=== PATIENT | male | born 1955 | race Caucasian/White ===

== ENCOUNTER → 2018-01-25 11:48 | Outpatient (CLI) | payer BC, SELFPAY ==
--- NOTE | 2018-01-25 | MISC_PTH ---
PATIENT: OLIVA GREY LOC: [facility] U#:[id number] AGE/SX: 69/M ROOM: RE01/25/[address]: Dr. Raymond Mooney MD : [id number] BED: DIS: SPEC #: [id number] RECD: 01/25/18 12:02 STATUS: LEATHA CHRISTAL #: [id number] JANES: 01/25/18 00:[address]: Raymond Mooney DEPT: SURGICAL PATHOLOGY RECD BY: Evan Arrington Tissues: Oral cavity, NOS Procedures: Special Stain Group I Surgery Specimen Level IV GMS Stain (control) HEADER OPERATION: Oral cavity growth biopsy PRE-OP DIAGNOSIS: Oral cavity growth TISSUE SUBMITTED: Oral cavity growth MICROSCOPIC DIAGNOSIS Oral cavity growth, biopsy: A fragment of squamous mucosa with mild epithelial hyperplasia, vascular ectasia and congestion. Negative for malignancy. Special stain for fungi is negative for organisms; matched control is appropriate. SJ:kingsley 01/28/18 COMMENT Case has been reviewed in consultation with Dr. Arcos who concurs with the above diagnosis. IDC:AM MICROSCOPIC DESCRIPTION Slides are reviewed. GROSS DESCRIPTION Received in fixative is one container labeled with the patient's name and designated oral cavity growth biopsy. The specimen consists of a piece of duncan mucosal tissue measuring 0.5 x 0.5 x 0.2 cm. The specimen is totally submitted in one cassette. / SJ:kingsley 01/27/18 TC:5 CPT: 11154, 06083
== END ==
PROVIDERS: Visit Provider Otolaryngology
DX: D37.09 Neoplasm of uncertain behavior of other specified sites of the oral cavity (principal)
CPT/HCPCS: 88305; 88312

== ENCOUNTER → 2018-08-19 09:47 | Outpatient (CLI) | payer BC, SELFPAY ==
--- NOTE | 2018-08-19 10:06 | EKG12_ITS ---
Test Reason : PREOP Blood Pressure : / mmHG Vent. Rate : 069 BPM Atrial Rate : 069 BPM P-R Int : 176 ms QRS Dur : 082 ms QT Int : 384 ms P-R-T Axes : 045 022 033 degrees QTc Int : 411 ms Normal sinus rhythm Normal ECG Confirmed by DENNIS EDMONDSON, IVAN ([id number]), scientific editor DARIO WILSON ([id number]) on 08/21/2018 8:25:08 AM Referred By: Salvador Olivera Confirmed By:IVAN COLLINS MD
[2018-08-19 10:25] LABS: Absolute Lymphocyte Count 1.55 X10^3/ul (0.83-4.51); Absolute Neutrophil Count 3.5 X10^3/uL (2.0-7.7); Basophil# 0.02 X10^3/uL; Basophil% 0.4 % (0-1); Eosinophil# 0.18 X10^3/uL; Eosinophils% 3.2 % (0-5); Hematocrit 38.4 % (40-54); Hemoglobin 11.1 g/dl (13.0-16.5); Lymphocyte # 1.55 X10^3/ul (4.0); Lymphocyte % 27.8 % (19-41); Mean Corp Hgb Conc 28.9 g/gl (32-36); Mean Corpuscular Hgb 22.4 pg (27.0-32.0); Mean Corpuscular Volume 77.4 fL (80-94); Mean Platelet Vol. 9.3 fl (6.2-12.0); Monocyte# 0.35 X10^3/uL; Monocyte% 6.3 % (0-10); Neutrophil # 3.47 X10^3/uL (2.7-7.7); Neutrophil % 62.3 % (47-70); Platelet Count 253 K/mm3 (150-450); RBC Distribution Width CV 16.3 % (11.6-14.6); RBC Distribution Width SD 46.1 fl (35.1-43.9); Red Blood Count 4.96 M/mm3 (4.6-6.2); White Blood Count 5.6 K/mm3 (4.4-11.0)
[2018-08-19 10:27] LABS: POSITIVE COUNT NO; POSITIVE DIFFERENTIAL NO; POSITIVE MORPHOLOGY NO
[2018-08-19 10:52] LABS: Anion Gap 6 (5-15); BUN 17 mg/dL (7-18); BUN/Creat Ratio 17.7 RATIO (10-20); Calcium,Total 8.5 mg/dL (8.5-10.1); Chloride 110 mmol/L (98-107); Creatinine, Serum 0.96 mg/dL (0.70-1.30); EST Glomerular Filtration Rate 84 mL/min (>60); Est Glom Filt Rate - Afr Amer 102 mL/min (>60); Glucose 115 mg/dL (74-106); Potassium 4.3 mmol/L (3.5-5.1); Sodium Level 141 mmol/L (136-145)
== END ==
PROVIDERS: Family Provider Internal Medicine; PCP Internal Medicine; Referring Provider Physician Assistant; Visit Provider Physician Assistant
DX: Z01.818 Encounter for other preprocedural examination (principal); Z01.810 Encounter for preprocedural cardiovascular examination
CPT/HCPCS: 36415; 80048; 85025; 93005

== ENCOUNTER 2024-05-15 07:33 | Inpatient (IN) | payer OTHER, MEDICARE, SELFPAY ==
[2024-05-15] VITALS (13 sets, daily range): BP systolic 116–172; BP diastolic 64–90; PULSE 63–84; RESP 14–22; TEMP 36.7–37.1; O2SAT 94–100; BMI 33.4; BMI 34.0
[2024-05-15 07:55] LABS: Absolute Lymphocyte Count 1.67 X10^3/uL (0.83-4.51); Absolute Neutrophil Count 4.9 X10^3/uL (2.0-7.7); Basophil# 0.04 X10^3/uL; Basophil% 0.5 % (0-1); Eosinophil# 0.16 X10^3/uL; Eosinophils% 2.1 % (0-5); Hematocrit 40.4 % (40-54); Lymphocyte # 1.67 X10^3/ul (0.83-4.51); Lymphocyte % 22.3 % (19-41); Mean Corp Hgb Conc 32.2 g/dL (32-36); Mean Corpuscular Volume 83.8 fL (80-94); Mean Platelet Vol. 8.4 fl (6.2-12.0); Monocyte# 0.65 X10^3/uL; Monocyte% 8.7 % (0-10); NRBC Flagged by Analyzer 0 % (0-5); Neutrophil # 4.94 X10^3/uL (2.7-7.7); Platelet Count 260 K/mm3 (150-450); RBC Distribution Width CV 12.7 % (11.6-14.6); RBC Distribution Width SD 38.4 fl (35.1-43.9); Red Blood Count 4.82 M/mm3 (4.6-6.2); White Blood Count 7.5 K/mm3 (4.4-11.0)
[2024-05-15 08:19] LABS: Anion Gap 5 (5-15); BUN 26 mg/dL (7-18); BUN/Creat Ratio 23.2 RATIO (10-20); Calcium,Total 9.5 mg/dL (8.5-10.1); Chloride 101 mmol/L (98-107); Creatinine, Serum 1.12 mg/dL (0.70-1.30); EST Glomerular Filtration Rate 69 mL/min (>60); Est Glom Filt Rate - Afr Amer 84 mL/min (>60); Estimated Creatinine Clearance 73.29 ml/min; Glucose 173 mg/dL (74-106); Potassium 3.8 mmol/L (3.5-5.1); Sodium Level 136 mmol/L (136-145); Troponin-I HS (w/2H Reflex) 12 pg/mL (3.0-78.0)
[2024-05-15 09:52] LABS: Reflex Troponin-HS? (from REC) Y
[2024-05-15 10:25] LABS: Troponin-I HS 116 pg/mL (3.0-78.0)
[2024-05-15] MEDS: Nitroglycerin (INPATIENT USE) 0.4 MG TAB.SUBL SL (11:03)
[2024-05-15 11:32] LABS: D-Dimer Quantitative (DVT/PE) 1.55 FEU/ug/m (0.27-0.49)
[2024-05-15] MEDS: Morphine 4 MG/ML Syringe IV (11:41)
[2024-05-15] MEDS: Ondansetron 4 MG/2 ML Vial IV (11:41)
[2024-05-15 12:06] LABS: BNP,B-Type NATRIURETIC PEPTIDE 5.5 pg/mL (0-100)
[2024-05-15 13:21] LABS: Prothrombin Time (Protime)PT. 13.2 SECONDS (11.7-14.9)
[2024-05-15 13:22] LABS: Partial Thromboplast Time 24.6 Seconds (24.1-36.2)
[2024-05-15] MEDS: HEPARIN/D5w 25,000 UNITS 25,000 UNITS/250 ML IV.SOLN. 10 UNITS CONT INF (14:50)
[2024-05-15] MEDS: Heparin Injection (Vial) 5,000 UNIT/ML VIAL 4000 UNIT IV (14:52)
[2024-05-15 14:59] LABS: Troponin-I HS 1104 pg/mL (3.0-78.0)
[2024-05-15 21:09] LABS: Partial Thromboplast Time 39.1 Seconds (24.1-36.2)
[2024-05-16] VITALS (9 sets, daily range): BP systolic 104–134; BP diastolic 64–95; PULSE 72–95; RESP 16–18; TEMP 36.4–36.9; O2SAT 95–96
[2024-05-16 04:08] LABS: Absolute Lymphocyte Count 2.13 X10^3/uL (0.83-4.51); Absolute Neutrophil Count 4.6 X10^3/uL (2.0-7.7); Basophil# 0.04 X10^3/uL; Basophil% 0.5 % (0-1); Eosinophils% 2.6 % (0-5); Hematocrit 38.9 % (40-54); Hemoglobin 12.4 g/dL (13.0-16.5); Lymphocyte # 2.13 X10^3/ul (0.83-4.51); Lymphocyte % 27.6 % (19-41); Mean Corp Hgb Conc 31.9 g/dL (32-36); Mean Corpuscular Volume 84.7 fL (80-94); Mean Platelet Vol. 8.7 fl (6.2-12.0); Monocyte# 0.71 X10^3/uL; Monocyte% 9.2 % (0-10); NRBC Flagged by Analyzer 0 % (0-5); Neutrophil # 4.62 X10^3/uL (2.7-7.7); Neutrophil % 59.8 % (47-70); Platelet Count 258 K/mm3 (150-450); RBC Distribution Width SD 39.8 fl (35.1-43.9); Red Blood Count 4.59 M/mm3 (4.6-6.2); White Blood Count 7.7 K/mm3 (4.4-11.0)
[2024-05-16 04:19] LABS: Partial Thromboplast Time 45.6 Seconds (24.1-36.2)
[2024-05-16 08:18] LABS: AST(SGOT) 103 U/L (15-37); Alanine Aminotransfer ALT/SGPT 111 U/L (16-61); Albumin, Serum 3.5 g/dL (3.2-5.0); Alkaline Phosphatase 58 U/L (45-117); Anion Gap 5 (5-15); BUN 21 mg/dL (7-18); BUN/Creat Ratio 20.8 RATIO (10-20); Calcium,Total 9.3 mg/dL (8.5-10.1); Chloride 101 mmol/L (98-107); Cholesterol 125 mg/dL (200); Creatinine, Serum 1.01 mg/dL (0.70-1.30); EST Glomerular Filtration Rate 78 mL/min (>60); Est Glom Filt Rate - Afr Amer 95 mL/min (>60); Estimated Creatinine Clearance 81.99 ml/min; Globulin 3.5 g/dL (2.2-4.2); Glucose 126 mg/dL (74-106); High Density Lipoprotein 30 mg/dL; Magnesium 1.9 mg/dL (1.6-2.6); Phosphorus 2.7 mg/dL (2.5-4.9); Potassium 3.8 mmol/L (3.5-5.1); Sodium Level 134 mmol/L (136-145); Triglycerides 231 mg/dL; Very Low Density Lipoprotein 46 mg/dL (5-40)
[2024-05-16] MEDS: Folic Acid 1 MG Tablet PO (09:37)
[2024-05-16] MEDS: Aspirin E.C. 81 MG Tablet PO (09:37)
[2024-05-16] MEDS: Pantoprazole Sodium 40 MG Tablet PO (09:37)
[2024-05-16] MEDS: Senna/Docusate Sodium 1 Tablet 2 TABLET PO ×3 (09:46→22:17)
[2024-05-16] MEDS: Finasteride 5 MG Tablet PO (09:46)
[2024-05-16] MEDS: Nitroglycerin (INPATIENT USE) 0.4 MG TAB.SUBL SL (10:49)
[2024-05-16] MEDS: FLU VACCINE **HIGH DOSE** TV 24-25 180 MCG/0.5 ML SYRINGE IM (10:51)
[2024-05-16 11:50] LABS: Partial Thromboplast Time 42.3 Seconds (24.1-36.2)
[2024-05-16] MEDS: hydroCHLOROthiazide 25 MG Tablet PO (11:54)
[2024-05-16] MEDS: amLODIPine 5 MG Tablet PO (11:55)
[2024-05-16] MEDS: HEPARIN/D5w 25,000 UNITS 25,000 UNITS/250 ML IV.SOLN. 14 UNITS CONT INF (12:04)
[2024-05-16] MEDS: Losartan Potassium 100 MG Tablet PO (14:53)
[2024-05-16 15:33] LABS: Hemoglobin A1c 6.5 % (3.8-5.6)
[2024-05-16 18:07] LABS: Partial Thromboplast Time 47.3 Seconds (24.1-36.2)
[2024-05-16] MEDS: Metoprolol(XL)Succ 50 MG Tablet PO (22:04)
[2024-05-16] MEDS: Atorvastatin Calcium 20 MG Tablet PO (22:05)
[2024-05-16] MEDS: Nitroglycerin Oint 1 INCH PACKET 0.5 INCH TD (22:07)
[2024-05-17] VITALS (9 sets, daily range): BP systolic 110–128; BP diastolic 66–95; PULSE 68–93; RESP 15–18; TEMP 36.4–36.9; O2SAT 96–97
[2024-05-17 00:54] LABS: Partial Thromboplast Time 51.3 Seconds (24.1-36.2)
[2024-05-17] MEDS: Nitroglycerin Oint 1 INCH PACKET 0.5 INCH TD ×3 (06:00→22:53)
[2024-05-17] MEDS: HEPARIN/D5w 25,000 UNITS 25,000 UNITS/250 ML IV.SOLN. 16 UNITS CONT INF (06:59)
[2024-05-17 08:28] LABS: Partial Thromboplast Time 56.4 Seconds (24.1-36.2)
[2024-05-17] MEDS: Losartan Potassium 100 MG Tablet PO (09:42)
[2024-05-17] MEDS: Pantoprazole Sodium 40 MG Tablet PO (09:42)
[2024-05-17] MEDS: Aspirin E.C. 81 MG Tablet PO (09:42)
[2024-05-17] MEDS: hydroCHLOROthiazide 25 MG Tablet PO (09:42)
[2024-05-17] MEDS: amLODIPine 5 MG Tablet PO (09:43)
[2024-05-17] MEDS: Folic Acid 1 MG Tablet PO (09:43)
[2024-05-17] MEDS: Finasteride 5 MG Tablet PO (09:44)
[2024-05-17 13:32] LABS: Partial Thromboplast Time 58.1 Seconds (24.1-36.2)
[2024-05-17] MEDS: Metoprolol(XL)Succ 50 MG Tablet PO (20:52)
[2024-05-17] MEDS: Atorvastatin Calcium 20 MG Tablet PO (20:52)
[2024-05-18] VITALS (14 sets, daily range): BP systolic 97–131; BP diastolic 61–84; PULSE 67–88; RESP 15–18; TEMP 36.4–36.7; O2SAT 90–99
[2024-05-18] MEDS: HEPARIN/D5w 25,000 UNITS 25,000 UNITS/250 ML IV.SOLN. 16 UNITS CONT INF (00:32)
[2024-05-18] MEDS: amLODIPine 5 MG Tablet PO (06:08)
[2024-05-18] MEDS: Pantoprazole Sodium 40 MG Tablet PO (06:08)
[2024-05-18] MEDS: Losartan Potassium 100 MG Tablet PO (06:09)
[2024-05-18] MEDS: Nitroglycerin Oint 1 INCH PACKET 0.5 INCH TD (06:09)
[2024-05-18] MEDS: Aspirin E.C. 81 MG Tablet PO (06:09)
[2024-05-18 06:14] LABS: Hematocrit 39.1 % (40-54); Hemoglobin 12.9 g/dL (13.0-16.5); Mean Corpuscular Hgb 27.6 pg (27.0-32.0); Mean Corpuscular Volume 83.5 fL (80-94); Mean Platelet Vol. 8.8 fl (6.2-12.0); Platelet Count 294 K/mm3 (150-450); RBC Distribution Width CV 12.9 % (11.6-14.6); RBC Distribution Width SD 38.5 fl (35.1-43.9); Red Blood Count 4.68 M/mm3 (4.6-6.2); White Blood Count 9.5 K/mm3 (4.4-11.0)
[2024-05-18 06:58] LABS: Anion Gap 8 (5-15); BUN 21 mg/dL (7-18); BUN/Creat Ratio 19.3 RATIO (10-20); Calcium,Total 9.4 mg/dL (8.5-10.1); Chloride 102 mmol/L (98-107); Creatinine, Serum 1.09 mg/dL (0.70-1.30); EST Glomerular Filtration Rate 72 mL/min (>60); Est Glom Filt Rate - Afr Amer 87 mL/min (>60); Estimated Creatinine Clearance 75.98 ml/min; Glucose 130 mg/dL (74-106); Potassium 3.5 mmol/L (3.5-5.1); Sodium Level 135 mmol/L (136-145)
[2024-05-18] MEDS: Folic Acid 1 MG Tablet PO (13:38)
[2024-05-18] MEDS: Finasteride 5 MG Tablet PO (13:38)
[2024-05-18] MEDS: Senna/Docusate Sodium 1 Tablet 2 TABLET PO (13:41)
[2024-05-18] MEDS: 0.9% Saline Lock 10 ML Syringe IV (21:48)
[2024-05-18] MEDS: TICAGRELOR 90 MG TABLET PO (21:48)
[2024-05-18] MEDS: Atorvastatin Calcium 20 MG Tablet PO (21:48)
[2024-05-18] MEDS: Metoprolol(XL)Succ 50 MG Tablet PO (21:48)
[2024-05-19 03:30] VITALS: BP 116/72; PULSE 74; RESP 16; TEMP 36.7; O2SAT 94
[2024-05-19 06:59] LABS: Hematocrit 39.7 % (40-54); Hemoglobin 13.2 g/dL (13.0-16.5); Mean Corp Hgb Conc 33.2 g/dL (32-36); Mean Corpuscular Hgb 27.5 pg (27.0-32.0); Mean Corpuscular Volume 82.7 fL (80-94); Mean Platelet Vol. 8.8 fl (6.2-12.0); Platelet Count 305 K/mm3 (150-450); RBC Distribution Width SD 39.2 fl (35.1-43.9); White Blood Count 10.4 K/mm3 (4.4-11.0)
[2024-05-19 07:17] LABS: AST(SGOT) 85 U/L (15-37); Alanine Aminotransfer ALT/SGPT 152 U/L (16-61); Albumin, Serum 3.7 g/dL (3.2-5.0); Alkaline Phosphatase 65 U/L (45-117); Anion Gap 7 (5-15); BUN 16 mg/dL (7-18); BUN/Creat Ratio 15.1 RATIO (10-20); Calcium,Total 9.2 mg/dL (8.5-10.1); Chloride 101 mmol/L (98-107); Creatinine, Serum 1.06 mg/dL (0.70-1.30); EST Glomerular Filtration Rate 74 mL/min (>60); Est Glom Filt Rate - Afr Amer 89 mL/min (>60); Estimated Creatinine Clearance 78.13 ml/min; Globulin 3.7 g/dL (2.2-4.2); Glucose 127 mg/dL (74-106); Potassium 3.6 mmol/L (3.5-5.1); Protein, Total 7.4 g/dL (6.4-8.2); Sodium Level 135 mmol/L (136-145)
[2024-05-19 08:19] VITALS: O2SAT 95
[2024-05-19 09:06] VITALS: BP 147/80; PULSE 89; RESP 16; TEMP 36.7; O2SAT 95
[2024-05-19] MEDS: Pantoprazole Sodium 40 MG Tablet PO (09:09)
[2024-05-19] MEDS: Aspirin E.C. 81 MG Tablet PO (09:09)
[2024-05-19] MEDS: Folic Acid 1 MG Tablet PO (09:09)
[2024-05-19] MEDS: TICAGRELOR 90 MG TABLET PO (09:10)
[2024-05-19] MEDS: amLODIPine 5 MG Tablet PO (09:11)
[2024-05-19] MEDS: Finasteride 5 MG Tablet PO (09:11)
[2024-05-19] MEDS: hydroCHLOROthiazide 25 MG Tablet PO (09:11)
[2024-05-19] MEDS: Losartan Potassium 100 MG Tablet PO (09:11)
== END 2024-05-19 12:42 | disposition home or self-care (01) | DRG 322 ==
LOC: ED 13:08 → PCU 13:13
PROVIDERS: Specialist; Admitting Provider Internal Medicine; Emergency Provider Emergency Medicine; PCP Internal Medicine; Visit Provider Internal Medicine
DX: I21.4 Non-ST elevation (NSTEMI) myocardial infarction (principal); E11.65 Type 2 diabetes mellitus with hyperglycemia; I10 Essential (primary) hypertension; E78.5 Hyperlipidemia, unspecified; K21.9 Gastro-esophageal reflux disease without esophagitis; I25.10 Atherosclerotic heart disease of native coronary artery without angina pectoris; M19.90 Unspecified osteoarthritis, unspecified site; Z87.891 Personal history of nicotine dependence
CPT/HCPCS: 36415; 71045; 71275; 80048; 80053; 80061; 83036; 83735; 83880; 84100; 84443; 84484; 85025; 85027; 85379; 85610; 85730; 90662; 92928; 93005; 93306; 93458; 94668; 97802; 99152; 99153; 99285; C1874; J7040; Q9957; Q9967; A4216; C1725; C1769; C1887; C1894; C8929; C9600; J1327; J2405

== ENCOUNTER 2024-08-09 07:19 | Emergency (ER) | payer OTHER, SELFPAY ==
[2024-08-09 07:20] VITALS: BP 144/74; PULSE 76; RESP 14; TEMP 36.6; O2SAT 98; BMI 32.3
--- NOTE | 2024-08-09 07:28 | EKG12_ITS ---
Test Reason : Blood Pressure : */* mmHG Vent. Rate : 67 BPM Atrial Rate : 67 BPM P-R Int : 194 ms QRS Dur : 92 ms QT Int : 394 ms P-R-T Axes : 28 -14 -7 degrees QTcB Int : 416 ms Normal sinus rhythm Normal ECG Confirmed by IVAN EDMONDSON, OSORIO ([id number]), editorial intern DERICK RDZ ([id number]) on 08/10/2024 10:54:55 A M Referred By: Confirmed By: OSORIO LOVE MD
--- NOTE | 2024-08-09 07:29 | RAD_ITS ---
EXAM: XR CHEST, 2 VIEWS CLINICAL INDICATION: chest pain TECHNIQUE: Frontal and lateral views of the chest. COMPARISON: XR Chest dated 05/15/2024 FINDINGS: LUNGS AND PLEURAL SPACES: Normal. No consolidation or edema. No pneumothorax. No effusion. HEART: Normal heart size. MEDIASTINUM: No mediastinal or hilar mass. BONES/JOINTS: No acute abnormality. RAD/Chest PA and Lateral IMPRESSION: No acute cardiopulmonary abnormality. No interval change. Electronically Signed: Mathew Faith MD at 8:51 EST ,
--- NOTE | 2024-08-09 07:31 | EDS_ITS ---
HPI History of Present Illness Chief Complaint: Chest Pain Detail of Chief Complaint: Left-sided chest pain Informant: patient and spouse/S.O. Onset/Context/Timing Onset: Today (Started approximately 0530 when he put wood into the burner this morning) and Yesterday (Yesterday at 1700 until approximately 2100) Activity at onset: sudden Timing: Continuous (Since onset this morning) and Intermittent (For 4 hours yesterday) Quality: Positive for - (Discomfort) Location: Left Parasternal Current Severity: Mild Maximum Severity: Moderate Worsened By: Nothing Relieved By: Nothing Associated Symptoms: Negative for Nausea, Vomiting, Diaphoresis, Dyspnea, Cough, Fever, Lightheadedness, Acid Reflux or Palpitations Narrative Narrative: Patient is a 68-year-old male. He has history of coronary disease with deployment of stent proximal RCA by Dr. Meza. Cath was performed by Dr. Gutierrez. He presents because of chest discomfort that he experienced yesterday for 4 hours that came on at rest and today pain started at 0530 after putting wood in the burner. He has no radiation or associated symptoms. This is not as intense as discomfort experience in April 2024. He does have history of hypertension, on cholesterol medication. He has no history of diabetes. He quit smoking approximately 2 decades ago. He did take aspirin this morning. He is on Brilinta. He denies abdominal pain. He does have history of reflux. He states that is under control. He is on medicine for that. He denies black or maroon-colored stool. He has had swelling of his right leg for approximately 2 to 3 years. He sleeps with multiple pillows. He states he was scheduled to have knee surgery and was postponed because of the non-ST elevation DE that he experienced in April of last year. He attributes the swelling to the knee problem. He denies history of VTE. He has no risk factors for VTE. He denies shortness of breath or pleuritic pain. Prior Similar Symptoms: No Recent Illness/Hospitalization: No CVD Risk Factors: Positive for Hypertension, Hypercholesterolemia (On cholesterol medicine however not listed as a medical problem. Will review prior labs) and Smoking (Quit 20 years ago); Negative for Diabetes or Family History 1' </=55 PE Risk Factors: Negative for Recent Travel/Surgery, Recent Immobilization, Prior DVT or PE, Cancer or OCP + Smoking + >/=35 TAD Risk Factors: Positive for Hypertension; Negative for Marfan's Syndrome or Family History PFSH [facility] Medical History Essential hypertension Hyperglycemia Acute non-ST elevation myocardial infarction (NSTEMI) Elevated troponin History of gastroesophageal reflux (GERD) Chest pain of uncertain etiology Atherosclerosis of coronary artery of [place] heart without angina pectoris Kidney stone Back pain Knee pain Shoulder pain SOB (shortness of breath) Arthritis HTN (hypertension) Home Medications ?Medication ?Instructions ?Recorded ?Last Taken ?Type atorvastatin 20 mg tablet 20 mg PO DAILY cholesterol 01/09/17 Unknown History koiw-etz-odgwo-qmbgoaqrs-cooqmsjm-ybkt-pectin 1,000 mg PO DAILY bowels 01/09/17 Unknown History 1,000 mg tablet cholecalciferol (vitamin D3) 25 1,000 unit PO DAILY supplement 01/09/17 Unknown History mcg (1,000 unit) capsule finasteride 1 mg tablet 1 mg PO QHS prostate 01/09/17 Unknown History folic acid 1 mg tablet 1 mg PO DAILY@0800 supplement 01/09/17 Unknown History metoprolol succinate 50 mg 50 mg PO DAILY HR 01/09/17 Unknown History tablet,extended release 24 hr amlodipine 5 mg tablet 5 mg PO DAILY blood pressure 05/15/24 Unknown History losartan 100 mg tablet 100 mg PO DAILY blood pressure 05/15/24 Unknown History omeprazole 40 mg capsule,delayed 40 mg PO DAILY acid reflux 05/15/24 Unknown History release acetaminophen 325 mg tablet 650 mg (2 x 325 mg) PO Q6H PRN PRN 05/19/24 Unknown Rx Pain 1-10 Or Fever >100.7 #0 tabs aspirin 81 mg tablet,delayed 81 mg PO BREAKFAST #0 tabs 05/19/24 Unknown Rx release ticagrelor 90 mg tablet (Brilinta) 90 mg PO BID #180 tabs 06/02/24 Unknown Rx Allergy/AdvReac Type Severity Reaction Status Date / Time No Known Allergies Allergy Verified 08/09/24 07:19 Family History Other Heart disease Hypertension Surgical History History of coronary artery stent placement (10/28/24) History of gastric surgery History of foot surgery History of knee surgery Social History household members: spouse housing: house Smoking Status: Former smoker Tobacco: How many years used: 20 how long ago did patient quit smoking: Quit about 20 years ago and has a 64-uopu-[id number] history alcohol intake: current alcohol intake frequency: a few times a month substance use type: does not use ROS ROS ED Constitutional Constitutional ED: Denies chills, fever(s), subjective or sweats Eyes Eyes: Reports none Cardiovascular Cardiovascular: Reports as per HPI; Denies orthopnea or paroxysmal nocturnal dyspnea Respiratory/Chest Respiratory/Chest: Denies cough, dyspnea, dyspnea on exertion, orthopnea or paroxysmal nocturnal dyspnea Gastrointestinal Gastrointestinal: Denies abdominal pain, melena, nausea or vomiting Musculoskeletal Musculoskeletal: Denies arthralgias, back pain, myalgias or neck pain Integumentary Denies rash Neurologic Neurologic: Denies paresthesias Hematologic/Lymphatic Hematologic/Lymphatic: Denies easy bleeding or easy bruising EXAM Physical Exam Const Vital Signs: 08/09/24 07:20 08/09/24 07:39 08/09/24 08:19 Temperature 98 F Temperature Source Temporal Pulse Rate 76 64 Respiratory Rate 14 18 Blood Pressure 144/74 H 131/73 H Blood Pressure Mean 97 92 Pulse Ox 98 98 Oxygen Delivery Method Room Air Room Air Room Air 08/09/24 09:00 08/09/24 10:02 Temperature Temperature Source Pulse Rate 71 67 Respiratory Rate 18 12 Blood Pressure 123/76 H 139/76 H Blood Pressure Mean 91 97 Pulse Ox 95 95 Oxygen Delivery Method Room Air Room Air Positive well nourished Constitutional Narrative: BMI is 32.2. He appears in no discomfort. Blood pressure is slightly elevated. General Appearance ED: NAD; Negative for pallor HEENT Reports moist mucous membranes normocephalic and atraumatic Eyes EOMs intact bilaterally General Eye ED: Negative for pale conjunctiva or scleral icterus Neck no lymphadenopathy, supple and no JVD Chest Wall inspection of chest normal and palpation of chest normal Resp normal respiratory effort and clear to auscultation bilaterally Cardio regular rate, regular rhythm, S1 normal heart sound, S2 normal heart sound and no murmurs Peripheral Pulses: pulses 2+ throughout GI normal to inspection, nondistended, normoactive bowel sounds, soft to palpation, non-tender, non-distended and no masses; Negative for hepatosplenomegaly Back/Spine Back/Spine Narrative: Inspection of the back looks normal. Extremity Extremity Narrative: Mild edema of the lower extremities. This is pitting. Neuro oriented x3 and CN's II-XII intact bilaterally Sensorium / Orientation: awake and alert Psych mental status grossly normal Skin no rashes or lesions noted and no wounds General Skin Exam: Negative for jaundice or pallor Heart Score History: Slightly/Non-Suspicious ECG: Normal Age: >/= 65 years Risk Factors: 1 or 2 Risk Factors Score: 3 MDM MDM MDM Narrative Medical decision making narrative: Differential diagnosis is cardiac versus noncardiac. Noncardiac would include GERD, hiatal hernia, peptic ulcer disease, pulmonary. History is not suggestive of pulmonary embolus. History is not suggestive of biliary/liver disease. Review of prior records indicates patient's had chest pain that spent atypical of uncertain etiology. History & Record Review Additional record(s) reviewed:: Prior inpatient record (Admission for non-STEMI and cath report authored by Dr. Gutierrez and Dr. Meza) and Prior labs Lab Data Attestation: I reviewed the patient's lab results. Lab results narrative: CBC reveals mild anemia with normal indices. Basic metabolic panel reveals slight elevation in glucose of 138 with normal CO2 anion gap. First troponin is normal at 9. 2-hour troponin is pending. Labs: Laboratory Results - last 24 hr 08/09/24 08/09/24 07:35 09:44 WBC 6.2 RBC 4.83 Hgb 12.8 L Hct 39.7 L MCV 82.2 MCH 26.5 L MCHC 32.2 RDW Std Deviation 39.9 RDW Coeff of Deangelo 13.4 Plt Count 284 MPV 8.6 Immature Gran % (Auto) 0.300 Neut % (Auto) 63.0 Lymph % (Auto) 24.0 Glades % (Auto) 9.8 Eos % (Auto) 2.3 Baso % (Auto) 0.6 Absolute Neuts (auto) 3.9 Absolute Lymphs (auto) 1.49 Nucleated RBC % 0 Sodium 138 Potassium 3.2 L Chloride 104 Carbon Dioxide 27.0 Anion Gap 7 BUN 17 Creatinine 0.96 Estim Creat Clear Calc 84.11 Est GFR (MDRD) Af Amer 100 Est GFR (MDRD) Non-Af 83 BUN/Creatinine Ratio 17.7 Glucose 138 H Calcium 9.8 Troponin I High Sens 9 12 2-hour troponin is 12 with a delta of 3. Patient's heart score is a 3. Patient is safe for discharge to home and follow-up with cardiology. Radiography Chest X-Ray - ED: 2 View, Read by ED Physician (Independently reviewed interpreted by me at 0846.), Unchanged, Normal, Heart, Mediastinum, Bony Structures and No Acute Disease Diagnostic Testing: Clinical Impression(s) from Imaging Studies Chest X-Ray 08/09/24 07:29 IMPRESSION: No acute cardiopulmonary abnormality. No interval change. Electronically Signed: Mathew Faith MD at 8:51 EST , EKG Initial EKG: Attestation: I personally reviewed and interpreted this EKG as follows: Interpretation: Sinus Rhythm (Rate is 67. EKG is normal. VA interval is 194 ms. QS duration 92 ms. QT duration are 94 ms axis is normal. Prior EKG was obtained in May 19. At that time he had a left axis. There was nonspecific ST changes. This was during hospitalization for non-STEMI.) Treatment and Re-Evaluation :: Results were discussed with the patient and spouse. Discharge Plan Triage Chief Complaint: Chest Pain ED Provider: Rafa Pulido Dx/Rx/DC Orders Clinical Impression: Left-sided chest pain, History of hypertension, History of coronary artery stent placement, Atherosclerosis of coronary artery of [place] heart without angina pectoris, Essential hypertension, Elevated blood sugar level Instructions: ED Chest Pain, Noncardiac, ED Chest Pain, Uncertain Cause Prescriptions: No Action Brilinta 90 mg tablet 90 mg PO BID Qty: 180 3RF atorvastatin 20 MG tablet 20 mg PO DAILY metoprolol succinate 50 MG tablet extended release 24 hr 50 mg PO DAILY folic acid 1 MG tablet 1 mg PO DAILY@0800 finasteride 1 MG tablet 1 mg PO QHS cholecalciferol (vitamin D3) 1,000 UNIT capsule 1,000 unit PO DAILY jxyv-jms-ykv-adl-ywxa-gdlt-pec 1,000 MG tablet 1,000 mg PO DAILY amlodipine 5 mg tablet 5 mg PO DAILY omeprazole 40 mg capsule,delayed release(DR/EC) 40 mg PO DAILY losartan 100 mg tablet 100 mg PO DAILY acetaminophen 325 mg Tablet 650 mg PO Q6H PRN PRN (Reason: Pain 1-10 Or Fever >100.7) Qty: 0 0RF aspirin 81 mg Tablet,Delayed Release (Dr/Ec) 81 mg PO BREAKFAST Qty: 0 0RF Primary Care Provider: Juan J Rubalcava Referrals: Juan J Rubalcava MD [Primary Care Provider] - 3-5 Days Print Language: Greenlandic Disposition Disposition: Home, Self Care
[2024-08-09 07:45] LABS: Absolute Lymphocyte Count 1.49 X10^3/uL (0.83-4.51); Absolute Neutrophil Count 3.9 X10^3/uL (2.0-7.7); Basophil# 0.04 X10^3/uL; Basophil% 0.6 % (0-1); Eosinophil# 0.14 X10^3/uL; Eosinophils% 2.3 % (0-5); Hematocrit 39.7 % (40-54); Hemoglobin 12.8 g/dL (13.0-16.5); Lymphocyte # 1.49 X10^3/ul (0.83-4.51); Mean Corp Hgb Conc 32.2 g/dL (32-36); Mean Corpuscular Hgb 26.5 pg (27.0-32.0); Mean Corpuscular Volume 82.2 fL (80-94); Mean Platelet Vol. 8.6 fl (6.2-12.0); Monocyte# 0.61 X10^3/uL; Monocyte% 9.8 % (0-10); NRBC Flagged by Analyzer 0 % (0-5); Platelet Count 284 K/mm3 (150-450); RBC Distribution Width CV 13.4 % (11.6-14.6); RBC Distribution Width SD 39.9 fl (35.1-43.9); Red Blood Count 4.83 M/mm3 (4.6-6.2); White Blood Count 6.2 K/mm3 (4.4-11.0)
[2024-08-09 08:05] LABS: Anion Gap 7 (5-15); BUN 17 mg/dL (7-18); BUN/Creat Ratio 17.7 RATIO (10-20); Calcium,Total 9.8 mg/dL (8.5-10.1); Chloride 104 mmol/L (98-107); Creatinine, Serum 0.96 mg/dL (0.70-1.30); EST Glomerular Filtration Rate 83 mL/min (>60); Est Glom Filt Rate - Afr Amer 100 mL/min (>60); Estimated Creatinine Clearance 84.11 ml/min; Glucose 138 mg/dL (74-106); Potassium 3.2 mmol/L (3.5-5.1); Sodium Level 138 mmol/L (136-145); Troponin-I HS (w/2H Reflex) 9 pg/mL (3.0-78.0)
[2024-08-09 08:19] VITALS: BP 131/73; PULSE 64; RESP 18; O2SAT 98
[2024-08-09 09:00] VITALS: BP 123/76; PULSE 71; RESP 18; O2SAT 95
[2024-08-09 09:43] LABS: Reflex Troponin-HS? (from REC) Y
[2024-08-09 10:02] VITALS: BP 139/76; PULSE 67; RESP 12; O2SAT 95
[2024-08-09 10:09] LABS: Troponin-I HS 12 pg/mL (3.0-78.0)
[2024-08-09 10:19] VITALS: BP 129/70; PULSE 65; RESP 12; TEMP 36.6; O2SAT 95
== END 2024-08-09 10:22 | disposition home or self-care (01) ==
PROVIDERS: Emergency Provider Emergency Medicine; PCP Internal Medicine; Visit Provider Emergency Medicine
DX: R07.89 Other chest pain (principal); I25.2 Old myocardial infarction; I25.10 Atherosclerotic heart disease of native coronary artery without angina pectoris; Z87.891 Personal history of nicotine dependence; I10 Essential (primary) hypertension; Z95.5 Presence of coronary angioplasty implant and graft; E78.00 Pure hypercholesterolemia, unspecified; Z79.02 Long term (current) use of antithrombotics/antiplatelets; Z79.899 Other long term (current) drug therapy
CPT/HCPCS: 71046; 80048; 84484; 85025; 93005; 99284; A4216

== ENCOUNTER 2024-08-16 07:20 | Emergency (ER) | payer OTHER, SELFPAY ==
[2024-08-16 07:20] VITALS: BP 130/73; PULSE 84; RESP 16; TEMP 36.7; O2SAT 96
--- NOTE | 2024-08-16 07:23 | RAD_ITS ---
HISTORY: INJURY. TECHNIQUE: XR Hip Unilateral with Pelvis when performed; 2-3 Views. COMPARISON: None. FINDINGS: OSSEOUS STRUCTURES: No acute displaced fracture identified. Note that overlapping bowel shadows may obscure osseous detail. Mineralization unremarkable. JOINT SPACES: No dislocation. Mild degenerative changes of the hips. SOFT TISSUES: Suture in the region of the rectum. RAD/HIP, UNI W/ Pelvis 2-3 Views IMPRESSION: No acute displaced fracture or dislocation identified. Electronically Signed: Micaela Santoro MD at 11:22 EST ,
--- NOTE | 2024-08-16 07:32 | EDS_ITS ---
HPI History of Present Illness Chief Complaint: Lower Extremity Injury Detail of Chief Complaint: Pain localized to the right ischial tuberosity and posterior midline lumbar Informant: patient and spouse/S.O. Onset/Context/Timing Onset: Days (Patient slipped on ice August 14) Context: Sudden Onset Timing: Continuous and Waxes and wanes Quality: Pain Location: Lumbar and right ischial tuberosity Current Severity: Mild Maximum Severity: Moderate Worsened by: Movement and palpation Relieved by: Nothing Associated Symptoms Associated Symptoms: No bowel or bladder symptoms. No radicular pain. Narrative Narrative: Patient is a 68-year-old male. He has history of hypertension, GERD, coronary artery disease with placement of stent April 2024 on aspirin and Brilinta, and elevated blood sugar on no medication for diabetes. He presents status post fall. Fall occurred on August 14. He slipped on ice. He landed on his buttocks. He is localizing pain to the posterior mid to right lower back and pelvis region over the ischial tuberosity. He denies pain in the groin or over the right greater trochanteric region. He denies radicular pain. He denies bowel bladder dysfunction. He denies history of kidney disease. Prior similar symptoms: No Recent Illness/Hospitalization: No [facility] Medical History Essential hypertension Hyperglycemia Acute non-ST elevation myocardial infarction (NSTEMI) Elevated troponin History of gastroesophageal reflux (GERD) Chest pain of uncertain etiology Atherosclerosis of coronary artery of [place] heart without angina pectoris Kidney stone Back pain Knee pain Shoulder pain SOB (shortness of breath) Arthritis HTN (hypertension) Home Medications ?Medication ?Instructions ?Recorded ?Last Taken ?Type atorvastatin 20 mg tablet 20 mg PO DAILY cholesterol 01/09/17 Unknown History wmgj-yvk-ihmmq-mtbgjddqi-hfwpjvqt-mivx-pectin 1,000 mg PO DAILY bowels 01/09/17 Unknown History 1,000 mg tablet cholecalciferol (vitamin D3) 25 1,000 unit PO DAILY supplement 01/09/17 Unknown History mcg (1,000 unit) capsule finasteride 1 mg tablet 1 mg PO QHS prostate 01/09/17 Unknown History folic acid 1 mg tablet 1 mg PO DAILY@0800 supplement 01/09/17 Unknown History metoprolol succinate 50 mg 50 mg PO DAILY HR 01/09/17 Unknown History tablet,extended release 24 hr amlodipine 5 mg tablet 5 mg PO DAILY blood pressure 05/15/24 Unknown History losartan 100 mg tablet 100 mg PO DAILY blood pressure 05/15/24 Unknown History omeprazole 40 mg capsule,delayed 40 mg PO DAILY acid reflux 05/15/24 Unknown History release acetaminophen 325 mg tablet 650 mg (2 x 325 mg) PO Q6H PRN PRN 05/19/24 Unknown Rx Pain 1-10 Or Fever >100.7 #0 tabs aspirin 81 mg tablet,delayed 81 mg PO BREAKFAST #0 tabs 05/19/24 Unknown Rx release ticagrelor 90 mg tablet (Brilinta) 90 mg PO BID #180 tabs 06/02/24 Unknown Rx oxycodone-acetaminophen 5 mg-325 1 tab PO Q6H PRN PRN Pain 3 days 08/16/24 Unknown Rx mg tablet #12 TABLETS Allergy/AdvReac Type Severity Reaction Status Date / Time No Known Allergies Allergy Verified 08/16/24 07:22 Family History Other Heart disease Hypertension Surgical History History of coronary artery stent placement (05/18/24) History of gastric surgery History of foot surgery History of knee surgery Social History household members: spouse housing: house Smoking Status: Former smoker Tobacco: How many years used: 20 how long ago did patient quit smoking: Quit about 20 years ago and has a 94-matd-txjv history alcohol intake: current alcohol intake frequency: a few times a month substance use type: does not use ROS ROS ED Constitutional Constitutional ED: Denies chills or fever(s) Eyes Eyes: Denies change in vision Cardiovascular Cardiovascular: Denies chest pain Gastrointestinal Gastrointestinal: Denies abdominal pain Musculoskeletal Musculoskeletal: Reports back pain; Denies arthralgias or myalgias Neurologic Neurologic: Denies paresthesias or weakness Hematologic/Lymphatic Hematologic/Lymphatic: Reports systems reviewed and no addt'l complaints, except as documented EXAM Physical Exam Const Vital Signs: 08/16/24 07:20 Temperature 98.1 F Temperature Source Temporal Pulse Rate 84 Respiratory Rate 16 Blood Pressure 130/73 H Blood Pressure Mean 92 Pulse Ox 96 Oxygen Delivery Method Room Air Positive well nourished and well developed General Appearance ED: well developed and NAD; Negative for pallor HEENT Reports moist mucous membranes Eyes PERRL and EOMs intact bilaterally Neck no lymphadenopathy, supple and no JVD Resp normal respiratory effort Cardio regular rate and regular rhythm GI non-tender, non-distended and no masses Palpation: soft Back/Spine no CVA tenderness Back/Spine Narrative: There is also pain over the right ischial tuberosity. Lumbar Spine / Lower Back: lumbar spinal tenderness L4 and L5 Extremity normal to inspection Extremity Narrative: There is no shortening. There is no discomfort with logrolling. Gustavo Arnoldo 4 test elicits no pain. There is no pain the patient with the pubic symphysis or right iliac wing. EHL is intact. PT pulses palpable and 2+. Negative clonus or Babinski sign. Neuro oriented x3, CN's II-XII intact bilaterally and no sensory deficits noted Sensorium / Orientation: alert Psych mental status grossly normal Skin no rashes or lesions noted, no wounds and skin turgor normal General Skin Exam: Negative for jaundice or pallor MDM MDM MDM Narrative Medical decision making narrative: With point tenderness over the right ischial tuberosity will obtain x-ray of the pelvis to rule out fracture. With fall and posterior midline pain over the lower lumbar vertebrae x-ray was obtained to evaluate for compression fracture versus contusion/strain of the lower back. Since patient is still complaining of pain in spite of taking oxycodone approximately 2 hours prior to presentation IV was established and he was treated with IV morphine. History & Record Review Additional record(s) reviewed:: Prior inpatient record (Admitted April 2024 for non-STEMI. Had stent placed.) and Prior labs Radiography Chest X-Ray - ED: Read by ED Physician (Three-view x-ray of the hip reveals no fracture, subluxation dislocation of the hip or pelvis. SI joint is symmetric., 0750) and - (2 view x-ray of the LS spine was interpreted by me at 0750 as negative for fracture, subluxation dislocation. Patient has significant degenerative changes. There is mild calcification aorta. Aortic is normal size. There is asymmetry of the disc bases.) Treatment and Re-Evaluation :: Patient was reassessed at 0805. Patient states his pain is markedly better. The oxycodone tablet he took was prescribed to his for back surgery many years ago. Plan is to discharge to home with opiate analgesia. He is instructed to apply ice not heat. He did apply heat once. Since he is on Brilinta and aspirin will not prescribe NSAIDs. Discharge Plan Triage Chief Complaint: Lower Extremity Injury ED Provider: Rafa Pulido Dx/Rx/DC Orders Clinical Impression: Posterior pain of right hip, Low back pain, Injury due to fall, Elevated blood pressure reading with diagnosis of hypertension, Antiplatelet or antithrombotic long-term use Instructions: ED Back Pain (Acute or Chronic) Prescriptions: New oxycodone-acetaminophen 5-325 mg tablet 1 tab PO Q6H PRN PRN (Reason: Pain) 3 Days Qty: 12 0RF No Action Brilinta 90 mg tablet 90 mg PO BID Qty: 180 3RF atorvastatin 20 MG tablet 20 mg PO DAILY metoprolol succinate 50 MG tablet extended release 24 hr 50 mg PO DAILY folic acid 1 MG tablet 1 mg PO DAILY@0800 finasteride 1 MG tablet 1 mg PO QHS cholecalciferol (vitamin D3) 1,000 UNIT capsule 1,000 unit PO DAILY potp-ndv-lac-khz-siay-rygk-pec 1,000 MG tablet 1,000 mg PO DAILY amlodipine 5 mg tablet 5 mg PO DAILY omeprazole 40 mg capsule,delayed release(DR/EC) 40 mg PO DAILY losartan 100 mg tablet 100 mg PO DAILY acetaminophen 325 mg Tablet 650 mg PO Q6H PRN PRN (Reason: Pain 1-10 Or Fever >100.7) Qty: 0 0RF aspirin 81 mg Tablet,Delayed Release (Dr/Ec) 81 mg PO BREAKFAST Qty: 0 0RF Primary Care Provider: Juan J Rubalcava Referrals: Juan J Rubalcava MD [Primary Care Provider] - 1 Week if not improving Activity Restrictions/Additional Instructions: 1. Apply ice 6-10 times a day to your lower back and right buttocks area 2. Application of heat will make your pain worse. 3. Avoid activity that causes you increased pain 4. Take medication as prescribed Print Language: Chinese Disposition Disposition: Home, Self Care
--- NOTE | 2024-08-16 07:35 | RAD_ITS ---
HISTORY: Injury/Pain -- Posterior midline pain L4-5 region. TECHNIQUE: XR Spine Lumbar 2 or 3 Views. COMPARISON: Abdomen 01/07/2017. FINDINGS: VERTEBRAE: Vertebral body heights preserved. Degenerative changes of the posterior elements. ALIGNMENT: No significant anterior or posterior subluxation. INTERVERTEBRAL DISCS: Degenerative changes with osteophytes and intervertebral disc space narrowing at multiple levels, particularly L4-5 and L5-S1. SOFT TISSUES: Moderate stool in the colon. RAD/Lumbar Spine 2 or 3 Views IMPRESSION: No acute fracture or dislocation identified in the lumbar spine. Moderate multilevel degenerative change. Electronically Signed: Micaela Santoro MD at 11:06 EST ,
[2024-08-16] MEDS: Morphine 4 MG/ML Syringe IV (07:51)
[2024-08-16] MEDS: Ondansetron 4 MG/2 ML Vial IV (07:51)
== END 2024-08-16 08:34 | disposition home or self-care (01) ==
PROVIDERS: Emergency Provider Emergency Medicine; PCP Internal Medicine; Visit Provider Emergency Medicine
DX: M25.551 Pain in right hip (principal); I25.10 Atherosclerotic heart disease of native coronary artery without angina pectoris; I10 Essential (primary) hypertension; Z87.891 Personal history of nicotine dependence; K21.9 Gastro-esophageal reflux disease without esophagitis; Z95.5 Presence of coronary angioplasty implant and graft; Z79.82 Long term (current) use of aspirin; Z79.02 Long term (current) use of antithrombotics/antiplatelets; W00.0XXA Fall on same level due to ice and snow, initial encounter; M54.50 Low back pain, unspecified
CPT/HCPCS: 72100; 73502; 96374; 96375; 99283; J2405

== ENCOUNTER → 2024-08-26 | Outpatient (CLI) | payer OTHER, SELFPAY ==
[2024-08-26 17:31] LABS: ALB/GLOB Ratio 0.9 RATIO (0.9-2.4); AST(SGOT) 18 U/L (15-37); Alanine Aminotransfer ALT/SGPT 43 U/L (16-61); Albumin, Serum 3.5 g/dL (3.2-5.0); Alkaline Phosphatase 85 U/L (45-117); Anion Gap 7 (5-15); BUN 27 mg/dL (7-18); BUN/Creat Ratio 24.5 RATIO (10-20); Calcium,Total 9.5 mg/dL (8.5-10.1); Chloride 102 mmol/L (98-107); Cholesterol 128 mg/dL (200); EST Glomerular Filtration Rate 71 mL/min (>60); Est Glom Filt Rate - Afr Amer 86 mL/min (>60); Globulin 3.9 g/dL (2.2-4.2); Glucose 136 mg/dL (74-106); High Density Lipoprotein 28 mg/dL; Potassium 3.4 mmol/L (3.5-5.1); Protein, Total 7.4 g/dL (6.4-8.2); Sodium Level 135 mmol/L (136-145); Triglycerides 338 mg/dL; Very Low Density Lipoprotein 68 mg/dL (5-40)
== END | disposition home or self-care (01) ==
LOC: LAB 15:04
PROVIDERS: PCP Internal Medicine; Referring Provider Physician Assistant Medical; Visit Provider Physician Assistant Medical
DX: I10 Essential (primary) hypertension (principal); Z95.5 Presence of coronary angioplasty implant and graft
CPT/HCPCS: 36415; 80053; 80061

== ENCOUNTER → 2024-10-26 | Outpatient (CLI) | payer OTHER, SELFPAY ==
[2024-10-26 09:09] LABS: Anion Gap 13 (5-15); BUN 19 mg/dL (4-19); BUN/Creat Ratio 20.8 RATIO (10-20); Calcium,Total 9.7 mg/dL (7.6-11.0); Carbon Dioxide 22.6 mmol/L (21.0-32.0); Chloride 101 mmol/L (98-108); Creatinine, Serum 0.93 mg/dL (0.70-1.20); EST Glomerular Filtration Rate 89 (>60); Glucose 120 mg/dL (70-99); Sodium Level 137 mmol/L (133-145)
== END | disposition home or self-care (01) ==
LOC: LAB 08:02
PROVIDERS: PCP Internal Medicine; Referring Provider Physician Assistant Medical; Visit Provider Physician Assistant Medical
DX: Z95.5 Presence of coronary angioplasty implant and graft (principal)
CPT/HCPCS: 36415; 80048

== ENCOUNTER → 2025-03-19 | Outpatient (CLI) | payer OTHER, SELFPAY ==
--- NOTE | 2025-03-19 13:11 | ART_ITS ---
Reason For Study Reason For Study: Diminished pulses Procedure A bilateral lower extremity continuous wave Doppler with analog waveform analysis and ankle brachial indexes. Left Segmental Pressures Left brachial= 127mmHg. Left posterior tibial artery = >254mmHg. Left dorsalis pedis artery = 189mmHg. Left digit = 104 mmHg. The left dorsalis pedis waveforms are triphasic. The left posterior tibial artery waveforms are triphasic. Right Segmental Pressures Right brachial= 126mmHg. Right posterior tibial artery = >254mmHg. Right dorsalis pedis artery = 196mmHg. Right digit = 110 mmHg. The right dorsalis pedis waveforms are triphasic. The right posterior tibial artery waveforms are triphasic. Indices The right ankle brachial index by the dorsalis pedis is 1.54. The right ankle brachial index by the posterior tibial artery is NC. The right digital-brachial index is 0.87. The left ankle brachial index by the dorsalis pedis is 1.49. The left ankle brachial index by the posterior tibial artery is NC. The left digital-brachial index is 0.82. VL/Ankle Brachial Index Interpretation Summary Right KULDIP 1.54, normal. TBI and Doppler/PVR waveforms of the right ankle normal at rest. Left KULDIP 1.49, normal. TBI and Doppler/PVR waveforms of the left ankle normal a t rest. Ordering Physician: Claudia Bartlett Referring Physician: Juan J Rubalcava M.D. Performed By: Purvi Cruz RVT
--- NOTE | 2025-03-19 13:11 | ECHOD_ITS ---
Reason For Study Reason For Study: MURMUR Procedure This was a 2D Doppler, Color Flow transthoracic echocardiogram. Exam performed in department. Left Ventricle Normal left ventricle. Moderate concentric left ventricular hypertrophy. The left ventricular ejection fraction is 70 %. Resting LV gradient 16 mmHg. Valsalva LV gradient 83 mmHg. No regional wall motion abnormalities noted. Right Ventricle Normal RV size. The right ventricle is normal in size, function, and thickness. Atria Normal left atrium. Normal right atrium. Mitral Valve Bileaflet diffuse mitral valve thickening. Systolic anterior motion of the mitral valve. Mild (1+) eccentric mitral valve insufficiency. Tricuspid Valve Normal tricuspid valve. Aortic Valve Trisinus/trileaflet aortic valve. Pulmonic Valve Normal pulmonic valve. Great Vessels Normal aortic root. The pulmonary artery is normal size. Inferior vena cava collapse with respiration. Pericardium/Pleural No pericardial effusion. MMode/2D Measurements & Calculations LVIDd: 3.7 cm IVSd: 1.5 cm CO(Teich): 2.9 l/min LVIDs: 2.4 cm LVPWd: 1.4 cm FS: 36.4 % Ao root diam: 3.4 cm LAV(MOD-bp): 37.7 ml LVAd ap4: 19.0 cm2 LAV(MOD-bp) Indexed: 18.0 ml/m2 LVLd ap4: 8.0 cm LAV(MOD-sp2): 36.6 ml EDV(MOD-sp4): 38.8 ml LAV(MOD-sp4): 36.3 ml EDV(sp4-el): 38.2 ml LVAs ap4: 9.2 cm2 LVLs ap4: 6.9 cm ESV(MOD-sp4): 12.4 ml ESV(sp4-el): 10.4 ml EF(MOD-sp4): 68.1 % EF(sp4-el): 72.8 % CO(MOD-sp4): 2.0 l/min SV(sp4-el): 27.8 ml LA A4 area: 15.1 cm2 SV(MOD-sp4): 26.4 ml SI(MOD-sp4): 12.6 ml/m2 LA dimension(2D): 3.6 cm RA A4 area: 9.4 cm2 Time Measurements MV dec time: 0.22 sec Doppler Measurements & Calculations MV E max noman: 90.5 cm/sec Lat Peak E' Noman: 9.8 cm/sec Med Peak E' Noman: 8.6 cm/sec MV A max noman: 78.3 cm/sec E/E' lat: 9.2 E/E' med: 10.5 MV E/A: 1.2 Ao V2 max: 143.9 cm/sec LV V1 max: 158.4 cm/sec MV dec slope: 415.3 cm/sec2 Ao max P.3 mmHg LV V1 max P.0 mmHg Ao V2 mean: 108.7 cm/sec LV V1 mean P.7 mmHg Ao mean P.3 mmHg LV V1 mean: 107.2 cm/sec Ao V2 VTI: 29.9 cm LV V1 VTI: 33.1 cm AV (velocity ratio): 1.1 PA V2 max: 154.3 cm/sec PA V2 mean: 88.8 cm/sec ECHO/Echo Complete Interpretation Summary Normal left ventricle. The left ventricular ejection fraction is 70 %. Moderate concentric left ventricular hypertrophy. Resting LV gradient 16 mmHg. Valsalva LV gradient 83 mmHg. Systolic anterior motion of the mitral valve. Ordering Physician: Claudia Bartlett Referring Physician: Claudia Bartlett Performed By: Silvia Leach RCS
== END | disposition home or self-care (01) ==
PROVIDERS: PCP Internal Medicine; Referring Provider Physician Assistant Medical; Visit Provider Physician Assistant Medical
DX: I73.89 Other specified peripheral vascular diseases (principal); R01.1 Cardiac murmur, unspecified
CPT/HCPCS: 93306; 93922

== ENCOUNTER → 2025-03-19 | Outpatient (CLI) | payer OTHER, SELFPAY | END | disposition home or self-care (01) | LOC: CVS 12:58 | PROVIDERS: PCP Internal Medicine; Referring Provider Physician Assistant Medical; Visit Provider Physician Assistant Medical | DX: Z00.00 Encounter for general adult medical examination without abnormal findings (principal) ==

== ENCOUNTER 2025-05-10 17:34 | Emergency (ER) | payer OTHER, SELFPAY ==
[2025-05-10 17:35] VITALS: BP 134/74; PULSE 70; RESP 18; TEMP 36.4; O2SAT 97; BMI 33.0
--- NOTE | 2025-05-10 18:08 | EKG12_ITS ---
Test Reason : CP Blood Pressure : */* mmHG Vent. Rate : 65 BPM Atrial Rate : 65 BPM P-R Int : 194 ms QRS Dur : 90 ms QT Int : 410 ms P-R-T Axes : 27 -25 4 degrees QTcB Int : 426 ms Normal sinus rhythm Normal ECG Confirmed by Lj Meyers ([id number]), editor school photograph RADHA WEEKS ([id number]) on 05/11/2025 11:14:10 AM Referred By: RAUL/SYED Confirmed By: Lj Meyers
--- NOTE | 2025-05-10 18:15 | RAD_ITS ---
PROCEDURE: CHEST PA AND LATERAL 05/10/2025 REASON FOR EXAM: CHEST PAIN TECHNIQUE: Procedure Code: RADCXR Modality: DX Procedure: CHEST PA AND LATERAL COMPARISON: None. FINDINGS: Lungs/Pleura: Clear. No pneumothorax or pleural effusion. Heart/Mediastinum: Within normal limits. Bones/Soft tissues: Multilevel degenerative changes of the spine. RAD/Chest PA and Lateral IMPRESSION: No acute cardiopulmonary disease. Reading Location: [id number]
--- NOTE | 2025-05-10 18:21 | ED.VIS.CHEST ---
HPI History of Present Illness Chief Complaint: Chest Pain Informant: patient and spouse/S.O. Onset/Context/Timing Onset: Today and Yesterday Activity at onset: gradual Timing: Continuous Quality: Positive for Pain and - (Not pleuritic. No hemoptysis.); Negative for Sharp or Stabbing Location: Substernal Current Severity: Mild Maximum Severity: Mild Worsened By: Nothing Relieved By: Nothing Associated Symptoms: Negative for Nausea, Vomiting, Diaphoresis, Dyspnea, Cough, Fever, Lightheadedness, Acid Reflux or Palpitations Narrative Narrative: 69-year-old male history of CAD with 1 stent placed about a year ago and history of prediabetes. He is on the blood thinner Brilinta. Plan chest discomfort the last 2 days. Gradual onset midsternal. No change with exertion. No recent exertional chest pain or exertional dyspnea. Says he feels congested. Denies cough or fever. No nausea. No diaphoresis. When he had his stent a year ago he said this pain is not the same. He has never had a DVT or PE and again he is on the blood thinner. Prior Similar Symptoms: No Recent Illness/Hospitalization: No CVD Risk Factors: Positive for Diabetes PE Risk Factors: Positive for Recent Travel/Surgery; Negative for Recent Immobilization, Prior DVT or PE, Cancer or OCP + Smoking + >/=35 TAD Risk Factors: Negative for Marfan's Syndrome [facility] Medical History Moderate left ventricular hypertrophy Cardiac murmur Essential hypertension Hyperglycemia Acute non-ST elevation myocardial infarction (NSTEMI) Elevated troponin History of gastroesophageal reflux (GERD) Chest pain of uncertain etiology Atherosclerosis of coronary artery of [place] heart without angina pectoris Kidney stone Back pain Knee pain Shoulder pain SOB (shortness of breath) Arthritis HTN (hypertension) Home Medications ?Medication ?Instructions ?Recorded ?Last Taken ?Type atorvastatin 20 mg tablet 20 mg PO DAILY cholesterol 01/09/17 05/10/25 History gbuu-iww-wzuku-vpvjszofj-wsdnathf-dnmj-pectin 1,000 mg PO BID bowels 01/09/17 05/10/25 History 1,000 mg tablet cholecalciferol (vitamin D3) 25 1,000 unit PO DAILY supplement 01/09/17 05/10/25 History mcg (1,000 unit) capsule finasteride 1 mg tablet 1 mg PO QHS prostate/HAIR GROWTH 01/09/17 05/10/25 History folic acid 1 mg tablet 1 mg PO DAILY@0800 supplement 01/09/17 05/10/25 History metoprolol succinate 50 mg 50 mg PO DAILY HR 01/09/17 05/10/25 History tablet,extended release 24 hr amlodipine 5 mg tablet 5 mg PO DAILY blood pressure 05/15/24 05/10/25 History losartan 100 mg tablet 100 mg PO DAILY blood pressure 05/15/24 05/10/25 History omeprazole 40 mg capsule,delayed 40 mg PO DAILY acid reflux 05/15/24 05/10/25 History release aspirin 81 mg tablet,delayed 81 mg PO BREAKFAST #0 tabs 05/19/24 05/10/25 Rx release ticagrelor 90 mg tablet (Brilinta) 90 mg PO BID #180 tabs 06/02/24 05/10/25 Rx chlorthalidone 25 mg tablet 25 mg PO QDAY 08/26/24 05/10/25 History potassium chloride 10 mEq 10 meq PO DAILY #90 caps 08/27/24 05/10/25 Rx capsule,extended release Allergy/AdvReac Type Severity Reaction Status Date / Time No Known Allergies Allergy Verified 05/10/25 17:35 Family History Other Heart disease Hypertension Surgical History History of coronary artery stent placement (05/18/24) History of gastric surgery History of foot surgery History of knee surgery Social History household members: spouse housing: house Smoking Status: Former smoker Tobacco: How many years used: 20 how long ago did patient quit smoking: Quit about 20 years ago and has a 78-[id number] history alcohol intake: current alcohol intake frequency: a few times a month substance use type: does not use ROS ROS ED ROS Narrative Denies recent illness. Constitutional Constitutional ED: Denies fever(s) Eyes Eyes: Reports none ENT ENT ED: Denies ear pain Cardiovascular Cardiovascular: Reports as per HPI and chest pain; Denies palpitations or racing heartbeat Respiratory/Chest Respiratory/Chest: Denies cough, dyspnea or dyspnea on exertion Gastrointestinal Gastrointestinal: Denies abdominal pain Genitourinary Genitourinary ED: Denies dysuria or hematuria Musculoskeletal Musculoskeletal: Denies arthralgias Integumentary Denies abscess or Abrasions Neurologic Neurologic: Reports headache(s) Psychiatric Psychiatric: Denies anxiety Endocrine Endocrinology: Denies cold intolerance Hematologic/Lymphatic Hematologic/Lymphatic: Reports other Details: On the blood thinner Brilinta ; Denies lymphadenopathy Allergic/Immunologic Allergic/Immunologic ED: Denies mouth swelling, tongue swelling or urticaria EXAM Physical Exam Narrative Exam Narrative: Well-appearing 69-year-old male sitting upright in bed. No acute distress. Accompanied by his . Vital signs stable afebrile. Pulse ox 97% on room air no hypoxia. H EENT exam pupils round react light. Moist mutes membranes. Neck nontender no JVD. No lymphadenopathy. Back nontender. Lungs clear to auscultation bilaterally. Heart regular rhythm rate about 70 no murmur. Chest wall and ribs are nontender. No reproducible pain. Abdomen soft nontender normal bowel sounds without peritoneal signs. Moving all 4 extremities. Dorsi plantarflexion intact. Bilateral campaign specialist strength. Equal symmetrical radial pulses. Calves are nontender without edema or cords. Neurologically he is awake alert. Answering questions following commands. Very benign exam. Const Vital Signs: 05/10/25 17:35 05/10/25 18:08 05/10/25 18:34 Temperature 97.5 F L Temperature Source Temporal Pulse Rate 70 65 Respiratory Rate 18 13 Respiratory Effort Blood Pressure 134/74 H 123/76 H Blood Pressure Mean 94 91 Pulse Ox 97 97 Oxygen Delivery Method Room Air Room Air Room Air 05/10/25 18:42 05/10/25 19:00 05/10/25 20:00 Temperature Temperature Source Pulse Rate 61 61 Respiratory Rate 14 13 Respiratory Effort Normal Blood Pressure 129/71 H 136/77 H Blood Pressure Mean 90 96 Pulse Ox 98 96 Oxygen Delivery Method Room Air 05/10/25 21:00 Temperature Temperature Source Pulse Rate 66 Respiratory Rate 17 Respiratory Effort Blood Pressure 128/71 H Blood Pressure Mean 90 Pulse Ox 96 Oxygen Delivery Method Heart Score History: Slightly/Non-Suspicious ECG: Normal Age: >/= 65 years Risk Factors: >/= 3 Risk Factors or History of CAD Troponin: </= Normal Limit Score: 4 MDM MDM MDM Narrative Medical decision making narrative: 69-year-old male known coronary disease with 1 stent with atypical nonexertional nonpleuritic chest pain already on a blood thinner Brilinta. Undergoing cardiac workup. Also states he has recently been getting headaches he typically does not get headaches given the fact that he is on the blood thinner a CT of his brain will be obtained. His neurologic exam is normal. His overall exam in general is normal. Repeat exam patient is doing well at 7:35 PM. We discussed his CAT scan and cardiac test results. He thinks this may be an ulcer or reflux. To be treated with GI cocktail and Protonix. We are awaiting the 2-hour troponin. Repeat exam at 9:25 PM. Patient is doing good. He was treated with GI cocktail and Protonix earlier. Patient states he feels better. Comfortable being discharged home. He is on a reflux medication at home. He will follow-up with his primary care provider. Both he and his are comfortable with the plan. History & Record Review Discussion w/independent historian: Patient and Family Additional record(s) reviewed:: Prior outpatient record, Prior ED visit and Prior labs Lab Data Attestation: I reviewed the patient's lab results. Lab results narrative: CBC shows a white count 7. H&H 12.5 and 37. Platelets 314. Chemistries show a gap of 14. Normal BUN and creatinine. Glucose 109. Initial troponin 10. 2-hour troponin is 13. Chest x-ray chronic changes. CT brain no acute abnormality. Labs: Laboratory Results - last 24 hr 05/10/25 05/10/25 17:49 19:46 WBC 7.6 RBC 4.59 L Hgb 12.5 L Hct 37.9 L MCV 82.6 MCH 27.2 MCHC 33.0 RDW Std Deviation 40.1 RDW Coeff of Deangelo 13.3 Plt Count 314 MPV 8.9 Immature Gran % (Auto) 0.700 Neut % (Auto) 54.9 Lymph % (Auto) 29.5 [place] % (Auto) 12.3 H Eos % (Auto) 2.1 Baso % (Auto) 0.5 Absolute Neuts (auto) 4.2 Absolute Lymphs (auto) 2.24 Nucleated RBC % 0 Sodium 134 Potassium 3.6 Chloride 98 Carbon Dioxide 21.5 Anion Gap 14 BUN 19 Creatinine 0.79 Estim Creat Clear Calc 100.52 Est GFR (MDRD) Non-Af 97 BUN/Creatinine Ratio 23.7 H Glucose 109 H Calcium 9.5 Troponin T High Sens 10 Troponin T Hi Sens 2 Hr 13 Radiography Chest X-Ray - ED: 2 View, Read by ED Physician, Heart, Lungs, Mediastinum, Bony Structures, No Acute Disease and Chronic Changes Diagnostic Testing: Clinical Impression(s) from Imaging Studies Chest X-Ray 05/10/25 18:15 IMPRESSION: No acute cardiopulmonary disease. Reading Location: [facility] Brain CT 05/10/25 18:30 IMPRESSION: No acute intracranial abnormality. Reading Location: [facility] Chest x-ray, 2 views, AP and lateral, interpreted by myself and radiologist shows no acute abnormality. Normal cardiac silhouette. No mediastinum. Normal lung casiano. Chronic changes. Rhythm Strip Rhythm Strip: Sinus Rhythm Rate: 65 Ectopy: None EKG Initial EKG: Attestation: I personally reviewed and interpreted this EKG as follows: Interpretation: Sinus Rhythm and No Acute Injury Pattern Comments: Normal sinus rhythm rate of 65 no acute signs of CT or ischemia. Discharge Plan Triage Chief Complaint: Chest Pain ED Provider: Sherman Encinas Dx/Rx/DC Orders Clinical Impression: Chest pain of uncertain etiology, Hx of esophageal reflux, Hx of heart artery stent, Pre-diabetes, Chronic anticoagulation Instructions: ED Chest Pain, Noncardiac Prescriptions: No Action Brilinta 90 mg tablet 90 mg PO BID Qty: 180 3RF chlorthalidone 25 mg tablet 25 mg PO QDAY atorvastatin 20 MG tablet 20 mg PO DAILY metoprolol succinate 50 MG tablet extended release 24 hr 50 mg PO DAILY folic acid 1 MG tablet 1 mg PO DAILY@0800 finasteride 1 MG tablet 1 mg PO QHS cholecalciferol (vitamin D3) 1,000 UNIT capsule 1,000 unit PO DAILY ogzh-npg-fyn-mpd-bagq-gsev-pec 1,000 MG tablet 1,000 mg PO BID amlodipine 5 mg tablet 5 mg PO DAILY omeprazole 40 mg capsule,delayed release(DR/EC) 40 mg PO DAILY losartan 100 mg tablet 100 mg PO DAILY aspirin 81 mg Tablet,Delayed Release (Dr/Ec) 81 mg PO BREAKFAST Qty: 0 0RF potassium chloride 10 mEq capsule, extended release 10 meq PO DAILY Qty: 90 3RF Primary Care Provider: Juan J Rubalcava Referrals: Juan J Rubalcava MD [Primary Care Provider, Internal Medicine] - 1 Week if not improving Activity Restrictions/Additional Instructions: Follow-up with your doctor. Your test today looked good. Continue your current medications. Continue your reflux medication. Print Language: Yemeni Disposition Disposition: Home, Self Care
--- NOTE | 2025-05-10 18:30 | CT_ITS ---
PROCEDURE: CT BRAIN/HEAD WITHOUT CONTRAST 05/10/2025 REASON FOR EXAM: HEADACHE ON BRILLINTA TECHNIQUE: Procedure Code: CTBR Modality: CT Procedure: BRAIN/HEAD WITHOUT CONTRAST Coronal and Sagittal reconstruction series were provided. One or more dose reduction techniques were used (e.g., Automated exposure control, adjustment of the mA and/or kV according to patient size, use of iterative reconstruction technique. RADIATION DOSE SUMMARY: CTDlvol: 44.99 mGy DLP: 796.11 mGycm COMPARISON: None. FINDINGS: No acute intracranial hemorrhage, extra-axial collection, mass effect or evidence of acute infarct. Ventricles and subarachnoid spaces are normal in size. Orbital contents are unremarkable. Intact skull base and calvarium. Clear paranasal sinuses and mastoid air cells. CT/Brain/Head without Contrast IMPRESSION: No acute intracranial abnormality. Reading Location: [id number]
--- OUTSIDE RECORDS SUMMARY | 2025-05-10 18:33 | XMS RPT_ITS | CCD ---
Author Organization [facility] Care Team Providers Care Strategy Lead Name Role Phone MARY LOU GRADY Unavailable Unavailable Khadar EDMONDSON, Juan J Esparza Primary Care Provider Khadar EDMONDSON, Juan J Esparza Primary Care Provider Khadar EDMONDSON, Juan J Esparza Primary Care Provider Carlos Flores MD Unavailable Khadar EDMONDSON, Juan J Esparza Primary Care Provider KHADAR EDMONDSON, DR ARITA Primary Care Physician KHADAR EDMONDSON, DR ARITA Primary Care Rodo PEREZ MD, DR SANTIAGO Herrmann Attending Leoncio Orellana MD, DR SANTIAGO Herrmann Attending Leoncio De La Cruz MD, DR ARITA Primary Care Rodo RUBALCAVA MD, DR ARITA Primary Care Rodo PEREZ MD, DR SANTIAGO Herrmann Attending Leoncio Ramos APRN.TAP PULLER, Azalia M Unavailable Khadar EDMONDSON, Dr. Arita Primary Care Provider Dr. Rafa Pulido MD Attending Provider Dr. Rafa Pulido MD Emergency Provider Dr. Juan J Rubalcava MD Referring Provider Claudia Stoner Attending Provider Claudia Stoner Referring Provider Khadar EDMONDSON, Dr. Arita Primary Care Provider Dr. Juan J Rubalcava MD Referring Provider Claudia Stoner Attending Provider [phone] Claudia Stoner Referring Provider [phone] Matt EDMONDSON, Dr. Narvaez Attending Provider [phone] Nilsa EDMONDSON, Dr. Marinelli Attending Provider [phone] Khadar EDMONDSON, Dr. Arita Primary Care Physician Claudia Stoner Attending Physician [phone] Matt EDMONDSON, Dr. Narvaez Attending Physician Nilsa EDMONDSON, Dr. Marinelli Attending Physician Jazmine Vivas Admitting Unavailable Belal, Farouk Consulting Unavailable Clayton Alaniz Attending Unavailable Rubalcava, Juan J Primary Care Unavailable Jazmine Vivas Consulting Unavailable Clayton Alaniz Consulting Unavailable Belal, Farouk Attending Unavailable Claudia Stoner Referring Unavail able Claudia Stoner Attending Unavail able Rubalcava, Juan J Primary Care Unavailable Claudia Stoner Attending Unavail able Claudia Stoner Referring Unavail able Rubalcava, Juan J Primary Care Unavailable Claudia Stoner Referring Unavail able Claudia Stoner Attending Unavail able Rubalcava, Juan J Primary Care Unavailable Belal, Farouk Consulting Unavailable Rubalcava, Juan J Primary Care Unavailable Jazmine Vivas Admitting Unavailable Clayton Alaniz Attending Unavailable Jazmine Vivas Consulting Unavailable Claudia Stoner Referring Unavail able Claudia Stoner Attending Unavail able Rubalcava, Juan J Primary Care Unavailable MattBrice castle Attending Unavailable Jazmine Vivas Attending Unavailable MattBrice Attending Unavailable Rubalcava, Juan J Primary Care Unavailable Yves Ash Attending Unavailable Rubalcava, Juan J Primary Care Unavailable Claudia Stoner Referring Unavail able MattBrice castle Attending Unavailable Rubalcava, Juan J Primary Care Unavailable Claudia Stoner Attending Unavail able Rubalcava, Juan J Referring Unavailable Rubalcava, Juan J Primary Care Unavailable Claudia Stoner Attending Unavail able Rubalcava, Juan J Primary Care Unavailable Rubalcava, Juan J Referring Unavailable Claudia Stoner Attending Unavail able Rubalcava, Juan J Referring Unavailable Rubalcava, Juan J Primary Care Unavailable Debbie Raymond Attending Unavailable Rubalcava, Juan J Primary Care Unavailable Pulido, Rafa Attending Unavailable Rubalcava, Juan J Primary Care Unavailable Pulido, Rafa Attending Unavailable Rubalcava, Juan J Primary Care Unavailable Rubalcava, Juan J Primary Care Unavailable Claudia Stoner Attending Unavail able Rubalcava, Juan J Referring Unavailable HARJEETBRADEN Referring Unavailable RUBALCAVA, STEVAN Primary Care Unavailable CARLOS FLORES Attending Unavailable HARJEETBRADEN Referring Unavailable RUBALCAVA, STEVAN Primary Care Unavailable HARJEET, BRADEN Referring Unavailable RUBALCAVA, STEVAN Primary Care Unavailable RUBALCAVA, STEVAN Attending Unavailable RUBALCAVA, STEVAN Primary Care Unavailable RUBALCAVA, STEVAN Attending Unavailable RUBALCAVA, STEVAN Primary Care Unavailable LAURA DOMINGUEZ Attending Unavailable BRADEN COSBY Referring Unavailable RUBALCAVA, STEVAN Primary Care Unavailable HARJEETBRADEN Referring Unavailable RUBALCAVA, STEVAN Primary Care Unavailable BRADEN COSBY Referring Unavailable RUBALCAVA, STEVAN Primary Care Unavailable CARLOS FLORES Referring Unavailable RUBALCAVA, STEVAN Primary Care Unavailable Allergies Allergy Classification Reported Allergen(s) Allergy Type Date of Onset Reaction(s) Facility (20 sources) Simvastatin; Translations: [SIMVASTATIN] Drug Allergy 11-08-2012 Other: See Comments [facility] Medications Current Medications Medication Drug Class(es) Dates Sig (Normalized) Sig (Original) acetaminophen 325 mg oral tablet (5 sources) Start: 05-19-2024 Acetaminophen 325 mg Tablet Active 650 mg PO EVERY 6 HOURS NEEDED as needed for Pain 1-10 Or Fever >100.7 0 0 May 19, 2024 12:00am Complies with drug therapy amLODIPine 5 mg oral tablet (20 sources) Dihydropyridine Calcium Channel Gee Start: 05-15-2024 take 1 tablet by mouth once daily Amlodipine 5 mg tablet Active 5 mg PO DAILY May 15, 2024 12:00am blood pressure Complies with drug therapy Start: 04-14-2021 End: 04-06-2024 take 1 tablet by mouth once daily amLODIPine (NORVASC) 5 mg tablet Indications: Essential hypertension Take 1 tablet by mouth once daily. 90 tablet 3 04/07/2024 Active Start: 02-10-2020 End: 02-16-2021 take 1 tablet by mouth once daily amLODIPine (NORVASC) 10 mg tablet Indications: Essential hypertension Take 1 tablet by mouth once daily. 90 tablet 3 02/10/2020 02/16/2021 Discontinued Comment on above: Take 1 tablet by kamila th once daily. aspirin 81 mg delayed release oral tablet (10 sources) Platelet Aggregation Inhibitor, Nonsteroidal Anti-inflammatory Drug Start: 05-19-2024 take 1 tablet by mouth at breakfast Aspirin 81 mg Tablet,Delayed Release (Dr/Ec) Active 81 mg PO WITH BREAKFAST 0 0 May 19, 2024 12:00am Complies with drug therapy Start: 01-09-2017 End: 05-15-2024 take 1 tablet by mouth once daily Aspirin 81 MG tablet Discontinued 81 mg PO DAILY@0800 January 09, 2017 12:00am May 15, 2024 12:27pm atorvastatin 20 mg oral tablet (20 sources) HMG-CoA Reductase Inhibitor Start: 01-09-2017 End: 07-30-2024 take 1 tablet by mouth once daily Atorvastatin 20 MG tablet Active 20 mg PO DAILY January 09, 2017 12:00am cholesterol Complies with drug therapy Comment on above: Take 1 tablet by kamila th once daily. Bufb-Tfa-Ndp-Lillie-Psy l-Kelp-Pec 1,000 MG tablet (5 sources) Start: 01-09-2017 take 1 tablet by mouth once daily Itqv-Hkk-Ocq-Lillie-Ps yl-Kelp-Pec 1,000 MG tablet Active 1000 mg PO DAILY January 09, 2017 12:00am bowels Complies with drug therapy Start: 01-09-2017 take 1 tablet by kamila th once daily Eyjw-Hra-Ujs-Gzo-Ekzf-Didc-Pec 1,000 MG tablet Active 1000 mg PO DAILY January 09, 2017 12:00am bowels Start: 01-09-2017 take 1 tablet by kamila th once daily Yfpe-Dbm-Ept-Foh-Wunh-Ifqz-Pec 1,000 MG tablet Active 1000 mg PO DAILY January 09, 2017 12:00am calcium polycarbophil 625 mg oral tablet (20 sources) Start: 07-30-2006 take 1 tablet by mouth twice daily FIBERCON 625 MG TAB Take 625 mg by mouth two times a day. 0 07/30/2006 Active Start: 07-30-2006 FIBERCON 625 M G TAB Take one(1) tablet two(2) times daily. 0 07/30/2006 Active Comment on above: Take one(1) tablet t wo(2) times daily. chlorthalidone 25 mg oral tablet (20 sources) Thiazide-like Diuretic Start: 09-17-19 End: 09-26-19 take 1 tablet by mouth once daily Chlorthalidone 25 mg tablet Active 25 mg PO daily August 26, 2024 1:00am Complies with drug therapy Comment on above: [facility] cholecalciferol 0.025 mg oral capsule (20 sources) Vitamin D Start: 08-18-19 cholecalciferol 1000 intl units oral tablet Dose : 1,000 International_Unit = 1 tab(s), Oral, qDay, # 30 tab(s), 0 Refill(s) Start Date: 08/18/14 Status: Ordered Start: 05-01-2013 take 1 capsule by [facility] once daily Cholecalciferol (Vitamin D3) 1,000 UNIT capsule Active 1000 U PO DAILY January 09, 2017 12:00am supplement Complies with drug therapy Comment on above: Take 1 capsule by [facility] once daily. finasteride 1 mg oral tablet (20 sources) 5-alpha Reductase Inhibitor Start: 01-10-20 End: 04-14-20 take 1 tablet by mouth at bedtime Finasteride 1 MG tablet Active 1 mg PO AT BEDTIME January 09, 2017 12:00am prostate Complies with drug therapy Comment on above: [facility] fluticasone propionate 0.05 mg/actuat metered dose nasal spray (20 sources) Corticosteroid Start: 07-14-20 take 2 spray(s) nasal route once daily fluticasone (FLONASE) 50 mcg/actuation nasal spray Indications: Allergic rhinitis, unspecified seasonality, unspecified trigger Use 2 Sprays in each nostril once daily. For allergy symptoms. ID#[id number] 1 Each 5 07/14/2021 Active Start: 02-10-2020 End: 11-19-2020 take 2 spray(s) nasal route once daily fluticasone (FLONASE) 50 mcg/actuation nasal spray Indications: Allergic rhinitis, unspecified seasonality, unspecified trigger Use 2 Sprays in each nostril once daily. For allergy symptoms. ID#[id number] 1 Bottle 5 02/10/2020 11/19/2020 Discontinued Start: 08-18-2014 take 1 dose nasal ro rosita once daily Flonase 50 mcg/inh nasal spray Dose = 2 spray(s), Nostril, each, qDay, 0 Refill(s) Start Date: 08/18/14 Status: Ordered Comment on above: Use 2 Sprays in each nostril once daily. For allergy symptoms. ID#[id number] folic acid 1 mg oral tablet (20 sources) Start: 5 End: 4 take 1 tablet by mouth once daily Folic Acid 1 MG tablet Active 1 mg PO DAILY@0800 January 09, 2017 12:00am supplement Complies with drug therapy Comment on above: Take 1 tablet by kamila th once daily. TAKE 1 TABLET ONCE D AILY losartan potassium 100 mg oral tablet (20 sources) Angiotensin 2 Receptor Gee Start: take 1 tablet by mouth once daily Losartan 100 mg tablet Active 100 mg PO DAILY May 15, 2024 12:00am blood pressure Complies with drug therapy Start: 07-02-2023 LOSARTAN POT 1 00MG TAB LOSARTAN POT 100MG TAB, 0 Refill(s), 100 Start Date: 07/02/23 Status: Ordered Start: 05-11-2020 End: 04-14-2024 take 1 tablet by mouth once daily losartan (COZAAR) 100 mg tablet Indications: Essential hypertension Take 1 tablet by mouth once daily. 90 tablet 3 04/14/2024 Active Start: 01-09-2017 End: 05-15-2024 take 1 tablet by mouth at bedtime Losartan 50 MG tablet Discontinued 50 mg PO AT BEDTIME January 09, 2017 12:00am May 15, 2024 12:18pm Comment on above: Take 1 tablet by kamila th once daily. meclizine hydrochloride 25 mg oral tablet (20 sources) Antiemetic Start: 04-16-20 End: 04-14-20 take 1 tablet by mouth every six hours as needed for dizziness meclizine (ANTIVERT) 25 mg tab Indications: Vertigo Take 1 tablet by mouth every 6 hours as needed (dizziness). 30 tablet 04/16/2022 04/14/2024 Discontinued Comment on above: Take 1 tablet by kamila th every 6 hours as needed (dizziness). meloxicam 15 mg oral tablet (20 sources) Nonsteroidal Anti-inflammatory Drug Start: 02-17-20 End: 04-14-20 take 1 tablet by mouth once daily at mealtime meloxicam (MOBIC) 15 mg tablet Take 1 tablet by mouth once daily. With food for joint pains. 02/16/2021 04/14/2024 Discontinued Comment on above: Take 1 tablet by kamila th once daily. With food for joint pains. 24 hr metoprolol succinate 50 mg extended release oral tablet (20 sources) beta-Adrenergic Gee Start: 08-18-19 End: 10-13-19 take 1 tablet by mouth once daily Metoprolol Succinate 50 MG tablet extended release 24 hr Active 50 mg PO DAILY January 09, 2017 12:00am HR Complies with drug therapy Comment on above: Take 1 tablet by kamila once daily. omeprazole 40 mg delayed release oral capsule (20 sources) Proton Pump Inhibitor Start: 07-16-20 End: 07-20-20 take 1 capsule by mouth once daily Omeprazole 40 mg capsule,delayed release(DR/EC) Active 40 mg PO DAILY May 15, 2024 12:00am acid reflux Complies with drug therapy Start: 07-24-2022 take [address] [facility] once daily omeprazole (PRILOSEC) 40 mg capsule Take 1 capsule by mouth once daily. 90 capsule 3 07/24/2022 Active Start: 07-21-2020 End: 07-19-2021 take 1 capsule by mouth once daily omeprazole (PRILOSEC) 40 mg capsule Take 1 capsule by mouth once daily. 90 capsule 3 07/19/2021 Active Start: 01-09-2017 End: 05-15-2024 take 1 capsule by mouth twice daily Omeprazole 20 MG capsule Discontinued 20 mg PO TWICE A DAY January 09, 2017 12:00am May 15, 2024 12:19pm Comment on above: Take 1 capsule by [facility] once daily. potassium chloride 10 meq extended release oral capsule (10 sources) Start: 08-27-2024 take 1 capsule by mouth once daily Potassium Chloride 10 mEq capsule, extended release Active 10 meq PO DAILY 90 August 27, 2024 1:00am Complies with drug therapy predniSONE 20 mg oral tablet (2 sources) Start: 05-05-2023 End: 05-10-2023 take 2 tablets by mouth once daily predniSONE (DELTASONE) 20 mg tablet Indications: Post-viral cough syndrome Take 2 tablets by mouth once daily for 5 days. 10 tablet 0 05/05/2023 05/10/2023 Active Comment on above: Take 2 tablets by [facility] once daily for 5 days. ticagrelor 90 mg oral tablet (15 sources) Start: 05-19-2024 End: 06-02-2024 take 1 tablet by mouth twice daily Ticagrelor (Brilinta) 90 mg tablet Active 90 mg PO TWICE A DAY 180 June 02, 2024 2:23pm Complies with drug therapy Completed/Discontinued Medications Medication Drug Class(es) Dates Sig (Normalized) Sig (Original) acetaminophen 325 mg / oxyCODONE hydrochloride 5 mg oral tablet (5 sources) Opioid Agonist Start: 08-16-2024 End: 02-24-2025 Oxycodone-Acetamin ophen 5-325 mg tablet Discontinued 1 {tbl} PO EVERY 6 HOURS NEEDED as needed for Pain 12 August 16, 2024 February 24, 2025 3:35pm Low back pain Injury due to fall Encounter for long-term use of antiplatelets/anti thrombotics Low back pain, unspecified Unspecified fall, initial encounter extermination inspector (current) use of antithrombotics/an tiplatelets amoxicillin 500 mg oral capsule (9 sources) Penicillin-class Antibacterial Start: 08-28-2022 End: 09-07-2022 take 1 capsule by mouth twice daily amoxicillin (POLYMOX, AMOXIL) 500 mg capsule Take 1 capsule by mouth twice daily for 10 days. 20 capsule 0 08/28/2022 09/07/2022 Start: 06-01-2018 End: 05-15-2024 take 1 tablet by mouth twice daily Amoxicillin 875 mg tablet Discontinued 875 mg PO TWICE A DAY June 01, 2018 1:00am May 15, 2024 12:19pm Comment on above: Take 1 capsule by [facility] twice daily for 10 days. benzonatate 100 mg oral capsule (5 sources) Non-narcotic Antitussive Start : 05-05 End: 09-04 take 2 capsules by mouth three times daily as needed benzonatate (TESSALON PERLE) 100 mg capsule Indications: Post-viral cough syndrome Take 2 capsules by mouth three times a day as needed. 30 capsule 0 05/05/2023 09/04/2023 Discontinued Comment on above: Take 2 capsules by m out three times a day as needed. flurbiprofen 100 mg oral tablet (20 sources) Nonsteroidal Anti-inflammatory Drug Start : 03-14 End: 09-20 take 1 tablet by mouth twice daily Flurbiprofen 100 MG tablet Discontinued 100 mg PO TWICE A DAY January 09, 2017 12:00am May 19, 2024 9:40am hydroCHLOROthiazide 25 mg oral tablet (14 sources) Thiazide Diuretic Start : 05-15 End: 06-02 take 1 tablet by mouth once daily Hydrochlorothiazide 25 mg tablet Discontinued 25 mg PO DAILY May 15, 2024 12:00am June 02, 2024 2:05pm water pill Start: 04-27-2024 hydroCHLOROthi azide 25 mg oral tablet Dose : 25 mg = 1 tab(s), Oral, qDay, # 30 tab(s), 0 Refill(s) Start Date: 04/27/24 Status: Ordered Start: 03-04-2023 End: 2023 take 1 tablet by mouth once daily hydroCHLOROthiazide 25 mg tablet Indications: Essential hypertension Take 1 tablet by mouth once daily. 90 tablet 1 03/04/2023 2023 Discontinued (Changing Therapy/Dosage Form) Comment on above: Take 1 tablet by kamila once daily. traMADol hydrochloride 50 mg oral tablet (5 sources) Opioid Agonist Start: End: take 1 tablet by mouth four times daily as needed for pain Tramadol 50 mg tablet Discontinued 50 mg PO .QID as needed for pain 40 0 May 19, 2024 12:00am June 02, 2024 2:05pm one or two four times a day as needed for pain, may be taken with Tylenol 650 mg Problems Active Problems Problem Classification Problem Date Documented Da te Episodic/Chronic Acute myocardial infarction (7 sources) Acute non-ST segment elevation myocardial infarction; Translations: [Non-ST elevation (NSTEMI) myocardial infarction] Onset: 4 05-27-2024 Chronic Conditions associated with dizziness or vertigo (1 source) Vertigo; Translations: [Dizziness and giddiness] Episodic Coronary atherosclerosis and other heart disease (20 sources) Coronary atherosclerosis; Translations: [Atherosclerotic heart disease of [place] coronary artery without angina pectoris] Onset: 1 10-30-2018 Chronic Disorders of lipid metabolism (20 sources) Hyperlipidemia; Translations: [Other hyperlipidemia] Onset: 6 10-24-2017 Chronic E Codes: Fall (5 sources) Falling injury; Translations: [Unspecified fall, initial encounter] 08-24-2024 Episodic Esophageal disorders (2 sources) Acid reflux 08-18-2014 Chronic Essential hypertension (20 sources) Essential hypertension; Translations: [Essential (primary) hypertension] Onset: 0 Resolved: 7 08-06-2016 Chronic Heart valve disorders (11 sources) Heart murmur; Translations: [Cardiac murmur, unspecified] Onset: 5 05-05-2023 Episodic Hypertension with complications and secondary hypertension (2 sources) Renovascular hypertension; Translations: [Renovascular hypertension] Chronic Osteoarthritis (2 sources) Arthritis 08-26-2014 Chronic Other aftercare (5 sources) Long-term current use of drug therapy; Translations: [extermination inspector (current) use of antithrombotics/antipl atelets] 08-24-2024 Episodic Other and ill-defined heart disease (2 sources) Cardiomegaly; Translations: [Moderate left ventricular hypertrophy] 04-07-2025 Chronic Other circulatory disease (1 source) Other specified peripheral vascular diseases; Translations: [Other specified peripheral vascular diseases] Onset: 5 Chronic Other circulatory disease (5 sources) H/O: hypertension; Translations: [Personal history of other diseases of the circulatory system] 05-15-2024 Episodic Other circulatory disease (8 sources) Abnormal peripheral pulse; Translations: [Other specified symptoms and signs involving the circulatory and respiratory systems] 02-24-2025 Episodic Other connective tissue disease (1 source) Diastasis recti; Translations: [Separation of muscle (nontraumatic), other site] Episodic Other gastrointestinal disorders (5 sources) History of gastroesophageal reflux disease; Translations: [Personal history of other diseases of the digestive system] 05-27-2024 Episodic Other lower respiratory disease (2 sources) Postviral cough; Translations: [Post-viral cough syndrome] 05-05-2023 Episodic Other non-traumatic joint disorders (5 sources) Hip pain; Translations: [Pain in right hip] 08-24-2024 Episodic Other nutritional; endocrine; and metabolic disorders (20 sources) Secondary hemochromatosis; 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] Onset: 4 08-31-2013 Chronic Other nutritional; endocrine; and metabolic disorders (20 sources) Hereditary hemochromatosis; Translations: [Hereditary hemochromatosis] Onset: 6 12-23-2015 Chronic Other nutritional; endocrine; and metabolic disorders (20 sources) Obese class I; Translations: [Obesity, unspecified] Onset: 1 08-15-2020 Chronic Other nutritional; endocrine; and metabolic disorders (2 sources) Hereditary hemochromatosis; Translations: [Hereditary hemochromatosis (HCC)] Onset: 6 Chronic Other screening for suspected conditions (not mental disorders or infectious disease) (13 sources) Patient encounter status; Translations: [Encounter for screening for cardiovascular disorders] Onset: 4 Episodic Other upper respiratory disease (1 source) Pain in throat; Translations: [Pain in throat] Episodic Residual codes; unclassified (3 sources) Edema of right lower limb; Translations: [Localized edema] 09-04-2023 Episodic Screening and history of mental health and substance abuse codes (2 sources) Encounter for screening for depression; Translations: [Encounter for screening examination for other mental health and behavioral disorders] Onset: 5 Episodic Spondylosis; intervertebral disc disorders; other back problems (20 sources) Degeneration of lumbar intervertebral disc; Translations: [Other intervertebral disc degeneration, lumbar region] Onset: 7 09-05-2016 Chronic Spondylosis; intervertebral disc disorders; other back problems (5 sources) Low back pain; Translations: [Low back pain] 08-24-2024 Episodic Sprains and strains (6 sources) Lumbar sprain; Translations: [Sacrum sprain] 07-02-2023 Episodic Unclassified (1 source) Unknown / UNK(Unknown) Onset: 8 Past or Other Problems Problem Classification Problem Date Documented Da te Episodic/Chronic Calculus of urinary tract (20 sources) History of calculus of kidney; Translations: [Personal history of urinary calculi] Onset: 10-23-2016 10-23-2016 Episodic Coronary atherosclerosis and other heart disease (8 sources) Stented coronary artery; Translations: [Presence of coronary angioplasty implant and graft] Onset: 05-18-2024 10-12-2024 Episodic Diabetes mellitus without complication (20 sources) Impaired fasting glycemia; Translations: [Impaired fasting glucose] Onset: 10-30-2018 10-30-2018 Episodic Diverticulosis and diverticulitis (20 sources) Diverticular disease; Translations: [Diverticulosis of intestine, part unspecified, without perforation or abscess without bleeding] Onset: 09-24-2012 Resolved: 10-30-2018 10-30-2018 Chronic Esophageal disorders (20 sources) Esophagitis; Translations: [Esophagitis] Onset: 04-20-2008 08-21-2021 Episodic Gastritis and duodenitis (20 sources) Acute gastritis; Translations: [Acute gastritis without bleeding] Onset: 04-20-2008 Resolved: 09-05-2016 09-05-2016 Episodic Genitourinary symptoms and ill-defined conditions (20 sources) Microscopic hematuria; Translations: [Other microscopic hematuria] Onset: 10-23-2016 Resolved: 10-24-2017 10-24-2017 Episodic Gout and other crystal arthropathies (20 sources) Primary gout; Translations: [Idiopathic gout, left knee] Onset: 03-03-2016 Resolved: 09-05-2016 09-05-2016 Chronic Hemorrhoids (20 sources) Internal hemorrhoids; Translations: [Other hemorrhoids] Onset: 08-03-2005 Resolved: 10-24-2017 10-24-2017 Episodic Hyperplasia of prostate (20 sources) Benign prostatic hyperplasia; Translations: [Benign prostatic hyperplasia without lower urinary tract symptoms] Onset: 10-23-2016 Resolved: 10-30-2018 10-30-2018 Chronic Immunizations and screening for infectious disease (7 sources) Needs influenza immunization; Translations: [Encounter for immunization] Onset: 10-12-2024 Episodic Nonspecific chest pain (11 sources) Left sided chest pain; Translations: [Chest pain, unspecified] Onset: 08-28-2024 08-17-2024 Episodic Other circulatory disease (1 source) Personal history of other diseases of the circulatory system; Translations: [Personal history of other diseases of the circulatory system] Onset: 06-03-2024 Episodic Other diseases of kidney and ureters (20 sources) Acquired renal cystic disease; Translations: [Cyst of kidney, acquired] Onset: 09-06-2021 09-06-2021 Episodic Other gastrointestinal disorders (1 source) Personal history of other diseases of the digestive system; Translations: [Personal history of other diseases of the digestive system] Onset: 06-03-2024 Episodic Other injuries and conditions due to external causes (1 source) Encounter for examination and observation following other accident; Translations: [Encounter for examination and observation following other accident] Onset: 09-02-2024 Episodic Other liver diseases (20 sources) Elevated levels of transaminase & lactic acid dehydrogenase; Translations: [Nonspecific elevation of levels of transaminase or lactic acid dehydrogenase (LDH)] Onset: 08-07-2005 Resolved: 09-05-2016 09-05-2016 Episodic Other lower respiratory disease (20 sources) Dyspnea; Translations: [Dyspnea, unspecified] Onset: 07-07-2010 Resolved: 09-05-2016 07-17-2021 Episodic Other lower respiratory disease (20 sources) Respiratory obstruction; Translations: [Other specified respiratory disorders] Onset: 11-09-2008 Resolved: 09-05-2016 07-17-2021 Episodic Other male genital disorders (20 sources) Scrotal mass; Translations: [Other specified disorders of the male genital organs] Onset: 10-23-2016 Resolved: 10-24-2017 10-24-2017 Episodic Other male genital disorders (20 sources) Disorder of male genital organ; Translations: [Hydrocele, unspecified] Onset: 11-07-2016 Resolved: 10-24-2017 10-24-2017 Episodic Other male genital disorders (20 sources) Disorder of testis; Translations: [Other specified disorders of the male genital organs] Onset: 11-07-2016 Resolved: 10-30-2018 10-30-2018 Episodic Other non-traumatic joint disorders (20 sources) 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; Translations: [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(713.0)] Onset: 12-24-2005 Resolved: 09-05-2016 09-05-2016 Chronic Other nutritional; endocrine; and metabolic disorders (20 sources) Disorder of iron metabolism; Translations: [Disorders of iron metabolism] Onset: 08-03-2005 Resolved: 09-05-2016 09-05-2016 Chronic Other nutritional; endocrine; and metabolic disorders (20 sources) Hemochromatosis; Translations: [Hemochromatosis, unspecified] Onset: 05-29-2010 Resolved: 12-23-2015 07-17-2021 Chronic Other nutritional; endocrine; and metabolic disorders (20 sources) Obese class II; Translations: [Obesity, unspecified] Onset: 10-30-2018 Resolved: 08-15-2020 08-15-2020 Chronic Other skin disorders (20 sources) Male pattern alopecia; Translations: [Androgenic alopecia, unspecified] Onset: 09-05-2016 09-05-2016 Episodic Residual codes; unclassified (20 sources) Obstructive sleep apnea syndrome; Translations: [Obstructive sleep apnea (adult) (pediatric)] Onset: 11-09-2008 Resolved: 10-30-2018 10-30-2018 Chronic Unclassified (1 source) WELLS CONCRETE NON DOT UDS Onset: 12-18-2017 Unclassified (20 sources) SUMMARY Onset: 07-07-2010 Resolved: 04-30-2011 07-17-2021 Results Test Name Value Interpretation Reference Range Facility [facility] 04-26-2025 CNOV Office Visit (INTMWS ) -- RUELOLIVA PINZON ([id number]) 1955 M Date Time Provider Department 04/26/25 5:40 PM JUAN J RUBALCAVA INTMWS During your visit today, we recorded the following information about you: Temperature Pulse Blood pressure Weight 97.2 degrees 72/minute 116/74 97 kg Height 1.717 m Juan J Rubalcava MD 04/26/2025 6:33 PM Signed Subjective Oliva Teresapako is a 69 year old male. Patient presents with: Yearly Exam F/U 6 months Oliva was here for his annual physical. He was doing well. CAD was stable. Hypertension and lipids were controlled. His glucose was now a concern. We reviewed his lab results. His right shoulder was now more bothersome than his knee. He was postponing his total knee replacement further. An MRI of his shoulder was scheduled. Current care team: Patient Care Team: Juan J Rubalcava MD as PCP - General (Internal Medicine) Carlos Flores MD (Hematology/Oncology) Santiago Perez MD ([facility]) Bryn Jean-Baptiste MD, (Ophthalmology) Dejan Gutierrez MD (Cardiology) The history is provided by the patient. Review of Systems Constitutional: Negative for activity change, fatigue and unexpected weight change. HENT: Negative for congestion. Eyes: Negative for visual disturbance. Respiratory: Negative for cough and shortness of breath. Cardiovascular: Negative for chest pain, palpitations and leg swelling. Gastrointestinal: Negative for abdominal pain, blood in stool, constipation and diarrhea. Genitourinary: Negative for difficulty urinating and dysuria. Musculoskeletal: Positive for arthralgias. Skin: Negative. Neurological: Negative for dizziness, weakness, numbness and headaches. Psychiatric/Behavioral: Negative for dysphoric mood. The patient is not nervous/anxious. 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 Benign non-nodular prostatic hyperplasia without lower urinary tract symptoms 10/23/2016 Disorders of iron metabolism Esophagitis, unspecified Hereditary hemochromatosis 12/23/2015 History of kidney stones 10/23/2016 Hydrocele 11/07/2016 Hypertension Impaired fasting glucose 10/30/2018 Internal hemorrhoids without mention of complication 08/03/2005 Male pattern alopecia 09/05/2016 Non-STEMI (non-ST elevated myocardial infarction) (HCC) 05/15/2024 Nonspecific elevation of levels of transaminase or lactic acid dehydrogenase (LDH) Obstructive sleep apnea 04/16/2011 not treated by choice. Other hyperlipidemia 12/24/2005 Testicular calcification 11/07/2016 PAST SURGICAL HISTORY Procedure Laterality Date ARTHROSCOPY SHOULDER W/ROTATOR CUFF RPR Right 09/03/2018 Dr. John Mccoy CARDIAC CATH 07/10/2010 CC PTCA STENT 05/18/2024 Drug eluting stent to RCA COLONOSCOPY FLX DX W/COLLJ SPEC WHEN PFRMD 08/25/2004 Colonoscopy CYSTOSCOPY,URETEROSCOPY,ST ONE REMV Left 01/11/2017 retrograde pyelogram, laser lithotripsy EGD TRANSORAL BIOPSY SINGLE/MULTIPLE 04/20/2008 EGD TRANSORAL BIOPSY SINGLE/MULTIPLE 11/02/2011 ESOPHAGOSCOPY FLEX BALLOON DILAT <30 MM DIAM 09/20/2000 Esophageal dilatation PAST SURGICAL HISTORY OF 2003 sigmoid colectomy, diverticultis, appendectomy. PAST SURGICAL HISTORY OF Left 08/2004 artifical joint replaced left great toe PAST SURGICAL HISTORY OF Left 2010 left knee surgery, knee scope x 2 PAST SURGICAL HISTORY OF Right 03/2014 Arthroscopy right knee, meniscal tear, Dr. Rivera PAST SURGICAL HISTORY OF Left 09/01/[address] Rivera FAMILY HISTORY Problem Relation Age of Onset Heart Father Heart Mother pacemaker Cancer Brother throat lymph nodes Multiple Sclerosis Sister Social History Tobacco Use Smoking status: Former Current packs/day: 0.00 Average packs/day: 1 pack/day for 20.0 years (20.0 ttl pk-yrs) Types: Cigarettes Start date: 08/23/1983 Quit date: 08/23/2003 Years since quittin.6 Smokeless tobacco: Former Types: Chew Quit date: 07/22/1994 Vaping Use Vaping status: Never Used Substance Use Topics Alcohol use: Yes Alcohol/week: 2.3 standard drinks of alcohol Types: 1 Cans of Beer (12oz), 1 Mixed Drinks per week Comment: occ Drug use: No ALLERGIES Allergen Reactions Simvastatin Other: See Comments myalgia shoulders Current Outpatient Medications Medication Sig amLODIPine (NORVASC) 5 mg tablet Take 1 tablet by mouth once daily. losartan (COZAAR) 100 mg tablet Take 1 tablet by mouth once daily. finasteride (PROPECIA) 1 mg tablet Take 1 tablet by mouth once daily. BRILINTA 90 mg tablet Take 90 mg by mouth two times a day. met (more content not included)... Normal [facility] AFP SerPl-mCncon 04-22-2025 AFP [Mass/Vol] 1.14 ng/mL Normal <9.00 [facility] Comment on above: Order Comment: Speci men Type: BLOOD SPECIMENOrdering Facility: [facility] Address: [address] [place] [address] Result Comment: The Alpha-Fetoprotein test was performed using the Rufina Unic[employer] DxI immunoenzymatic assay. Results obtained with different assay methods or kits cannot be used interchangeably. Performed By: #### 1 834-1 ####[facility] LABCLIA [id number] [place] [address] [place] CBC W Auto Differential pane l (Bld)on 04-22-2025 Basophils (Bld) [#/Vol] 0.05 10*3/uL Normal <0.11 [facility] Comment on above: Order Comment: Speci men Type: BLOOD SPECIMENOrdering Facility: [facility] Address: [address] [place] [address] Performed By: #### 5 7021-8 ####[facility] [id number] [place] [address] [place] Basophils/100 WBC (Bld) 0.6 % Normal [facility] Comment on above: Order Comment: Speci men Type: BLOOD SPECIMENOrdering Facility: [facility] Address: [address] [place] [address] Performed By: #### 5 7021-8 ####[facility] [id number] [place] [address] [place] Differential cell count method Nom (Bld) Auto Normal [facility] Comment on above: Order Comment: Speci men Type: BLOOD SPECIMENOrdering Facility: [facility] Address: [address] [place] [address] Performed By: #### 5 7021-8 ####[facility] [id number] [place] [address] [place] Eosinophils (Bld) [#/Vol] 0.11 10*3/uL Normal <0.46 [facility] Comment on above: Order Comment: Speci men Type: BLOOD SPECIMENOrdering Facility: [facility] Address: [address] [place] [address] Performed By: #### 5 7021-8 ####[facility] DULCEWODILIALIA [id number] [place] [address] [place] Eosinophils/100 WBC (Bld) 1.4 % Normal [facility] Comment on above: Order Comment: Speci men Type: BLOOD SPECIMENOrdering Facility: [facility] Address: [address] [place] [address] Performed By: #### 5 7021-8 ####[facility] VIKASODILIALIA [id number] [place] [address] [place] Erythrocyte distribution width (RBC) [Ratio] 13.7 % Normal 11.5-15.0 [facility] Comment on above: Order Comment: Speci men Type: BLOOD SPECIMENOrdering Facility: [facility] Address: [address] [place] [address] Performed By: #### 5 7021-8 ####[facility]IC[facility] [id number] [place] [address] [place] Hematocrit (Bld) [Volume fraction] 41.4 % Normal 39.0-51.0 [facility] Comment on above: Order Comment: Speci men Type: BLOOD SPECIMENOrdering Facility: [facility] Address: [address] [place] [address] Performed By: #### 5 7021-8 ####[facility] DULCEWNCLIA [id number] [place] [address] [place] Hemoglobin (Bld) [Mass/Vol] 14.0 g/dL Normal 13.0-17.0 [facility] Comment on above: Order Comment: Speci men Type: BLOOD SPECIMENOrdering Facility: [facility] Address: [address] [place] [address] Performed By: #### 5 7021-8 ####[facility] CLINICODILIAA [id number] [place] [address] [place] Immature granulocytes (Bld) [#/Vol] 10*3/uL Normal <0.10 [facility] Comment on above: Order Comment: Speci men Type: BLOOD SPECIMENOrdering Facility: [facility] Address: [address] [place] [address] Performed By: #### 5 7021-8 ####[facility] [id number] [place] [address] [place] Immature granulocytes/100 WBC (Bld) 0.3 % Normal [facility] Comment on above: Order Comment: Speci men Type: BLOOD SPECIMENOrdering Facility: [facility] Address: [address] [place] [address] Performed By: #### 5 7021-8 ####[facility] [id number] [place] [address] [place] Lymphocytes (Bld) [#/Vol] 2.12 10*3/uL Normal 1.00-4.00 [facility] Comment on above: Order Comment: Speci men Type: BLOOD SPECIMENOrdering Facility: [facility] Address: [address] [place] [address] Performed By: #### 5 7021-8 ####[facility] [id number] [place] [address] [place] Lymphocytes/100 WBC (Bld) 27.0 % Normal [facility] Comment on above: Order Comment: Speci men Type: BLOOD SPECIMENOrdering Facility: [facility] Address: [address] [place] [address] Performed By: #### 5 7021-8 ####[facility] [id number] [place] [address] [place] MCH (RBC) [Entitic mass] 27.4 pg Normal 26.0-34.0 [facility] Comment on above: Order Comment: Speci men Type: BLOOD SPECIMENOrdering Facility: [facility] Address: [address] [place] [address] Performed By: #### 5 7021-8 ####[facility] [id number] [place] [address] [place] MCHC (RBC) [Mass/Vol] 33.8 g/dL Normal 30.5-36.0 [facility] Comment on above: Order Comment: Speci men Type: BLOOD SPECIMENOrdering Facility: [facility] Address: [address] [place] [address] Performed By: #### 5 7021-8 ####[facility] [id number] [place] [address] [place] MCV (RBC) [Entitic vol] 81.0 fL Normal 80.0-100.0 [facility] Comment on above: Order Comment: Speci men Type: BLOOD SPECIMENOrdering Facility: [facility] Address: [address] [place] [address] Performed By: #### 5 7021-8 ####[facility] [id number] [place] [address] [place] Monocytes (Bld) [#/Vol] 0.60 10*3/uL Normal <0.87 [facility] Comment on above: Order Comment: Speci men Type: BLOOD SPECIMENOrdering Facility: [facility] Address: [address] [place] [address] Performed By: #### 5 7021-8 ####[facility] [id number] [place] [address] [place] Monocytes/100 WBC (Bld) 7.7 % Normal [facility] Comment on above: Order Comment: Speci men Type: BLOOD SPECIMENOrdering Facility: [facility] Address: [address] [place] [address] Performed By: #### 5 7021-8 ####[facility] MILLTOWNCLIA [id number] [place] [address] [place] Neutrophils (Bld) [#/Vol] 4.94 10*3/uL Normal 1.45-7.50 [facility] Comment on above: Order Comment: Speci men Type: BLOOD SPECIMENOrdering Facility: [facility] Address: [address] [place] [address] Performed By: #### 5 7021-8 ####[facility] MILLWNCLIA [id number] [place] [address] [place] Neutrophils/100 WBC (Bld) 63.0 % Normal [facility] Comment on above: Order Comment: Speci men Type: BLOOD SPECIMENOrdering Facility: [facility] Address: [address] [place] [address] Performed By: #### 5 7021-8 ####[facility]ICNCL[facility] [id number] [place] [address] [place] Nucleated RBC (Bld) [#/Vol] 10*3/uL Normal <0.01 [facility] Comment on above: Order Comment: Speci men Type: BLOOD SPECIMENOrdering Facility: [facility] Address: [address] [place] [address] Performed By: #### 5 7021-8 ####[facility] MILLTOWNCLIA [id number] [place] [address] [place] Nucleated RBC/100 WBC (Bld) [Ratio] 0.0 /100 WBC Normal [facility] Comment on above: Order Comment: Speci men Type: BLOOD SPECIMENOrdering Facility: [facility] Address: [address] [place] [address] Performed By: #### 5 7021-8 ####[facility] MILLWNCLIA [id number] [place] [address] [place] Platelet mean volume (Bld) [Entitic vol] 8.4 fL Low 9.0-12.7 [facility] Comment on above: Order Comment: Speci men Type: BLOOD SPECIMENOrdering Facility: [facility] Address: [address] [place] [address] Performed By: #### 5 7021-8 ####[facility] CLINICODILIAMILADA [id number] [place] [address] [place] Platelets (Bld) [#/Vol] 280 10*3/uL Normal 150-400 [facility] Comment on above: Order Comment: Speci men Type: BLOOD SPECIMENOrdering Facility: [facility] Address: [address] [place] [address] Performed By: #### 5 7021-8 ####[facility] CLINICRADHAMotnez [id number] [place] [address] [place] RBC (Bld) [#/Vol] 5.11 10*6/uL Normal 4.20-6.00 [facility] Comment on above: Order Comment: Speci men Type: BLOOD SPECIMENOrdering Facility: [facility] Address: [address] [place] [address] Performed By: #### 5 7021-8 ####[facility]ICNCLIA [id number] [place] [address] [place] WBC (Bld) [#/Vol] 7.84 10*3/uL Normal 3.70-11.00 [facility] Comment on above: Order Comment: Speci men Type: BLOOD SPECIMENOrdering Facility: [facility] Address: [address] [place] [address] Performed By: #### 5 7021-8 ####[facility] CL[facility]ICNCLIA [id number] [place] [address] [place] CNOVSPon 10-02-2025 CNOVSP Visit (SP) Office (H EMAWS) -- RUELOLIVA PINZON ([id number]) 1955 Date Time Provider Department 04/22/25 2:30 PM LAURA DOMINGUEZ During your visit today, we recorded the following information about you: Temperature Pulse Blood pressure Weight 97.3 degrees 67/minute 109/73 96.6 kg Height 1.735 m Laura Dominguez 04/22/2025 3:37 PM Signed Oliva Stewart Marin 1955 HISTORY OF PRESENT ILLNESS: Oliva Grey is a 69 year old male dx in 2002 with hereditary hemochromatosis on basis of elevted LFT, liver biopsy showed iron index > 1.9g. gene analysis showed heterozygous mutations in 2 gene (this is per Dr Cosby's note, report not readily available to me) He has been having phlebotomy every 6 months. Last ferritin was 27 measured in May 2022. We noted mild anemia. Interval Hx: Achy, shoulder and knee. Due for a knee replacement but had to delay due to heart attack. Was taking NSAIDs for these pains but stopped due to anticoagulation. No changes in bowel habits. No No rash, or skin changes. No itching. CLINICAL IMPRESSION: Hereditary hemochromatosis - reviewed target for HH is ferritin 50 - 100 - doing well with q6 mo RECOMMENDATION/PLAN: 1. Phlebotomy today 2. Back in 6 months with phlebotomy 3. 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 Benign non-nodular prostatic hyperplasia without lower urinary tract symptoms 10/23/2016 Disorders of iron metabolism Esophagitis, unspecified Hereditary hemochromatosis 12/23/2015 History of kidney stones 10/23/2016 Hydrocele 11/07/2016 Hypertension Impaired fasting glucose 10/30/2018 Internal hemorrhoids without mention of complication 08/03/2005 Male pattern alopecia 09/05/2016 Non-STEMI (non-ST elevated myocardial infarction) (HCC) 05/15/2024 Nonspecific elevation of levels of transaminase or lactic acid dehydrogenase (LDH) Obstructive sleep apnea 04/16/2011 not treated by choice. Other hyperlipidemia 12/24/2005 Testicular calcification 11/07/2016 PAST SURGICAL HISTORY Procedure Laterality Date ARTHROSCOPY SHOULDER W/ROTATOR CUFF RPR Right 09/03/2018 [facility], Dr. Lopez CARDIAC CATH 07/10/2010 CC PTCA STENT 05/18/2024 Drug eluting stent to RCA COLONOSCOPY FLX DX W/COLLJ SPEC WHEN PFRMD 08/25/2004 Colonoscopy CYSTOSCOPY,URETEROSCOPY,ST ONE REMV Left 01/11/2017 retrograde pyelogram, laser lithotripsy EGD TRANSORAL BIOPSY SINGLE/MULTIPLE 04/20/2008 EGD TRANSORAL BIOPSY SINGLE/MULTIPLE 11/02/2011 ESOPHAGOSCOPY FLEX BALLOON DILAT <30 MM DIAM 09/20/2000 Esophageal dilatation PAST SURGICAL HISTORY OF 2003 sigmoid colectomy, diverticultis, appendectomy. PAST SURGICAL HISTORY OF Left 08/2004 artifical joint replaced left great toe PAST SURGICAL HISTORY OF Left 2010 left knee surgery, knee scope x 2 PAST SURGICAL HISTORY OF Right 03/2014 Arthroscopy right knee, meniscal tear, Dr. Rivera PAST SURGICAL HISTORY OF Left 09/01/[address] Rivera FAMILY HISTORY Problem Relation Age of Onset Heart Father Heart Mother pacemaker Cancer Brother throat lymph nodes Multiple Sclerosis Sister Social History Tobacco Use Smoking status: Former Current packs/day: 0.00 Average packs/day: 1 pack/day for 20.0 years (20.0 ttl pk-yrs) Types: Cigarettes Start date: 08/23/1983 Quit date: 08/23/2003 Years since quittin.6 Smokeless tobacco: Former Types: Chew Quit date: 07/22/1994 Vaping Use Vaping status: Never Used Substance Use Topics Alcohol use: Yes Alcohol/week: 2.3 standard drinks of alcohol Types: 1 Cans of Beer (12oz), 1 Mixed Drinks per week Comment: occ Drug use: No ALLERGIES: ALLERGIES Allergen Reactions Simvastatin Other: See Comments myalgia shoulders CURRENT OUTPATIENT MEDICATIONS: amLODIPine (NORVASC) 5 mg tablet Take 1 tablet by mouth once daily. losartan (COZAAR) 100 mg tablet Take 1 tablet by mouth once daily. finasteride (PROPECIA) 1 mg tablet Take 1 tablet by mouth once daily. potassium chloride SR (MICRO-K) 10 mEq CR capsule Take 1 capsule by mouth once daily. BRILINTA 90 mg tablet Take 90 mg by mouth two times a day. metoprolol succinate ER (TOPROL XL) 50 mg 24 hr tablet Take 1 tablet by mouth once daily. chlorthalidone (HYGROTON) 25 mg tablet Take 1 tablet by mouth once daily. atorvastatin (LIPITOR) 20 mg tablet Take 1 tablet by mouth once daily. omeprazole (PRILOSEC) 40 mg capsule Take 1 capsule by mouth once daily. folic acid 1 mg tablet Take 1 tablet by mouth once daily. fluticasone (FLONASE) 50 mcg/ (more content not included)... Normal [facility] Cardiology Visit Reporton Cardiology Visit Report [facility] [address] [place] [address]. [address] [place] [address] OFFICE VISIT Date of Service: 04/22/25 MR#: [id number] Acct: [id number] Name: OLIVA GREY Rep #: [id number] : 1955 Provider: SANTI Zaidi Age/Sex: 69/M Location: [facility] [place] [facility] Status: Signed HPI HPI History of Present Illness Details: Oliva Grey is a 69 year old gentleman That presented to [facility] on 05/15 2024 with chest discomfort. Initial troponin was 12 however it trended to 116 and then to 1104. He was admitted to PCU. Echocardiogram demonstrated preserved ejection fraction. He underwent a diagnostic heart catheterization and underwent stenting of his RCA. From a cardiac standpoint, patient is doing well. He does not have any chest discomfort/heaviness/tight ness. His exercise tolerance is stable for his age. He does not have any worsening symptoms of shortness of breath. He denies any PND. He does not have any orthopnea. He does not have any symptoms of congestive heart failure. He does not have any palpitations that he is aware of. He does not have any lightheadedness or dizziness. He does not have any near-syncope or syncope. He does not have any lower extremity edema. He does not have any symptoms of claudication. He is having issues with his knee, it is limiting his activity. He was supposed to have knee surgery prior to his PCI. He may be having knee surgery in May. He did have an echocardiogram done earlier this month for a newly noted murmur. He was noted to have moderate LVH with a Valsalva 83 mmHg. This is a newly noted. Intake Vital Signs 02/24/25 15:32 04/22/25 08:05 Height 5 ft 8 in 5 ft 8 in Weight: 211 lb BMI 32.1 BP 121/77 H Blood Pressure Location Lt brachial Position Sitting Respiration 18 Pulse 84 Pulse Source Monitor Pulse Oximetry (%) 93 Oxygen Delivery Method room air Intake Visit Reasons: ABN Echo/See C.N. Manager Social Services Required: No Accompanied by: Self Is patient in pain?: No Allergies No Known Allergies Allergy (Verified 04/22/25 15:36) Medications ???Medication ???Instructions ???Recorded ???Confirmed ???Type atorvastatin 20 mg tablet 20 mg PO DAILY cholesterol 7 04/22/25 History nsin-jhz-wobtt-cellulose-p fzmvhjp-bttc-xypxbi 1,000 mg PO DAILY bow els 01/09/17 04/22/25 History 1,000 mg tablet cholecalciferol (vitamin D3) 25 1,000 unit PO DAILY supplement 04/22/25 History mcg (1,000 unit) capsule finasteride 1 mg tablet 1 mg PO QHS prostate 01/09/1709/15 History folic acid 1 mg tablet 1 mg PO DAILY@0800 supplement 12/2104/22/25 History metoprolol succinate 50 mg 50 mg PO DAILY HR 01/09/17 5 History tablet,extended release 24 hr amlodipine 5 mg tablet 5 mg PO DAILY blood pressure 05/1504/22/25 History losartan 100 mg tablet 100 mg PO DAILY blood pressure 04/22/25 History omeprazole 40 mg capsule,delayed 40 mg PO DAILY acid reflux 4 04/22/25 History release acetaminophen 325 mg tablet 650 mg (2 x 325 mg) PO Q6H PRN PRN 05/19/24 04/22/25 Rx Pain 1-10 Or Fever >100.7 #0 tabs aspirin 81 mg tablet,delayed 81 mg PO BREAKFAST #0 tabs 4 04/22/25 Rx release ticagrelor 90 mg tablet (Brilinta) 90 mg PO BID #180 tabs 06/02/24 04/22/25 Rx chlorthalidone 25 mg tablet 25 mg PO QDAY 08/26/24 04/22/25 Hi story potassium chloride 10 mEq 10 meq PO DAILY #90 caps 08/27/24 04/22/25 Rx capsule,extended release Ejection fraction %: 70 Have you fallen in the past year?: Yes PFSH Medical History Moderate left ventricular hypertrophy Cardiac murmur Essential hypertension Hyperglycemia Acute non-ST elevation myocardial infarction (NSTEMI) Elevated troponin History of gastroesophageal reflux (GERD) Chest pain of uncertain etiology Atherosclerosis of coronary artery of [place] heart without angina pectoris Kidney stone Back pain Knee pain Shoulder pain SOB (shortness of breath) Arthritis HTN (hypertension) Surgical History History of coronary artery stent placement (05/18/24) History of gastric surgery History of foot surgery History of knee surgery Family History Other Heart disease Hypertension Social History household members: spouse housing: house Smoking Status: Former smoker Tobacco: How many years used: 20 how long ago did patient quit smoking: Quit about 20 years ago and has a 83-oxmo-ejsf history alcohol intake: current alcohol intake frequency: a few times a month substance use type: does not use (more content not included)... Normal [facility] Comprehensive metabolic 2000 panelon 04-22-2025 Albumin [Mass/Vol] 4.5 g/dL Normal 3.9-4.9 [facility] Comment on above: Order Comment: Speci men Type: BLOOD SPECIMENOrdering Facility: [facility] Address: [address] [place] [address] Performed By: #### 2 4323-8 ####[facility] MILLTOWNCLIA [id number] [place] [address] [place] ALP [Catalytic activity/Vol] 68 U/L Normal 38-113 [facility] Comment on above: Order Comment: Speci men Type: BLOOD SPECIMENOrdering Facility: [facility] Address: [address] [place] [address] Performed By: #### 2 4323-8 ####[facility] [id number] [place] [address] [place] ALT [Catalytic activity/Vol] 66 U/L High 10-54 [facility] Comment on above: Order Comment: Speci men Type: BLOOD SPECIMENOrdering Facility: [facility] Address: [address] [place] [address] Performed By: #### 2 4323-8 ####[facility] [id number] [place] [address] [place] Anion gap [Moles/Vol] 15 mmol/L Normal 8-15 [facility] Comment on above: Order Comment: Speci men Type: BLOOD SPECIMENOrdering Facility: [facility] Address: [address] [place] [address] Performed By: #### 2 4323-8 ####[facility] [id number] [place] [address] [place] AST [Catalytic activity/Vol] 57 U/L High 14-40 [facility] Comment on above: Order Comment: Speci men Type: BLOOD SPECIMENOrdering Facility: [facility] Address: [address] [place] [address] Performed By: #### 2 4323-8 ####[facility] [id number] [place] [address] [place] Bilirubin [Mass/Vol] 1.2 mg/dL Normal 0.2-1.3 [facility] Comment on above: Order Comment: Speci men Type: BLOOD SPECIMENOrdering Facility: [facility] Address: [address] [place] [address] Performed By: #### 2 4323-8 ####[facility] [id number] [place] [address] [place] Calcium [Mass/Vol] 10.0 mg/dL Normal 8.5-10.2 [facility] Comment on above: Order Comment: Speci men Type: BLOOD SPECIMENOrdering Facility: [facility] Address: [address] [place] [address] Performed By: #### 2 4323-8 ####[facility] [id number] [place] [address] [place] Chloride [Moles/Vol] 98 mmol/L Normal 98-107 [facility] Comment on above: Order Comment: Speci men Type: BLOOD SPECIMENOrdering Facility: [facility] Address: [address] [place] [address] Performed By: #### 2 4323-8 ####[facility] [id number] [place] [address] [place] CO2 [Moles/Vol] 22 mmol/L Normal 22-30 [facility] Comment on above: Order Comment: Speci men Type: BLOOD SPECIMENOrdering Facility: [facility] Address: [address] [place] [address] Performed By: #### 2 4323-8 ####[facility] [id number] [place] [address] [place] Creatinine [Mass/Vol] 0.72 mg/dL Low 0.73-1.22 [facility] Comment on above: Order Comment: Speci men Type: BLOOD SPECIMENOrdering Facility: [facility] Address: [address] [place] [address] Performed By: #### 2 4323-8 ####[facility]ICNCLI [id number] [place] [address] [place] eGFRcr SerPlBld CKD-EPI 2020 100 mL/min/1.73m??? Normal >=60 [facility] Comment on above: Order Comment: Chuy dye Type: BLOOD SPECIMENOrdering Facility: [facility] Address: [address] [place] [address] Result Comment: Beatriz mated Glomerular Filtration Rate (eGFR) is calculated using the 2020 CKD-EPI creatinine equation. This equation utilizes serum creatinine, sex, and age as parameters. The creatinine assay has traceable calibration to isotope dilution-mass spectrometry. Refer to KDIGO guidelines for clinical interpretation. In patients with unstable renal function, e.g. those with acute kidney injury, the eGFR may not accurately reflect actual GFR. Performed By: #### 2 4323-8 ####[facility] [id number] [place] [address] [place] Glucose [Mass/Vol] 108 mg/dL High 74-99 [facility] Comment on above: Order Comment: Chuy dye Type: BLOOD SPECIMENOrdering Facility: [facility] Address: [address] [place] [address] Result Comment: The [place] Diabetes Association (ADA) provides guidance for cutoff values for fasting glucose and random glucose. The ADA defines fasting as no caloric intake for at least 8 hours. Fasting plasma glucose results between 100 to 125 mg/dL indicate increased risk for diabetes (prediabetes). Fasting plasma glucose results greater than or equal to 126 mg/dL meet the criteria for diagnosis of diabetes. In the absence of unequivocal hyperglycemia, results should be confirmed by repeat testing. In a patient with classic symptoms of hyperglycemia or hyperglycemic crisis, random plasma glucose results greater than or equal to 200 mg/dL meet the criteria for diagnosis of diabetes. Reference: Standards of Medical Care in Diabetes 2016, [place] Diabetes Association. Diabetes Care. 2016.39(Suppl 1). Performed By: #### 2 4323-8 ####[facility]CL[facility] [id number] [place] [address] [place] Potassium [Moles/Vol] 3.7 mmol/L Normal 3.7-5.1 [facility] Comment on above: Order Comment: Speci men Type: BLOOD SPECIMENOrdering Facility: [facility] Address: [address] [place] [address] Performed By: #### 2 4323-8 ####[facility] MILLTOWNCLIA [id number] [place] [address] [place] Protein [Mass/Vol] 7.5 g/dL Normal 6.3-8.0 [facility] Comment on above: Order Comment: Speci men Type: BLOOD SPECIMENOrdering Facility: [facility] Address: [address] [place] [address] Performed By: #### 2 4323-8 ####[facility]ICNCLIA [id number] [place] [address] [place] Sodium [Moles/Vol] 135 mmol/L Low 136-144 [facility] Comment on above: Order Comment: Speci men Type: BLOOD SPECIMENOrdering Facility: [facility] Address: [address] [place] [address] Performed By: #### 2 4323-8 ####[facility] MILLDOUSMANODILIALIA [id number] [place] [address] [place] Urea nitrogen [Mass/Vol] 17 mg/dL Normal 9-24 [facility] Comment on above: Order Comment: Speci men Type: BLOOD SPECIMENOrdering Facility: [facility] Address: [address] [place] [address] Performed By: #### 2 4323-8 ####[facility]ENTERWNCLIA [id number] [place] [address] [place] Ferritin SerPl-mCncon 2024 Ferritin [Mass/Vol] 45.4 ng/mL Normal 30.3-565.7 [facility] Comment on above: Order Comment: Chuy dye Type: BLOOD SPECIMENOrdering Facility: [facility] Address: [address] [place] [address] Performed By: #### 2 276-4, 58727-9 ####[facility] LABCLIA [id number] [address]#### [address]17[address]-7 ####[facility] LABIA [id number] [place] [id number] [facility] [id number] [place], [place] [address] [place] [address] HbA1c (Bld)on 04-22-2025 Average glucose Estimated from glycated hemoglobin (Bld) [Mass/Vol] 143 mg/dL Normal [facility] Comment on above: Order Comment: Chuy dye Type: BLOOD SPECIMENOrdering Facility: [facility] Address: [address] [place] [address] Result Comment: eAG: (Estimated average glucose) is a calculated value from HgbA1c and is retail field representative of the average blood glucose level in the last 2-3 month period. Performed By: #### 5 5454-3 ####[facility] [id number] [address] HbA1c (Bld) [Mass fraction] 6.6 % High 4.3-5.6 [facility] Comment on above: Order Comment: Juan Danielmadie [facility] Type: BLOOD SPECIMENOrdering Facility: [facility] Address: [address] [place] [address] Result Comment: [place] Diabetes Association guidelines indicate that patients with HgbA1c in the range 5.7-6.4% are at increased risk for development of diabetes, and intervention by lifestyle modification may be beneficial. HgbA1c greater or equal to 6.5% is considered diagnostic of diabetes. Performed By: #### 5 5454-3 ####[facility] LABCLIA [id number] [address] [place] [address] [place] Iron and Iron binding capaci ty panelon 04-22-2025 Iron [Mass/Vol] 87 ug/dL Normal 41-186 [facility] Comment on above: Order Comment: Speci men Type: BLOOD SPECIMENOrdering Facility: [facility] Address: [address] [place] [address] Performed By: #### 2 276-4, 17284-1 ####[facility] LABCLIA [id number] [address] [place] [address] [place]#### 77957-7 ####[facility] LABCLIA [id number] [address] [place] [address] [place] [facility] [id number] [place] [address] [place] Iron binding capacity [Mass/Vol] 315 ug/dL Normal 232-386 [facility] Comment on above: Order Comment: Speci men Type: BLOOD SPECIMENOrdering Facility: [facility] Address: [address] [place] [address] Performed By: #### 2 276-4, 23050-1 ####[facility] LABCLIA [id number] [place] [id number] [place]#### 39536-5 ####[facility] LABCLIA [id number] [address] [place] [address] [place] [facility] [id number] [place] [address] [place] Iron/TIBC [Molar ratio] 27.6 % Normal 15.0-57.0 [facility] Comment on above: Order Comment: Speci men Type: BLOOD SPECIMENOrdering Facility: [facility] Address: [address] [place] [address] Performed By: #### 2 276-4, 68815-0 ####[facility] LABCLIA [id number] [address], [facility]95 [place]#### 52538-4 ####[facility] LABCLIA [id number] [address] [place] [address] [place] [facility] [id number] [place] [address] [place] Lipid 1996 panelon 5 Cholesterol [Mass/Vol] 156 mg/dL Normal <200 [facility] Comment on above: Order Comment: Speci men Type: BLOOD SPECIMENOrdering Facility: [facility] Address: [address] [place] [address] Result Comment: <200 mg/dL, Desirable 200-239 mg/dL, Borderline high >239 mg/dL, High Performed By: #### 2 276-4, 14259-8 ####[facility] LABCLIA [id number] [address], [facility]95 [place]#### 64374-9 ####[facility] LABCLIA [id number] [address], [address] STATES OF [facility] [id number] [place] [address] [place] Cholesterol in HDL [Mass/Vol] 30 mg/dL Low >39 [facility] Comment on above: Order Comment: Speci men Type: BLOOD SPECIMENOrdering Facility: [facility] Address: [address] [place] [address] Result Comment: 40-5 9 mg/dL, Acceptable >59 mg/dL, High: Negative risk factor for coronary heart disease <40 mg/dL, Low: Positive risk factor for coronary heart disease Performed By: #### 2 276-4, 71833-1 ####[facility] LABCLIA [id number] [address] [place]#### 40597-4 ####[facility] LABIA [id number] [address] [id number] [place] [address] [place] Cholesterol in LDL [Mass/Vol] 88 mg/dL Normal <100 [facility] Comment on above: Order Comment: Juan Danieli men Type: BLOOD SPECIMENOrdering Facility: [facility] Address: [address] [place] [address] Result Comment: <100 mg/dL, Optimal 100-129 mg/dL, Near optimal/above optimal 130-159 mg/dL, Borderline high 160-189 mg/dL, High >189 mg/dL, Very high Secondary prevention optimal LDL Cholesterol levels are recommended to be <70 mg/dL LDL cholesterol is calculated using the Ruffin-NIH equation. Performed By: #### 2 276-4, 26183-1 ####[facility] LABIA [id number] [address] [place]#### 73610-4 ####[facility] LABIA [id number] [address] [id number] [place] [address] [place] Cholesterol in LDL/Cholesterol in HDL [Mass ratio] 2.93 {ratio} High <2.54 [facility] Comment on above: Order Comment: Juan Danielmadie dye Type: BLOOD SPECIMENOrdering Facility: [facility] Address: [address] [place] [address] Result Comment: Yanick mari: 1. National Cholesterol Education Program ATP III Guideline At-A-Glance Quick Desk Reference: National Heart, Lung, and Blood Poca. National Institutes of Health. 2001: NIH Publication No. 01-3305. 2. An International Atherosclerosis Society position paper: global recommendations for the management of dyslipidemia: executive summary, Atherosclerosis. 2014: 232(2):410-413. Performed By: #### 2 276-4, 96322-8 ####[facility] LABCLIA [id number] [facility] [address] [place] [address] [place]#### 25436-4 ####[facility] LABCLIA [id number] [facility] [place] [address] [address] [facility] [id number] [place] [address] [place] Cholesterol in VLDL [Mass/Vol] 36 mg/dL High <30 [facility] Comment on above: Order Comment: Speci men Type: BLOOD SPECIMENOrdering Facility: [facility] Address: [address] [place] [address] Performed By: #### 2 276-4, 58742-4 ####[facility] LABCLIA [id number] [facility] [address] [place] [address] [place]#### 31670-7 ####[facility] LABCLIA [id number] [facility] [address] [place] [address] [place] [facility] [id number] [place] [address] [place] Cholesterol non HDL [Mass/Vol] 126 mg/dL Normal <130 [facility] Comment on above: Order Comment: Speci men Type: BLOOD SPECIMENOrdering Facility: [facility] Address: [address] [place] [address] Result Comment: <130 mg/dL, Optimal 130-159 mg/dL, Near optimal/above optimal 160-189 mg/dL, Borderline high 190-219 mg/dL, High >219 mg/dL, Very high Secondary prevention optimal non HDL Cholesterol levels are recommended to be <100 mg/dL Performed By: #### 2 276-4, 84468-6 ####[facility] LABCLIA [id number] [facility] [address] [place] [address] [place]#### 73465-4 ####[facility] LABCLIA [id number] [address] [place] [address] [place] [facility] [id number] [place] [address] [place] Cholesterol.total/Chol esterol in HDL [Mass ratio] 5.20 {ratio} High <5.10 [facility] Comment on above: Order Comment: Speci men Type: BLOOD SPECIMENOrdering Facility: [facility] Address: [address] [place] [address] Performed By: #### 2 276-4, 34847-2 ####[facility] LABCLIA [id number] [address] [place] [address] [place]#### 09737-0 ####[facility] LABCLIA [id number] [address] [place] [address] [place] [facility] [id number] [place] [address] [place] FASTING TIME 18 hrs Normal [facility] Comment on above: Order Comment: Speci men Type: BLOOD SPECIMENOrdering Facility: [facility] Address: [address] [place] [address] Performed By: #### 2 276-4, 68444-7 ####[facility] LABCLIA [id number] [address] [place] [address] [place]#### 46998-9 ####[facility] LABCLIA [id number] [address] [place] [address] [place] [facility] [id number] [place] [address] [place] Triglyceride [Mass/Vol] 224 mg/dL High <150 [facility] Comment on above: Order Comment: Speci men Type: BLOOD SPECIMENOrdering Facility: [facility] Address: [address] [place] [address] Result Comment: <150 mg/dL, Normal 150-199 mg/dL, Borderline high 200-499 mg/dL, High >499 mg/dL, Very high Performed By: #### 2 276-4, 75161-5 ####[facility] LABCLIA [id number] [address] [address] [place]#### 64286-7 ####[facility] LABCLIA [id number] [place] [address] [place] [facility] [id number] [place] [address] [place] PSA/PROSTATE SPECIFIC ANTIGE N SCREENINGon 04-22-2025 Prostate specific Ag [Mass/Vol] 0.04 ng/mL Normal <2.60 [facility] Comment on above: Order Comment: Speci men Type: BLOOD SPECIMENOrdering Facility: [facility] Address: [address] [place] [address] Result Comment: Tota l PSA test methodology used is the Electrochemiluminescence Immunoassay by [employer]. Total PSA values by differing methodologies cannot be interchanged. Performed By: #### P SAS1 ####[facility] LABIA [id number] [address] OF [facility] Arterial study reportOrdered By: Yves Ash on 03-23-2025 Noninvasive arteriosclerosis study report [facility] [address] [place] [id number] Ankle Brachial Index 03/19/25 1343 MR#: [id number] Acct: [id number] Name: OLIVA GREY Rep #:[id number] : 1955 69 From: Yves Ngo Attending Dr: Claudia Bartlett, PA Status: REG CLI Ordering Dr: Claudia Bartlett PA Date: 03/19/25 Location: CVS Sex: M C Admitted: Reason For Study Reason For Study: Diminished pulses Procedure A bilateral lower extremity continuous wave Doppler with analog waveform analysis and ankle brachial indexes. Left Segmental Pressures Left brachial= 127mmHg. Left posterior tibial artery = >254mmHg. Left dorsalis pedis artery = 189mmHg. Left digit = 104 mmHg. The left dorsalis pedis waveforms are triphasic. The left posterior tibialartery waveforms are triphasic. Right Segmental Pressures Right brachial= 126mmHg. Right posterior tibial artery = >254mmHg. Right dorsalis pedis artery = 196mmHg. Right digit = 110 mmHg. The right dorsalis pedis waveforms are triphasic. The right posterior tibial artery waveforms are triphasic. Indices The right ankle brachial index by the dorsalis pedis is 1.54. The right ankle brachial index by the posterior tibial artery is NC. The right digital-brachial index is 0.87. The left ankle brachial index by the dorsalis pedis is 1.49. The left ankle brachial index by the posterior tibial artery is NC. The left digital-brachial index is 0.82. VL/Ankle Brachial Index Interpretation Summary Right KULDIP 1.54, normal. TBI and Doppler/PVR waveforms of the right ankle normal at rest. Left KULDIP 1.49, normal. TBI and Doppler/PVR waveforms of the left ankle normal atrest. Ordering Physician: Claudia Bartlett Referring Physician: Juan J Rubalcava M.D. Performed By: Purvi Cruz RVT 03/23/25 1615 Date _ Yves Ash MD CC: Dr. Juan J Rubalcava MD; SANTI Crowe ~ Date Dictated: 03/19/25 1343 Date Transcribed: 03/23/25 1615 Java Engineer: Signed [facility] Work Phone: Echocardiogram study reportO rdered By: Brice Gutierrez on 03-22-2025 Study report [facility] [place] [address] Echo Complete 03/19/25 1311 MR#: [id number] Acct: [id number] Name: OLIVA GREY Rep #:[id number] : 1955 69 From: Brice Ngo Attending Dr: SANTI Crowe Status: REG CLI Ordering Dr: Claudia Bartlett Date: 03/19/25 Location: [facility] Sex: M C Admitted: Reason For Study Reason For Study: MURMUR Procedure This was a 2D Doppler, Color Flow transthoracic echocardiogram. Exam performed in department. Left Ventricle Normal left ventricle. Moderate concentric left ventricular hypertrophy. The left ventricular ejection fraction is 70 %. Resting LV gradient 16 mmHg. Valsalva LV gradient 83 mmHg. No regional wall motion abnormalities noted. Right Ventricle Normal RV size. The right ventricle is normal in size, function, and thickness. Atria Normal left atrium. Normal right atrium. Mitral Valve Bileaflet diffuse mitral valve thickening. Systolic anterior motion of the mitral valve. Mild (1+) eccentric mitral valve insufficiency. Tricuspid Valve Normal tricuspid valve. Aortic Valve Trisinus/trileaflet aortic valve. Pulmonic Valve Normal pulmonic valve. Great Vessels Normal aortic root. The pulmonary artery is normal size. Inferior vena cava collapse with respiration. Pericardium/Pleural No pericardial effusion. MMode/2D Measurements & Calculations LVIDd: 3.7 cm IVSd: 1.5 cm CO(Teich): 2.9 l/min LVIDs: 2.4 cm LVPWd: 1.4 cm FS: 36.4 % Ao root diam: 3.4 cm LAV(MOD-bp): 37.7 ml LVAd ap4: 19.0 cm2 LAV(MOD-bp) Indexed: 18.0 ml/m2 LVLd ap4: 8.0 cm LAV(MOD-sp2): 36.6 ml EDV(MOD-sp4): 38.8 ml LAV(MOD-sp4): 36.3 ml EDV(sp4-el): 38.2 ml LVAs ap4: 9.2 cm2 LVLs ap4: 6.9 cm ESV(MOD-sp4): 12.4 ml ESV(sp4-el): 10.4 ml EF(MOD-sp4): 68.1 % EF(sp4-el): 72.8 % CO(MOD-sp4): 2.0 l/min SV(sp4-el): 27.8 ml LA A4 area: 15.1 cm2 SV(MOD-sp4): 26.4 ml SI(MOD-sp4): 12.6 ml/m2 __ LA dimension(2D): 3.6 cm RA A4 area: 9.4 cm2 Time Measurements MV dec time: 0.22 sec Doppler Measurements & Calculations MV E max amee: 90.5 cm/sec Lat Peak E' Amee: 9.8 cm/sec Med Peak E' Amee: 8.6 cm/sec MV A max amee: 78.3 cm/sec E/E' lat: 9.2 E/E' med: 10.5 MV E/A: 1.2 __ Ao V2 max: 143.9 cm/sec LV V1 max: 158.4 cm/sec MV dec slope: 415.3 cm/sec2 Ao max P.3 mmHg LV V1 max P.0 mmHg Ao V2 mean: 108.7 cm/sec LV V1 mean P.7 mmHg Ao mean P.3 mmHg LV V1 mean: 107.2 cm/sec Ao V2 VTI: 29.9 cm LV V1 VTI: 33.1 cm AV (velocity ratio): 1.1 PA V2 max: 154.3 cm/sec PA V2 mean: 88.8 cm/sec ECHO/Echo Complete Interpretation Summary Normal left ventricle. The left ventricular ejection fraction is 70 %. Moderate concentric left ventricular hypertrophy. Resting LV gradient 16 mmHg. Valsalva LV gradient 83 mmHg. Systolic anterior motion of the mitral valve. Ordering Physician: Claudia Bartlett Referring Physician: Claudia Bartlett Performed By: Silvia Leach RCS 03/22/25 1106 Date _ Brice Gutierrez MD CC: Dr. Juan J Rubalcava MD; SANTI Crowe ~ Date Dictated: 03/19/25 1311 Date Transcribed: 03/22/25 110 Java Engineer: Signed [facility] Work Phone: Ankle Brachial Indexon 03-19 Ankle Brachial Index [place] [facility] [address] [place] [address] Ankle Brachial Index 03/19/25 1343 MR#: [id number] Acct: [id number] Name: OLIVA GREY Rep #: [id number] : 1955 69 From: Yves Ash MD Attending Dr: SANTI Crowe Status: REG CLI Ordering Dr: Claudia Bartlett PA Date: 02/20 04/15 Location: [facility] Sex: M C Admitted: Reason For Study Reason For Study: Diminished pulses Procedure A bilateral lower extremity continuous wave Doppler with analog waveform analysis and ankle brachial indexes. Left Segmental Pressures Left brachial= 127mmHg. Left posterior tibial artery = >254mmHg. Left dorsalis pedis artery = 189mmHg. Left digit = 104 mmHg. The left dorsalis pedis waveforms are triphasic. The left posterior tibial artery waveforms are triphasic. Right Segmental Pressures Right brachial= 126mmHg. Right posterior tibial artery = >254mmHg. Right dorsalis pedis artery = 196mmHg. Right digit = 110 mmHg. The right dorsalis pedis waveforms are triphasic. The right posterior tibial artery waveforms are triphasic. Indices The right ankle brachial index by the dorsalis pedis is 1.54. The right ankle brachial index by the posterior tibial artery is NC. The right digital-brachial index is 0.87. The left ankle brachial index by the dorsalis pedis is 1.49. The left ankle brachial index by the posterior tibial artery is NC. The left digital-brachial index is 0.82. VL/Ankle Brachial Index Interpretation Summary Right KULDIP 1.54, normal. TBI and Doppler/PVR waveforms of the right ankle normal at rest. Left KULDIP 1.49, normal. TBI and Doppler/PVR waveforms of the left ankle normal at rest. Ordering Physician: Claudia Bartlett Referring Physician: Juan J Rubalcava M.D. Performed By: Purvi Cruz Carol 03/23/25 1615 Date Yves Ash MD CC: Dr. Juan J Rubalcava MD; SANTI Crowe Date Dictated: 03/19/25 1343 Date Transcribed: 03/23/25 1615 Java Engineer: Signed Normal [facility] Echo Completeon 03-19-2025 Echo Complete [facility] [address] [place] [address] Echo Complete 03/19/25 1311 MR#: [id number] Acct: [id number] Name: OLIVA GREY Rep #: [id number] : 1955 69 From: Brice Gutierrez MD Attending Dr: SANTI Crowe Status: REG CLI Ordering Dr: Claudia Bartlett Date: 02/20 04/15 Location: [facility] Sex: M C Admitted: Reason For Study Reason For Study: MURMUR Procedure This was a 2D Doppler, Color Flow transthoracic echocardiogram. Exam performed in department. Left Ventricle Normal left ventricle. Moderate concentric left ventricular hypertrophy. The left ventricular ejection fraction is 70 %. Resting LV gradient 16 mmHg. Valsalva LV gradient 83 mmHg. No regional wall motion abnormalities noted. Right Ventricle Normal RV size. The right ventricle is normal in size, function, and thickness. Atria Normal left atrium. Normal right atrium. Mitral Valve Bileaflet diffuse mitral valve thickening. Systolic anterior motion of the mitral valve. Mild (1+) eccentric mitral valve insufficiency. Tricuspid Valve Normal tricuspid valve. Aortic Valve Trisinus/trileaflet aortic valve. Pulmonic Valve Normal pulmonic valve. Great Vessels Normal aortic root. The pulmonary artery is normal size. Inferior vena cava collapse with respiration. Pericardium/Pleural No pericardial effusion. MMode/2D Measurements Calculations LVIDd: 3.7 cm IVSd: 1.5 cm CO(Teich): 2.9 l/min LVIDs: 2.4 cm LVPWd: 1.4 cm FS: 36.4 % Ao root diam: 3.4 cm LAV(MOD-bp): 37.7 ml LVAd ap4: 19.0 cm2 LAV(MOD-bp) Indexed: 18.0 ml/m2 LVLd ap4: 8.0 cm LAV(MOD-sp2): 36.6 ml EDV(MOD-sp4): 38.8 ml LAV(MOD-sp4): 36.3 ml EDV(sp4-el): 38.2 ml LVAs ap4: 9.2 cm2 LVLs ap4: 6.9 cm ESV(MOD-sp4): 12.4 ml ESV(sp4-el): 10.4 ml EF(MOD-sp4): 68.1 % EF(sp4-el): 72.8 % CO(MOD-sp4): 2.0 l/min SV(sp4-el): 27.8 ml LA A4 area: 15.1 cm2 SV(MOD-sp4): 26.4 ml SI(MOD-sp4): 12.6 ml/m2 LA dimension(2D): 3.6 cm RA A4 area: 9.4 cm2 Time Measurements MV dec time: 0.22 sec Doppler Measurements Calculations MV E max amee: 90.5 cm/sec Lat Peak E' Amee: 9.8 cm/sec Med Peak E' Amee: 8.6 cm/sec MV A max amee: 78.3 cm/sec E/E' lat: 9.2 E/E' med: 10.5 MV E/A: 1.2 Ao V2 max: 143.9 cm/sec LV V1 max: 158.4 cm/sec MV dec slope: 415.3 cm/sec2 Ao max P.3 mmHg LV V1 max P.0 mmHg Ao V2 mean: 108.7 cm/sec LV V1 mean P.7 mmHg Ao mean P.3 mmHg LV V1 mean: 107.2 cm/sec Ao V2 VTI: 29.9 cm LV V1 VTI: 33.1 cm AV (velocity ratio): 1.1 PA V2 max: 154.3 cm/sec PA V2 mean: 88.8 cm/sec ECHO/Echo Complete Interpretation Summary Normal left ventricle. The left ventricular ejection fraction is 70 %. Moderate concentric left ventricular hypertrophy. Resting LV gradient 16 mmHg. Valsalva LV gradient 83 mmHg. Systolic anterior motion of the mitral valve. Ordering Physician: Claudia Barteltt Referring Physician: Claudia Bartlett Performed By: Silvia Leach RCS 03/22/25 1106 Date Brice Gutierrez MD CC: Dr. Juan J Rubalcava MD; SANTI Crowe Date Dictated: 03/19/25 1311 Date Transcribed: 03/22/25 110 Java Engineer: Signed Normal [facility] Cardiology Visit Reporton Cardiology Visit Report [facility] [place] [address] OFFICE VISIT Date of Service: 02/24/25 MR#: [id number] Acct: [id number] Name: OLIVA GREY Rep #: [id number] : 1955 Provider: SANTI Zaidi Age/Sex: 69/M Location: [facility] Status: Signed HPI HPI History of Present Illness Details: Oliva Grey is a 69 year old gentleman That presented to [facility] on 05/15 2024 with chest discomfort. Initial troponin was 12 however it trended to 116 and then to 1104. He was admitted to PCU. Echocardiogram demonstrated preserved ejection fraction. He underwent a diagnostic heart catheterization and underwent stenting of his RCA. From a cardiac standpoint, patient is doing well. He does not have any chest discomfort/heaviness/tight ness. His exercise tolerance is stable for his age. He does not have any worsening symptoms of shortness of breath. He denies any PND. He does not have any orthopnea. He does not have any symptoms of congestive heart failure. He does not have any palpitations that he is aware of. He does not have any lightheadedness or dizziness. He does not have any near-syncope or syncope. He does not have any lower extremity edema. He does not have any symptoms of claudication. He is having issues with his knee, it is limiting his activity. He was supposed to have knee surgery prior to his PCI. 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 Social Services Required: No Accompanied by: Self Is patient in pain?: No Allergies No Known Allergies Allergy (Verified 02/24/25 15:32) Medications ???Medication ???Instructions ???Recorded ???Confirmed ???Type atorvastatin 20 mg tablet 20 mg PO DAILY cholesterol 7 02/24/25 History zdit-ikm-lpxfm-cellulose-p laeuknq-jvle-aaoxgp 1,000 mg PO DAILY bow els 01/09/17 02/24/25 History 1,000 mg tablet cholecalciferol (vitamin D3) 25 1,000 unit PO DAILY supplement 02/24/25 History mcg (1,000 unit) capsule finasteride 1 mg tablet 1 mg PO QHS prostate 01/09/17 08/01/13 History folic acid 1 mg tablet 1 mg PO DAILY@0800 supplement 12/2102/24/25 History metoprolol succinate 50 mg 50 mg PO DAILY HR 01/09/17 5 History tablet,extended release 24 hr amlodipine 5 mg tablet 5 mg PO DAILY blood pressure 05/1502/24/25 History losartan 100 mg tablet 100 mg PO DAILY blood pressure 02/24/25 History omeprazole 40 mg capsule,delayed 40 mg PO DAILY acid reflux 4 02/24/25 History release acetaminophen 325 mg tablet 650 mg (2 x 325 mg) PO Q6H PRN PRN 05/19/24 02/24/25 Rx Pain 1-10 Or Fever >100.7 #0 tabs aspirin 81 mg tablet,delayed 81 mg PO BREAKFAST #0 tabs 4 02/24/25 Rx release ticagrelor 90 mg tablet (Brilinta) 90 mg PO BID #180 tabs 06/02/24 02/24/25 Rx chlorthalidone 25 mg tablet 25 mg PO QDAY 08/26/24 02/24/25 Hi story potassium chloride 10 mEq 10 meq PO DAILY #90 caps 08/27/24 02/24/25 Rx capsule,extended release Ejection fraction %: 55 Have you fallen in the past year?: Yes (1-fell on ice) [facility] Medical History (Updated 02/24/25 @ 16:06 by Claudia HANCOCK, PA) Cardiac murmur Essential hypertension Hyperglycemia Acute non-ST elevation myocardial infarction (NSTEMI) Elevated troponin History of gastroesophageal reflux (GERD) Chest pain of uncertain etiology Atherosclerosis of coronary artery of sioux heart without angina pectoris Kidney stone Back pain Knee pain Shoulder pain SOB (shortness of breath) Arthritis HTN (hypertension) Surgical History History of coronary artery stent placement (05/18/24) History of gastric surgery History of foot surgery History of knee surgery Family History Other Heart disease Hypertension Social History household members: spouse housing: house Smoking Status: Former smoker Tobacco: How many years used: 20 how long ago did patient quit smoking: Quit about 20 years ago and has a 55-jggx-hpoy history alcohol intake: current alcohol intake frequency: a few times a month substance use type: does not use ROS Const Const: Negative for fatigue or weakness Eyes Eyes: Negative for change in vision ENT ENT: Negative for dizziness or balance problems Cardio Chest Pain: No Palpitations: No (more content not included)... Normal [facility] Anion gap in Serum or Plasma Ordered By: Claudia Bartlett on 10-26-2024 Anion gap [Moles/Vol] 13 mmol/L - [facility] BUN/creatinine ratioOrdered By: Claudia Bartlett on 10-26-2024 Urea nitrogen/Creatinine [Mass ratio] 20.8 mg/mg High - [facility] Basic Metabolic Profile (BMP )on 10-26-2024 BUN/CRE 20.8 RATIO High [facility] Comment on above: Performed By: #### L 300.4310 #### [facility] [address] [place], [address] Calcium [Mass/Vol] 9.7 mg/dL Normal 7.6-11.0 [facility] Comment on above: Performed By: #### L 300.4310 #### [facility] [address] [place], [address] Chloride [Moles/Vol] 101 mmol/L Normal 98-108 [facility] Comment on above: Performed By: #### L 300.4310 #### [facility] [address] [place], [address] CO2 [Moles/Vol] 22.6 mmol/L Normal 21.0-32.0 [facility] Comment on above: Performed By: #### L 300.4310 #### [facility] [address] [place], [address] Creatinine [Mass/Vol] 0.93 mg/dL Normal 0.70-1.20 [facility] Comment on above: Performed By: #### L 300.4310 #### [facility] [address] [place], [address] GAP 13 Normal 5-15 [facility] Comment on above: Performed By: #### L 300.4310 #### [facility] [address] [place], [address] GFR/1.73 sq M.predicted among non-blacks MDRD (S/P/Bld) [Vol rate/Area] 89 mL/min/{1.73_m2} Normal >60 [facility] Comment on above: Result Comment: mL/m in/1.73m2 CKD-EPI Creatinine Equation (2020) Performed By: #### L 300.4310 #### [facility] [address] [place], [address] Glucose [Mass/Vol] 120 mg/dL High 70-99 [facility] Comment on above: Performed By: #### L 300.4310 #### [facility] [address] [place], [address] Potassium [Moles/Vol] 4.0 mmol/L Normal 3.3-5.1 [facility] Comment on above: Performed By: #### L 300.4310 #### [facility] [address] [place], [address] Sodium [Moles/Vol] 137 mmol/L Normal 133-145 [facility] Comment on above: Performed By: #### L 300.4310 #### [facility] [address] [place], [address] Urea nitrogen [Mass/Vol] 19 mg/dL Normal 4- [facility] Comment on above: Performed By: #### L 235.1688 #### [facility] [address] [place], [place], [address] Carbon dioxide, total [Moles /volume] in Central venous bloodOrdered By: Claudia Bartlett on 10-26-2024 CO2 [Moles/Vol] 22.6 mmol/L 21.0-32.0 [facility] Chloride assayOrdered By: Jonna Bartlett on 10-26-2024 Chloride [Moles/Vol] 101 mmol/L 98-108 [facility] GFR/1.73 sq M.predicted raffaele g non-blacks MDRD (S/P/Bld) [Vol rate/Area]Ordered By: Claudia Barltett on 10-26-2024 Estimated GFR (MDRD) Non-Af Amer 89 >60 [facility] Comment on above: mL/min/1.73m2 CKD-EP I Creatinine Equation (2020) Potassium (Unsp spec) [Mass/ Vol]Ordered By: Claudia Bartlett on 10-26-2024 Potassium [Moles/Vol] 4.0 mmol/L 3.3-5.1 [facility] Serum creatinine measurement (mass/volume)Ordered By: Claudia Bartlett on 10-26-2024 Creatinine [Mass/Vol] 0.93 mg/dL 0.70-1.20 [facility] Serum glucose measurement (m ass/volume)Ordered By: Claudia Bartlett on 10-26-2024 Glucose [Mass/Vol] 120 mg/dL High 70-99 [facility] Serum or plasma calcium idana urement (mass/volume)Ordered By: Claudia Bartlett on 10-26-2024 Calcium [Mass/Vol] 9.7 mg/dL 7.6-11.0 [facility] Serum or plasma urea nitroge n measurement (mass/volume)Ordered By: Claudia Bartlett on 10-26-2024 Urea nitrogen [Mass/Vol] 19 mg/dL - [facility] Sodium levelOrdered By: Wesley Bartlett on 10-26-2024 Sodium [Moles/Vol] 137 mmol/L 133-145 [facility] US ABD RIGHT UPPER QUADRANTo n 10-26-2024 US ABD RIGHT UPPER QUADRANT * * *Final Report* * * DATE OF EXAM: Oct 26 2024 7:51AM WRU 1032 - US ABD RIGHT UPPER QUADRANT / PROCEDURE REASON: Hereditary hemochromatosis * * * * Physician Interpretation * * * * EXAMINATION: RIGHT UPPER QUADRANT ULTRASOUND CLINICAL HISTORY: Hereditary hemachromatosis TECHNIQUE: Sonography of the right upper quadrant was performed. Images were obtained and stored in a permanent archive and interpreted remotely. MQ: URUQ_2 COMPARISON: None. RESULT: Pancreas: Normal sonographic appearance. Portions obscured: tail Liver: Echotexture: Normal, homogeneous. Echogenicity: Increased with mild sparing in the gallbladder fossa most compatible with hepatic steatosis with mild focal fatty sparing Surface contour: Smooth Lesions: None. Biliary: No intrahepatic biliary duct dilation. CBD: 0.4 cm at the hilum. Gallbladder: Normal caliber -Contents: No cholelithiasis -Wall: Normal -Other: No pericholecystic fluid. Right Kidney: Normal cortical echogenicity No hydronephrosis. Ascites: None. IMPRESSION: Hepatic steatosis. Java Engineer: MITESH Transcribe Date/Time: Oct 27 2024 10:51A Dictated by : DEANNE CORTEZ MD This examination was interpreted and the report reviewed and electronically signed by: DEANNE CORTEZ MD on Oct 27 2024 10:55AM EST [id number] Normal [facility] CBC W Auto Differential pane l (Bld)on 10-14-2024 Basophils (Bld) [#/Vol] 0.04 10*3/uL Normal <0.11 [facility] Comment on above: Order Comment: Speci men Type: BLOOD SPECIMENOrdering Facility: [facility] Address: [address] [place] [address] Performed By: #### 5 7021-8 ####[facility] [id number] [place] [address] [place] Basophils/100 WBC (Bld) 0.4 % Normal [facility] Comment on above: Order Comment: Speci men Type: BLOOD SPECIMENOrdering Facility: [facility] Address: [address] [place] [address] Performed By: #### 5 7021-8 ####[facility] IRISRAYO [id number] [place] [address] [place] Differential cell count method Nom (Bld) Auto Normal [facility] Comment on above: Order Comment: Speci men Type: BLOOD SPECIMENOrdering Facility: [facility] Address: [address] [place] [address] Performed By: #### 5 7021-8 ####[facility] [id number] [place] [address] [place] Eosinophils (Bld) [#/Vol] 0.13 10*3/uL Normal <0.46 [facility] Comment on above: Order Comment: Speci men Type: BLOOD SPECIMENOrdering Facility: [facility] Address: [address] [place] [address] Performed By: #### 5 7021-8 ####[facility] [id number] [place] [address] [place] Eosinophils/100 WBC (Bld) 1.4 % Normal [facility] Comment on above: Order Comment: Speci men Type: BLOOD SPECIMENOrdering Facility: [facility] Address: [address] [place] [address] Performed By: #### 5 7021-8 ####[facility] [id number] [place] [address] [place] Erythrocyte distribution width (RBC) [Ratio] 13.4 % Normal 11.5-15.0 [facility] Comment on above: Order Comment: Speci men Type: BLOOD SPECIMENOrdering Facility: [facility] Address: [address] [place] [address] Performed By: #### 5 7021-8 ####[facility] [id number] [place] [address] [place] Hematocrit (Bld) [Volume fraction] 42.2 % Normal 39.0-51.0 [facility] Comment on above: Order Comment: Speci men Type: BLOOD SPECIMENOrdering Facility: [facility] Address: [address] [place] [address] Performed By: #### 5 7021-8 ####[facility] [id number] [place] [address] [place] Hemoglobin (Bld) [Mass/Vol] 13.7 g/dL Normal 13.0-17.0 [facility] Comment on above: Order Comment: Speci men Type: BLOOD SPECIMENOrdering Facility: [facility] Address: [address] [place] [address] Performed By: #### 5 7021-8 ####[facility] [id number] [place] [address] [place] Immature granulocytes (Bld) [#/Vol] 10*3/uL Normal <0.10 [facility] Comment on above: Order Comment: Speci men Type: BLOOD SPECIMENOrdering Facility: [facility] Address: [address] [place] [address] Performed By: #### 5 7021-8 ####[facility] [id number] [place] [address] [place] Immature granulocytes/100 WBC (Bld) 0.2 % Normal [facility] Comment on above: Order Comment: Speci men Type: BLOOD SPECIMENOrdering Facility: [facility] Address: [address] [place] [address] Performed By: #### 5 7021-8 ####[facility] [id number] [place] [address] [place] Lymphocytes (Bld) [#/Vol] 2.40 10*3/uL Normal 1.00-4.00 [facility] Comment on above: Order Comment: Speci men Type: BLOOD SPECIMENOrdering Facility: [facility] Address: [address] [place] [address] Performed By: #### 5 7021-8 ####[facility] [id number] [place] [address] [place] Lymphocytes/100 WBC (Bld) 26.0 % Normal [facility] Comment on above: Order Comment: Speci men Type: BLOOD SPECIMENOrdering Facility: [facility] Address: [address] [place] [address] Performed By: #### 5 7021-8 ####[facility] [id number] [place] [address] [place] MCH (RBC) [Entitic mass] 26.7 pg Normal 26.0-34.0 [facility] Comment on above: Order Comment: Speci men Type: BLOOD SPECIMENOrdering Facility: [facility] Address: [address] [place] [address] Performed By: #### 5 7021-8 ####[facility] [id number] [place] [address] [place] MCHC (RBC) [Mass/Vol] 32.5 g/dL Normal 30.5-36.0 [facility] Comment on above: Order Comment: Speci men Type: BLOOD SPECIMENOrdering Facility: [facility] Address: [address] [place] [address] Performed By: #### 5 7021-8 ####[facility] [id number] [place] [address] [place] MCV (RBC) [Entitic vol] 82.1 fL Normal 80.0-100.0 [facility] Comment on above: Order Comment: Speci men Type: BLOOD SPECIMENOrdering Facility: [facility] Address: [address] [place] [address] Performed By: #### 5 7021-8 ####[facility] [id number] [place] [address] [place] Monocytes (Bld) [#/Vol] 0.97 10*3/uL High <0.87 [facility] Comment on above: Order Comment: Speci men Type: BLOOD SPECIMENOrdering Facility: [facility] Address: [address] [place] [address] Performed By: #### 5 7021-8 ####[facility] [id number] [place] [address] [place] Monocytes/100 WBC (Bld) 10.5 % Normal [facility] Comment on above: Order Comment: Speci men Type: BLOOD SPECIMENOrdering Facility: [facility] Address: [address] [place] [address] Performed By: #### 5 7021-8 ####[facility] [id number] [place] [address] [place] Neutrophils (Bld) [#/Vol] 5.66 10*3/uL Normal 1.45-7.50 [facility] Comment on above: Order Comment: Speci men Type: BLOOD SPECIMENOrdering Facility: [facility] Address: [address] [place] [address] Performed By: #### 5 7021-8 ####[facility] [id number] [place] [address] [place] Neutrophils/100 WBC (Bld) 61.5 % Normal [facility] Comment on above: Order Comment: Speci men Type: BLOOD SPECIMENOrdering Facility: [facility] Address: [address] [place] [address] Performed By: #### 5 7021-8 ####[facility] [id number] [place] [address] [place] Nucleated RBC (Bld) [#/Vol] 10*3/uL Normal <0.01 [facility] Comment on above: Order Comment: Speci men Type: BLOOD SPECIMENOrdering Facility: [facility] Address: [address] [place] [address] Performed By: #### 5 7021-8 ####[facility] [id number] [place] [address] [place] Nucleated RBC/100 WBC (Bld) [Ratio] 0.0 /100 WBC Normal [facility] Comment on above: Order Comment: Speci men Type: BLOOD SPECIMENOrdering Facility: [facility] Address: [address] [place] [address] Performed By: #### 5 7021-8 ####[facility] [id number] [place] [address] [place] Platelet mean volume (Bld) [Entitic vol] 8.2 fL Low 9.0-12.7 [facility] Comment on above: Order Comment: Speci men Type: BLOOD SPECIMENOrdering Facility: [facility] Address: [address] [place] [address] Performed By: #### 5 7021-8 ####[facility] [id number] [place] [address] [place] Platelets (Bld) [#/Vol] 293 10*3/uL Normal 150-400 [facility] Comment on above: Order Comment: Speci men Type: BLOOD SPECIMENOrdering Facility: [facility] Address: [address] [place] [address] Performed By: #### 5 7021-8 ####[facility] [id number] [place] [address] [place] RBC (Bld) [#/Vol] 5.14 10*6/uL Normal 4.20-6.00 [facility] Comment on above: Order Comment: Speci men Type: BLOOD SPECIMENOrdering Facility: [facility] Address: [address] [place] [address] Performed By: #### 5 7021-8 ####[facility] [id number] [place] [address] [place] WBC (Bld) [#/Vol] 9.22 10*3/uL Normal 3.70-11.00 [facility] Comment on above: Order Comment: Speci men Type: BLOOD SPECIMENOrdering Facility: [facility] Address: [address] [place] [address] Performed By: #### 5 7021-8 ####[facility] [id number] [address] [place] CNOVSPon 10-14-2024 CNOVSP Visit (SP) Office (H EMAWS) -- OLIVA GREY ([id number]) 1955 M Date Time Provider Department 10/14/24 3:00 PM CARLOS FLORES During your visit today, we recorded the following information about you: Temperature Pulse Blood pressure Weight 97.4 degrees 80/minute 113/74 95.9 kg Carlos Flores MD 10/14/2024 3:32 PM Signed (Elements copied from my note dated November 14, 2023 , have been reviewed and updated where appropriate, and all reflect current assessment and medical decision making from today's encounter, October 14, 2024) HISTORY OF PRESENT ILLNESS: Oliva Grey is a 69 year old male dx in 2002 with hereditary hemochromatosis on basis of elevted LFT, liver biopsy showed iron index > 1.9g. gene analysis showed heterozygous mutations in 2 gene (this is per Dr Cosby's note, report not readily available to me) He has been having phlebotomy every 6 months. Last ferritin was 27 measured in May 2022. We noted mild anemia. CLINICAL IMPRESSION: Hereditary hemochromatosis RECOMMENDATION/PLAN: 1. Phlebotomy 2. Back in 6 months with phlebotomy 3. Yearly AFP and liver US Written and verbal health teaching given to patient, patient verbalizes understanding and agrees with treatment plan. 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 Benign non-nodular prostatic hyperplasia without lower urinary tract symptoms 10/23/2016 Disorders of iron metabolism Esophagitis, unspecified Hereditary hemochromatosis (HCC) 12/23/2015 History of kidney stones 10/23/2016 Hydrocele 11/07/2016 Hypertension Impaired fasting glucose 10/30/2018 Internal hemorrhoids without mention of complication 08/03/2005 Male pattern alopecia 09/05/2016 Non-STEMI (non-ST elevated myocardial infarction) (HCC) 05/15/2024 Nonspecific elevation of levels of transaminase or lactic acid dehydrogenase (LDH) Obstructive sleep apnea 04/16/2011 not treated by choice. Other hyperlipidemia 12/24/2005 Testicular calcification 11/07/2016 PAST SURGICAL HISTORY Procedure Laterality Date ARTHROSCOPY SHOULDER W/ROTATOR CUFF RPR Right 09/03/2018 [facility] CARDIAC CATH 07/10/2010 CC PTCA STENT 05/18/2024 Drug eluting stent to RCA COLONOSCOPY FLX DX W/COLLJ SPEC WHEN PFRMD 08/25/2004 Colonoscopy CYSTOSCOPY,URETEROSCOPY,ST ONE REMV Left 01/11/2017 retrograde pyelogram, laser lithotripsy EGD TRANSORAL BIOPSY SINGLE/MULTIPLE 04/20/2008 EGD TRANSORAL BIOPSY SINGLE/MULTIPLE 11/02/2011 ESOPHAGOSCOPY FLEX BALLOON DILAT <30 MM DIAM 09/20/2000 Esophageal dilatation PAST SURGICAL HISTORY OF 2003 sigmoid colectomy, diverticultis, appendectomy. PAST SURGICAL HISTORY OF Left 08/2004 artifical joint replaced left great toe PAST SURGICAL HISTORY OF Left 2010 left knee surgery, knee scope x 2 PAST SURGICAL HISTORY OF Right 03/2014 Arthroscopy right knee, meniscal tear, Dr. Rivera PAST SURGICAL HISTORY OF Left 09/01/[address] Rivera FAMILY HISTORY Problem Relation Age of Onset Heart Father Heart Mother pacemaker Cancer Brother throat lymph nodes Multiple Sclerosis Sister Social History Tobacco Use Smoking status: Former Current packs/day: 0.00 Average packs/day: 1 pack/day for 20.0 years (20.0 ttl pk-yrs) Types: Cigarettes Start date: 08/23/1983 Quit date: 08/23/2003 Years since quittin.1 Smokeless tobacco: Former Types: Chew Quit date: 07/22/1994 Vaping Use Vaping status: Never Used Substance Use Topics Alcohol use: Yes Alcohol/week: 2.3 standard drinks of alcohol Types: 1 Cans of Beer (12oz), 1 Mixed Drinks per week Comment: occ Drug use: No ALLERGIES: ALLERGIES Allergen Reactions Simvastatin Other: See Comments myalgia shoulders CURRENT OUTPATIENT MEDICATIONS: potassium chloride SR (MICRO-K) 10 mEq CR capsule Take 1 capsule by mouth once daily. BRILINTA 90 mg tablet Take 90 mg by mouth two times a day. metoprolol succinate ER (TOPROL XL) 50 mg 24 hr tablet Take 1 tablet by mouth once daily. chlorthalidone (HYGROTON) 25 mg tablet Take 1 tablet by mouth once daily. atorvastatin (LIPITOR) 20 mg tablet Take 1 tablet by mouth once daily. omeprazole (PRILOSEC) 40 mg capsule Take 1 capsule by mouth once daily. folic acid 1 mg tablet Take 1 tablet by mouth once daily. finasteride (PROPECIA) 1 mg tablet Take 1 tablet by mouth once daily. losartan (COZAAR) 100 mg tablet Take 1 tablet by mouth once daily. amLODIPine (NORVASC) 5 mg tablet Take 1 tablet by mouth once daily. fluticasone (FLONASE) 50 mcg/actuation nasal spray Use 2 Sprays in each nostril once da (more content not included)... Normal [facility] 10-14-2024 DARSHANA Telephone (YANICK) -- OLIVA GREY ([id number]) 1955 M Date Time Provider Department 10/14/24 CARLOS FLORES During your visit today, we recorded the following information about you: Candelario Hinojosa 10/14/2024 4:16 PM Signed I called and left patient a message to call back to schedule the abdomen ultrasound that had ordered at the office visit on 10/14/24. When patient calls back please schedule patient for a date and time that works for him Candelario Ingram 10/19/2024 5:08 PM Signed I called and spoke to Oliva and scheduled him for the abdomen ultrasound for 10/26/24 at 4:00 pm, he confirmed this date and time Candelario Chapa Allergies As of Date: 10/14/2024 Noted Allergy Reaction SIMVASTATIN 11/08/2012 14 - Other: See Comments Comments: myalgia shoulders Date Reviewed: 10/14/2024 Reviewed by: Juan Francisco Romero MA - Fully Assessed Reason for Visit: Appointment [186] Cmt: RUQ Ultrasound Prescriptions as of 10/19/2024 - potassium chloride SR (MICRO-K) 10 mEq CR capsule Take 1 capsule by mouth once daily. - BRILINTA 90 mg tablet Take 90 mg by mouth two times a day. - metoprolol succinate ER (TOPROL XL) 50 mg 24 hr tablet Take 1 tablet by mouth once daily. - chlorthalidone (HYGROTON) 25 mg tablet Take 1 tablet by mouth once daily. - atorvastatin (LIPITOR) 20 mg tablet Take 1 tablet by mouth once daily. - omeprazole (PRILOSEC) 40 mg capsule Take 1 capsule by mouth once daily. - folic acid 1 mg tablet Take 1 tablet by mouth once daily. - finasteride (PROPECIA) 1 mg tablet Take 1 tablet by mouth once daily. - losartan (COZAAR) 100 mg tablet Take 1 tablet by mouth once daily. - Flurbiprofen 100 mg tablet Take 1 tablet by mouth two times a day. - amLODIPine (NORVASC) 5 mg tablet Take 1 tablet by mouth once daily. - fluticasone (FLONASE) 50 mcg/actuation nasal spray Use 2 Sprays in each nostril once daily. For allergy symptoms. ID#[id number] - Cholecalciferol, Vitamin D3, 1,000 unit cap Take 1 capsule by mouth once daily. - FIBERCON 625 MG TAB Take 625 mg by mouth two times a day. Problem List As Of Date 10/14/2024 Noted Resolved Internal hemorrhoids without mention of complic*08/03/2005 10/24/2017 Disorders of iron metabolism [275.0] 08/03/2005 09/05/2016 Nonspecific elevation of levels of transaminase*08/07/2005 09/05/2016 Other hyperlipidemia [E78.49] 12/24/2005 Arthropathy associated with other endocrine and*12/24/2005 09/05/2016 Esophagitis [K20.90] 04/20/2008 Acute gastritis without mention of hemorrhage [*04/20/2008 09/05/2016 Hypertension [I10] 05/29/2010 08/06/2016 Hemochromatosis [E83.119] 05/29/2010 12/23/2015 SUMMARY [V999.95] 07/07/2010 04/30/2011 Dyspnea [R06.00] 07/07/2010 09/05/2016 HTN (hypertension) [I10] 07/07/2010 09/24/2012 Airway obstruction [J98.8] 11/09/2008 09/05/2016 Obstructive sleep apnea [G47.33] 11/09/2008 10/30/2018 Atherosclerosis of [place] coronary artery of na*05/13/2011 Diverticulosis [K57.90] 09/24/2012 10/30/2018 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, 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 Hereditary hemochromatosis (HCC) [E83.110] 12/23/2015 Acute idiopathic gout of left knee [M10.062] 03/03/2016 09/05/2016 Essential hypertension [I10] 08/06/2016 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] 09/05/2016 DDD (degenerative disc disease), lumbar [M51.36*09/05/2016 History of kidney stones [Z87.442] 10/23/2016 Microscopic hematuria [R31.29] 10/23/2016 10/24/2017 Benign non-nodular prostatic hyperplasia withou*10/23/2016 10/30/2018 Scrotal mass [N50.89] 10/23/2016 10/24/2017 Hydrocele [N43.3] 11/07/2016 10/24/2017 Testicular calcification [N50.89] 11/07/2016 10/30/2018 Impaired fasting glucose [R73.01] 10/30/2018 Obesity, Class II, BMI 35-39.9 [E66.812] 10/30/2018 08/15/2020 Obesity, Class I, BMI 30-34.9 [E66.811] 08/15/2020 Acquired renal cyst of right kidney [N28.1] 09/06/2021 Stented coronary artery (ERIN to RCA) [Z95.5] 05/18/2024 Encounter Status:Closed by CANDELARIO HINOJOSA on 10/19/24 Normal [facility] Ferritin SerPl-mCncon 2024 Ferritin [Mass/Vol] 35.5 ng/mL Normal 30.3-565.7 [facility] Comment on above: Order Comment: Speci men Type: BLOOD SPECIMENOrdering Facility: [facility] Address: [address] [place] [address] Performed By: #### 5 0190-8, 2275-10 ####[facility] [id number] [place] [address] [place] Iron and Iron binding capaci ty panelon 10-14-2024 Iron [Mass/Vol] 33 ug/dL Low 41-186 [facility] Comment on above: Order Comment: Speci men Type: BLOOD SPECIMENOrdering Facility: [facility] Address: [address] [place] [address] Performed By: #### 5 0190-8, 2275-10 ####[facility] [id number] [place] [address] [place] Iron binding capacity [Mass/Vol] 310 ug/dL Normal 232-386 [facility] Comment on above: Order Comment: Speci men Type: BLOOD SPECIMENOrdering Facility: [facility] Address: [address] [place] [address] Performed By: #### 5 0190-8, 2276-4 ####[facility] [id number] [place] [address] [place] Iron/TIBC [Molar ratio] 10.6 % Low 15.0-57.0 [facility] Comment on above: Order Comment: Speci men Type: BLOOD SPECIMENOrdering Facility: [facility] Address: [address] [place] [address] Performed By: #### 5 0190-8, 2276-4 ####[facility] [id number] [place] [id number] [place] CNOVon 10-12-2024 CNOV Office Visit (INTMWS ) -- OLIVA GREY ([id number]) 1955 M Date Time Provider Department 10/12/24 5:40 PM JUAN J RUBALCAVA INTMWS During your visit today, we recorded the following information about you: Temperature Pulse Blood pressure Weight 97.4 degrees 72/minute 116/66 95.3 kg Juan J Rubalcava MD 10/12/2024 7:18 PM Signed This note was created using [employer]out[employer]. Subjective Patient presents with: F/U 6 months Oliva Teresapako is a 69 year old male. His total knee was cancelled. He had NSTEMI on May 15, and was now on Brillinta for one year s/p ERIN to the RCA. His other conditions were stable. Review of Systems Constitutional: Negative for fatigue and fever. Respiratory: Negative for cough and shortness of breath. Cardiovascular: Negative for chest pain, palpitations and leg swelling. Neurological: Negative for dizziness, light-headedness and headaches. ACTIVE PROBLEM LIST Other Hyperlipidemia Esophagitis Atherosclerosis of [place] Coronary Artery of 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 Lopez CARDIAC CATH 07/10/2010 CC PTCA STENT 05/18/2024 Drug eluting stent to RCA COLONOSCOPY FLX DX W/COLLJ SPEC WHEN PFRMD 08/25/2004 Colonoscopy CYSTOSCOPY,URETEROSCOPY,ST ONE REMV Left 01/11/2017 retrograde pyelogram, laser lithotripsy EGD TRANSORAL BIOPSY SINGLE/MULTIPLE 04/20/2008 EGD TRANSORAL BIOPSY SINGLE/MULTIPLE 11/02/2011 ESOPHAGOSCOPY FLEX BALLOON DILAT <30 MM DIAM 09/20/2000 Esophageal dilatation PAST SURGICAL HISTORY OF 2003 sigmoid colectomy, diverticultis, appendectomy. PAST SURGICAL HISTORY OF Left 08/2004 artifical joint replaced left great toe PAST SURGICAL HISTORY OF Left 2010 left knee surgery, knee scope x 2 PAST SURGICAL HISTORY OF Right 03/2014 Arthroscopy right knee, meniscal tear, Dr. Rivera PAST SURGICAL HISTORY OF Left 09/01/[address] Rivera Social History Tobacco Use Smoking status: Former Current packs/day: 0.00 Average packs/day: 1 pack/day for 20.0 years (20.0 ttl pk-yrs) Types: Cigarettes Start date: 08/23/1983 Quit date: 08/23/2003 Years since quittin.1 Smokeless tobacco: Former Types: Chew Quit date: 07/22/1994 Vaping Use Vaping status: Never Used Substance Use Topics Alcohol use: Yes Alcohol/week: 2.3 standard drinks of alcohol Types: 1 Cans of Beer (12oz), 1 Mixed Drinks per week Drug use: No Current Outpatient Medications Medication Sig potassium chloride SR (MICRO-K) 10 mEq CR capsule Take 1 capsule by mouth once daily. BRILINTA 90 mg tablet Take 90 mg by mouth two times a day. chlorthalidone (HYGROTON) 25 mg tablet Take 1 tablet by mouth once daily. atorvastatin (LIPITOR) 20 mg tablet Take 1 tablet by mouth once daily. omeprazole (PRILOSEC) 40 mg capsule Take 1 capsule by mouth once daily. folic acid 1 mg tablet Take 1 tablet by mouth once daily. finasteride (PROPECIA) 1 mg tablet Take 1 tablet by mouth once daily. losartan (COZAAR) 100 mg tablet Take 1 tablet by mouth once daily. Flurbiprofen 100 mg tablet Take 1 tablet by mouth two times a day. amLODIPine (NORVASC) 5 mg tablet Take 1 tablet by mouth once daily. metoprolol succinate ER (TOPROL XL) 50 mg 24 hr tablet Take 1 tablet by mouth once daily. fluticasone (FLONASE) 50 mcg/actuation nasal spray Use 2 Sprays in each nostril once daily. For allergy symptoms. ID#[id number] Cholecalciferol, Vitamin D3, 1,000 unit cap Take 1 capsule by mouth once daily. FIBERCON 625 MG TAB Take one(1) tablet two(2) times daily. No current facility-administered medications for this visit. Objective BP 116/66 (BP Site: Left Arm, BP Position: Sitting, BP Cuff Size: Large Adult) Pulse 72 Temp 36.3 ?C (97.4 ?F) (Temporal) Wt 95.3 kg (210 lb 1.6 oz) BMI 32.18 kg/m? Physical Exam Constitutional: Appearance: He is not ill-appearing. HENT: Head: Normocephalic. Eyes: Conjunctiva/sclera: Conjunctivae normal. Cardiovascular: Rate and Rhythm: Normal rate and regular rhythm. Heart sounds: No murmur heard. No gallop. Pulmonary: Breath sounds: Normal breath sounds. Musculoskeletal: Right lower leg: No edema. Left lower leg: No edema. Neurological: Mental Status: He is alert. Assessment and Plan 1. Need for vaccination - ICD9: V05.9, ICD10: Z23 (primary diagnosis) - TDAP VACCINE, AGE 7+ YR (ADACEL, BOOSTRIX) 2. Essential hypertension - ICD9: 401.9, ICD10: I10 - Con (more content not included)... Normal [facility] Albumin to globulin ratioOrd ered By: Claudia Bartlett on 02-05-2025 Albumin/Globulin [Mass ratio] 0.9 {ratio} 0.9-2.4 [facility] Bilirubin, totalOrdered By: Claudia Bartlett on 08-26-2024 Bilirubin [Mass/Vol] 0.70 mg/dL 0.20-1.00 [facility] Comment on above: For patients on eltr ombopag therapy, use of Dimension [place] TBIL is not recommended. Blood urea nitrogen (BUN)/cr eatinine ratioOrdered By: Claudia Bartlett on 08-26-2024 Urea nitrogen/Creatinine [Mass ratio] 24.5 mg/mg High 10- [facility] Carbon dioxide measurementOr dered By: Claudia Bartlett on 08-26-2024 CO2 [Moles/Vol] 26.0 mmol/L 21.0-32.0 [facility] Cardiology Visit Reporton Cardiology Visit Report [facility] [place] [facility] [place] [address] OFFICE VISIT Date of Service: 08/26/24 MR#: [id number] Acct: [id number] Name: OLIVA GREY Rep #: [id number] : 1955 Provider: SANTI Zaidi Age/Sex: 68/M Location: [facility] [place] [facility] Status: Signed HPI HPI History of Present Illness Details: Oliva Grey is a 68 year old gentleman That presented to [facility] on 05/15 2024 with chest discomfort. Initial troponin was 12 however it trended to 116 and then to 1104. He was admitted to PCU. Echocardiogram demonstrated preserved ejection fraction. He underwent a diagnostic heart catheterization and underwent stenting of his RCA. He was in the ER last month for CP, cardiac work up was negative. He was then in the ER last week for falling on the ice. From a cardiac standpoint, patient is doing well. He does not have any chest discomfort/heaviness/tight ness. His exercise tolerance is stable for his age. He does not have any worsening symptoms of shortness of breath. He denies any PND. He does not have any orthopnea. He does not have any symptoms of congestive heart failure. He does not have any palpitations that he is aware of. He does not have any lightheadedness or dizziness. He does not have any near-syncope or syncope. He does not have any lower extremity edema. He does not have any symptoms of claudication. He is having issues with his knee, it is limiting his activity. He was supposed to have knee surgery prior to his PCI. He would like to know if he could have at the 6 month [place]. Intake Vital Signs 06/02/24 13:02 08/16/24 07:20 08/26/24 14:26 Height 5 ft 8 in 5 ft 8 in 5 ft 8 in Weight: 205 lb BMI 31.1 BP 111/70 Blood Pressure Location Lt brachial Position Sitting Respiration 18 Pulse 89 Pulse Source Monitor Pulse Oximetry (%) 94 Intake Visit Reasons: 3 M FU Manager Social Services Required: No Is patient in pain?: No Allergies No Known Allergies Allergy (Verified 08/26/24 14:26) Medications ???Medication ???Instructions ???Recorded ???Confirmed ???Type atorvastatin 20 mg tablet 20 mg PO DAILY cholesterol 7 08/26/24 History yodw-ynn-zpqlf-cellulose-p acbevyc-ztda-minacr 1,000 mg PO DAILY bow els 01/09/17 08/26/24 History 1,000 mg tablet cholecalciferol (vitamin D3) 25 1,000 unit PO DAILY supplement 08/26/24 History mcg (1,000 unit) capsule finasteride 1 mg tablet 1 mg PO QHS prostate 01/09/1712/13 History folic acid 1 mg tablet 1 mg PO DAILY@0800 supplement 12/2108/26/24 History metoprolol succinate 50 mg 50 mg PO DAILY HR 01/09/17 5 History tablet,extended release 24 hr amlodipine 5 mg tablet 5 mg PO DAILY blood pressure 05/1508/26/24 History losartan 100 mg tablet 100 mg PO DAILY blood pressure 08/26/24 History omeprazole 40 mg capsule,delayed 40 mg PO DAILY acid reflux 4 08/26/24 History release acetaminophen 325 mg tablet 650 mg (2 x 325 mg) PO Q6H PRN PRN 05/19/24 08/26/24 Rx Pain 1-10 Or Fever >100.7 #0 tabs aspirin 81 mg tablet,delayed 81 mg PO BREAKFAST #0 tabs 4 08/26/24 Rx release ticagrelor 90 mg tablet (Brilinta) 90 mg PO BID #180 tabs 06/02/24 08/26/24 Rx oxycodone-acetaminophen 5 mg-325 1 tab PO Q6H PRN PRN Pain 3 days 0 08/16/24 08/26/24 Rx mg tablet #12 TABLETS chlorthalidone 25 mg tablet 25 mg PO QDAY 08/26/24 08/26/24 Hi story Have you fallen in the past year?: No PFSH Medical History Essential hypertension Hyperglycemia Acute non-ST elevation myocardial infarction (NSTEMI) Elevated troponin History of gastroesophageal reflux (GERD) Chest pain of uncertain etiology Atherosclerosis of coronary artery of [place] heart without angina pectoris Kidney stone Back pain Knee pain Shoulder pain SOB (shortness of breath) Arthritis HTN (hypertension) Surgical History History of coronary artery stent placement (05/18/24) History of gastric surgery History of foot surgery History of knee surgery Family History Other Heart disease Hypertension Social History household members: spouse housing: house Smoking Status: Former smoker Tobacco: How many years used: 20 how long ago did patient quit smoking: Quit about 20 years ago and has a 91-dmuo-emjm history alcohol intake: current alcohol intake frequency: a few times a month substance use type: does not use ROS Const Const: Negative for fatigue, weakness or headache(s) Eyes Eyes: Negative fo (more content not included)... Normal [facility] Chloride measurementOrdered By: Claudia Bartlett on 08-26-2024 Chloride [Moles/Vol] 102 mmol/L 98-107 [facility] Comprehensive Metabolic Prof ilon 08-26-2024 Albumin [Mass/Vol] 3.5 g/dL Normal 3.2-5.0 [facility] Comment on above: Performed By: #### L 300.4310 #### [facility] [address] [place], [address] Albumin/Globulin [Mass ratio] 0.9 {ratio} Normal 0.9-2.4 [facility] Comment on above: Performed By: #### L 300.4310 #### [facility] [address] [place], [address] ALK P 85 U/L Normal 45-117 [facility] Comment on above: Performed By: #### L 300.4310 #### [facility] [address] [place], [address] ALT [Catalytic activity/Vol] 43 U/L Normal 16-61 [facility] Comment on above: Performed By: #### L 300.4310 #### [facility] [address] [place], [address] AST [Catalytic activity/Vol] 18 U/L Normal 15-37 [facility] Comment on above: Performed By: #### L 300.4310 #### [facility] [address] [place], [address] Bilirubin [Mass/Vol] 0.70 mg/dL Normal 0.20-1.00 [facility] Comment on above: Result Comment: For patients on eltrombopag therapy, use of Dimension [place] TBIL is not recommended. Performed By: #### L 300.4310 #### [facility] [address] [place], [address] BUN/CRE 24.5 RATIO High 10-20 [facility] Comment on above: Performed By: #### L 300.4310 #### [facility] [address] [place], [address] CA,Total 9.5 mg/dL Normal 8.5-10.1 [facility] Comment on above: Performed By: #### L 300.4310 #### [facility] [address] [place], [address] Chloride [Moles/Vol] 102 mmol/L Normal 98-107 [facility] Comment on above: Performed By: #### L 300.4310 #### [facility] [address] [place], [address] CO2 [Moles/Vol] 26.0 mmol/L Normal 21.0-32.0 [facility] Comment on above: Performed By: #### L 300.4310 #### [facility] [address] [place], [address] Creatinine [Mass/Vol] 1.10 mg/dL Normal 0.70-1.30 [facility] Comment on above: Result Comment: The validity of the calculated GFR GFRAA in patients over 70 years has not been determined. Clinical correlation is essential. Performed By: #### L 300.4310 #### [facility] [address] [place], [address] EST GFR - AA 86 mL/min Normal >60 [facility] Comment on above: Result Comment: Afri can [place] GFR Calc Performed By: #### L 300.4310 #### [facility] [address] [place], [address] GAP 7 Normal 5-15 [facility] Comment on above: Performed By: #### L 300.4310 #### [facility] [address] [place], [address] GFR/1.73 sq M.predicted among non-blacks MDRD (S/P/Bld) [Vol rate/Area] 71 mL/min/{1.73_m2} Normal >60 [facility] Comment on above: Result Comment: Non- GFR Calc Performed By: #### L 300.4310 #### [facility] [address] [place], [address] Globulin (S) [Mass/Vol] 3.9 g/dL Normal 2.2-4.2 [facility] Comment on above: Performed By: #### L 300.4310 #### [facility] [address] [place], [address] Glucose [Mass/Vol] 136 mg/dL High 74-106 [facility] Comment on above: Result Comment: Fast ing Glucose result greater than or equal to 126 mg/dL suggests DIABETES MELLITUS per A.D.A. criteria. Performed By: #### L 300.4310 #### [facility] [address] [place], [address] Potassium [Moles/Vol] 3.4 mmol/L Low 3.5-5.1 [facility] Comment on above: Performed By: #### L 300.4310 #### [facility] [address] [place], [address] Sodium [Moles/Vol] 135 mmol/L Low 136-145 [facility] Comment on above: Performed By: #### L 300.4310 #### [facility] [address] [place], [address] T PROT 7.4 g/dL Normal 6.4-8.2 [facility] Comment on above: Performed By: #### L 300.4310 #### [facility] [address] [place], [address] Urea nitrogen [Mass/Vol] 27 mg/dL High 7-18 [facility] Comment on above: Performed By: #### L 300.4310 #### [facility] [address] [place], [address] Estimated glomerular filtrat ion rate (GFR) AmericanOrdered By: Claudia Bartlett on 08-26-2024 Estimated GFR (MDRD) Amer 86 mL/min >60 [facility] [facility] Comment on above: GFR Calc Glomerular filtration rate ( GFR) estimationOrdered By: Claudia Bartlett on 08-26-2024 Estimated GFR (MDRD) Non-Af Amer 71 mL/min >60 [facility] Comment on above: Non- GFR Calc Glucose measurementOrdered B y: Claudia Bartlett on 08-26-2024 Glucose [Mass/Vol] 136 mg/dL High 74-106 [facility] Comment on above: Fasting Glucose resu lt greater than or equal to 126 mg/dL suggests DIABETES MELLITUS per A.D.A. criteria. High density lipoprotein (HD L) measurementOrdered By: Claudia Bartlett on 08-26-2024 Cholesterol in HDL [Mass/Vol] 28 mg/dL Low >40 [facility] Comment on above: The drugs N-Acetylcy steine and Metamizole may falsely depress this assay. Reference Range HDL <40 mg/dL Low HDL Cholesterol HDL >or= 60 mg/dL High HDL Cholesterol Laboratory - Chemistry and C hemistry - challengeOrdered By: Claudia Bartlett on 08-26-2024 AST [Catalytic activity/Vol] 18 U/L 15-37 [facility] Lipid Profileon 08-26-2024 Cholesterol [Mass/Vol] 128 mg/dL Normal 200 [facility] Comment on above: Result Comment: <200 mg/dL Desirable 200-240 mg/dL Borderline >240 mg/dL High Risk Performed By: #### L 300.4310 #### [facility] [address] [place], [address] Cholesterol in HDL [Mass/Vol] 28 mg/dL Low [facility] Comment on above: Result Comment: The drugs N-Acetylcysteine and Metamizole may falsely depress this assay. Reference Range HDL <40 mg/dL Low HDL Cholesterol HDL >or= 60 mg/dL High HDL Cholesterol Performed By: #### L 300.4310 #### [facility] [address] [place], [address] Cholesterol in LDL [Mass/Vol] 32 mg/dL Normal 0-130 [facility] Comment on above: Performed By: #### L 300.4310 #### [facility] [address] [place], [place], [address] Cholesterol in VLDL [Mass/Vol] 68 mg/dL High 5-40 [facility] Comment on above: Performed By: #### L 300.4310 #### [facility] [address] [place], [place], [id number] Triglyceride [Mass/Vol] 338 mg/dL High [facility] Comment on above: Result Comment: The drugs N-Acetylcysteine and Metamizole may falsely depress this assay. Serum Triglycerides Reference Interval Normal <150 mg/dL Borderline high 150 - 199 mg/dL High 200 - 499 mg/dL Very High > or = 500 mg/dL Performed By: #### L 300.4310 #### [facility] [address] [facility] [facility] [place] [place], [id number] Low density lipoprotein (LDL ) cholesterol measurementOrdered By: Claudia Bartlett on 08-26-2024 Cholesterol in LDL [Mass/Vol] 32 mg/dL 0-130 [facility] Potassium measurementOrdered By: Claudia Bartlett on 08-26-2024 Potassium [Moles/Vol] 3.4 mmol/L Low 3.5-5.1 [facility] Serum anion gap measurementO rdered By: Claudia Bartlett on 08-26-2024 Anion gap [Moles/Vol] 7 mmol/L 5-15 [facility] Serum globulin measurementOr dered By: Claudia Bartlett on 08-26-2024 Globulin (S) [Mass/Vol] 3.9 g/dL 2.2-4.2 [facility] Serum or plasma alanine dumas otransferase (ALT) measurementOrdered By: Claudia Bartlett on 08-26-2024 ALT [Catalytic activity/Vol] 43 U/L 16-61 [facility] Serum or plasma albumin diana urement (mass/volume)Ordered By: Claudia Bartlett on 08-26-2024 Albumin [Mass/Vol] 3.5 g/dL 3.2-5.0 [facility] Serum or plasma alkaline nadeem sphatase measurementOrdered By: Claudia Bartlett on 08-26-2024 ALP [Catalytic activity/Vol] 85 U/L 45-117 [facility] Serum or plasma calcium diana urement (mass/volume)Ordered By: Claudia Bartlett on 08-26-2024 Calcium [Mass/Vol] 9.5 mg/dL 8.5-10.1 [facility] Serum or plasma cholesterol measurement (mass/volume)Ordered By: Claudia Bartlett on 08-26-2024 Cholesterol [Mass/Vol] 128 mg/dL <200 [facility] Comment on above: <200 mg/dL Desirable 200-240 mg/dL Borderline >240 mg/dL High Risk Serum or plasma creatinine m easurement (mass/volume)Ordered By: Claudia Bartlett on 08-26-2024 Creatinine [Mass/Vol] 1.10 mg/dL 0.70-1.30 [facility] Comment on above: The validity of the calculated GFR & GFRAA in patients over 70 years has not been determined. Clinical correlation is essential. Serum or plasma urea nitroge n measurement (mass/volume)Ordered By: Claudia Bartlett on 08-26-2024 Urea nitrogen [Mass/Vol] 27 mg/dL High 7-18 [facility] Sodium levelOrdered By: Wesley Bartlett on 08-26-2024 Sodium [Moles/Vol] 135 mmol/L Low 136-145 [facility] Total proteinOrdered By: John Bartlett on 08-26-2024 Protein [Mass/Vol] 7.4 g/dL 6.4-8.2 [facility] Triglycerides measurementOrd ered By: Claudia Bartlett on 08-26-2024 Triglyceride [Mass/Vol] 338 mg/dL High <199 [facility] Comment on above: The drugs N-Acetylcy steine and Metamizole may falsely depress this assay.Serum Triglycerides Reference Interval Normal <150 mg/dL Borderline high 150 - 199 mg/dL High 200 - 499 mg/dL Very High > or = 500 mg/dL Very low density lipoprotein (VLDL) cholesterol measurementOrdered By: Claudia Bartlett on 08-26-2024 VLDL Cholesterol 68 mg/dL High 5-40 [facility] Emergency Department Summary on 08-16-2024 Emergency Department Summary [facility] Medical Records Department [address] [place] [address] Emergency Department Summary 08/16/24 MR#: [id number] Acct: [id number] Name: OLIVA GREY Rep #: [id number] : 1955 68 From: Rafa Pulido MD PCP: Dr. Juan J Rubalcava MD Status:REG ER Location: ED HPI History of Present Illness Chief Complaint: Lower Extremity Injury Detail of Chief Complaint: Pain localized to the right ischial tuberosity and posterior midline lumbar Informant: patient and spouse/S.O. Onset/Context/Timing Onset: Days (Patient slipped on ice August 14) Context: Sudden Onset Timing: Continuous and Waxes and wanes Quality: Pain Location: Lumbar and right ischial tuberosity Current Severity: Mild Maximum Severity: Moderate Worsened by: Movement and palpation Relieved by: Nothing Associated Symptoms Associated Symptoms: No bowel or bladder symptoms. No radicular pain. Narrative Narrative: Patient is a 68-year-old male. He has history of hypertension, GERD, coronary artery disease with placement of stent April 2024 on aspirin and Brilinta, and elevated blood sugar on no medication for diabetes. He presents status post fall. Fall occurred on August 14. He slipped on ice. He landed on his buttocks. He is localizing pain to the posterior mid to right lower back and pelvis region over the ischial tuberosity. He denies pain in the groin or over the right greater trochanteric region. He denies radicular pain. He denies bowel bladder dysfunction. He denies history of kidney disease. Prior similar symptoms: No Recent Illness/Hospitalization: No PFSH PFS Medical History Essential hypertension Hyperglycemia Acute non-ST elevation myocardial infarction (NSTEMI) Elevated troponin History of gastroesophageal reflux (GERD) Chest pain of uncertain etiology Atherosclerosis of coronary artery of [place] heart without angina pectoris Kidney stone Back pain Knee pain Shoulder pain SOB (shortness of breath) Arthritis HTN (hypertension) Home Medications ???Medication ???Instructions ???Recorded ???Last Taken ???Type atorvastatin 20 mg tablet 20 mg PO DAILY cholesterol 01/09/17 Unknown History czhq-byq-ablvk-cellulose-p egpvipx-qfwc-zbzera 1,000 mg PO DAILY bowels 01/09/17 Unknown History 1,000 mg tablet cholecalciferol (vitamin D3) 25 1,000 unit PO DAILY supplement 01/09/17 Unknown History mcg (1,000 unit) capsule finasteride 1 mg tablet 1 mg PO QHS prostate 01/09/17 Unknown History folic acid 1 mg tablet 1 mg PO DAILY@0800 supplement 01/09/17 Unknown History metoprolol succinate 50 mg 50 mg PO DAILY HR 01/09/17 Unknown History tablet,extended release 24 hr amlodipine 5 mg tablet 5 mg PO DAILY blood pressure 05/15/24 Unknown History losartan 100 mg tablet 100 mg PO DAILY blood pressure 05/15/24 Unknown History omeprazole 40 mg capsule,delayed 40 mg PO DAILY acid reflux 05/15/24 Unknown History release acetaminophen 325 mg tablet 650 mg (2 x 325 mg) PO Q6H PRN PRN 05/19/24 Unknown Rx Pain 1-10 Or Fever >100.7 #0 tabs aspirin 81 mg tablet,delayed 81 mg PO BREAKFAST #0 tabs 05/19/24 Unknown Rx release ticagrelor 90 mg tablet (Brilinta) 90 mg PO BID #180 tabs 06/02/24 Unknown Rx oxycodone-acetaminophen 5 mg-325 1 tab PO Q6H PRN PRN Pain 3 days 08/16/24 Unknown Rx mg tablet #12 TABLETS Allergy/AdvReac Type Severity Reaction Status Date / Time No Known Allergies Allergy Verified 08/16/24 07:22 Family History Other Heart disease Hypertension Surgical History History of coronary artery stent placement (05/18/24) History of gastric surgery History of foot surgery History of knee surgery Social History household members: spouse housing: house Smoking Status: Former smoker Tobacco: How many years used: 20 how long ago did patient quit smoking: Quit about 20 years ago and has a 81-vntj-iidy history alcohol intake: current alcohol intake frequency: a few times a month substance use type: does not use ROS ROS ED Constitutional Constitutional ED: Denies chills or fever(s) Eyes Eyes: Denies change in vision Cardiovascular Cardiovascular: Denies chest pain Gastrointestinal Gastrointestinal: Denies abdominal pain Musculoskeletal Musculoskeletal: Reports back pain; Denies arthralgias or myalgias Neurologic Neurologic: Denies paresthesias or weakness Hematologic/Lymphatic Hematologic/Lymphatic: Reports systems reviewed and no addt'l complaints, except as documented EXAM Physical Exam Const Vital Signs: 08/16/24 07:20 Temperature 98.1 F Temperature Sour (more content not included)... Normal [facility] HIP, UNI W/ Pelvis 2-3 Views on 08-16-2024 HIP, UNI W/ Pelvis 2-3 Views [facility] Imaging Services [address] [place], [place] [id number] HIP, UNI W/ Pelvis 2-3 Views MR#: [id number] Acct: [id number] Name: OLIVA GREY Rep #: [id number] : 1955 M 68 From: Micaela hernandez MD PCP: Dr. Juan J Rubalcava MD Status: DEP ER Study: HIP, UNI W/ Pelvis 2-3 Views Date of Exam: Exam# [id number] Ordering Dr: Rafa Pulido MD [id number] HISTORY: INJURY. TECHNIQUE: XR Hip Unilateral with Pelvis when performed; 2-3 Views. COMPARISON: None. FINDINGS: OSSEOUS STRUCTURES: No acute displaced fracture identified. Note that overlapping bowel shadows may obscure osseous detail. Mineralization unremarkable. JOINT SPACES: No dislocation. Mild degenerative changes of the hips. SOFT TISSUES: Suture in the region of the rectum. RAD/HIP, UNI W/ Pelvis 2-3 Views IMPRESSION: No acute displaced fracture or dislocation identified. Electronically Signed: Micaela Santoro MD at 11:22 EST , CC: Dr. Rafa Pulido MD; Dr. Juan J Rubalcava MD Java Engineer: Signed Normal [facility] Lumbar Spine 2 or 3 Viewson 08-16-2024 Lumbar Spine 2 or 3 Views [facility] Imaging Services [address] [place] [address] Lumbar Spine 2 or 3 Views MR#: [id number] Acct: [id number] Name: OLIVA GREY Rep #: [id number] : 1955 M 68 From: Micaela hernandez MD PCP: Dr. Juan J Rubalcava MD Status: DEP ER Study: Lumbar Spine 2 or 3 Views Date of Exam: Exam# [id number] Ordering Dr: Rafa Pulido MD [id number] HISTORY: Injury/Pain -- Posterior midline pain L4-5 region. TECHNIQUE: XR Spine Lumbar 2 or 3 Views. COMPARISON: Abdomen 01/07/2017. FINDINGS: VERTEBRAE: Vertebral body heights preserved. Degenerative changes of the posterior elements. ALIGNMENT: No significant anterior or posterior subluxation. INTERVERTEBRAL DISCS: Degenerative changes with osteophytes and intervertebral disc space narrowing at multiple levels, particularly L4-5 and L5-S1. SOFT TISSUES: Moderate stool in the colon. RAD/Lumbar Spine 2 or 3 Views IMPRESSION: No acute fracture or dislocation identified in the lumbar spine. Moderate multilevel degenerative change. Electronically Signed: Micaela Santoro MD at 11:06 EST Reading Location ID and State: [facility] / [place] Tel , Service support , CC: Dr. Rafa Pulido MD; Dr. Juan J Rubalcava MD Java Engineer: Signed Normal [facility] 12 Lead EKGon 08-09-2024 12 Lead EKG [facility] Cardiovascular Services [address] [place] [address] 12 Lead EKG 08/09/24 0725 MR#: [id number] Acct: [id number] Name: OLIVA GREY Rep #: [id number] : 1955 68 From: Sheryl Meza MD Attending Dr: Status: DEP ER Ordering Dr: Rafa Pulido MD Date: 08/09/24 Location: ED Sex: M C Admitted: Test Reason : Blood Pressure : */* mmHG Vent. Rate : 67 BPM Atrial Rate : 67 BPM P-R Int : 194 ms QRS Dur : 92 ms QT Int : 394 ms P-R-T Axes : 28 -14 -7 degrees QTcB Int : 416 ms Normal sinus rhythm Normal ECG Confirmed by IVAN EDMONDSON, YASH ([id number]), writer editor CASSIDY RDZ ([id number]) on 08/10/2024 10:54:55 AM Referred By: Confirmed By: YASH MEZA MD 08/10/24 1054 Date Sheryl Meza MD CC: Dr. Rafa Pulido MD; Dr. Juan J Rubalcava MD Signed Normal [facility] Absolute neutrophil countOrd ered By: Rafa Pulido on 08-09-2024 Neutrophils (Bld) [#/Vol] 3.9 10*3/uL 2.0-7.7 [facility] Basic Metabolic Profile (BMP )on 08-09-2024 BUN/CRE 17.7 RATIO Normal 10-20 [facility] Comment on above: Order Comment: 1Y Performed By: #### L 501.9985 #### [facility] [address] [place], [place], [id number] (069 CA,Total 9.8 mg/dL Normal 8.5-10.1 [facility] Comment on above: Order Comment: 1Y Performed By: #### L 501.9985 #### [facility] [address] [place], [address] Chloride [Moles/Vol] 104 mmol/L Normal 98-107 [facility] Comment on above: Order Comment: 1Y Performed By: #### L 501.9985 #### [facility] [address] [place], [address] CO2 [Moles/Vol] 27.0 mmol/L Normal 21.0-32.0 [facility] Comment on above: Order Comment: 1Y Performed By: #### L 501.9985 #### [facility] [address] [place], [address] Creatinine [Mass/Vol] 0.96 mg/dL Normal 0.70-1.30 [facility] Comment on above: Order Comment: 1Y Result Comment: The validity of the calculated GFR GFRAA in patients over 70 years has not been determined. Clinical correlation is essential. Performed By: #### L 501.9985 #### [facility] [address] [place], [address] ECRCL 84.11 ml/min Normal [facility] Comment on above: Order Comment: 1Y Performed By: #### L 501.9985 #### [facility] [address] [place], [address] EST GFR - AA 100 mL/min Normal >60 [facility] Comment on above: Order Comment: 1Y Result Comment: Afri can [place]raini GFR Calc Performed By: #### L 501.9985 #### [facility] [address] [place], [address] GAP 7 Normal 5-15 [facility] Comment on above: Order Comment: 1Y Performed By: #### L 501.9985 #### [facility] [address] [place], [address] GFR/1.73 sq M.predicted among non-blacks MDRD (S/P/Bld) [Vol rate/Area] 83 mL/min/{1.73_m2} Normal >60 [facility] Comment on above: Order Comment: 1Y Result Comment: Non- GFR Calc Performed By: #### L 501.9985 #### [facility] [address] [place], [address] Glucose [Mass/Vol] 138 mg/dL High 74-106 [facility] Comment on above: Order Comment: 1Y Result Comment: Fast ing Glucose result greater than or equal to 126 mg/dL suggests DIABETES MELLITUS per A.D.A. criteria. Performed By: #### L 501.9985 #### [facility] [address] [place], [address] Potassium [Moles/Vol] 3.2 mmol/L Low 3.5-5.1 [facility] Comment on above: Order Comment: 1Y Performed By: #### L 501.9985 #### [facility] [address] [place], [address] Sodium [Moles/Vol] 138 mmol/L Normal 136-145 [facility] Comment on above: Order Comment: 1Y Performed By: #### L 501.9985 #### [facility] [address] [place], [address] Urea nitrogen [Mass/Vol] 17 mg/dL Normal 7-18 [facility] Comment on above: Order Comment: 1Y Performed By: #### L 501.9985 #### [facility] [address] [place], [address] Basophil percentageOrdered B y: Rafa Pulido on 08-09-2024 Basophils/100 WBC (Bld) 0.6 % 0-1 [facility] Blood urea nitrogen (BUN)/cr eatinine ratioOrdered By: Rafa Pulido on 08-09-2024 Urea nitrogen/Creatinine [Mass ratio] 17.7 mg/mg 10-20 [facility] CBC W/Diff, Automatedon 07-22 Absolute Lymph 1.49 X10 3/uL Normal 0.83-4.51 [facility] Comment on above: Performed By: #### L 300.4310 #### [facility] [address] [place], [address] Absolute Neut 3.9 X10 3/uL Normal 2.0-7.7 [facility] Comment on above: Performed By: #### L 300.4310 #### [facility] [address] [place], [address] Basophils/100 WBC (Bld) 0.6 % Normal 0-1 [facility] Comment on above: Performed By: #### L 300.4310 #### [facility] [address] [place], [address] Eosinophils/100 WBC (Bld) 2.3 % Normal 0-5 [facility] Comment on above: Performed By: #### L 300.4310 #### [facility] [address] [place], [address] Erythrocyte distribution width (RBC) [Ratio] 13.4 % Normal 11.6-14.6 [facility] Comment on above: Performed By: #### L 300.4310 #### [facility] [address] [place], [address] Hematocrit (Bld) [Volume fraction] 39.7 % Low 40-54 [facility] Comment on above: Performed By: #### L 300.4310 #### [facility] [address] [place], [address] Hemoglobin (Bld) [Mass/Vol] 12.8 g/dL Low 13.0-16.5 [facility] Comment on above: Performed By: #### L 300.4310 #### [facility] [address] [place], [address] IG% 0.300 Normal 0.0-0.9 [facility] Comment on above: Result Comment: IG% - Immature Granulocytes (promyelocytes, myelocytes and metamyelocytes) > 1% indicates that a LEFT SHIFT is Present. Performed By: #### L 300.4310 #### [facility] [address] [place], [address] Lymphocytes/100 WBC (Bld) 24.0 % Normal 19-41 [facility] Comment on above: Performed By: #### L 300.4310 #### [facility] [address] [place], [address] MCH (RBC) [Entitic mass] 26.5 pg Low 27.0-32.0 [facility] Comment on above: Performed By: #### L 300.4310 #### [facility] [address] [place], [address] MCHC (RBC) [Mass/Vol] 32.2 g/dL Normal 32-36 [facility] Comment on above: Performed By: #### L 300.4310 #### [facility] [address] [place], [address] MCV (RBC) [Entitic vol] 82.2 fL Normal 80-94 [facility] Comment on above: Performed By: #### L 300.4310 #### [facility] [address] [place], [address] Monocytes/100 WBC (Bld) 9.8 % Normal 0-10 [facility] Comment on above: Performed By: #### L 300.4310 #### [facility] [address] [place], [address] Neutrophils/100 WBC (Bld) 63.0 % Normal 47-70 [facility] Comment on above: Performed By: #### L 300.4310 #### [facility] [address] [place], [address] Nucleated RBC (Bld) [#/Vol] 0 10*3/uL Normal 0-5 [facility] Comment on above: Performed By: #### L 300.4310 #### [facility] [address] [place], [address] Platelet mean volume (Bld) [Entitic vol] 8.6 fL Normal 6.2-12.0 [facility] Comment on above: Performed By: #### L 300.4310 #### [facility] [address] [place], [address] Platelets (Bld) [#/Vol] 284 10*3/uL Normal 150-450 [facility] Comment on above: Performed By: #### L 300.4310 #### [facility] [address] [place], [address] RBC (Bld) [#/Vol] 4.83 10*6/uL Normal 4.6-6.2 [facility] Comment on above: Performed By: #### L 300.4310 #### [facility] [address] [place], [address] RDW SD 39.9 fl Normal 35.1-43.9 [facility] Comment on above: Performed By: #### L 300.4310 #### [facility] [address] [place], [address] WBC (Bld) [#/Vol] 6.2 10*3/uL Normal 4.4-11.0 [facility] Comment on above: Performed By: #### L 300.4310 #### [facility] [address] [place], [address] Carbon dioxide measurementOr dered By: Rafa Pulido on 08-09-2024 CO2 [Moles/Vol] 27.0 mmol/L 21.0-32.0 [facility] Chest PA and Lateralon 08-09 Chest PA and Lateral [facility] Imaging Services [address] [place] [address] Chest PA and Lateral MR#: [id number] Acct: [id number] Name: OLIVA GREY Rep #: [id number] : 1955 M 68 From: Mathew Faith MD PCP: Dr. Juan J Rubalcava MD Status: REG ER Study: Chest PA and Lateral Date of Exam: 08/09/24 Exam# [id number] Ordering Dr: Rafa Pulido MD [id number] EXAM: XR CHEST, 2 VIEWS CLINICAL INDICATION: chest pain TECHNIQUE: Frontal and lateral views of the chest. COMPARISON: XR Chest dated 05/15/2024 FINDINGS: LUNGS AND PLEURAL SPACES: Normal. No consolidation or edema. No pneumothorax. No effusion. HEART: Normal heart size. MEDIASTINUM: No mediastinal or hilar mass. BONES/JOINTS: No acute abnormality. RAD/Chest PA and Lateral IMPRESSION: No acute cardiopulmonary abnormality. No interval change. Electronically Signed: Mathew Faith MD at 8:51 EST , CC: Dr. Rafa Pulido MD; Dr. Juan J Rubalcava MD Java Engineer: Signed Normal [facility] Chloride measurementOrdered By: Rafa Pulido on 08-09-2024 Chloride [Moles/Vol] 104 mmol/L 98-107 [facility] Emergency Department Summary on 08-09-2024 Emergency Department Summary [facility] Medical Records Department [address] [place] [address] Emergency Department Summary 08/09/24 MR#: [id number] Acct: [id number] Name: OLIVA GREY Rep #: [id number] : 1955 68 From: Rafa Pulido MD PCP: Dr. Juan J Rubalcava MD Status:REG ER Location: ED HPI History of Present Illness Chief Complaint: Chest Pain Detail of Chief Complaint: Left-sided chest pain Informant: patient and spouse/S.O. Onset/Context/Timing Onset: Today (Started approximately 0530 when he put wood into the burner this morning) and Yesterday (Yesterday at 1700 until approximately 2100) Activity at onset: sudden Timing: Continuous (Since onset this morning) and Intermittent (For 4 hours yesterday) Quality: Positive for - (Discomfort) Location: Left Parasternal Current Severity: Mild Maximum Severity: Moderate Worsened By: Nothing Relieved By: Nothing Associated Symptoms: Negative for Nausea, Vomiting, Diaphoresis, Dyspnea, Cough, Fever, Lightheadedness, Acid Reflux or Palpitations Narrative Narrative: Patient is a 68-year-old male. He has history of coronary disease with deployment of stent proximal RCA by Dr. Meza. Cath was performed by Dr. Gutierrez. He presents because of chest discomfort that he experienced yesterday for 4 hours that came on at rest and today pain started at 0530 after putting wood in the burner. He has no radiation or associated symptoms. This is not as intense as discomfort experience in April 2024. He does have history of hypertension, on cholesterol medication. He has no history of diabetes. He quit smoking approximately 2 decades ago. He did take aspirin this morning. He is on Brilinta. He denies abdominal pain. He does have history of reflux. He states that is under control. He is on medicine for that. He denies black or maroon-colored stool. He has had swelling of his right leg for approximately 2 to 3 years. He sleeps with multiple pillows. He states he was scheduled to have knee surgery and was postponed because of the non-ST elevation MS that he experienced in April of last year. He attributes the swelling to the knee problem. He denies history of VTE. He has no risk factors for VTE. He denies shortness of breath or pleuritic pain. Prior Similar Symptoms: No Recent Illness/Hospitalization: No CVD Risk Factors: Positive for Hypertension, Hypercholesterolemia (On cholesterol medicine however not listed as a medical problem. Will review prior labs) and Smoking (Quit 20 years ago); Negative for Diabetes or Family History 1' PE Risk Factors: Negative for Recent Travel/Surgery, Recent Immobilization, Prior DVT or PE, Cancer or OCP + Smoking + >/=35 TAD Risk Factors: Positive for Hypertension; Negative for Marfan's Syndrome or Family History [facility] Medical History Essential hypertension Hyperglycemia Acute non-ST elevation myocardial infarction (NSTEMI) Elevated troponin History of gastroesophageal reflux (GERD) Chest pain of uncertain etiology Atherosclerosis of coronary artery of sioux heart without angina pectoris Kidney stone Back pain Knee pain Shoulder pain SOB (shortness of breath) Arthritis HTN (hypertension) Home Medications ???Medication ???Instructions ???Recorded ???Last Taken ???Type atorvastatin 20 mg tablet 20 mg PO DAILY cholesterol 01/09/17 Unknown History avud-nfd-cwhdf-cellulose-p gndtrnb-kpax-ofhskc 1,000 mg PO DAILY bowels 01/09/17 Unknown History 1,000 mg tablet cholecalciferol (vitamin D3) 25 1,000 unit PO DAILY supplement 01/09/17 Unknown History mcg (1,000 unit) capsule finasteride 1 mg tablet 1 mg PO QHS prostate 01/09/17 Unknown History folic acid 1 mg tablet 1 mg PO DAILY@0800 supplement 01/09/17 Unknown History metoprolol succinate 50 mg 50 mg PO DAILY HR 01/09/17 Unknown History tablet,extended release 24 hr amlodipine 5 mg tablet 5 mg PO DAILY blood pressure 05/15/24 Unknown History losartan 100 mg tablet 100 mg PO DAILY blood pressure 05/15/24 Unknown History omeprazole 40 mg capsule,delayed 40 mg PO DAILY acid reflux 05/15/24 Unknown History release acetaminophen 325 mg tablet 650 mg (2 x 325 mg) PO Q6H PRN PRN 05/19/24 Unknown Rx Pain 1-10 Or Fever >100.7 #0 tabs aspirin 81 mg tablet,delayed 81 mg PO BREAKFAST #0 tabs 05/19/24 Unknown Rx release ticagrelor 90 mg tablet (Brilinta) 90 mg PO BID #180 tabs 06/02/24 Unknown Rx Allergy/AdvReac Type Severity Reaction Status Date / Time No Known Allergies Allergy Verified 08/09/24 07:19 Family History Other Heart disease Hypertension Surgical History History of coronary artery stent placement (05/18/24) History of gastric surgery Hi (more content not included)... Normal [facility] Eosinophil percentageOrdered By: Rafa Pulido on 08-09-2024 Eosinophils/100 WBC (Bld) 2.3 % 0-5 [facility] Erythrocyte distribution wid th (RBC) [Ratio]Ordered By: Rafa Pulido on 08-09-2024 Erythrocyte distribution width (RBC) [Entitic vol] 39.9 fL 35.1-43.9 [facility] Erythrocyte distribution wid th ratioOrdered By: Rafaisamar Salgueroo on 08-09-2024 Erythrocyte distribution width (RBC) [Ratio] 13.4 % 11.6-14.6 [facility] Estimated glomerular filtrat ion rate (GFR) AmericanOrdered By: Rafaisamar Pulido on 08-09-2024 Estimated GFR (MDRD) Amer 100 mL/min >60 [facility] Comment on above: GFR Calc Estimation of creatinine jesse aranceOrdered By: Rafaisamar Pulido on 08-09-2024 Estimated Creatinine Clearance Calc 84.11 ml/min [facility] Glomerular filtration rate ( GFR) estimationOrdered By: Rafa Pulido on 08-09-2024 Estimated GFR (MDRD) Non-Af Amer 83 mL/min >60 [facility] Comment on above: Non- GFR Calc Glucose measurementOrdered B y: Rafaisamar Pulido on 08-09-2024 Glucose [Mass/Vol] 138 mg/dL High 74-106 [facility] Comment on above: Fasting Glucose resu lt greater than or equal to 126 mg/dL suggests DIABETES MELLITUS per A.D.A. criteria. Hematocrit Auto (Bld) [Volum e fraction]Ordered By: Rafaisamar Pulido on 08-09-2024 Hematocrit (Bld) [Volume fraction] 39.7 % Low 40-54 [facility] Hemoglobin measurementOrdere d By: Rafa Pulido on 08-09-2024 Hemoglobin (Bld) [Mass/Vol] 12.8 g/dL Low 13.0-16.5 [facility] Immature granulocytes/100 WB C Auto (Bld)Ordered By: Rafaisamar Pulido on 08-09-2024 Immature granulocytes/100 WBC (Bld) 0.300 % 0.0-0.9 [facility] Comment on above: IG% - Immature Granu locytes (promyelocytes, myelocytes and metamyelocytes) > 1% indicates that a LEFT SHIFT is Present. L501.4020on 08-09-2024 TROPONIN-I HS 12 pg/mL Normal 3.0-78.0 [facility] Comment on above: Result Comment: Luis gutierrez Note: New Test Units and Gender Specific Reference Ranges. For more information see Policy Stat Procedure [place] High Sensitivity Troponin (TNIH) and attachments. Performed By: #### L [id number] #### [facility] [address] [place], [place], [address] L501.5425on 08-09-2024 TROPONIN-I HS 9 pg/mL Normal 3.0-78.0 [facility] Comment on above: Order Comment: 1Y Result Comment: Luis gutierrez Note: New Test Units and Gender Specific Reference Ranges. For more information see Policy Stat Procedure [place] High Sensitivity Troponin (TNIH) and attachments. Performed By: #### L [id number] #### [facility] [address] [place], [place], [address] Lymphocytes Auto (Unsp spec) [#/Vol]Ordered By: Rafa Pulido on 08-09-2024 Lymphocytes (Bld) [#/Vol] 1.49 10*3/uL 0.83-4.51 [facility] Lymphocytes/100 WBC Auto (Un sp spec)Ordered By: Rafaisamar Pulido on 08-09-2024 Lymphocytes/100 WBC (Bld) 24.0 % 19-41 [facility] MCV (mean corpuscular volume ) determinationOrdered By: Rafaisamar Pulido on 08-09-2024 MCV (RBC) [Entitic vol] 82.2 fL 80-94 [facility] Mean corpuscular hemoglobin (MCH) determinationOrdered By: [facility] on 08-09-2024 MCH (RBC) [Entitic mass] 26.5 pg Low 27.0-32.0 [facility] Mean corpuscular hemoglobin concentration (MCHC) determinationOrdered By: Rafaisamar Pulido on 08-09-2024 MCHC (RBC) [Mass/Vol] 32.2 g/dL 32-36 [facility] Mean platelet volume determi nationOrdered By: Rafaisamar Pulido on 08-09-2024 Platelet mean volume (Bld) [Entitic vol] 8.6 fL 6.2-12.0 [facility] Monocyte percentageOrdered B y: Rafaisamar Pulido on 08-09-2024 Monocytes/100 WBC (Bld) 9.8 % 0-10 [facility] Neutrophil percentageOrdered By: Rafa Pulido on 08-09-2024 Neutrophils/100 WBC (Bld) 63.0 % 47-70 [facility] Nucleated red blood cell per centageOrdered By: Rafa Pulido on 08-09-2024 Nucleated RBC/100 WBC (Bld) [Ratio] 0 % 0-5 [facility] Platelet countOrdered By: Milady Pulido on 08-09-2024 Platelets (Bld) [#/Vol] 284 10*3/uL 150-450 [facility] Potassium measurementOrdered By: Rafa Pulido on 08-09-2024 Potassium [Moles/Vol] 3.2 mmol/L Low 3.5-5.1 [facility] RBC Auto (Bld) [#/Vol]Ordere d By: Rafa Pulido on 08-09-2024 RBC (Bld) [#/Vol] 4.83 10*6/uL 4.6-6.2 [facility] Serum anion gap measurementO rdered By: Rafa Pulido on 08-09-2024 Anion gap [Moles/Vol] 7 mmol/L 5-15 [facility] Serum or plasma calcium diana urement (mass/volume)Ordered By: Rafa Pulido on 08-09-2024 Calcium [Mass/Vol] 9.8 mg/dL 8.5-10.1 [facility] Serum or plasma creatinine m easurement (mass/volume)Ordered By: Rafa Pulido on 08-09-2024 Creatinine [Mass/Vol] 0.96 mg/dL 0.70-1.30 [facility] Comment on above: The validity of the calculated GFR & GFRAA in patients over 70 years has not been determined. Clinical correlation is essential. Serum or plasma urea nitroge n measurement (mass/volume)Ordered By: Rafa Pulido on 08-09-2024 Urea nitrogen [Mass/Vol] 17 mg/dL 7-18 [facility] Sodium levelOrdered By: Rafa Pulido on 08-09-2024 Sodium [Moles/Vol] 138 mmol/L 136-145 [facility] Troponin IOrdered By: Rafa leos on 08-09-2024 Troponin I High Sensitivity 12 pg/mL 3.0-78.0 [facility] Comment on above: Please Note: New Eric t Units and Gender Specific Reference Ranges. For more information see Policy Stat Procedure [place] High Sensitivity Troponin (TNIH) and attachments. White blood cell (WBC) count Ordered By: Rafa Pulido on 08-09-2024 WBC (Bld) [#/Vol] 6.2 10*3/uL 4.4-11.0 [facility] Cardiology Visit Reporton Cardiology Visit Report [facility] [place] [facility] [address] [place] [address] OFFICE VISIT Date of Service: 06/02/24 MR#: [id number] Acct: [id number] Name: OLIVA GREY Rep #: [id number] : 1955 Provider: SANTI Zaidi Age/Sex: 68/M Location: [facility] Status: Signed HPI HPI History of Present Illness Details: Oliva Grey is a 68 year old gentleman That presented to [facility] on 05/15 2024 with chest discomfort. Initial troponin was 12 however it trended to 116 and then to 1104. He was admitted to PCU. Echocardiogram demonstrated preserved ejection fraction. He underwent a diagnostic heart catheterization and underwent stenting of his RCA. Pt was having heart burn symptoms, it did not go away after taking a TUMS. Since it did not go away he presented to the ER. He thinks in looking back he would have some SOB with exertion. Since being home, he has not had any heart burn. He has had epigastric discomfort. It is not all the time and not brought on by anything in particular. He has not had any worsening SOB. He does not have any lightheadedness/dizziness. He does not have any palpitations that he is aware of. He does not have any edema. He feels that his swelling did go away with his stenting. He does not have any claudication. He is not going to do cardiac rehab. He is still working. He is dispatcher for [employer]. Intake Vital Signs 05/17/24 12:03 06/02/24 13:02 Height 5 ft 8 in 5 ft 8 in Weight: 218 lb BMI 33.1 BP 111/67 Blood Pressure Location Lt brachial Position Sitting Respiration 18 Pulse 78 Pulse Source Monitor Pulse Oximetry (%) 96 Intake Visit Reasons: S/P [facility] 05/18 Manager Social Services Required: No Is patient in pain?: No Allergies No Known Allergies Allergy (Verified 06/02/24 13:03) Medications ???Medication ???Instructions ???Recorded ???Confirmed ???Type atorvastatin 20 mg tablet 20 mg PO DAILY cholesterol 01/09/17 06/02/24 History gpbj-swa-omqtl-cellulose-p yihrjkx-xzin-courjx 1,000 mg PO DAILY bowels 01/09/17 06/02/24 History 1,000 mg tablet cholecalciferol (vitamin D3) 25 1,000 unit PO DAILY supplement 01/09/17 06/02/24 History mcg (1,000 unit) capsule finasteride 1 mg tablet 1 mg PO QHS prostate 01/09/17 06/02/24 History folic acid 1 mg tablet 1 mg PO DAILY@0800 supplement 01/09/17 06/02/24 History metoprolol succinate 50 mg 50 mg PO DAILY HR 01/09/17 06/02/24 History tablet,extended release 24 hr amlodipine 5 mg tablet 5 mg PO DAILY blood pressure 05/15/24 06/02/24 History losartan 100 mg tablet 100 mg PO DAILY blood pressure 05/15/24 06/02/24 History omeprazole 40 mg capsule,delayed 40 mg PO DAILY acid reflux 05/15/24 06/02/24 History release acetaminophen 325 mg tablet 650 mg (2 x 325 mg) PO Q6H PRN PRN 05/19/24 06/02/24 Rx Pain 1-10 Or Fever >100.7 #0 tabs aspirin 81 mg tablet,delayed 81 mg PO BREAKFAST #0 tabs 05/19/24 06/02/24 Rx release ticagrelor 90 mg tablet (Brilinta) 90 mg PO BID #180 tabs 06/02/24 06/02/24 Rx Have you fallen in the past year?: No PFSH Medical History (Updated 06/12/24 @ 15:15 by Claudia Bartlett PA, PA) Essential hypertension Hyperglycemia Acute non-ST elevation myocardial infarction (NSTEMI) Elevated troponin History of gastroesophageal reflux (GERD) Chest pain of uncertain etiology Atherosclerosis of coronary artery of sioux heart without angina pectoris Kidney stone Back pain Knee pain Shoulder pain SOB (shortness of breath) Arthritis HTN (hypertension) Surgical History (Updated 05/27/24 @ 00:01 by Cayetano Demarco) History of coronary artery stent placement (05/18/24) History of gastric surgery History of foot surgery History of knee surgery Family History (Updated 05/15/24 @ 18:[address] Jazmine Vivas, DO) Other Heart disease Hypertension Social History (Updated 05/15/24 @ 18:[address] Jazmine Vivas, DO) household members: spouse housing: house Smoking Status: Former smoker Tobacco: How many years used: 20 how long ago did patient quit smoking: Quit about 20 years ago and has a 02-spct-pkom history alcohol intake: current alcohol intake frequency: a few times a month substance use type: does not use ROS Const Const: Negative for fatigue, weakness or headache(s) Eyes Eyes: Negative for change in vision ENT ENT: Negative for headache(s), dizziness or balance problems Cardio Chest Pain: Yes (See HPI) Palpitations: No Edema: None Muscle aches with walking: None Resp Respiratory: Negative for SOB with activity, SOB at rest or SOB orthopnea SOB lying down GI GI: Positive for heartburn; Negative nausea or vomiting Musc Musc: Negative for muscle aches/ myalgia, muscle weakness, joint pain or balance problems Neuro (more content not included)... [facility] 05-21-2024 [facility] Telephone (4CQ) -- OLIVA GREY ([id number]) 1955 M Date Time Provider Department 05/21/24 JUAN J RUBALCAVA 4CQ During your visit today, we recorded the following information about you: Jeannie Ellison 05/21/2024 11:11 AM Signed Pt called in stating he had a heart attack last Tuesday 05/15 and was released 05/19. He wanted to make sure he didn't need to see Dr. Car for follow up he prefers not to if he can avoid it. Please advise and call patient regarding. Thank you Juan J Rubalcava MD 05/21/2024 1:46 PM Signed He doesn't have to as long as he is following up with cardiology. If there are concerns with medications, results, side effects etc, I will need to see him to catch up. Michael Duggan RN 05/21/2024 2:28 PM Signed Spoke with patient. Given message from provider's office. Patient verbalizes understanding. Michael Duggan RN Allergies As of Date: 05/21/2024 Noted Allergy Reaction SIMVASTATIN 11/08/2012 14 - Other: See Comments Comments: myalgia shoulders Date Reviewed: 04/22/2024 Reviewed by: Sally Sandoval RN - Fully Assessed Reason for Visit: Patient Question [7327] Prescriptions as of 05/21/2024 - folic acid 1 mg tablet Take 1 tablet by mouth once daily. - finasteride (PROPECIA) 1 mg tablet Take 1 tablet by mouth once daily. - losartan (COZAAR) 100 mg tablet Take 1 tablet by mouth once daily. - Flurbiprofen 100 mg tablet Take 1 tablet by mouth two times a day. - amLODIPine (NORVASC) 5 mg tablet Take 1 tablet by mouth once daily. - chlorthalidone (HYGROTON) 25 mg tablet Take 1 tablet by mouth once daily. - metoprolol succinate ER (TOPROL XL) 50 mg 24 hr tablet Take 1 tablet by mouth once daily. - atorvastatin (LIPITOR) 20 mg tablet Take 1 tablet by mouth once daily. - omeprazole (PRILOSEC) 40 mg capsule Take 1 capsule by mouth once daily. - fluticasone (FLONASE) 50 mcg/actuation nasal spray Use 2 Sprays in each nostril once daily. For allergy symptoms. ID#[id number] - Cholecalciferol, Vitamin D3, 1,000 unit cap Take 1 capsule by mouth once daily. - FIBERCON 625 MG TAB Take one(1) tablet two(2) times daily. 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33] 11/09/2008 10/30/2018 Atherosclerosis of sioux coronary artery of na*05/13/2011 Diverticulosis [K57.90] 09/24/2012 10/30/2018 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, 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 Hereditary hemochromatosis (HCC) [E83.110] 12/23/2015 Acute idiopathic gout of left knee [M10.062] 03/03/2016 09/05/2016 Essential hypertension [I10] 08/06/2016 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] 09/05/2016 DDD (degenerative disc disease), lumbar [M51.36*09/05/2016 History of kidney stones [Z87.442] 10/23/2016 Microscopic hematuria [R31.29] 10/23/2016 10/24/2017 Benign non-nodular prostatic hyperplasia withou*10/23/2016 10/30/2018 Scrotal mass [N50.89] 10/23/2016 10/24/2017 Hydrocele [N43.3] 11/07/2016 10/24/2017 Testicular calcification [N50.89] 11/07/2016 10/30/2018 Impaired fasting glucose [R73.01] 10/30/2018 Obesity, Class II, BMI 35-39.9 [E66.812] 10/30/2018 08/15/2020 Obesity, Class I, BMI 30-34.9 [E66.811] 08/15/2020 Acquired renal cyst of right kidney [N28.1] 09/06/2021 Encounter Status:Closed by MICHAEL DUGGAN on 05/21/24 Normal [facility] 12 Lead EKGon 05-19-2024 12 Lead EKG [facility] [address] [place] [address] 12 Lead EKG 05/19/24 0543 MR#: [id number] Acct: [id number] Name: OLIVA GREY Rep #: [id number] : 1955 68 From: rBice Gutierrez MD Attending Dr: Dr. Clayton Alaniz DO Status: D IS IN Ordering Dr: Sheryl Meza MD Date: 4 Location: U Sex: M C Admitted: 05/15/24 Test Reason : PCI Blood Pressure : */* mmHG Vent. Rate : 71 BPM Atrial Rate : 71 BPM P-R Int : 186 ms QRS Dur : 90 ms QT Int : 382 ms P-R-T Axes : 10 -37 71 degrees QTcB Int : 415 ms Normal sinus rhythm Left axis deviation Nonspecific ST and T wave abnormality Abnormal ECG When compared with ECG of 18-MAY-2024 11:10, Nonspecific T wave abnormality now evident in Anterior leads Confirmed by MATT EDMONDSON, BRICE ([id number]), writer editor RADHA WEEKS ([id number]) on 05/21/2024 11:36:07 AM Referred By: Confirmed By: BRICE GUTIERREZ MD 05/21/24 1136 Date Brice Gutierrez MD CC: Dr. Clayton Alaniz DO; Dr. Sheryl Meza MD; Dr. Juan J Rubalcava MD Signed Normal [facility] CBC-Complete Blood Cnt No Di ffon 05-19-2024 Erythrocyte distribution width (RBC) [Ratio] 13.0 % Normal 11.6-14.6 [facility] Comment on above: Performed By: #### L [id number] #### [facility] [address] [place], [address] Hematocrit (Bld) [Volume fraction] 39.7 % Low 40-54 [facility] Comment on above: Performed By: #### L [id number] #### [facility] [address] [place], [address] Hemoglobin (Bld) [Mass/Vol] 13.2 g/dL Normal 13.0-16.5 [facility] Comment on above: Performed By: #### L [id number] #### [facility] [address] [place], [address] MCH (RBC) [Entitic mass] 27.5 pg Normal 27.0-32.0 [facility] Comment on above: Performed By: #### L [id number] #### [facility] [address] [place], [address] MCHC (RBC) [Mass/Vol] 33.2 g/dL Normal 32-36 [facility] Comment on above: Performed By: #### L [id number] #### [facility] [address] [place], [address] MCV (RBC) [Entitic vol] 82.7 fL Normal 80-94 [facility] Comment on above: Performed By: #### L [id number] #### [facility] [address] [place], [address] Platelet mean volume (Bld) [Entitic vol] 8.8 fL Normal 6.2-12.0 [facility] Comment on above: Performed By: #### L [id number] #### [facility] [address] [place], [address] Platelets (Bld) [#/Vol] 305 10*3/uL Normal 150-450 [facility] Comment on above: Performed By: #### L [id number] #### [facility] [address] [place], [address] RBC (Bld) [#/Vol] 4.80 10*6/uL Normal 4.6-6.2 [facility] Comment on above: Performed By: #### L [id number] #### [facility] [address] [place], [address] RDW SD 39.2 fl Normal 35.1-43.9 [facility] Comment on above: Performed By: #### L [id number] #### [facility] [address] [place], [address] WBC (Bld) [#/Vol] 10.4 10*3/uL Normal 4.4-11.0 [facility] Comment on above: Performed By: #### L [id number] #### [facility] [address] [place], [address] Comprehensive Metabolic Prof il 05-19-2024 Albumin [Mass/Vol] 3.7 g/dL Normal 3.2-5.0 [facility] Comment on above: Performed By: #### L [id number] #### [facility] [address] [place], [address] Albumin/Globulin [Mass ratio] 1.0 {ratio} Normal 0.9-2.4 [facility] Comment on above: Performed By: #### L [id number] #### [facility] [address] [place], [address] ALK P 65 U/L Normal 45-117 [facility] Comment on above: Performed By: #### L [id number] #### [facility] [address] [place], [address] ALT [Catalytic activity/Vol] 152 U/L High 16-61 [facility] Comment on above: Performed By: #### L [id number] #### [facility] [address] [place], [address] AST [Catalytic activity/Vol] 85 U/L High 15-37 [facility] Comment on above: Performed By: #### L [id number] #### [facility] [address] [place], [address] Bilirubin [Mass/Vol] 1.30 mg/dL High 0.20-1.00 [facility] Comment on above: Result Comment: For patients on eltrombopag therapy, use of Dimension [place] TBIL is not recommended. Performed By: #### L [id number] #### [facility] [address] [place], [address] BUN/CRE 15.1 RATIO Normal 10-20 [facility] Comment on above: Performed By: #### L [id number] #### [facility] [address] [place], [address] CA,Total 9.2 mg/dL Normal 8.5-10.1 [facility] Comment on above: Performed By: #### L [id number] #### [facility] [address] [place], [address] Chloride [Moles/Vol] 101 mmol/L Normal 98-107 [facility] Comment on above: Performed By: #### L [id number] #### [facility] [address] [place], [address] CO2 [Moles/Vol] 26.0 mmol/L Normal 21.0-32.0 [facility] Comment on above: Performed By: #### L [id number] #### [facility] [address] [place], [address] Creatinine [Mass/Vol] 1.06 mg/dL Normal 0.70-1.30 [facility] Comment on above: Result Comment: The validity of the calculated GFR GFRAA in patients over 70 years has not been determined. Clinical correlation is essential. Performed By: #### L [id number] #### [facility] [address] [place], [address] ECRCL 78.13 ml/min Normal [facility] Comment on above: Performed By: #### L [id number] #### [facility] [address] [place], [address] EST GFR - AA 89 mL/min Normal >60 [facility] Comment on above: Result Comment: Afri can [place] GFR Calc Performed By: #### L [id number] #### [facility] [address] [place], [address] GAP 7 Normal 5-15 [facility] Comment on above: Performed By: #### L [id number] #### [facility] [address] [place], [address] GFR/1.73 sq M.predicted among non-blacks MDRD (S/P/Bld) [Vol rate/Area] 74 mL/min/{1.73_m2} Normal >60 [facility] Comment on above: Result Comment: Non- GFR Calc Performed By: #### L [id number] #### [facility] [address] [place], [address] Globulin (S) [Mass/Vol] 3.7 g/dL Normal 2.2-4.2 [facility] Comment on above: Performed By: #### L [id number] #### [facility] [address] [place], [address] Glucose [Mass/Vol] 127 mg/dL High 74-106 [facility] Comment on above: Result Comment: Fast ing Glucose result greater than or equal to 126 mg/dL suggests DIABETES MELLITUS per A.D.A. criteria. Performed By: #### L [id number] #### [facility] [address] [place], [address] Potassium [Moles/Vol] 3.6 mmol/L Normal 3.5-5.1 [facility] [facility] Comment on above: Performed By: #### L 501.9985 #### [facility] [address] [place], [address] Sodium [Moles/Vol] 135 mmol/L Low 136-145 [facility] Comment on above: Performed By: #### L 501.9985 #### [facility] [address] [place], [address] T PROT 7.4 g/dL Normal 6.4-8.2 [facility] Comment on above: Performed By: #### L 501.9985 #### [facility] [address] [place], [address] Urea nitrogen [Mass/Vol] 16 mg/dL Normal 7-18 [facility] Comment on above: Performed By: #### L 501.9985 #### [facility] [address] [place], [address] Discharge Instructionon 04-22 Discharge Instruction [facility] Medical Records Department [address] [place] [address] Instructions for Home/Discharge Instructions 05/19/24 0935 MR#: [id number] Acct: [id number] Name: OLIVA GREY Rep #: [id number] : 1955 68 From: Clayton Alaniz DO PCP: Dr. Juan J Rubalcava MD Status:ADM IN Discharge Instructions Diet Discharge Diet: No restrictions Activity Discharge Activity: Return to Normal Activity Return to work on:: 05/27/24 Weight Bearing Status: Full weight bearing Follow Up Care Test Results: Test results from this visit will be discussed in further detail at your follow-up appointment, if applicable. Discharge Plan Admission Admit Date/Time: 05/15/24 18:12 Primary Reason for Your Visit: acute non ST elevation MS Attending Provider: Clayton Alaniz Primary Care Provider: Juan J Rubalcava Consulting Providers: Debbie Raymond; Jazmine Vivas Instructions Additional Instructions / Restrictions: Avoid use of any additional aspirin other than 81 mg daily, no ibuprofen, no Aleve You are safe to take Tylenol or tramadol for pain Discharge Orders/Prescriptions Prescriptions: New acetaminophen 325 mg Tablet 650 mg PO Q6H PRN PRN (Reason: Pain 1-10 Or Fever >100.7) Qty: 0 0RF aspirin 81 mg Tablet,Delayed Release (Dr/Ec) 81 mg PO BREAKFAST Qty: 0 0RF Brilinta 90 mg Tablet 90 mg PO BID Qty: 60 0RF tramadol 50 mg tablet 50 mg PO .QID PRN (Reason: pain) Qty: 40 0RF Rx Instructions: one or two four times a day as needed for pain, may be taken with Tylenol 650 mg Continued atorvastatin 20 MG tablet 20 mg PO DAILY metoprolol succinate 50 MG tablet extended release 24 hr 50 mg PO DAILY folic acid 1 MG tablet 1 mg PO DAILY@0800 finasteride 1 MG tablet 1 mg PO QHS cholecalciferol (vitamin D3) 1,000 UNIT capsule 1,000 unit PO DAILY xxnh-vsd-rqa-jjv-rebw-fdaa -pec 1,000 MG tablet 1,000 mg PO DAILY amlodipine 5 mg tablet 5 mg PO DAILY omeprazole 40 mg capsule,delayed release(DR/EC) 40 mg PO DAILY hydrochlorothiazide 25 mg tablet 25 mg PO DAILY losartan 100 mg tablet 100 mg PO DAILY Discontinued flurbiprofen 100 MG tablet 100 mg PO BID Referrals / Follow Up: Brice Gutierrez MD [Med Staff - Active Staff] - Within 1 Month (call for appointment) Juan J Rubalcava MD [Primary Care Provider] - 3-5 Days Disposition Disposition (needs filled in before D/C Order can be placed): Home, Self Care 05/19/24 0948 Clayton Alaniz DO CC: Dr. Debbie Raymond MD; Dr. Jazmine Vivas DO; Dr. Juan J Rubalcava MD Signed Normal [facility] 12 Lead EKGon 05-18-2024 12 Lead EKG [facility] Cardi[facility] Services [address] [place] [address] 12 Lead EKG 05/18/24 1110 MR#: [id number] Acct: [id number] Name: OLIVA GREY Rep #: [id number] : 1955 68 From: Brice Gutierrez MD Attending Dr: Dr. Clayton Alaniz DO Status: A DM IN Ordering Dr: Sheryl Meza MD Date: 4 Location: [facility] Sex: M C Admitted: 05/15/24 Test Reason : PCI Blood Pressure : / mmHG Vent. Rate : 072 BPM Atrial Rate : 072 BPM P-R Int : 192 ms QRS Dur : 094 ms QT Int : 412 ms P-R-T Axes : 042 -42 066 degrees QTc Int : 451 ms Normal sinus rhythm Left axis deviation Nonspecific T wave abnormality Abnormal ECG When compared with ECG of 18-MAY-2024 05:51, MANUAL COMPARISON REQUIRED, DATA IS UNCONFIRMED Confirmed by MATT EDMONDSON, BRICE ([id number]), writer editor CASSIDY RDZ ([id number]) on 05/18/2024 2:19:20 PM Referred By: GRAHAM Confirmed By:BRICE GUTIERREZ MD 05/18/24 141 Date Brice Gutierrez MD CC: Dr. Clayton Alaniz DO; Dr. Sheryl Meza MD; Dr. Juan J Rubalcava MD Signed [facility] 12 Lead EKG [facility] Cardiovascular Services [address] [place] [address] 12 Lead EKG 05/18/24 0551 MR#: [id number] Acct: [id number] Name: OLIVA GREY Rep #: [id number] : 1955 68 From: Brice Gutierrez MD Attending Dr: Dr. Clayton Alaniz DO Status: A DM IN Ordering Dr: Debbie Raymond MD Date: 05/18/24 Location: [facility] Sex: M C Admitted: 05/15/24 Test Reason : AM EKG Blood Pressure : / mmHG Vent. Rate : 069 BPM Atrial Rate : 069 BPM P-R Int : 196 ms QRS Dur : 094 ms QT Int : 390 ms P-R-T Axes : 035 -36 075 degrees QTc Int : 417 ms Normal sinus rhythm Left axis deviation Nonspecific T wave abnormality Abnormal ECG When compared with ECG of 15-MAY-2024 14:01, MANUAL COMPARISON REQUIRED, DATA IS UNCONFIRMED Confirmed by MATT EDMONDSON, BRICE ([id number]), writer editor CASSIDY RDZ ([id number]) on 05/18/2024 1:41:30 PM Referred By: DR VIVAS Confirmed By:BRICE GUTIERREZ MD 05/18/24 1341 Date Brice Gutierrez MD CC: Dr. Debbie Raymond MD; Dr. Clayton Alaniz DO; Dr. Juan J Rubalcava MD Signed Normal [facility] Basic Metabolic Profile (BMP )on 05-18-2024 BUN/CRE 19.3 RATIO Normal 05-10 [facility] Comment on above: Performed By: #### L 501.9985 #### [facility] [address] [place], [place], [id number] CA,Total 9.4 mg/dL Normal 8.5-10.1 [facility] Comment on above: Performed By: #### L 501.9985 #### [facility] [address] [place], [place], [id number] ([address] Chloride [Moles/Vol] 102 mmol/L Normal 98-107 [facility] Comment on above: Performed By: #### L 501.9985 #### [facility] [address] [place], [place], [id number] ([address] CO2 [Moles/Vol] 25.0 mmol/L Normal 21.0-32.0 [facility] Comment on above: Performed By: #### L 501.9985 #### [facility] [address] [place], [address] Creatinine [Mass/Vol] 1.09 mg/dL Normal 0.70-1.30 [facility] Comment on above: Result Comment: The validity of the calculated GFR GFRAA in patients over 70 years has not been determined. Clinical correlation is essential. Performed By: #### L 501.9985 #### [facility] [address] [place], [address] ECRCL 75.98 ml/min Normal [facility] Comment on above: Performed By: #### L 501.9985 #### [facility] [address] [place], [address] EST GFR - AA 87 mL/min Normal >60 [facility] Comment on above: Result Comment: Afri can Bahraini GFR Calc Performed By: #### L 501.9985 #### [facility] [address] [place], [address] GAP 8 Normal 5-15 [facility] Comment on above: Performed By: #### L 501.9985 #### [facility] [address] [place], [address] GFR/1.73 sq M.predicted among non-blacks MDRD (S/P/Bld) [Vol rate/Area] 72 mL/min/{1.73_m2} Normal >60 [facility] Comment on above: Result Comment: Non- GFR Calc Performed By: #### L 501.9985 #### [facility] [address] [place], [address] Glucose [Mass/Vol] 130 mg/dL High 74-106 [facility] Comment on above: Result Comment: Fast ing Glucose result greater than or equal to 126 mg/dL suggests DIABETES MELLITUS per A.D.A. criteria. Performed By: #### L 501.9985 #### [facility] [address] [place], [address] Potassium [Moles/Vol] 3.5 mmol/L Normal 3.5-5.1 [facility] Comment on above: Performed By: #### L 501.9985 #### [facility] [address] [place], [address] Sodium [Moles/Vol] 135 mmol/L Low 136-145 [facility] Comment on above: Performed By: #### L 501.9985 #### [facility] [address] [place], [address] Urea nitrogen [Mass/Vol] 21 mg/dL High 7-18 [facility] Comment on above: Performed By: #### L 501.9985 #### [facility] [address] [place], [address] CBC-Complete Blood Cnt No Di ffon 05-18-2024 Erythrocyte distribution width (RBC) [Ratio] 12.9 % Normal 11.6-14.6 [facility] Comment on above: Performed By: #### L 501.9985 #### [facility] [address] [place], [address] Hematocrit (Bld) [Volume fraction] 39.1 % Low 40-54 [facility] Comment on above: Performed By: #### L 501.9985 #### [facility] [address] [place], [address] Hemoglobin (Bld) [Mass/Vol] 12.9 g/dL Low 13.0-16.5 [facility] Comment on above: Performed By: #### L 501.9985 #### [facility] [address] [place], [address] MCH (RBC) [Entitic mass] 27.6 pg Normal 27.0-32.0 [facility] Comment on above: Performed By: #### L 501.9985 #### [facility] [address] [place], [address] MCHC (RBC) [Mass/Vol] 33.0 g/dL Normal 32-36 [facility] Comment on above: Performed By: #### L 501.9985 #### [facility] [address] [place], [address] MCV (RBC) [Entitic vol] 83.5 fL Normal 80-94 [facility] Comment on above: Performed By: #### L 501.9985 #### [facility] [address] [place], [address] Platelet mean volume (Bld) [Entitic vol] 8.8 fL Normal 6.2-12.0 [facility] Comment on above: Performed By: #### L 501.9985 #### [facility] [address] [place], [address] Platelets (Bld) [#/Vol] 294 10*3/uL Normal 150-450 [facility] Comment on above: Performed By: #### L 501.9985 #### [facility] [address] [place], [address] RBC (Bld) [#/Vol] 4.68 10*6/uL Normal 4.6-6.2 [facility] Comment on above: Performed By: #### L 501.9985 #### [facility] [address] [place], [address] RDW SD 38.5 fl Normal 35.1-43.9 [facility] Comment on above: Performed By: #### L 501.9985 #### [facility] [address] [place], [address] WBC (Bld) [#/Vol] 9.5 10*3/uL Normal 4.4-11.0 [facility] Comment on above: Performed By: #### L 501.9985 #### [facility] [address] [facility] [place], [address] Cardiac Cath Diagnosticon Cardiac Cath Diagnostic [facility] Imaging Services [address] [place] [address] Cardiac Cath Diagnostic MR#: [id number] Acct: [id number] Name: OLIVA GREY Rep #: [id number] : 1955 68 From: Brice Gutierrez MD PCP: Dr. Juan J Rubalcava MD Status:ADM IN Patient Name: OLIVA GREY Study Date: 05/18/2024 Performing: Brice Gutierrez MD Ht: 68 inches 172.72 cm : 1955 Wt: 223.99 lbs 101.6 kg Age: 68 Gender: male BSA: 2.14 PROCEDURE(S) PERFORMED DC01-(28239)LHC/COR/LV IC12-(70229/C9600)ERIN W/WO PTCA, SINGLE CORONARY ARTERY CLINICAL PROFILE AND INDICATIONS Indications: Suspected CAD Heart Failure: None Stress/Imaging Stress/Image Study Performed: No CAD Presentations: Non-STEMI. Symptom onset Date/Time: Time Not Available CONCLUSIONS Preserved left ventricular systolic function. High-grade 90 to 95% stenosis noted in the proximal right coronary artery. RECOMMENDATIONS Referred for immediate PCI DESCRIPTION OF PROCEDURE The patient arrived to the procedure lab. The risks and benefits of the procedure as well as a full description of our services here and current unavailability of surgical backup were fully explained to the patient and/or their significant other prior to the catheterization. The Timeout was completed, verifying the correct patient and procedure. The patient's procedural site was prepped and draped in the usual fashion. Local anesthetic was given subcutaneously to right radial region with Lidocaine 2%. Using a modified Seldinger technique, arterial access was obtained via the right radial artery, a 6Fr sheath was inserted. Left Coronary Artery selective angiography was performed in multiple views using a 5 Fr. 4.0 [place] catheter. Right Coronary Artery selective angiography was then performed in multiple views using a 5 Fr. 4.0 [place] catheter. Left Ventriculography was performed in PATE projection using a 5 Fr. Pigtail catheter. LV to AO pullback pressures were then recorded. CORONARY ANGIOGRAPHY DOMINANCE: Right Dominant LEFT HEART ASSESSMENT Left Ventricular Ejection Fraction: by LV Gram 70 % Normal LV wall motion Normal Left Ventricular systolic function LEFT MAIN: Angiographically normal, Mild luminal irregularities LEFT ANTERIOR DESCENDING ARTERY: Mild luminal irregularities less than 30% CIRCUMFLEX ARTERY: Moderate luminal irregularities up to 50% RIGHT CORONARY ARTERY: Dominant right coronary artery with eccentric 90% proximal stenosis and mild diffuse distal disease. PROX RCA: 90 % Stenosis COMPLICATIONS No Complications PROCEDURE MEDICATIONS Fentanyl 50 mcg IV Versed 1 mg IV Versed 1 mg IV Oxygen: 2 L/min via nasal cannula Brilinta 180 mg PO @ 05/18/2024 10:00:45 Heparin given IA 05/18/2024 09:48:08 Heparin 5000 unit(s) IV 05/18/2024 10:10:35 Verapamil 2.5mg, Ntg 100mcgs, 3000 units of Heparin given IA 05/18/2024 09:48:08 IV Bolus: .9 NaCl 400 ml total 05/18/2024 10:33:28 IV Fluids: .9 NaCl increased to 500 ml/hr 05/18/2024 09:58:51 IV Fluids: .9 NaCl decreased to 50 ml/hr 05/18/2024 10:33:42 SUMMARY OF HEMODYNAMIC DATA Time AIR REST ECG 09:36:21 AO 81/55 (65) SA 09:54:36 AO 71/46 (59) 09:57:44 LV 89/-2, 2 10:02:41 LV 84/-2, 2 10:02:49 LV 82/-3, 3 10:03:21 LV 75/2, 11 10:03:29 LVp 74/-3, 15 10:03:32 AOp 76/42 (56) 10:03:39 AO 89/51 (67) 10:14:36 AO 99/55 (74) 10:22:20 AO 107/63 (83) 10:29:05 AIR REST 10:29:17 Signed By Brice Gutierrez MD On 05/18/2024 10:38:08 Brice Gutierrez MD 05/18/24 1039 Date Brice Gutierrez MD Cosigner Signature: Date (if indicated) CC: Dr. Brice Gutierrez MD; Dr. Clayton Alaniz DO; Dr. Juan J Rubalcava MD Date Dictated: 05/18/24 0946 Date Transcribed: 05/18/24 1038 Java Engineer: CO Signed Normal [facility] Cardiac Cath Interventionon 05-18-2024 Cardiac Cath Intervention [facility] Imaging Services [address] [place] [address] Cardiac Cath Intervention MR#: [id number] Acct: [id number] Name: OLIVA GREY Rep #: [id number] : 1955 68 From: Brice Gutierrez MD PCP: Dr. Juan J Rubalcava MD Status:ADM IN Patient Name: OLIVA GREY Study Date: 05/18/2024 Performing: Yash Meza MD Ht: 68 inches 172.72 cm : 1955 Wt: 224.3 lbs 101.6 kg Age: 68 Gender: male BSA: 2.14 PROCEDURE(S) PERFORMED IC12-(19731/C9600)ERIN W/WO PTCA, SINGLE CORONARY ARTERY CLINICAL PROFILE AND CO-MORBIDITIES Indications: Suspected CAD Heart Failure: None Stress/Imaging Stress/Image Study Performed: No CAD Presentations: Non-STEMI. Symptom onset Date/Time: Time Not Available CONCLUSIONS Successful ERIN to pRCA RECOMMENDATIONS DESCRIPTION OF PROCEDURE The patient arrived to the procedure lab. The risks and benefits of the procedure as well as a full description of our services here and current unavailability of surgical backup were fully explained to the patient and/or their significant other prior to the catheterization. The Timeout was completed, verifying the correct patient and procedure. The patient's procedural site was prepped and draped in the usual fashion. Local anesthetic was given subcutaneously to right radial region with Lidocaine 2% Using a modified Seldinger technique,arterial access was obtained via the right radial artery, a 6Fr sheath was inserted. Left Coronary Artery selective angiography was performed in multiple views using a 5 Fr. 4.0 [place] catheter. Right Coronary Artery selective angiography was then performed in multiple views using a 5 Fr. 4.0 [place] catheter. Left Ventriculography was performed in PATE projection using a 5 Fr. Pigtail catheter. LV to AO pullback pressures were then recorded.The images were reviewed and options discussed. A decision was then made to proceed with an Intervention, IVUS or other adjunct procedure. JR 4 Guide catheter was inserted and engaged into the RCA. Angiogram performed pre balloon dilatation. BMW Guide wire was advanced to the RCA. EMERGE 3.0 X 20 Balloon catheter was inserted. Balloon catheter was advanced across lesion in the right coronary, proximal. PTCA balloon inflated at 10 atms for 20 secs. PTCA balloon inflated at 12 atms for 18 secs. ORSIRO 4.0 X 40 Drug Eluting stent was inserted. Angiogram performed pre stent deployment. NC EMREGE 4.5 X 20 Balloon catheter was inserted post stent. Angiogram performed pre balloon dilatation. Angiogram performed post balloon dilatation. The arterial sheath was pulled and a TR Band was applied for hemostasis 12 ml of air INTERVENTION INFORMATION LESION SITE: RCA (Proximal) Lesion Complexity: High/C, chronic total occlusion: No, lesion at bifurcation: No, thrombus present: No, lesion length: 38 mm, culprit lesion: Yes, Previously treated lesion: No Pre Stenosis: 95 % Pre intervention LINDEN flow: 3 PROCEDURE: Drug Eluting Stent with pre and post dilatation Post Stenosis: 0 % Post intervention LINDEN flow: 3 Lesion Devices: Dotson .014 190cm BMW [place] Straight Cordis 6 Fr JR4 100cm Guide Catheter Ned Sci EMERGE MR 3.00x20 BALLOON Biotronik Orsi[employer] [place] MR ERIN 4.0x40 Ned Sci NC EMERGE MR 4.50x20 BALLOON COMPLICATIONS No Complications PROCEDURE MEDICATIONS Fentanyl 50 mcg IV Versed 1 mg IV Versed 1 mg IV Oxygen: 2 L/min via nasal cannula Brilinta 180 mg PO @ 05/18/2024 10:00:45 Heparin given IA 05/18/2024 09:48:08 Heparin 5000 unit(s) IV 05/18/2024 10:10:35 Verapamil 2.5mg, Ntg 100mcgs, 3000 units of Heparin given IA 05/18/2024 09:48:08 IV Bolus: .9 NaCl 400 ml total 05/18/2024 10:33:28 IV Fluids: .9 NaCl increased to 500 ml/hr 05/18/2024 09:58:51 IV Fluids: .9 NaCl decreased to 50 ml/hr 05/18/2024 10:33:42 SUMMARY OF HEMODYNAMIC DATA Time AIR REST ECG 09:36:21 AO 81/55 (65) SA 09:54:36 AO 71/46 (59) 09:57:44 LV 89/-2, 2 10:02:41 LV 84/-2, 2 10:02:49 LV 82/-3, 3 10:03:21 LV 75/2, 11 10:03:29 LVp 74/-3, 15 10:03:32 AOp 76/42 (56) 10:03:39 AO 89/51 (67) 10:14:36 AO 99/55 (74) 10:22:20 AO 107/63 (83) 10:29:05 AIR REST 10:29:17 Signed By Yash Meza MD On 05/18/2024 11:34:39 Yash Meza MD 05/18/24 1135 Date Brice Rivera Signature: Date (if indicated) CC: Dr. Brice Gutierrez MD; Dr. Clayton Alaniz DO; Dr. Juan J Rubalcava MD Date Dictated: 05/18/24 0946 Date Transcribed: 05/18/24 1134 Java Engineer: CO Signed Normal [facility] Partial Thromboplast Timeon 05-18-2024 aPTT Coag (Bld) [Time] 77.0 s High 24.1-36.2 [facility] Comment on above: Performed By: #### L 501.9985 #### [facility] [address] [place], [address] Partial Thromboplast Timeon 05-17-2024 aPTT Coag (Bld) [Time] 58.1 s High 24.1-36.2 [facility] Comment on above: Performed By: #### L 300.4310 #### [facility] [address] [place], [address] aPTT Coag (Bld) [Time] 56.4 s High 24.1-36.2 [facility] Comment on above: Performed By: #### L 501.9985 #### [facility] [address] [place], [address] aPTT Coag (Bld) [Time] 51.3 s High 24.1-36.2 [facility] Comment on above: Performed By: #### L 501.9985 #### [facility] [address] [place], [address] CBC W/Diff, Automatedon 04-22 Absolute Lymph 2.13 X10 3/uL Normal 0.83-4.51 [facility] Comment on above: Performed By: #### L 500.4050, L100.0100, L500.4100, L501.9520, L501.2300, L501.5200 ####[facility] [address] [place], [address] Absolute Neut 4.6 X10 3/uL Normal 2.0-7.7 [facility] Comment on above: Performed By: #### L 500.4050, L100.0100, L500.4100, L501.9520, L501.2300, L501.5200 ####[facility] [address] [place], [address] Basophils/100 WBC (Bld) 0.5 % Normal 0-1 [facility] Comment on above: Performed By: #### L 500.4050, L100.0100, L500.4100, L501.9520, L501.2300, L501.5200 ####[facility] [address] [place], [address] Eosinophils/100 WBC (Bld) 2.6 % Normal 0-5 [facility] Comment on above: Performed By: #### L 500.4050, L100.0100, L500.4100, L501.9520, L501.2300, L501.5200 ####[facility] [address] [place], [address] Erythrocyte distribution width (RBC) [Ratio] 13.0 % Normal 11.6-14.6 [facility] Comment on above: Performed By: #### L 500.4050, L100.0100, L500.4100, L501.9520, L501.2300, L501.5200 ####[facility] [address] [place], [address] Hematocrit (Bld) [Volume fraction] 38.9 % Low 40-54 [facility] Comment on above: Performed By: #### L 500.4050, L100.0100, L500.4100, L501.9520, L501.2300, L501.5200 ####[facility] [address] [place], [address] Hemoglobin (Bld) [Mass/Vol] 12.4 g/dL Low 13.0-16.5 [facility] Comment on above: Performed By: #### L 500.4050, L100.0100, L500.4100, L501.9520, L501.2300, L501.5200 ####[facility] [address] [place], [address] IG% 0.300 Normal 0.0-0.9 [facility] Comment on above: Result Comment: IG% - Immature Granulocytes (promyelocytes, myelocytes and metamyelocytes) > 1% indicates that a LEFT SHIFT is Present. Performed By: #### L 500.4050, L100.0100, L500.4100, L501.9520, L501.2300, L501.5200 ####[facility] [address] [place], [address] Lymphocytes/100 WBC (Bld) 27.6 % Normal 19-41 [facility] Comment on above: Performed By: #### L 500.4050, L100.0100, L500.4100, L501.9520, L501.2300, L501.5200 ####[facility] [address] [place], [address] MCH (RBC) [Entitic mass] 27.0 pg Normal 27.0-32.0 [facility] Comment on above: Performed By: #### L 500.4050, L100.0100, L500.4100, L501.9520, L501.2300, L501.5200 ####[facility] [address] [place], [address] MCHC (RBC) [Mass/Vol] 31.9 g/dL Low 32-36 [facility] Comment on above: Performed By: #### L 500.4050, L100.0100, L500.4100, L501.9520, L501.2300, L501.5200 ####[facility] [address] [place], [address] MCV (RBC) [Entitic vol] 84.7 fL Normal 80-94 [facility] Comment on above: Performed By: #### L 500.4050, L100.0100, L500.4100, L501.9520, L501.2300, L501.5200 ####[facility] [address] [place], [address] Monocytes/100 WBC (Bld) 9.2 % Normal 0-10 [facility] Comment on above: Performed By: #### L 500.4050, L100.0100, L500.4100, L501.9520, L501.2300, L501.5200 ####[facility] [address] [place], [address] Neutrophils/100 WBC (Bld) 59.8 % Normal 47-70 [facility] Comment on above: Performed By: #### L 500.4050, L100.0100, L500.4100, L501.9520, L501.2300, L501.5200 ####[facility] [address] [place], [address] Nucleated RBC (Bld) [#/Vol] 0 10*3/uL Normal 0-5 [facility] Comment on above: Performed By: #### L 500.4050, L100.0100, L500.4100, L501.9520, L501.2300, L501.5200 ####[facility] [address] [place], [address] Platelet mean volume (Bld) [Entitic vol] 8.7 fL Normal 6.2-12.0 [facility] Comment on above: Performed By: #### L 500.4050, L100.0100, L500.4100, L501.9520, L501.2300, L501.5200 ####[facility] [address] [place], [address] Platelets (Bld) [#/Vol] 258 10*3/uL Normal 150-450 [facility] Comment on above: Performed By: #### L 500.4050, L100.0100, L500.4100, L501.9520, L501.2300, L501.5200 ####[facility] [address] [place], [address] RBC (Bld) [#/Vol] 4.59 10*6/uL Low 4.6-6.2 [facility] Comment on above: Performed By: #### L 500.4050, L100.0100, L500.4100, L501.9520, L501.2300, L501.5200 ####[facility] [address] [place], [address] RDW SD 39.8 fl Normal 35.1-43.9 [facility] Comment on above: Performed By: #### L 500.4050, L100.0100, L500.4100, L501.9520, L501.2300, L501.5200 ####[facility] [address] [place], [address] WBC (Bld) [#/Vol] 7.7 10*3/uL Normal 4.4-11.0 [facility] Comment on above: Performed By: #### L 500.4050, L100.0100, L500.4100, L501.9520, L501.2300, L501.5200 ####[facility] [address] [place], [address] Comprehensive Metabolic Prof ilon 05-16-2024 Albumin [Mass/Vol] 3.5 g/dL Normal 3.2-5.0 [facility] Comment on above: Performed By: #### L 500.4050, L100.0100, L500.4100, L501.9520, L501.2300, L501.5200 ####[facility] [address] [place], [address] Albumin/Globulin [Mass ratio] 1.0 {ratio} Normal 0.9-2.4 [facility] Comment on above: Performed By: #### L 500.4050, L100.0100, L500.4100, L501.9520, L501.2300, L501.5200 ####[facility] [address] [place], [address] ALK P 58 U/L Normal 45-117 [facility] Comment on above: Performed By: #### L 500.4050, L100.0100, L500.4100, L501.9520, L501.2300, L501.5200 ####[facility] [address] [place], [address] ALT [Catalytic activity/Vol] 111 U/L High 16-61 [facility] Comment on above: Performed By: #### L 500.4050, L100.0100, L500.4100, L501.9520, L501.2300, L501.5200 ####[facility] [address] [place], [address] AST [Catalytic activity/Vol] 103 U/L High 15-37 [facility] Comment on above: Performed By: #### L 500.4050, L100.0100, L500.4100, L501.9520, L501.2300, L501.5200 ####[facility] [address] [place], [address] Bilirubin [Mass/Vol] 0.70 mg/dL Normal 0.20-1.00 [facility] Comment on above: Result Comment: For patients on eltrombopag therapy, use of Dimension [place] TBIL is not recommended. Performed By: #### L 500.4050, L100.0100, L500.4100, L501.9520, L501.2300, L501.5200 ####[facility] [address] [place], [address] BUN/CRE 20.8 RATIO High 10-20 [facility] Comment on above: Performed By: #### L 500.4050, L100.0100, L500.4100, L501.9520, L501.2300, L501.5200 ####[facility] [address] [place], [address] CA,Total 9.3 mg/dL Normal 8.5-10.1 [facility] Comment on above: Performed By: #### L 500.4050, L100.0100, L500.4100, L501.9520, L501.2300, L501.5200 ####[facility] [address] [place], [address] Chloride [Moles/Vol] 101 mmol/L Normal 98-107 [facility] Comment on above: Performed By: #### L 500.4050, L100.0100, L500.4100, L501.9520, L501.2300, L501.5200 ####[facility] [address] [place], [address] CO2 [Moles/Vol] 28.0 mmol/L Normal 21.0-32.0 [facility] Comment on above: Performed By: #### L 500.4050, L100.0100, L500.4100, L501.9520, L501.2300, L501.5200 ####[facility] [address] [place], [address] Creatinine [Mass/Vol] 1.01 mg/dL Normal 0.70-1.30 [facility] Comment on above: Result Comment: The validity of the calculated GFR GFRAA in patients over 70 years has not been determined. Clinical correlation is essential. Performed By: #### L 500.4050, L100.0100, L500.4100, L501.9520, L501.2300, L501.5200 ####[facility] [address] [place], [address] ECRCL 81.99 ml/min Normal [facility] Comment on above: Performed By: #### L 500.4050, L100.0100, L500.4100, L501.9520, L501.2300, L501.5200 ####[facility] [address] [place], [address] EST GFR - AA 95 mL/min Normal >60 [facility] Comment on above: Result Comment: Afri can Bahraini GFR Calc Performed By: #### L 500.4050, L100.0100, L500.4100, L501.9520, L501.2300, L501.5200 ####[facility] [address] [place], [place], [id number]) GAP 5 Normal 5-15 [facility] Comment on above: Performed By: #### L 500.4050, L100.0100, L500.4100, L501.9520, L501.2300, L501.5200 ####[facility] [address] [place], [address] GFR/1.73 sq M.predicted among non-blacks MDRD (S/P/Bld) [Vol rate/Area] 78 mL/min/{1.73_m2} Normal >60 [facility] Comment on above: Result Comment: Non- GFR Calc Performed By: #### L 500.4050, L100.0100, L500.4100, L501.9520, L501.2300, L501.5200 ####[facility] [address] [place], [address] Globulin (S) [Mass/Vol] 3.5 g/dL Normal 2.2-4.2 [facility] Comment on above: Performed By: #### L 500.4050, L100.0100, L500.4100, L501.9520, L501.2300, L501.5200 ####[facility] [address] [place], [address] Glucose [Mass/Vol] 126 mg/dL High 74-106 [facility] Comment on above: Result Comment: Fast ing Glucose result greater than or equal to 126 mg/dL suggests DIABETES MELLITUS per A.D.A. criteria. Performed By: #### L 500.4050, L100.0100, L500.4100, L501.9520, L501.2300, L501.5200 ####[facility] [address] [place], [address] Potassium [Moles/Vol] 3.8 mmol/L Normal 3.5-5.1 [facility] Comment on above: Performed By: #### L 500.4050, L100.0100, L500.4100, L501.9520, L501.2300, L501.5200 ####[facility] [address] [place], [address] Sodium [Moles/Vol] 134 mmol/L Low 136-145 [facility] Comment on above: Performed By: #### L 500.4050, L100.0100, L500.4100, L501.9520, L501.2300, L501.5200 ####[facility] [address] [place], [address] T PROT 7.0 g/dL Normal 6.4-8.2 [facility] Comment on above: Performed By: #### L 500.4050, L100.0100, L500.4100, L501.9520, L501.2300, L501.5200 ####[facility] [address] [place], [address] Urea nitrogen [Mass/Vol] 21 mg/dL High 7-18 [facility] Comment on above: Performed By: #### L 500.4050, L100.0100, L500.4100, L501.9520, L501.2300, L501.5200 ####[facility] [address] [place], [address] Consultation - Cardiologyon 05-16-2024 Consultation - Cardiology [facility] Medical Records Department [address] [place] [address] Consultation - Cardiology 05/16/24 1210 MR#: [id number] Acct: [id number] Name: OLIVA GREY Rep #: [id number] : 1955 68 From: Debbie Raymond MD PCP: Dr. Juan J Rubalcava MD Status:ADM IN Location: [place] [address] Assessment Plan Assessment/Plan (1) History of gastroesophageal reflux (GERD): (2) History of hypertension: (3) Elevated troponin: (4) Acute non-ST elevation myocardial infarction (NSTEMI): (5) Hyperglycemia: PLAN: Plan 68-year-old patient with history of CAD He did mention that he had a cardiac catheterization 15 years ago and has been treated medically Evidently he was having symptoms of chest pain from yesterday came to the ER where he was admitted for further cardiac evaluation Symptoms described as retrosternal chest discomfort relieved with nitroglycerin No other associated symptoms noted. Medical history include history of hypertension, hyperlipidemia, gastric reflux disease And a prior cardiac catheterization as mentioned years ago where he was treated medically. Cardiac exam essentially normal EKG showed no significant ST???T abnormality Noted patient has significantly elevated high sensitive troponins up to 1104 Currently on heparin aspirin beta-gee and statin I added Nitropaste to his current treatment. Cardiac care plan and recommendations; 1. Patient with non-ST elevation MS stable on current medical treatment 2. Review of the echocardiogram showed LV function preserved with no significant valve abnormality 3. Will proceed with cardiac catheterization on Saturday Meanwhile if she had any further episode of chest pain on current treatment we will plan for early cardiac catheterization. I discussed cardiac care plan in detail with the patient the as well as the nursing staff and will continue to monitor and follow-up clinically HPI Consult Data Date of Consult: 05/16/24 HPI Narrative Reason for Consultation: Non-STEMI HPI Narrative: OLIVA GREY, is a 68 M who presents [facility] Medical History Kidney stone Back pain Knee pain Shoulder pain SOB (shortness of breath) Arthritis HTN (hypertension) Home Medications ???Medication ???Instructions ???Recorded ???Last Taken ???Type atorvastatin 20 mg tablet 20 mg PO DAILY cholesterol 01/09/17 Unknown History uqhz-jqq-fvdku-cellulose-p jzhlrmz-lvmm-paqtxi 1,000 mg PO DAILY 01/09/17 Unknown History 1,000 mg tablet cholecalciferol (vitamin D3) 25 1,000 unit PO DAILY supplement 01/09/17 Unknown History mcg (1,000 unit) capsule finasteride 1 mg tablet 1 mg PO QHS prostate 01/09/17 Unknown History flurbiprofen 100 mg tablet 100 mg PO BID 01/09/17 Unknown History folic acid 1 mg tablet 1 mg PO DAILY@0800 supplement 01/09/17 Unknown History metoprolol succinate 50 mg 50 mg PO DAILY HR 01/09/17 Unknown History tablet,extended release 24 hr amlodipine 5 mg tablet 5 mg PO DAILY blood pressure 05/15/24 Unknown History hydrochlorothiazide 25 mg tablet 25 mg PO DAILY 05/15/24 Unknown History losartan 100 mg tablet 100 mg PO DAILY 05/15/24 Unknown History omeprazole 40 mg capsule,delayed 40 mg PO DAILY 05/15/24 Unknown History release Allergy/AdvReac Type Severity Reaction Status Date / Time No Known Allergies Allergy Verified 05/15/24 07:43 Family History (Updated 05/15/24 @ 18:[address] Jazmine Vivas, DO) Other Heart disease Hypertension Surgical History History of gastric surgery History of foot surgery History of knee surgery Social History (Updated 05/15/24 @ 18:[address] Jazmine Vivas DO) household members: spouse housing: house Smoking Status: Former smoker Tobacco: How many years used: 20 how long ago did patient quit smoking: Quit about 20 years ago and has a 33-thnq-gkmo history alcohol intake: current alcohol intake frequency: a few times a month substance use type: does not use Physical Exam Cardio Cardio Narrative: Patient seen and evaluated at bedside along with the nursing staff at bedside at time of evaluation Symptoms of chest pain relieved with sublingual nitroglycerin Alert and orientated x 3 was able to give a detailed history about his current presentation Cardiac exam S1-S2 is regular No systolic or diastolic murmur Chest examination clear to auscultation bilateral Lamination with abdomen soft Examination lower extremity no lower extremity edema, pedal pulses palpable. Risk Stratification Risk Stratification Applicable: Yes Age >/= 65: Yes >/= 3 CAD Risk Factors (HTN, HLD, DM, family hx of CAD, or current smoker): Yes (Hypertension, hyperglycemia, history of CAD, hyperlipidemia) Aspirin Use in the Past (more content not included)... Normal [facility] Hemoglobin A1con 05-16-2024 HbA1c (Bld) [Mass fraction] 6.5 % High 3.8-5.6 [facility] Comment on above: Result Comment: Norm al < 5.7 % Prediabetic 5.7 - 6.4 % Diabetic >or= 6.5 % Please note range changes. Performed By: #### L 501.9985 #### [facility] [address] [facility] [place], [place], [id number] Lipid Profileon 05-16-2024 Cholesterol [Mass/Vol] 125 mg/dL Normal 200 [facility] Comment on above: Result Comment: <200 mg/dL Desirable 200-240 mg/dL Borderline >240 mg/dL High Risk Performed By: #### L 500.4050, L100.0100, L500.4100, L501.9520, L501.2300, L501.5200 ####[facility] [address] [facility] [place], [place], [address] Cholesterol in HDL [Mass/Vol] 30 mg/dL Low [facility] Comment on above: Result Comment: The drugs N-Acetylcysteine and Metamizole may falsely depress this assay. Reference Range HDL <40 mg/dL Low HDL Cholesterol HDL >or= 60 mg/dL High HDL Cholesterol Performed By: #### L 500.4050, L100.0100, L500.4100, L501.9520, L501.2300, L501.5200 ####[facility] [address] [place], [address] Cholesterol in LDL [Mass/Vol] 49 mg/dL Normal 0-130 [facility] Comment on above: Performed By: #### L 500.4050, L100.0100, L500.4100, L501.9520, L501.2300, L501.5200 ####[facility] [address] [place], [address] Cholesterol in VLDL [Mass/Vol] 46 mg/dL High 5-40 [facility] Comment on above: Performed By: #### L 500.4050, L100.0100, L500.4100, L501.9520, L501.2300, L501.5200 ####[facility] [address] [place], [address] Triglyceride [Mass/Vol] 231 mg/dL High [facility] Comment on above: Result Comment: The drugs N-Acetylcysteine and Metamizole may falsely depress this assay. Serum Triglycerides Reference Interval Normal <150 mg/dL Borderline high 150 - 199 mg/dL High 200 - 499 mg/dL Very High > or = 500 mg/dL Performed By: #### L 500.4050, L100.0100, L500.4100, L501.9520, L501.2300, L501.5200 ####[facility] [address] [place], [address] Magnesiumon 05-16-2024 Magnesium [Mass/Vol] 1.9 mg/dL Normal 1.6-2.6 [facility] Comment on above: Performed By: #### L 500.4050, L100.0100, L500.4100, L501.9520, L501.2300, L501.5200 ####[facility] [address] [place], [address] Partial Thromboplast Timeon 05-16-2024 aPTT Coag (Bld) [Time] 47.3 s High 24.1-36.2 [facility] Comment on above: Performed By: #### L 300.4310 #### [facility] [address] [place], [address] aPTT Coag (Bld) [Time] 42.3 s High 24.1-36.2 [facility] Comment on above: Performed By: #### L 501.9985 #### [facility] [address] [place], [address] aPTT Coag (Bld) [Time] 45.6 s High 24.1-36.2 [facility] Comment on above: Performed By: #### L 300.4310 #### [facility] [address] [place], [address] Phosphoruson 05-16-2024 Phosphate [Mass/Vol] 2.7 mg/dL Normal 2.5-4.9 [facility] Comment on above: Performed By: #### L 500.4050, L100.0100, L500.4100, L501.9520, L501.2300, L501.5200 ####[facility] [address] [place], [address] Thyroid Stim Hormone (TSH)on 05-16-2024 TSH 1.590 uIU/mL Normal 0.358-3.74 0 [facility] Comment on above: Performed By: #### L 500.4050, L100.0100, L500.4100, L501.9520, L501.2300, L501.5200 ####[facility] [address] [place], [address] 12 Lead EKGon 05-15-2024 12 Lead EKG [facility] [address] [place] [address] 12 Lead EKG 05/15/24 1401 MR#: [id number] Acct: [id number] Name: OLIVA GREY Rep #: [id number] : 1955 68 From: Brice Gutierrez MD Attending Dr: Dr. Clayton Alaniz DO Status: A DM IN Ordering Dr: Jazmine Vivas DO Date: 05/15/24 Location: [facility] Sex: M C Admitted: 05/15/24 Test Reason : CHEST PAIN Blood Pressure : / mmHG Vent. Rate : 061 BPM Atrial Rate : 061 BPM P-R Int : 192 ms QRS Dur : 088 ms QT Int : 406 ms P-R-T Axes : 038 001 027 degrees QTc Int : 408 ms Normal sinus rhythm Normal ECG When compared with ECG of 15-MAY-2024 11:47, MANUAL COMPARISON REQUIRED, DATA IS UNCONFIRMED Confirmed by MATT EDMONDSON, BRICE ([id number]), writer editor RADHA WEEKS ([id number]) on 05/18/2024 9:58:18 AM Referred By: GRAHAM Confirmed By:BRICE GUTIERREZ MD 05/18/24 0958 Date Brice Gutierrez MD CC: Dr. Jazmine Vivas DO; Dr. Clayton Alaniz DO; Dr. Juan J Rubalcava MD Signed [facility] 12 Lead EKG [facility] [address] [place] [address] 12 Lead EKG 05/15/24 1147 MR#: [id number] Acct: [id number] Name: OLIVA GREY Rep #: [id number] : 1955 68 From: Brice Gutierrez MD Attending Dr: Dr. Clayton Alaniz DO Status: A DM IN Ordering Dr: Sherman Encinas MD Date: 05/15/24 Location: [facility] Sex: M C Admitted: 05/15/24 Test Reason : REPEAT Blood Pressure : / mmHG Vent. Rate : 066 BPM Atrial Rate : 066 BPM P-R Int : 190 ms QRS Dur : 082 ms QT Int : 406 ms P-R-T Axes : 043 -04 021 degrees QTc Int : 425 ms Normal sinus rhythm Normal ECG Confirmed by BRICE GUTIERREZ MD ([id number]), writer editor RADHA WEEKS ([id number]) on 05/18/2024 9:22:11 AM Referred By: Confirmed By:BRICE GUTIERREZ MD 05/18/24921 Date Brice Gutierrez MD CC: Dr. Sherman Encinas MD; Dr. Clayton Alaniz DO; Dr. Jua nJ Rubalcava MD Signed [facility] 12 Lead EKG [facility] [address] [place] [address] 12 Lead EKG 05/15/24 0744 MR#: [id number] Acct: [id number] Name: OLIVA GREY Rep #: [id number] : 1955 68 From: Brice Gutierrez MD Attending Dr: Dr. Clayton Alaniz DO Status: A DM IN Ordering Dr: Sherman Encinas MD Date: 05/15/24 Location: [facility] Sex: M C Admitted: 05/15/24 Test Reason : CP Blood Pressure : / mmHG Vent. Rate : 075 BPM Atrial Rate : 075 BPM P-R Int : 162 ms QRS Dur : 088 ms QT Int : 378 ms P-R-T Axes : 000 -09 001 degrees QTc Int : 422 ms Normal sinus rhythm Normal ECG Confirmed by BRICE GUTIERREZ MD ([id number]), writer editor RADHA WEEKS ([id number]) on 05/18/2024 9:21:53 AM Referred By: Confirmed By:BRICE GUTIERREZ MD 05/18/24921 Date Brice Gutierrez MD CC: Dr. Sherman Encinas MD; Dr. Clayton Alaniz DO; Dr. Juan J Rubalcava MD Signed Normal [facility] BNP,B-Type NATRIURETIC LISBETHI Neli 05-15-2024 Natriuretic peptide B (Bld) [Mass/Vol] 5.5 pg/mL Normal 0-100 [facility] Comment on above: Performed By: #### L 300.4310 #### [facility] [address] [place], [address] Basic Metabolic Profile (BMP )on 05-15-2024 BUN/CRE 23.2 RATIO High 10-20 [facility] Comment on above: Order Comment: 1Y Performed By: #### L 300.4310 #### [facility] [address] [place], [address] CA,Total 9.5 mg/dL Normal 8.5-10.1 [facility] Comment on above: Order Comment: 1Y Performed By: #### L 300.4310 #### [facility] [address] [place], [address] Chloride [Moles/Vol] 101 mmol/L Normal 98-107 [facility] Comment on above: Order Comment: 1Y Performed By: #### L 300.4310 #### [facility] [address] [place], [address] CO2 [Moles/Vol] 29.0 mmol/L Normal 21.0-32.0 [facility] Comment on above: Order Comment: 1Y Performed By: #### L 300.4310 #### [facility] [address] [place], [address] Creatinine [Mass/Vol] 1.12 mg/dL Normal 0.70-1.30 [facility] Comment on above: Order Comment: 1Y Result Comment: The validity of the calculated GFR GFRAA in patients over 70 years has not been determined. Clinical correlation is essential. Performed By: #### L 300.4310 #### [facility] [address] [place], [address] ECRCL 73.29 ml/min Normal [facility] Comment on above: Order Comment: 1Y Performed By: #### L 300.4310 #### [facility] [address] [place], [address] EST GFR - AA 84 mL/min Normal >60 [facility] Comment on above: Order Comment: 1Y Result Comment: Afri can Bahraini GFR Calc Performed By: #### L 300.4310 #### [facility] [address] [place], [address] GAP 5 Normal 5-15 [facility] Comment on above: Order Comment: 1Y Performed By: #### L 300.4310 #### [facility] [address] [place], [address] GFR/1.73 sq M.predicted among non-blacks MDRD (S/P/Bld) [Vol rate/Area] 69 mL/min/{1.73_m2} Normal >60 [facility] Comment on above: Order Comment: 1Y Result Comment: Non- GFR Calc Performed By: #### L 300.4310 #### [facility] [address] [place], [address] Glucose [Mass/Vol] 173 mg/dL High 74-106 [facility] Comment on above: Order Comment: 1Y Result Comment: Fast ing Glucose result greater than or equal to 126 mg/dL suggests DIABETES MELLITUS per A.D.A. criteria. Performed By: #### L 300.4310 #### [facility] [address] [place], [address] Potassium [Moles/Vol] 3.8 mmol/L Normal 3.5-5.1 [facility] Comment on above: Order Comment: 1Y Performed By: #### L 300.4310 #### [facility] [address] [place], [address] Sodium [Moles/Vol] 136 mmol/L Normal 136-145 [facility] Comment on above: Order Comment: 1Y Performed By: #### L 300.4310 #### [facility] [address] [place], [address] Urea nitrogen [Mass/Vol] 26 mg/dL High 7-18 [facility] Comment on above: Order Comment: 1Y Performed By: #### L 300.4310 #### [facility] [address] [place], [address] CBC W/Diff, Automatedon 10-2 5-2023 Absolute Lymph 1.67 X10 3/uL Normal 0.83-4.51 [facility] Comment on above: Performed By: #### L 300.4310 #### [facility] [address] [place], [address] Absolute Neut 4.9 X10 3/uL Normal 2.0-7.7 [facility] Comment on above: Performed By: #### L 300.4310 #### [facility] [address] [place], [address] Basophils/100 WBC (Bld) 0.5 % Normal 0-1 [facility] Comment on above: Performed By: #### L 300.4310 #### [facility] [address] [place], [address] Eosinophils/100 WBC (Bld) 2.1 % Normal 0-5 [facility] Comment on above: Performed By: #### L 300.4310 #### [facility] [address] [place], [address] Erythrocyte distribution width (RBC) [Ratio] 12.7 % Normal 11.6-14.6 [facility] Comment on above: Performed By: #### L 300.4310 #### [facility] [address] [place], [address] Hematocrit (Bld) [Volume fraction] 40.4 % Normal 40-54 [facility] Comment on above: Performed By: #### L 300.4310 #### [facility] [address] [place], [address] Hemoglobin (Bld) [Mass/Vol] 13.0 g/dL Normal 13.0-16.5 [facility] Comment on above: Performed By: #### L 300.4310 #### [facility] [address] [place], [address] IG% 0.400 Normal 0.0-0.9 [facility] Comment on above: Result Comment: IG% - Immature Granulocytes (promyelocytes, myelocytes and metamyelocytes) > 1% indicates that a LEFT SHIFT is Present. Performed By: #### L 300.4310 #### [facility] [address] [place], [address] Lymphocytes/100 WBC (Bld) 22.3 % Normal 19-41 [facility] Comment on above: Performed By: #### L 300.4310 #### [facility] [address] [place], [address] MCH (RBC) [Entitic mass] 27.0 pg Normal 27.0-32.0 [facility] Comment on above: Performed By: #### L 300.4310 #### [facility] [address] [place], [address] MCHC (RBC) [Mass/Vol] 32.2 g/dL Normal 32-36 [facility] Comment on above: Performed By: #### L 300.4310 #### [facility] [address] [place], [address] MCV (RBC) [Entitic vol] 83.8 fL Normal 80-94 [facility] Comment on above: Performed By: #### L 300.4310 #### [facility] [address] [place], [address] Monocytes/100 WBC (Bld) 8.7 % Normal 0-10 [facility] Comment on above: Performed By: #### L 300.4310 #### [facility] [address] [place], [address] Neutrophils/100 WBC (Bld) 66.0 % Normal 47-70 [facility] Comment on above: Performed By: #### L 300.4310 #### [facility] [address] [place], [address] Nucleated RBC (Bld) [#/Vol] 0 10*3/uL Normal 0-5 [facility] Comment on above: Performed By: #### L 300.4310 #### [facility] [address] [place], [address] Platelet mean volume (Bld) [Entitic vol] 8.4 fL Normal 6.2-12.0 [facility] Comment on above: Performed By: #### L 300.4310 #### [facility] [address] [place], [address] Platelets (Bld) [#/Vol] 260 10*3/uL Normal 150-450 [facility] Comment on above: Performed By: #### L 300.4310 #### [facility] [address] [place], [address] RBC (Bld) [#/Vol] 4.82 10*6/uL Normal 4.6-6.2 [facility] Comment on above: Performed By: #### L 300.4310 #### [facility] [address] [place], [address] RDW SD 38.4 fl Normal 35.1-43.9 [facility] Comment on above: Performed By: #### L 300.4310 #### [facility] [address] [place], [address] WBC (Bld) [#/Vol] 7.5 10*3/uL Normal 4.4-11.0 [facility] Comment on above: Performed By: #### L 300.4310 #### [facility] [address] [place], [place], [address] CTA Chest W/WO Contraston CTA Chest W/WO Contrast [facility] Imaging Services [address] [place], [place] [address] CTA Chest W/WO Contrast MR#: [id number] Acct: [id number] Name: OLIVA GREY Rep #: [id number] : 1955 M 68 From: Larry Ngo PCP: Dr. Juan J Rubalcava MD Status: [facility] Study: CTA Chest W/WO Contrast Date of Exam: 05/15/24 Exam# [id number] Ordering Dr: Sherman Encinas MD [id number] STUDY: CTA CHEST REASON FOR EXAM: Male, 68 years old. Chest pain and elevated d-dimer RADIATION DOSAGE (If Supplied By Facility): CTDIvol = ( 9.17 ) mGy, DLP = ( 516.45 ) mGycm TECHNIQUE: The examination was performed with the intravenous administration of IV 100mL Isovue-370. Post-processing of the angiographic images was performed, with multiplanar reformation and 3D reconstruction. The protocol utilizes one or more of the following dose reduction techniques: automated exposure control, adjustment of mA and/or kV according to patient size,and/or use of iterative reconstruction technique. COMPARISON: Prior study dated: 07/05/2010 FINDINGS: Normal enhancement of the main pulmonary artery and right and left pulmonary arteries. Normal enhancement of the bilateral peripheral pulmonary arteries. There is no demonstrated pulmonary embolism. Normal thoracic aorta and visualized great vessels. There is no demonstrated aortic dissection. Normal heart and pericardium. There are calcifications of the coronary arteries. Normal mediastinum. Normal hilar regions. Normal visualized trachea and bronchi. The lungs are well expanded. There are no pulmonary infiltrates. There are no pleural effusions. Normal chest wall structures. Mild degenerative changes of the spine. No demonstrated acute changes in the visualized upper abdomen. CT/CTA Chest W/WO Contrast IMPRESSION: 1. No evidence of pulmonary embolism or aortic dissection. 2. No acute pulmonary infiltrate, adenopathy or pleural effusions. Electronically Signed: Larry Rollins MD at 12:41 EDT , CC: Dr. Sherman Encinas MD; Dr. Juan J Rubalcava MD Java Engineer: Signed Normal [facility] Chest 1 View (Portable)on Chest 1 View (Portable) [facility] Imaging Services [address] [place] [address] Chest 1 View (Portable) MR#: [id number] Acct: [id number] Name: OLIVA GREY Rep #: [id number] : 1955 M 68 From: Larry Ngo PCP: Dr. Juan J Rubalcava MD Status: [facility] ER Study: Chest 1 View (Portable) Date of Exam: 05/15/24 Exam# [id number] Ordering Dr: Sherman Encinas MD [id number] INDICATION: chest pain EXAMINATION/TECHNIQUE: X-RAY - XR Chest 1 View COMPARISON: Prior study dated: 07/04/2010 FINDINGS: LINES/DEVICES: None. LUNGS: No consolidation, edema or effusion. No pneumothorax. MEDIASTINUM AND CARDIOVASCULAR STRUCTURES: Cardiac silhouette not enlarged. Central airways and mediastinal contour are unremarkable. BONES AND SOFT TISSUES: Unremarkable. RAD/Chest 1 View (Portable) IMPRESSION: No radiographic evidence of acute cardiopulmonary disease. Electronically Signed: Larry Rollins MD at 8:13 EDT , CC: Dr. Sherman Encinas MD; Dr. Juan J Rubalcava MD Java Engineer: Signed Normal [facility] D-Dimer Quantitative (DVT/PE )on 05-15-2024 D-DIMER QUANT 1.55 FEU/ug/m Invalid Interpretation Code 0.27-0.49 [facility] Comment on above: Order Comment: CRITI TAMIKA VALUE CALLED TO shadi unkefer 05/15/24 1132 Jocelynn Cristobal. RESULTS READ BACK BY same. Result Comment: D-Di kenneth ELEVATED (>0.49): Additional studies and clinical assessments are indicated to conclude diagnosis of: Deep Vein Thrombosis (DVT) or Pulmonary Embolism (PE) Performed By: #### L 300.8000 #### [facility] [address] [place], [address] Echo Complete W/ Contraston 05-15-2024 Echo Complete W/ Contrast [facility] Cardiovascular Services [address] [place] [address] Echo Complete W/ Contrast 05/15/24 1415 MR#: [id number] Acct: [id number] Name: OLIVA GREY Rep #: [id number] : 1955 68 From: Debbie Raymond MD Attending Dr: Dr. Jazmine Vivas DO Status: ADM I NO Ordering Dr: Jazmine Vivas DO Date: 05/15/24 Location: PCU Sex: M C Admitted: 05/15/24 Reason For Study: Chest Pain Procedure This was a 2D Doppler, Color Flow transthoracic echocardiogram. Contrast injection was performed. Exam performed portable in patient room. Left Ventricle Normal left ventricle. The estimated ejection fraction is 55-60 %. Right Ventricle Normal right ventricle. Normal systolic function. Atria Normal left atrium. Normal right atrium. Mitral Valve The mitral valve is structurally normal. No prolapse or stenosis seen. No mitral valve insufficiency. Tricuspid Valve Normal tricuspid valve. Aortic Valve Trisinus/trileaflet aortic valve. Pulmonic Valve The pulmonic valve is not well visualized. Great Vessels Normal aortic root. Pericardium/Pleural No pericardial effusion. Medication Diluted definity 1.5ml given slow IV push to enhance endocardial definition. MMode/2D Measurements Calculations LVIDd: 4.5 cm IVSd: 1.00 cm Ao root diam: 3.4 cm LVIDs: 2.8 cm LVPWd: 1.3 cm RVDd: 3.6 cm FS: 38.4 % ___ LAV(MOD-bp): 45.9 ml LVAd ap4: 34.9 cm2 SV(MOD-sp4): 70.6 ml LAV(MOD-bp) Indexed: 21.5 ml/m2 LVLd ap4: 9.5 cm LAV(MOD-sp2): 40.8 ml EDV(MOD-sp4): 101.6 ml LAV(MOD-sp4): 43.3 ml EDV(sp4-el): 108.5 ml LVAs ap4: 16.2 cm2 LVLs ap4: 7.2 cm ESV(MOD-sp4): 31.1 ml ESV(sp4-el): 31.3 ml EF(MOD-sp4): 69.4 % EF(sp4-el): 71.2 % ___ SV(sp4-el): 77.3 ml LA A4 area: 17.4 cm2 LA dimension(2D): 3.8 cm ___ RA A4 area: 13.1 cm2 TAPSE: 2.2 cm Time Measurements MV dec time: 0.28 sec Doppler Measurements Calculations MV E max amee: 53.4 cm/sec Lat Peak E' Amee: 9.7 cm/sec Med Peak E' Amee: 7.0 cm/sec MV A max amee: 69.5 cm/sec E/E' lat: 5.5 E/E' med: 7.6 MV E/A: 0.77 ___ MV V2 max: 86.5 cm/sec MV P1/2t max amee: 74.2 cm/sec Ao V2 max: 166.7 cm/sec MV max P.0 mmHg MV P1/2t: 111.6 msec Ao max P.1 mmHg MV V2 mean: 44.9 cm/sec MV dec slope: 194.9 cm/sec2 Ao V2 mean: 123.0 cm/sec MV mean P.96 mmHg MVA(P1/2t): 2.0 cm2 Ao mean P.0 mmHg MV V2 VTI: 25.8 cm Ao V2 VTI: 33.3 cm ___ LV V1 max: 150.4 cm/sec PA V2 max: 116.2 cm/sec LV V1 max P.1 mmHg ECHO/Echo Complete W/ Contrast Interpretation Summary The estimated ejection fraction is 55-60 %. Normal LV systolic function Ordering Physician: Jazmine Vivas Performed By: Adriel Patel RCS 05/15/24 1720 Date Debbie Raymond MD CC: Dr. Jazmine Vivas DO; Dr. Juan J Rubalcava MD Date Dictated: 05/15/24 1415 Date Transcribed: 05/15/241719 Java Engineer: Signed Normal [facility] Emergency Department Summary on 05-15-2024 Emergency Department Summary [facility] Medical Records Department [address] [place] [address] Emergency Department Summary 05/15/24 MR#: [id number] Acct: [id number] Name: OLIVA GREY Rep #: [id number] : 1955 68 From: Sherman Encinas MD PCP: Dr. Juan J Rubalcava MD Status:ADM [facility] Location: [address] History of Present Illness Chief Complaint: Chest Pain Informant: patient Onset/Context/Timing Onset: Today, Hours (1 hours started around 6 AM.) and Days Activity at onset: sudden Timing: Continuous Quality: Positive for Dull and Indigestion Location: Substernal Current Severity: Mild Maximum Severity: Mild Worsened By: Nothing Relieved By: Nothing Associated Symptoms: Negative for Nausea, Vomiting, Dyspnea, Cough, Fever, Lightheadedness, Acid Reflux or Palpitations Narrative Narrative: 68-year-old male history of kidney stone, hypertension reflux. Prior cardiac workups that he had a stress test and a heart cath about 10 to 15 years ago. Had minimal disease. Did not need any stents or anything. He has had no recent exertional chest pain or exertional dyspnea. This morning he got up he was getting dressed for work had some right midsternal chest discomfort. Denies any radiation of the pain. Not pleuritic. He has never had a DVT or PE. No hemoptysis. No leg pain or swelling. No recent travel, surgery or immobilization. He took Tums when the pain first occurred because he thought it was indigestion which she does have send and really make any difference. Prior Similar Symptoms: Yes Recent Illness/Hospitalization: No CVD Risk Factors: Positive for Hypertension; Negative for Diabetes PE Risk Factors: Negative for Recent Travel/Surgery, Recent Immobilization, Prior DVT or PE, Cancer or OCP + Smoking + >/=35 TAD Risk Factors: Negative for Marfan's Syndrome [facility] Medical History Kidney stone Back pain Knee pain Shoulder pain SOB (shortness of breath) Arthritis HTN (hypertension) Home Medications ???Medication ???Instructions ???Recorded ???Last Taken ???Type atorvastatin 20 mg tablet 20 mg PO DAILY 01/09/17 Unknown History pqvy-tfx-fczhi-cellulose-p iixrdeg-wagx-zseggp 1,000 mg PO DAILY 01/09/17 Unknown History 1,000 mg tablet cholecalciferol (vitamin D3) 25 1,000 unit PO DAILY 01/09/17 Unknown History mcg (1,000 unit) capsule finasteride 1 mg tablet 1 mg PO DAILY 01/09/17 Unknown History flurbiprofen 100 mg tablet 100 mg PO BID 01/09/17 Unknown History folic acid 1 mg tablet 1 mg PO DAILY@0800 01/09/17 Unknown History metoprolol succinate 50 mg 50 mg PO QHS 01/09/17 Unknown History tablet,extended release 24 hr amlodipine 5 mg tablet 5 mg PO DAILY 05/15/24 Unknown History hydrochlorothiazide 25 mg tablet 25 mg PO DAILY 05/15/24 Unknown History losartan 100 mg tablet 100 mg PO DAILY 05/15/24 Unknown History omeprazole 40 mg capsule,delayed 40 mg PO DAILY 05/15/24 Unknown History release Allergy/AdvReac Type Severity Reaction Status Date / Time No Known Allergies Allergy Verified 05/15/24 07:43 Surgical History History of gastric surgery History of foot surgery History of knee surgery Social History Smoking Status: Former smoker alcohol intake: current ROS ROS ED ROS Narrative Denies recent illness. Denies recent exertional chest pain or dyspnea. Constitutional Constitutional ED: Denies chills or fever(s) Eyes Eyes: Reports none ENT ENT ED: Denies ear pain Cardiovascular Cardiovascular: Reports as per HPI and chest pain; Denies palpitations or racing heartbeat Respiratory/Chest Respiratory/Chest: Denies cough, dyspnea or dyspnea on exertion Gastrointestinal Gastrointestinal: Denies abdominal pain, nausea or vomiting Genitourinary Genitourinary ED: Denies dysuria or hematuria Musculoskeletal Musculoskeletal: Denies arthralgias Integumentary Denies abscess Neurologic Neurologic: Denies headache(s) Psychiatric Psychiatric: Denies anxiety Endocrine Endocrinology: Denies cold intolerance Hematologic/Lymphatic Hematologic/Lymphatic: Denies easy bleeding Allergic/Immunologic Allergic/Immunologic ED: Denies mouth swelling, tongue swelling or urticaria EXAM Physical Exam Narrative Exam Narrative: Well-appearing 68-year-old male sitting upright in bed. Vital signs are stable afebrile. Pulse ox 98% on room air no hypoxia. H EENT exam unremarkable. Neck nontender no JVD. Lungs clear to auscultation bilaterally. Heart regular rate and rhythm rate about 75 no murmur. Chest wall and ribs nontender. No reproducible pain. No redness or bruising. No crepitance. Abdomen is soft nontender. Normal bowel sounds no peritoneal signs. (more content not included)... Normal [facility] H AND P Exam - [facility] 05-15-2024 H&P Exam - Hospitalist [facility] Medical Records Department [address] [place] [address] H P Exam - Hospitalist 05/15/24 1118 MR#: [id number] Acct: [id number] Name: RUELOLIVA PINZON Rep #: [id number] : 1955 68 From: Jazmine Vivas DO PCP: Dr. Juan J Rubalcava MD Status:ADM IN Location: [facility] [id number] HPI - General General Date of Admission: 05/15/24 Date of Service: 05/15/24 Chief Complaint: Chest Pain HPI Narrative OLIVA GREY, is a 68 M who presented to the emergency department at [facility] on 05/15/2024 for new onset chest pain. The patient stated he got up this morning and was feeling well. He went through his morning routine which includes a bicycle ride on his stationary bicycle and he had no symptoms with this. He states shortly after he got off his bike he started having some indigestion for which she took medication. He states his symptoms did not resolve so he took some Tums. Symptoms still did not resolve so he presented to the emergency department. He has had previous cardiac workup with stress test and a heart catheterization about 15 years ago and was noted to have minimal disease at that time. He has not had any previous stents. He does have known hyperlipidemia and hypertension at baseline but he is not diabetic. He has a remote history of tobacco abuse. Vital signs on presentation showed a temperature of 98.8, heart rate 81, respiratory 16, blood pressure was 172/90 and pulse ox was 98% on room air. CBC was unremarkable. Coags were normal. Chemistry panel was overtly unremarkable other than hyperglycemia with a blood sugar of 173 nonfasting. BNP was 5.5. Initial troponins was 12 but subsequent with troponin penny to 116. D- dimer was obtained and found to be 1.55. CTA of the chest was performed and negative for pulmonary embolus. Chest x-ray is unremarkable and EKG showed no signs of acute ischemia. Patient was symptom-free at the time of my evaluation. [facility] Medical History Kidney stone Back pain Knee pain Shoulder pain SOB (shortness of breath) Arthritis HTN (hypertension) Home Medications ???Medication ???Instructions ???Recorded ???Last Taken ???Type atorvastatin 20 mg tablet 20 mg PO DAILY cholesterol 01/09/17 Unknown History grqa-bru-jvsiu-cellulose-p ccusthy-csjm-joqmoc 1,000 mg PO DAILY 01/09/17 Unknown History 1,000 mg tablet cholecalciferol (vitamin D3) 25 1,000 unit PO DAILY supplement 01/09/17 Unknown History mcg (1,000 unit) capsule finasteride 1 mg tablet 1 mg PO DAILY prostate 01/09/17 Unknown History flurbiprofen 100 mg tablet 100 mg PO BID 01/09/17 Unknown History folic acid 1 mg tablet 1 mg PO DAILY@0800 supplement 01/09/17 Unknown History metoprolol succinate 50 mg 50 mg PO QHS 01/09/17 Unknown History tablet,extended release 24 hr amlodipine 5 mg tablet 5 mg PO DAILY blood pressure 05/15/24 Unknown History hydrochlorothiazide 25 mg tablet 25 mg PO DAILY 05/15/24 Unknown History losartan 100 mg tablet 100 mg PO DAILY 05/15/24 Unknown History omeprazole 40 mg capsule,delayed 40 mg PO DAILY 05/15/24 Unknown History release Allergy/AdvReac Type Severity Reaction Status Date / Time No Known Allergies Allergy Verified 05/15/24 07:43 Family History (Updated 05/15/24 @ 18:[address] Jazmine Vivas DO) Other Heart disease Hypertension Surgical History History of gastric surgery History of foot surgery History of knee surgery Social History (Updated 05/15/24 @ 18:[address] Jazmine Vivas DO) household members: spouse housing: house Smoking Status: Former smoker Tobacco: How many years used: 20 how long ago did patient quit smoking: Quit about 20 years ago and has a 52-hosr-igdd history alcohol intake: current alcohol intake frequency: a few times a month substance use type: does not use Vital Signs Vital Signs Vital Signs: 05/15/24 07:35 05/15/24 07:39 05/15/24 07:41 Temperature 98.8 F Temperature Source Oral Pulse Rate 81 Respiratory Rate 16 Respiratory Effort Normal Blood Pressure 172/90 H Blood Pressure Mean 117 Pulse Ox 98 96 Oxygen Delivery Method Room Air Room Air 05/15/24 08:34 05/15/24 09:00 05/15/24 10:00 Temperature Temperature Source Pulse Rate 67 67 68 Respiratory Rate 18 14 17 Respiratory Effort Blood Pressure 121/67 H 116/68 118/70 Blood Pressure Mean 85 84 86 Pulse Ox 95 94 96 Oxygen Delivery Method Room Air Room Air Room Air 05/15/24 10:15 05/15/24 11:00 05/15/24 11:03 Temperature 98.5 F Temperature Source Pulse Rate 68 84 68 Respiratory Rate 17 22 H Respiratory Effort Blood Pressure 118/70 124/66 H 124/66 H Blood Pressure Me (more content not included)... Normal [facility] L501.4020on 05-15-2024 TROPONIN-I HS 1104 pg/mL Invalid Interpretation Code 3.0-78.0 [facility] Comment on above: Order Comment: Comme nts: SPECIMEN #3'TROP' Serial specimen #1, #2 or #3: 3 Result Comment: Crit ical Result(s) Called at: 14:58:05 05/15/2024 by: Maeve Nur to Lucretia Mitchell. Results read back by same. Please Note: New Test Units and Gender Specific Reference Ranges. For more information see Policy Stat Procedure [place] High Sensitivity Troponin (TNIH) and attachments. Performed By: #### L 300.4310 #### [facility] [address] [place], [address] TROPONIN-I HS 116 pg/mL High 3.0-78.0 [facility] Comment on above: Result Comment: Plea se Note: New Test Units and Gender Specific Reference Ranges. For more information see Policy Stat Procedure [place] High Sensitivity Troponin (TNIH) and attachments. Performed By: #### L 501.4020 #### [facility] [address] [place], [address] L501.5425on 05-15-2024 TROPONIN-I HS 12 pg/mL Normal 3.0-78.0 [facility] Comment on above: Order Comment: 1Y Result Comment: Plea se Note: New Test Units and Gender Specific Reference Ranges. For more information see Policy Stat Procedure [place] High Sensitivity Troponin (TNIH) and attachments. Performed By: #### L 300.4310 #### [facility] [address] [place], [address] Partial Thromboplast Timeon 05-15-2024 aPTT Coag (Bld) [Time] 39.1 s High 24.1-36.2 [facility] Comment on above: Order Comment: Comme nts: heparin gtt Performed By: #### L 300.4310 ####[facility] [id number] [place], [address] aPTT Coag (Bld) [Time] 24.6 s Normal 24.1-36.2 [facility] Comment on above: Performed By: #### L 300.4310 #### [facility] [address] [place], [address] Prothrombin Time w/INRon INR Coag (PPP) [Relative time] 1.0 {INR} Normal [facility] Comment on above: Performed By: #### L 300.4310 #### [facility] [address] [place], [place], [address] PT Coag (PPP) [Time] 13.2 s Normal 11.7-14.9 [facility] Comment on above: Performed By: #### L 300.4310 #### [facility] [address] [place], [place], [address] [facility] OLIV[facility] GRE[facility] ([id number]) 1955 M Date Time Provider Department 05/12/24 JUAN J RUBALCAVA INTWS During your visit today, we recorded the following information about you: Allyssa Gaston RN 05/12/2024 9:22 AM Signed Denise with [facility] calling and requesting patent's recent EKG results be faxed to them for upcoming procedure. Faxed as requested to [phone]. Allyssa Gaston RN Allergies As of Date: 05/12/2024 Noted Allergy Reaction SIMVASTATIN 11/08/2012 14 - Other: See Comments Comments: myalgia shoulders Date Reviewed: 04/22/2024 Reviewed by: Sally Sandoval RN - Fully Assessed Reason for Visit: Patient Request [[id number]] Prescriptions as of 05/12/2024 - folic acid 1 mg tablet Take 1 tablet by mouth once daily. - finasteride (PROPECIA) 1 mg tablet Take 1 tablet by mouth once daily. - losartan (COZAAR) 100 mg tablet Take 1 tablet by mouth once daily. - Flurbiprofen 100 mg tablet Take 1 tablet by mouth two times a day. - amLODIPine (NORVASC) 5 mg tablet Take 1 tablet by mouth once daily. - chlorthalidone (HYGROTON) 25 mg tablet Take 1 tablet by mouth once daily. - metoprolol succinate ER (TOPROL XL) 50 mg 24 hr tablet Take 1 tablet by mouth once daily. - atorvastatin (LIPITOR) 20 mg tablet Take 1 tablet by mouth once daily. - omeprazole (PRILOSEC) 40 mg capsule Take 1 capsule by mouth once daily. - fluticasone (FLONASE) 50 mcg/actuation nasal spray Use 2 Sprays in each nostril once daily. For allergy symptoms. ID#[id number] - Cholecalciferol, Vitamin D3, 1,000 unit cap Take 1 capsule by mouth once daily. - FIBERCON 625 MG TAB Take one(1) tablet two(2) times daily. 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33] 11/09/2008 10/30/2018 Atherosclerosis of [place] coronary artery of na*05/13/2011 Diverticulosis [K57.90] 09/24/2012 10/30/2018 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, 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 Hereditary hemochromatosis (HCC) [E83.110] 12/23/2015 Acute idiopathic gout of left knee [M10.062] 03/03/2016 09/05/2016 Essential hypertension [I10] 08/06/2016 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] 09/05/2016 DDD (degenerative disc disease), lumbar [M51.36*09/05/2016 History of kidney stones [Z87.442] 10/23/2016 Microscopic hematuria [R31.29] 10/23/2016 10/24/2017 Benign non-nodular prostatic hyperplasia withou*10/23/2016 10/30/2018 Scrotal mass [N50.89] 10/23/2016 10/24/2017 Hydrocele [N43.3] 11/07/2016 10/24/2017 Testicular calcification [N50.89] 11/07/2016 10/30/2018 Impaired fasting glucose [R73.01] 10/30/2018 Obesity, Class II, BMI 35-39.9 [E66.812] 10/30/2018 08/15/2020 Obesity, Class I, BMI 30-34.9 [E66.811] 08/15/2020 Acquired renal cyst of right kidney [N28.1] 09/06/2021 Encounter Status:Closed by ALLYSSA [facility]ASTON [facility] TWANOLIVA HOOVER ([id number]) 1955 M Date Time Provider Department 05/12/24 CARLOS FLORES During your visit today, we recorded the following information about you: Jolanta Bray 05/12/2024 1:34 PM Signed Please fax last office visit note from Dr. Flores to [facility] [phone] Savannah Waters LPN 05/12/2024 1:38 PM Signed faxed. Savannah Waters LPN Allergies As of Date: 05/12/2024 Noted Allergy Reaction SIMVASTATIN 11/08/2012 14 - Other: See Comments Comments: myalgia shoulders Date Reviewed: 04/22/2024 Reviewed by: Sally Sandoval RN - Fully Assessed Reason for Visit: Electronic Communication [890] Prescriptions as of 05/12/2024 - folic acid 1 mg tablet Take 1 tablet by mouth once daily. - finasteride (PROPECIA) 1 mg tablet Take 1 tablet by mouth once daily. - losartan (COZAAR) 100 mg tablet Take 1 tablet by mouth once daily. - Flurbiprofen 100 mg tablet Take 1 tablet by mouth two times a day. - amLODIPine (NORVASC) 5 mg tablet Take 1 tablet by mouth once daily. - chlorthalidone (HYGROTON) 25 mg tablet Take 1 tablet by mouth once daily. - metoprolol succinate ER (TOPROL XL) 50 mg 24 hr tablet Take 1 tablet by mouth once daily. - atorvastatin (LIPITOR) 20 mg tablet Take 1 tablet by mouth once daily. - omeprazole (PRILOSEC) 40 mg capsule Take 1 capsule by mouth once daily. - fluticasone (FLONASE) 50 mcg/actuation nasal spray Use 2 Sprays in each nostril once daily. For allergy symptoms. ID#[id number] - Cholecalciferol, Vitamin D3, 1,000 unit cap Take 1 capsule by mouth once daily. - FIBERCON 625 MG TAB Take one(1) tablet two(2) times daily. 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33] 11/09/2008 10/30/2018 Atherosclerosis of sioux coronary artery of na*05/13/2011 Diverticulosis [K57.90] 09/24/2012 10/30/2018 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, 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 Hereditary hemochromatosis (HCC) [E83.110] 12/23/2015 Acute idiopathic gout of left knee [M10.062] 03/03/2016 09/05/2016 Essential hypertension [I10] 08/06/2016 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] 09/05/2016 DDD (degenerative disc disease), lumbar [M51.36*09/05/2016 History of kidney stones [Z87.442] 10/23/2016 Microscopic hematuria [R31.29] 10/23/2016 10/24/2017 Benign non-nodular prostatic hyperplasia withou*10/23/2016 10/30/2018 Scrotal mass [N50.89] 10/23/2016 10/24/2017 Hydrocele [N43.3] 11/07/2016 10/24/2017 Testicular calcification [N50.89] 11/07/2016 10/30/2018 Impaired fasting glucose [R73.01] 10/30/2018 Obesity, Class II, BMI 35-39.9 [E66.812] 10/30/2018 08/15/2020 Obesity, Class I, BMI 30-34.9 [E66.811] 08/15/2020 Acquired renal cyst of right kidney [N28.1] 09/06/2021 Encounter Status:Closed by SAVANNAH WATERS on 05/12/24 [facility] OLIVA GREY ([id number]) 1955 M Date Time Provider Department 05/11/24 CARLOS FLORES During your visit today, we recorded the following information about you: Candelario Hinojosa 05/11/2024 11:40 AM Signed [facility] called and asked if had received the surgical clearance form on Saturday05/08/24, it does not look like we did after speaking to nursing staff. They are resending fax to [phone] Patient is scheduled for surgery on 05/19/24 Shira Samano LPN 05/12/2024 9:22 AM Signed Surgery clearance form completed and faxed. Shira Ramirez LPN Allergies As of Date: 05/11/2024 Noted Allergy Reaction SIMVASTATIN 11/08/2012 14 - Other: See Comments Comments: myalgia shoulders Date Reviewed: 04/22/2024 Reviewed by: Sally Sandoval, ERIC - Fully Assessed Reason for Visit: surgical Clearance [Other] Prescriptions as of 05/12/2024 - folic acid 1 mg tablet Take 1 tablet by mouth once daily. - finasteride (PROPECIA) 1 mg tablet Take 1 tablet by mouth once daily. - losartan (COZAAR) 100 mg tablet Take 1 tablet by mouth once daily. - Flurbiprofen 100 mg tablet Take 1 tablet by mouth two times a day. - amLODIPine (NORVASC) 5 mg tablet Take 1 tablet by mouth once daily. - chlorthalidone (HYGROTON) 25 mg tablet Take 1 tablet by mouth once daily. - metoprolol succinate ER (TOPROL XL) 50 mg 24 hr tablet Take 1 tablet by mouth once daily. - atorvastatin (LIPITOR) 20 mg tablet Take 1 tablet by mouth once daily. - omeprazole (PRILOSEC) 40 mg capsule Take 1 capsule by mouth once daily. - fluticasone (FLONASE) 50 mcg/actuation nasal spray Use 2 Sprays in each nostril once daily. For allergy symptoms. ID#[id number] - Cholecalciferol, Vitamin D3, 1,000 unit cap Take 1 capsule by mouth once daily. - FIBERCON 625 MG TAB Take one(1) tablet two(2) times daily. Problem List As Of Date 05/11/2024 Noted Resolved Internal hemorrhoids without mention of complic*08/03/2005 10/24/2017 Disorders of iron metabolism [275.0] 08/03/2005 09/05/2016 Nonspecific elevation of levels of transaminase*08/07/2005 09/05/2016 Other hyperlipidemia [E78.49] 12/24/2005 Arthropathy associated with other endocrine and*12/24/2005 09/05/2016 Esophagitis [K20.90] 04/20/2008 Acute gastritis without mention of hemorrhage [*04/20/2008 09/05/2016 Hypertension [I10] 05/29/2010 08/06/2016 Hemochromatosis [E83.119] 05/29/2010 12/23/2015 SUMMARY [V999.95] 07/07/2010 04/30/2011 Dyspnea [R06.00] 07/07/2010 09/05/2016 HTN (hypertension) [I10] 07/07/2010 09/24/2012 Airway obstruction [J98.8] 11/09/2008 09/05/2016 Obstructive sleep apnea [G47.33] 11/09/2008 10/30/2018 Atherosclerosis of si[place] coronary artery of na*05/13/2011 Diverticulosis [K57.90] 09/24/2012 10/30/2018 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, 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 Hereditary hemochromatosis (HCC) [E83.110] 12/23/2015 Acute idiopathic gout of left knee [M10.062] 03/03/2016 09/05/2016 Essential hypertension [I10] 08/06/2016 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] 09/05/2016 DDD (degenerative disc disease), lumbar [M51.36*09/05/2016 History of kidney stones [Z87.442] 10/23/2016 Microscopic hematuria [R31.29] 10/23/2016 10/24/2017 Benign non-nodular prostatic hyperplasia withou*10/23/2016 10/30/2018 Scrotal mass [N50.89] 10/23/2016 10/24/2017 Hydrocele [N43.3] 11/07/2016 10/24/2017 Testicular calcification [N50.89] 11/07/2016 10/30/2018 Impaired fasting glucose [R73.01] 10/30/2018 Obesity, Class II, BMI 35-39.9 [E66.812] 10/30/2018 08/15/2020 Obesity, Class I, BMI 30-34.9 [E66.811] 08/15/2020 Acquired renal cyst of right kidney [N28.1] 09/06/2021 Encounter Status:Closed by SHIRA RAMIREZ on 05/12/24 Normal [facility] XR CHEST 2 VIEWSon XR CHEST 2 VIEWS ORIGINAL HISTORY: Cough COMPARISON: No FINDINGS: The lungs and pleural spaces are clear. The cardiac silhouette is within normal limits. The pulmonary vasculature is within normal limits. IMPRESSION: Clear lungs. Interpreted by: Oliva Sue MD Preliminary Report By: Oliva Sue MD Electronically signed By Oliva Sue MD Dictated Date: 04/29/2024 8:07:35 AM Prelim Date: 04/29/2024 8:07:53 AM Sign Date: 04/29/2024 8:07:53 AM Ordering Provider: MARK WEATHERS [facility] CT KNEE W/O CONTRAST RIGHTon 04-28-2024 CT KNEE W/O CONTRAST RIGHT ORIGINAL EXAMINATION: CT OF THE RIGHT KNEE WITHOUT CONTRAST 04/27/2024 3:19 pm TECHNIQUE: CT of the right knee was performed without the administration of intravenous contrast. Multiplanar reformatted images are provided for review. Automated exposure control, iterative reconstruction, and/or weight based adjustment of the mA/kV was utilized to reduce the radiation dose to as low as reasonably achievable. COMPARISON: None. HISTORY ORDERING SYSTEM PROVIDED HISTORY: Reason for Exam: UNILATERAL PRIMARY OSTEOARTHRITIS RIGHT KNEE FINDINGS: Bones: No evidence of acute fracture or dislocation. No aggressive appearing osseous abnormality or periostitis. Soft Tissue: No significant soft tissue edema. Small right knee joint effusion. Small popliteal Browne's cyst. Semimembranosus MCL bursitis. Joint: Tricompartmental osteoarthritis of the right knee severe in the medial compartment with bone on bone, subchondral sclerosis and marginal osteophyte formation. Spurring of the tibial spines and intercondylar notches. Quadriceps and patellar tendon enthesopathy. There is a 4 mm sclerotic focus seen at the femoral head likely representing a bone island. Mild degenerative changes are seen in the partially visualized pubic symphysis. Lateral patellar tilting. Lateral coronal tibiofemoral subluxation. There are a few loose bodies seen within the right knee joint, largest measures approximately 5 mm. Medial meniscal chondrocalcinosis. Moderate tibiotalar joint space narrowing greatest posteriorly with associated marginal osteophyte formation and subchondral cystic change. Tiny well-circumscribed sclerotic densities seen distal to the medial and lateral malleoli likely represent degenerative changes/sequela remote insult. Retrocalcaneal enthesopathy. IMPRESSION: Tricompartment osteoarthritis of the right knee severe in the medial compartment in patient presenting for preop planning. Small knee joint effusion. Small popliteal Browne's cyst semimembranosus MCL bursitis. Additional incidental details as above. I have personally reviewed the images of this examination and agree with the resident's findings and interpretation. Interpreted by: Heather Velasquez Preliminary Report By: Mary Ann Williamson Electronically signed By Heather Velasquez Dictated Date: 04/28/2024 9:25:40 AM Prelim Date: 04/28/2024 10:15:10 AM Sign Date: 04/28/2024 10:15:10 AM Ordering Provider: SANTIAGO Black [facility] .Auto Diffon 04-27-2024 Basophil, Absolute 0.1 10 3/mcL Normal 0.0-0.2 [facility] Comment on above: Performed By: #### C BC, ADIFF, ABOGEL, ABSGEL, BMP, ALB, ANEU, GFR #### [address] [address] Basophils/100 WBC (Bld) 0.9 % Normal 0.0-2.5 [facility] Comment on above: Performed By: #### C BC, ADIFF, ABOGEL, ABSGEL, BMP, ALB, ANEU, GFR #### [address] [address] Eosinophil, Absolute 0.2 10 3/mcL Normal 0.0-0.7 [facility] Comment on above: Performed By: #### C BC, ADIFF, ABOGEL, ABSGEL, BMP, ALB, ANEU, GFR #### [address] [address] Eosinophils/100 WBC (Bld) 2.8 % Normal 0.0-7.0 [facility] Comment on above: Performed By: #### C BC, ADIFF, ABOGEL, ABSGEL, BMP, ALB, ANEU, GFR #### [address] [address] Lymphocyte, Absolute 1.9 10 3/mcL Normal 0.9-4.3 [facility] Comment on above: Performed By: #### C BC, ADIFF, ABOGEL, ABSGEL, BMP, ALB, ANEU, GFR #### [address] [address] Lymphocytes/100 WBC (Bld) 27.1 % Normal 20.0-40.0 [facility] Comment on above: Performed By: #### C BC, ADIFF, ABOGEL, ABSGEL, BMP, ALB, ANEU, GFR #### [address] [address] Monocyte, Absolute 0.6 10 3/mcL Normal 0.1-1.4 [facility] Comment on above: Performed By: #### C BC, ADIFF, ABOGEL, ABSGEL, BMP, ALB, ANEU, GFR #### [address] [address] Monocytes/100 WBC (Bld) 8.9 % Normal 2.0-13.0 [facility] Comment on above: Performed By: #### C BC, ADIFF, ABOGEL, ABSGEL, BMP, ALB, ANEU, GFR #### [address] [address] Neutrophils/100 WBC (Bld) 60.3 % Normal 50.0-75.0 [facility] Comment on above: Performed By: #### C BC, ADIFF, ABOGEL, ABSGEL, BMP, ALB, ANEU, GFR #### [address] [address] .GFRon 04-27-2024 GFR 75 ml/min/1.73sqm Normal [facility] Comment on above: Result Comment: GFR Population mean for , Non- Americans Ages 20-29 = 116 mL/min/1.73 sq.m. Ages 30-39 = 107 mL/min/1.73 sq.m. Ages 40-49 = 99 mL/min/1.73 sq.m. Ages 50-59 = 93 mL/min/1.73 sq.m. Ages 60-69 = 85 mL/min/1.73 sq.m. Ages 70+ = 75 mL/min/1.73 sq.m. Chronic Kidney Disease: Less than 60 mL/min/1.73 square meters End Stage Renal Disease: Less than 15 mL/min/1.73 square meters Performed By: #### C BC, ADIFF, ABOGEL, ABSGEL, BMP, ALB, ANEU, GFR #### [id number] [place], [place] [address] GFR Non- 62 ml/min/1.73sqm Normal [facility] Comment on above: Result Comment: GFR Population mean for , Non- Americans Ages 20-29 = 116 mL/min/1.73 sq.m. Ages 30-39 = 107 mL/min/1.73 sq.m. Ages 40-49 = 99 mL/min/1.73 sq.m. Ages 50-59 = 93 mL/min/1.73 sq.m. Ages 60-69 = 85 mL/min/1.73 sq.m. Ages 70+ = 75 mL/min/1.73 sq.m. Chronic Kidney Disease: Less than 60 mL/min/1.73 square meters End Stage Renal Disease: Less than 15 mL/min/1.73 square meters Performed By: #### C BC, ADIFF, ABOGEL, ABSGEL, BMP, ALB, ANEU, GFR #### [address] [address] .NEUABSon 04-27-2024 Neutrophil, Absolute 4.3 10 3/mcL Normal 2.3-8.1 [facility] Comment on above: Performed By: #### C BC, ADIFF, ABOGEL, ABSGEL, BMP, ALB, ANEU, GFR #### [address] [address] ABO/Rh (Gel)on 04-27-2024 ABO/Rh Interp Positive Invalid Interpretation Code [facility] Comment on above: Order Comment: SURG NIKIA 05/19 -AC Performed By: #### C BC, ADIFF, ABOGEL, ABSGEL, BMP, ALB, ANEU, GFR #### [address] [address] ABS (Gel)on 04-27-2024 ABSC Interp (Gel) Negative Normal [facility] Comment on above: Order Comment: SURG NIKIA 05/19 -AC Performed By: #### C BC, ADIFF, ABOGEL, ABSGEL, BMP, ALB, ANEU, GFR #### [address] [address] ALBon 04-27-2024 Albumin Level 3.9 G/dL Normal 3.4-4.8 [facility] Comment on above: Performed By: #### C BC, ADIFF, ABOGEL, ABSGEL, BMP, ALB, ANEU, GFR #### [address] [address] BMPon 04-27-2024 BUN/Creatinine Ratio 19 ratio Normal 7-27 [facility] Comment on above: Performed By: #### C BC, ADIFF, ABOGEL, ABSGEL, BMP, ALB, ANEU, GFR #### [address] [address] Calcium [Mass/Vol] 9.2 mg/dL Normal 8.4-10.2 [facility] Comment on above: Performed By: #### C BC, ADIFF, ABOGEL, ABSGEL, BMP, ALB, ANEU, GFR #### [address] [address] Chloride [Moles/Vol] 99 mmol/L Normal 98-107 [facility] Comment on above: Performed By: #### C BC, ADIFF, ABOGEL, ABSGEL, BMP, ALB, ANEU, GFR #### [address] [address] CO2 [Moles/Vol] 29 mmol/L Normal 23-31 [facility] Comment on above: Performed By: #### C BC, ADIFF, ABOGEL, ABSGEL, BMP, ALB, ANEU, GFR #### [address] [address] Creatinine [Mass/Vol] 1.18 mg/dL Normal 0.70-1.30 [facility] Comment on above: Result Comment: Test ing performed on Siemens Dimension EXL analyzer using a modified kinetic Padmini technique. Performed By: #### C BC, ADIFF, ABOGEL, ABSGEL, BMP, ALB, ANEU, GFR #### [address] [address] Electrolyte Balance 10.0 mEq/L Normal 4.0-15.0 [facility] Comment on above: Performed By: #### C BC, ADIFF, ABOGEL, ABSGEL, BMP, ALB, ANEU, GFR #### [address] [address] Glucose [Mass/Vol] 162 mg/dL High 80-115 [facility] Comment on above: Performed By: #### C BC, ADIFF, ABOGEL, ABSGEL, BMP, ALB, ANEU, GFR #### [address] [address] Potassium [Moles/Vol] 3.8 mmol/L Normal 3.5-5.1 [facility] Comment on above: Performed By: #### C BC, ADIFF, ABOGEL, ABSGEL, BMP, ALB, ANEU, GFR #### [address] [address] Sodium [Moles/Vol] 138 mmol/L Normal 136-145 [facility] Comment on above: Performed By: #### C BC, ADIFF, ABOGEL, ABSGEL, BMP, ALB, ANEU, GFR #### [address] [address] Urea nitrogen [Mass/Vol] 22 mg/dL High 7-18 [facility] Comment on above: Performed By: #### C BC, ADIFF, ABOGEL, ABSGEL, BMP, ALB, ANEU, GFR #### [address] [address] CBCon 04-27-2024 Erythrocyte distribution width (RBC) [Ratio] 15.0 % Normal 11.5-15.5 [facility] Comment on above: Order Comment: Pre-A dmission Testing Performed By: #### C BC, ADIFF, ABOGEL, ABSGEL, BMP, ALB, ANEU, GFR #### [address] [address] Hematocrit (Bld) [Volume fraction] 37.7 % Low 40.0-52.0 [facility] Comment on above: Order Comment: Pre-A dmission Testing Performed By: #### C BC, ADIFF, ABOGEL, ABSGEL, BMP, ALB, ANEU, GFR #### [address] [address] Hgb 12.7 G/dL Low 13.0-17.5 [facility] Comment on above: Order Comment: Pre-A dmission Testing Performed By: #### C BC, ADIFF, ABOGEL, ABSGEL, BMP, ALB, ANEU, GFR #### [address] [address] MCH (RBC) [Entitic mass] 28.4 pg Normal 27.0-33.0 [facility] Comment on above: Order Comment: Pre-A dmission Testing Performed By: #### C BC, ADIFF, ABOGEL, ABSGEL, BMP, ALB, ANEU, GFR #### [address] [address] MCHC 33.6 G/dL Normal 32.0-36.0 [facility] Comment on above: Order Comment: Pre-A dmission Testing Performed By: #### C BC, ADIFF, ABOGEL, ABSGEL, BMP, ALB, ANEU, GFR #### [address] [address] MCV (RBC) [Entitic vol] 84.6 fL Normal 81.0-100.0 [facility] Comment on above: Order Comment: Pre-A dmission Testing Performed By: #### C BC, ADIFF, ABOGEL, ABSGEL, BMP, ALB, ANEU, GFR #### [address] [address] Platelet 286 10 3/mcL Normal 150-450 [facility] Comment on above: Order Comment: Pre-A dmission Testing Performed By: #### C BC, ADIFF, ABOGEL, ABSGEL, BMP, ALB, ANEU, GFR #### [address] [address] Platelet mean volume (Bld) [Entitic vol] 7.5 fL Normal 6.4-10.5 [facility] Comment on above: Order Comment: Pre-A dmission Testing Performed By: #### C BC, ADIFF, ABOGEL, ABSGEL, BMP, ALB, ANEU, GFR #### [address] [address] RBC 4.46 10 6/mcL Low 4.50-6.00 [facility] Comment on above: Order Comment: Pre-A dmission Testing Performed By: #### C BC, ADIFF, ABOGEL, ABSGEL, BMP, ALB, ANEU, GFR #### [address] [address] WBC 7.1 10 3/mcL Normal 4.5-10.8 [facility] Comment on above: Order Comment: Pre-A dmission Testing Performed By: #### C BC, ADIFF, ABOGEL, ABSGEL, BMP, ALB, ANEU, GFR #### [address] [place], [place] [address] LABORATORYOrdered By: Dorothy Pepe on 04-27-2024 ABO and Rh group Nom (Bld) Blood group A Rh(D) positive Invalid Interpretation Code AO BB Auto SS Blood group antibody screen Ql Negative ABSC (04/27/24 2:36 PM) Normal AO BB Auto SS LABORATORYOrdered By: [employer] on 04-27-2024 Albumin BCP dye [Mass/Vol] 3.9 G/dL Normal 3.4 - 4.8 G/dL AO ADM SS Basophils (Bld) [#/Vol] 0.1 103/mcL Normal 0.0 - 0.2 10^3/mcL AO Workflow SS Basophils/100 WBC (Bld) 0.9 % Normal 0.0 - 2.5 % AO Workflow SS Calcium [Mass/Vol] 9.2 mg/dL Normal 8.4 - 10. 2 mg/dL AO ADM SS Chloride [Moles/Vol] 99 mmol/L Normal 98 - 10 7 mmol/L AO ADM SS CO2 [Moles/Vol] 29 mmol/L Normal 23 - 31 mmol/L AO ADM SS Creatinine [Mass/Vol] 1.18 mg/dL Normal 0.70 - 1.30 mg/dL AO ADM SS Comment on above: Interpretive Data: T esting performed on Siemens Dimension EXL analyzer using a modified kinetic Padmini technique. Electrolyte Balance 10.0 mEq/L Normal 4.0 - 15 .0 mEq/L AO ADM SS Eosinophil, Absolute 0.2 103/mcL Normal 0.0 - 0 .7 10^3/mcL AO Workflow SS Eosinophils/100 WBC (Bld) 2.8 % Normal 0.0 - 7.0 % AO Workflow SS Erythrocyte distribution width (RBC) [Ratio] 15.0 % Normal 11.5 - 15.5 % AO Workflow SS GFR/1.73 sq M.predicted among blacks MDRD (S/P/Bld) [Vol rate/Area] 75 ml/min/1.73sqm Invalid Interpretation Code AO Chemistry S Comment on above: Interpretive Data: GFR Population mean for , Non- Americans Ages 20-29 = 116 mL/min/1.73 sq.m. Ages 30-39 = 107 mL/min/1.73 sq.m. Ages 40-49 = 99 mL/min/1.73 sq.m. Ages 50-59 = 93 mL/min/1.73 sq.m. Ages 60-69 = 85 mL/min/1.73 sq.m. Ages 70+ = 75 mL/min/1.73 sq.m. Chronic Kidney Disease: Less than 60 mL/min/1.73 square meters End Stage Renal Disease: Less than 15 mL/min/1.73 square meters GFR/1.73 sq M.predicted among non-blacks MDRD (S/P/Bld) [Vol rate/Area] 62 ml/min/1.73sqm Invalid Interpretation Code AO Chemistry S Comment on above: Interpretive Data: GFR Population mean for , Non- Americans Ages 20-29 = 116 mL/min/1.73 sq.m. Ages 30-39 = 107 mL/min/1.73 sq.m. Ages 40-49 = 99 mL/min/1.73 sq.m. Ages 50-59 = 93 mL/min/1.73 sq.m. Ages 60-69 = 85 mL/min/1.73 sq.m. Ages 70+ = 75 mL/min/1.73 sq.m. Chronic Kidney Disease: Less than 60 mL/min/1.73 square meters End Stage Renal Disease: Less than 15 mL/min/1.73 square meters Glucose [Mass/Vol] 162 mg/dL High 80 - 115 mg/dL AO ADM SS Hematocrit (Bld) [Volume fraction] 37.7 % Low 40.0 - 52.0 % AO Workflow SS Hemoglobin (Bld) [Mass/Vol] 12.7 G/dL Low 13.0 - 17.5 G/dL AO Workflow SS Lymphocytes (Bld) [#/Vol] 1.9 103/mcL Normal 0.9 - 4.3 10^3/mcL AO Workflow SS Lymphocytes/100 WBC (Bld) 27.1 % Normal 20.0 - 40.0 % AO Workflow SS MCH (RBC) [Entitic mass] 28.4 pg Normal 27.0 - 33.0 pg AO Workflow SS MCHC 33.6 G/dL Normal 32.0 - 36.0 G/dL AO Workflow SS MCV (RBC) [Entitic vol] 84.6 fL Normal 81.0 - 100.0 fL AO Workflow SS Monocytes (Bld) [#/Vol] 0.6 103/mcL Normal 0.1 - 1.4 10^3/mcL AO Workflow SS Monocytes/100 WBC (Bld) 8.9 % Normal 2.0 - 13.0 % AO Workflow SS Neutrophils (Bld) [#/Vol] 4.3 103/mcL Normal 2.3 - 8.1 10^3/mcL AO Workflow SS Neutrophils/100 WBC (Bld) 60.3 % Normal 50.0 - 75.0 % AO Workflow SS Platelet mean volume (Bld) [Entitic vol] 7.5 fL Normal 6.4 - 10.5 fL AO Workflow SS Platelets (Bld) [#/Vol] 286 103/mcL Normal 150 - 450 10^3/mcL AO Workflow SS Potassium [Moles/Vol] 3.8 mmol/L Normal 3.5 - 5.1 mmol/L AO ADM SS RBC (Bld) [#/Vol] 4.46 106/mcL Low 4.50 - 6.00 10^6/mcL AO Workflow SS Sodium [Moles/Vol] 138 mmol/L Normal 136 - 145 mmol/L AO ADM SS Urea nitrogen [Mass/Vol] 22 mg/dL High 7 - 18 mg/dL AO ADM SS Urea nitrogen/Creatinine [Mass ratio] 19 ratio Normal 7 - 27 ratio AO ADM SS WBC (Bld) [#/Vol] 7.1 103/mcL Normal 4.5 - 10.8 10^3/mcL AO Workflow SS LABORATORYOrdered By: Manny Cummins on 04-27-2024 MRSA (PCR) Not Detected 1 (04/27/24 2:36 PM) Normal Not Detected [facility] Comment on above: Result Comment: [place] [id number] MRSA PCR Int MRSA DNA not detecte d by Real-Time Polymerase Chain Reaction (PCR). A negative result may be due to intermittent colonization. Colonization may vary depending on patient treatment, patient status, or exposure to high-risk environments.As with all PCR based in vitro diagnostic tests, extremely low levels of target below the limit of detection of the assay may be detected, but results may not be reproducible. Invalid Interpretation Code Auto [facility] SS MRSAPCRon 04-27-2024 MRSA (PCR) Not detected Normal Not Detected [facility] Comment on above: Result Comment: Note s [id number] Performed By: #### M RSAPCR ####[place] [id number] [place] [id number] MRSA PCR Int Normal [facility] Comment on above: Result Comment: MRSA DNA not detected by Real-Time Polymerase Chain Reaction (PCR). A negative result may be due to intermittent colonization. Colonization may vary depending on patient treatment, patient status, or exposure to high-risk environments. As with all PCR based in vitro diagnostic tests, extremely low levels of target below the limit of detection of the assay may be detected, but results may not be reproducible. See Below Performed By: #### M RSAPCR ####[id number] SCREENING FOR AAAon 08-30 [facility] STREP A MOLECULAR (POC)on Procedural Control Valid [facility] Strep A (POCT) Positive Abnormal Negative [facility] MRI Shoulder w/o Lefton 07-22 MRI Shoulder w/o Left Submitted Clinical Information: Pain and numbness which radiates to the hand. Study Technique: MRI of the left shoulder joint was performed using routine protocols. Sequences were obtained in the axial, sagittal, and coronal planes. Comparisons: None Findings: Bones: No acute fracture or destructive osseous lesion. Rotator cuff: Full thickness supraspinatus and anterior infraspinatus insertional tear measuring 2.4 cm (AP) with retraction of the tendon. The torn tendon shows moderate degeneration. Moderate subscapularis insertional tendinosis with high grade (more than 75%) thickness undersurface tear measuring 2 x 1 cm (TR x CC). There is resultant medial dislocation of the biceps tendon. Teres minor tendon is intact. Moderate supraspinatus and mild infraspinatus muscle atrophy with mild muscle fatty infiltration. Mild superior subscapularis muscle atrophy and muscle fatty infiltration. Biceps tendon: Long head of biceps tendon shows mild degeneration as it traverses the paul. Articular cartilage and labrum: Degenerative superior labral tear extending upto the anterior and posterior equators. The labrum otherwise and articular cartilage are intact. Joint effusion and bursae: There is mild to moderate glenohumeral joint effusion extending into the subacromial bursa and subscapularis recess. Acromioclavicular joint: Moderate acromioclavicular joint osteoarthrosis. Neurovascular structures: unremarkable. Impressions: 1. Full thickness supraspinatus and anterior infraspinatus insertional tear measuring 2.4 cm (AP) with retraction of the tendon. The torn tendon shows moderate degeneration. Moderate supraspinatus and mild infraspinatus muscle atrophy with mild muscle fatty infiltration. 2. Moderate subscapularis insertional tendinosis with high grade (more than 75%) thickness undersurface tear measuring 2 x 1 cm (TR x CC). There is resultant medial dislocation of the biceps tendon. Teres minor tendon is intact. Mild superior subscapularis muscle atrophy and muscle fatty infiltration. 3. Mild bicipital tendinosisas it traverses the paul. 4. Degenerative superior labral tear extending upto the anterior and posterior equators. 5. Moderate acromioclavicular joint osteoarthrosis. Referring physician: The radiologist can be reached at [phone] if you would like to discuss the findings. END OF REPORT Report reported and signed by Apolinar Miles on 08/04/2021 0929 Normal [facility] [employer] XR Finger - left AP and Late ral and obliqueon 11-19-2020 IMPRESSION: Small bone density adjacent to the base of the middle phalanx of the ring finger. This could be due to trauma age uncertain. This should be correlated with the site of pain. Java Engineer: MITESH Transcribe Date/Time: Nov 19 2020 11:50A Dictated by : TREY LEMON DO This examination was interpreted and the report reviewed and electronically signed by: TREY LEMON DO on Nov 19 2020 11:52AM [facility] DIVISION OF RADIOLOGY * * *Final Report* * * DATE OF EXAM: Nov 19 2020 11:48AM WOX [id number] - XR DIGIT 3V FRONTAL/LAT/OBL LT / PROCEDURE REASON: Injury of left ring finger, initial encounter * * * * Physician Interpretation * * * * LEFT ring finger EXAM DATE/TIME: 11/19/2020 11:48 AM HISTORY: 65 years old Clinical information: Pt. states Lt ring finger was bent back 1 day ago. Pain mid lt ring finger. Injury to left ring finger TECHNIQUE: Images: XR DIGIT 3V FRONTAL/LAT/OBL LT Comparison: None. RESULT: Findings: There is some soft tissue swelling over the PIP joint of the index finger. There is a small bone density adjacent to the base of the middle phalanx of the ring finger. This may be degenerative. However this could be due to trauma. Bone density appears well-preserved. Mild narrowing of the interphalangeal joints. No other fractures or dislocations are seen. DIVISION OF RADIOLOGY Provider, [facility] - 11/19/2020 * * *Final Report* * * DATE OF EXAM: Nov 19 2020 11:48AM WOX [id number] - XR DIGIT 3V FRONTAL/LAT/OBL LT / PROCEDURE REASON: Injury of left ring finger, initial encounter * * * * Physician Interpretation * * * * LEFT ring finger EXAM DATE/TIME: 11/19/2020 11:48 AM HISTORY: 65 years old Clinical information: Pt. states Lt ring finger was bent back 1 day ago. Pain mid lt ring finger. Injury to left ring finger TECHNIQUE: Images: XR DIGIT 3V FRONTAL/LAT/OBL LT Comparison: None. RESULT: Findings: There is some soft tissue swelling over the PIP joint of the index finger. There is a small bone density adjacent to the base of the middle phalanx of the ring finger. This may be degenerative. However this could be due to trauma. Bone density appears well-preserved. Mild narrowing of the interphalangeal joints. No other fractures or dislocations are seen. IMPRESSION IMPRESSION: Small bone density adjacent to the base of the middle phalanx of the ring finger. This could be due to trauma age uncertain. This should be correlated with the site of pain. Java Engineer: MITESH Transcribe Date/Time: Nov 19 2020 11:50A Dictated by : TREY LEMON DO This examination was interpreted and the report reviewed and electronically signed by: TREY LEMON DO on Nov 19 2020 11:52AM EST [facility] Radiology Study observation (narrative) [facility] XR Finger - left AP and Late ral and obliqueOrdered By: [facility] Provider on 11-19-2020 [facility] Vital Signs Date Time Vital Sign Value Performing Clinician Facility 04-22-2025 08:05-0400 Body height 172.[address] Juan J Rubalcava MD Work Phone: 6(140)305-926050 [place] [address] 04-22-2025 08:05-0400 Body mass index (BMI) [Ratio] 32.1 kg/m2 Dr. Juan J Rubalcava MD Work Phone: 5(969)413-626950 [place] [address] 04-22-2025 08:05-0400 Body weight 95.[address] Juan J Rubalcava MD Work Phone: 1(096)969-065950 [place] [address] 04-22-2025 08:05-0400 Diastolic blood pressure 77 mm[Hg] Dr. Juan J Rubalcava MD Work Phone: 6(178)795-681350 [place] [address] 04-22-2025 08:05-0400 Heart rate 84 /min Dr. Juan J Rubalcava MD Work Phone: 4(936)463-822750 [place] [address] 04-22-2025 08:05-0400 Respiratory rate 18 /min Dr. Juan J Rubalcava MD Work Phone: 1(876)462-759650 [place] [address] 04-22-2025 08:05-0400 SaO2% (BldA) [Mass fraction] 93 % Dr. Juan J Rubalcava MD Work Phone: 7(744)678-802650 [place] [address] 04-22-2025 08:05-0400 Systolic blood pressure 121 mm[Hg] Dr. Juan J Rubalcava MD Work Phone: 2(508)118-220050 [place] [address] 02-24-2025 15:32-0400 Body height 172.[address] Juan J Rubalcava MD Work Phone: 1(179)179-474850 [place] [address] 02-24-2025 15:32-0400 Body mass index (BMI) [Ratio] 32.3 kg/m2 Dr. Juan J Rubalcava MD Work Phone: [facility] 02-24-2025 15:32-0400 Body weight 96.[address] Juan J Rubalcava MD Work Phone: [facility] 02-24-2025 15:32-0400 Diastolic blood pressure 78 mm[Hg] Dr. Juan J Rubalcava MD Work Phone: [facility] 02-24-2025 15:32-0400 Heart rate 92 /min Dr. Juan J Rubalcava MD Work Phone: [facility] 02-24-2025 15:32-0400 Respiratory rate 18 /min Dr. Juan J Rubalcava MD Work Phone: [facility] 02-24-2025 15:32-0400 Systolic blood pressure 138 mm[Hg] Dr. Juan J Rubalcava MD Work Phone: [facility] 10-14-2024 15:14-0400 Diastolic blood pressure 73 mm[Hg] Treatment Wstr Work Phone: [facility] 10-14-2024 15:14-0400 Heart rate 80 /min Treatment Wstr Work Phone: [facility] 10-14-2024 15:14-0400 Systolic blood pressure 110 mm[Hg] Treatment Wstr Work Phone: [facility] 10-14-2024 14:51-0400 Body mass index (BMI) [Ratio] 32.4 kg/m2 Carlos Flores MD Work Phone: [facility] 10-14-2024 14:51-0400 Body temperature 97.39 [degF] Carlos Flores MD Work Phone: [facility] 10-14-2024 14:51-0400 Body weight 95.94 kg Carlos Flores MD Work Phone: [facility] 10-14-2024 14:51-0400 Diastolic blood pressure 74 mm[Hg] Carlos Flores MD Work Phone: [facility] 10-14-2024 14:51-0400 Heart rate 80 /min Carlos Flores MD Work Phone: [facility] 10-14-2024 14:51-0400 SaO2% (BldA) [Mass fraction] 97 % Carlos Flores MD Work Phone: [facility] 10-14-2024 14:51-0400 Systolic blood pressure 113 mm[Hg] Carlos Flores MD Work Phone: [facility] 10-12-2024 17:33-0400 Body mass index (BMI) [Ratio] 32.18 kg/m2 Juan J Rubalcava MD Work Phone: [facility] 10-12-2024 17:33-0400 Body temperature 97.39 [degF] Juan J Rubalcava MD Work Phone: [facility] 10-12-2024 17:33-0400 Body weight 95.3 kg Juan J Rubalcava MD Work Phone: [facility] 10-12-2024 17:33-0400 Diastolic blood pressure 66 mm[Hg] Juan J Rubalcava MD Work Phone: [facility] 10-12-2024 17:33-0400 Heart rate 72 /min Juan J Rubalcava MD Work Phone: [facility] 10-12-2024 17:33-0400 Systolic blood pressure 116 mm[Hg] Juan J Rubalcava MD Work Phone: [facility] 08-26-2024 14:26-0500 Body height 172.[address] Juan J Rubalcava MD Work Phone: [facility] 08-26-2024 14:26-0500 Body mass index (BMI) [Ratio] 31.1 kg/m2 Dr. Juan J Rubalcava MD Work Phone: [facility] 08-26-2024 14:26-0500 Body weight 92.[address] Juan J Rubalcava MD Work Phone: 1(514)834-212350 [place] [address] 08-26-2024 14:26-0500 Diastolic blood pressure 70 mm[Hg] Dr. Juan J Rubalcava MD Work Phone: 6(699)615-365850 [place] [address] 08-26-2024 14:26-0500 Heart rate 89 /min Dr. Juan J Rubalcava MD Work Phone: 7(872)495-203550 [place] [address] 08-26-2024 14:26-0500 Respiratory rate 18 /min Dr. Juan J Rubalcava MD Work Phone: 8(422)251-423750 [place] [address] 08-26-2024 14:26-0500 SaO2% (BldA) [Mass fraction] 94 % Dr. Juan J Rubalcava MD Work Phone: 7(820)938-765150 [place] [address] 08-26-2024 14:26-0500 Systolic blood pressure 111 mm[Hg] Dr. Juan J Rubalcava MD Work Phone: 5(107)222-089850 [place] [address] 08-16-2024 07:20-0500 Body temperature 98.1 [degF] Dr. Juan J Rubalcava MD Work Phone: 8(166)529-731250 [place] [address] 08-16-2024 07:20-0500 Diastolic blood pressure 73 mm[Hg] Dr. Juan J Rubalcava MD Work Phone: 5(636)640-009250 [place] [address] 08-16-2024 07:20-0500 Heart rate 84 /min Dr. Juan J Rubalcava MD Work Phone: 5(874)435-591750 [place] [address] 08-16-2024 07:20-0500 Respiratory rate 16 /min Dr. Juan J Rubalcava MD Work Phone: 4(871)393-720850 [place] [address] 08-16-2024 07:20-0500 SaO2% (BldA) [Mass fraction] 96 % Dr. Juan J Rubalcava MD Work Phone: 7(521)415-190550 [place] [address] 08-16-2024 07:20-0500 Systolic blood pressure 130 mm[Hg] Dr. Juan J Rubalcava MD Work Phone: 6(334)841-425850 [place] [address] 08-09-2024 10:19-0500 Body temperature 98 [degF] Dr. Juan J Rubalcava MD Work Phone: 7(994)239-577098 [place] [address] 08-09-2024 10:19-0500 Diastolic blood pressure 70 mm[Hg] Dr. Juan J Rubalcava MD Work Phone: [facility] 08-09-2024 10:19-0500 Heart rate 65 /min Dr. Juan J Rubalcava MD Work Phone: 9(420)295-667350 [place] [address] 08-09-2024 10:19-0500 Respiratory rate 12 /min Dr. Juan J Rubalcava MD Work Phone: 5(702)144-222550 [place] [address] 08-09-2024 10:19-0500 SaO2% (BldA) [Mass fraction] 95 % Dr. Juan J Rubalcava MD Work Phone: 1(842)906-391050 [place] [address] 08-09-2024 10:19-0500 Systolic blood pressure 129 mm[Hg] Dr. Juan J Rubalcava MD Work Phone: 3(809)022-975650 [place] [address] 08-09-2024 07:20-0500 Body mass index (BMI) [Ratio] 32.3 kg/m2 Dr. Juan J Rubalcava MD Work Phone: 8(640)107-292898 [place] [address] 08-09-2024 07:20-0500 Body weight 96.[address] Juan J Rubalcava MD Work Phone: [facility] 04-27-2024 14:10-[address] SANTIAGO PEREZ MD [facility] 04-27-2024 14:10-[address] SANTIAGO Ngo [facility] 04-27-2024 14:10-0400 Body height 172.[address] SANTIAGO PEREZ MD [facility] 04-27-2024 14:10-0400 Body weight [address] SANTIAGO PEREZ MD [facility] 04-27-2024 14:10-0400 Body weight 33.86 kg/m2 DR SANTIAGO PEREZ MD [facility] 04-27-2024 14:10-0400 Diastolic Blood Pressure Non-Invasive 70 mm[Hg] DR SANTIAGO PEREZ MD [facility] 04-27-2024 14:10-0400 Heart rate 76 /min DR SANTIAGO PEREZ MD [facility] 04-27-2024 14:10-0400 Respiratory rate 18 /min DR SANTIAGO PEREZ MD [facility] 04-27-2024 14:10-0400 Systolic Blood Pressure Non-Invasive 114 mm[Hg] DR SANTIAGO PEREZ MD [facility] 04-22-2024 15:31-0400 Diastolic blood pressure 74 mm[Hg] Treatment Wstr Work Phone: [facility] 04-22-2024 15:31-0400 Systolic blood pressure 118 mm[Hg] Treatment Wstr Work Phone: [facility] 04-22-2024 15:07-0400 Body temperature 98.2 [degF] Treatment Wstr Work Phone: [facility] 04-22-2024 15:07-0400 Heart rate 80 /min Treatment Wstr Work Phone: [facility] 04-22-2024 15:07-0400 SaO2% (BldA) [Mass fraction] 94 % Treatment Wstr Work Phone: [facility] 04-14-2024 08:15-0400 Diastolic blood pressure 78 mm[Hg] Juan J Rubalcava MD Work Phone: [facility] 04-14-2024 08:15-0400 Heart rate 72 /min Juan J Rubalcava MD Work Phone: [facility] 04-14-2024 08:15-0400 Systolic blood pressure 123 mm[Hg] Juan J Rubalcava MD Work Phone: [facility] 04-14-2024 08:06-0400 Body height 172.1 cm Juan J Rubalcava MD Work Phone: [facility] 04-14-2024 08:06-0400 Body mass index (BMI) [Ratio] 34.31 kg/m2 Juan J Rubalcava MD Work Phone: [facility] 04-14-2024 08:06-0400 Body temperature 97.81 [degF] Juan J Rubalcava MD Work Phone: [facility] 04-14-2024 08:06-0400 Body weight 101.6 kg Juan J Rubalcava MD Work Phone: [facility] 11-14-2023 14:59-0400 Body mass index (BMI) [Ratio] 35.39 kg/m2 Carlos Flores MD Work Phone: [facility] 11-14-2023 14:59-0400 Body temperature 97.5 [degF] Carlos Flores MD Work Phone: [facility] 11-14-2023 14:59-0400 Body weight 104.33 kg Carlos Flores MD Work Phone: [facility] 11-14-2023 14:59-0400 Diastolic blood pressure 81 mm[Hg] Carlos Flores MD Work Phone: [facility] 11-14-2023 14:59-0400 Heart rate 77 /min Carlos Flores MD Work Phone: [facility] 11-14-2023 14:59-0400 SaO2% (BldA) [Mass fraction] 95 % Carlos Flores MD Work Phone: [facility] 11-14-2023 14:59-0400 Systolic blood pressure 143 mm[Hg] Carlos Flores MD Work Phone: [facility] 09-04-2023 13:18-0500 Diastolic blood pressure 77 mm[Hg] Juan J Rubalcava MD Work Phone: [facility] 09-04-2023 13:18-0500 Heart rate 69 /min Juan J Rubalcava MD Work Phone: [facility] 09-04-2023 13:18-0500 Systolic blood pressure 129 mm[Hg] Juan J Rubalcava MD Work Phone: [facility] 09-04-2023 13:06-0500 Body temperature 97.9 [degF] Juan J Rubalcava MD Work Phone: [facility] 09-04-2023 13:06-0500 Body weight 102.06 kg Juan J Rubalcava MD Work Phone: [facility] 09-04-2023 13:06-0500 Respiratory rate 16 /min Juan J Rubalcava MD Work Phone: [facility] 05-15-2023 15:00-0400 Diastolic blood pressure 64 mm[Hg] Treatment Wstr Work Phone: [facility] 05-15-2023 15:00-0400 Heart rate 75 /min Treatment Wstr Work Phone: [facility] 05-15-2023 15:00-0400 Systolic blood pressure 115 mm[Hg] Treatment Wstr Work Phone: [facility] 05-15-2023 14:48-0400 Body temperature 97.11 [degF] Treatment Wstr Work Phone: [facility] 05-15-2023 14:48-0400 Respiratory rate 18 /min Treatment Wstr Work Phone: [facility] 05-09-2023 06:59-0400 Body weight 103.87 kg Katharine Carter APRN.AUTOMOTIVE PARTS COUNTER ASSISTANT Work Phone: [facility] 05-09-2023 06:59-0400 Diastolic blood pressure 78 mm[Hg] Katharine Carter APRN.AUTOMOTIVE PARTS COUNTER ASSISTANT Work Phone: [facility] 05-09-2023 06:59-0400 Heart rate 67 /min Katharine Carter RN GYN.AUTOMOTIVE PARTS COUNTER ASSISTANT Work Phone: [facility] 05-09-2023 06:59-0400 Respiratory rate 16 /min Katharine Mccrays RN GYN.AUTOMOTIVE PARTS COUNTER ASSISTANT Work Phone: [facility] 05-09-2023 06:59-0400 Systolic blood pressure 131 mm[Hg] Katharine Carter RN GYN.AUTOMOTIVE PARTS COUNTER ASSISTANT Work Phone: [facility] 05-05-2023 13:39-0400 Body temperature 97.9 [degF] Mamadou Loya RN GYN.TAP PULLER Work Phone: [facility] 05-05-2023 13:39-0400 Body weight 103.51 kg Mamadou Loya RN GYN.TAP PULLER Work Phone: [facility] 05-05-2023 13:39-0400 Diastolic blood pressure 75 mm[Hg] Mamadou Loya RN GYN.TAP PULLER Work Phone: [facility] 05-05-2023 13:39-0400 Heart rate 74 /min Mamadou Loya RN GYN.TAP PULLER Work Phone: [facility] 05-05-2023 13:39-0400 Respiratory rate 18 /min Mamadou Loya RN GYN.TAP PULLER Work Phone: [facility] 05-05-2023 13:39-0400 SaO2% (BldA) [Mass fraction] 95 % Mamadou Loya RN GYN.TAP PULLER Work Phone: [facility] 05-05-2023 13:39-0400 Systolic blood pressure 120 mm[Hg] Mamadou Loya RN GYN.TAP PULLER Work Phone: [facility] 02-13-2023 15:22-0400 Diastolic blood pressure 70 mm[Hg] Treatment Wstr Work Phone: [facility] 02-13-2023 15:22-0400 Heart rate 73 /min Treatment Wstr Work Phone: [facility] 02-13-2023 15:22-0400 Systolic blood pressure 142 mm[Hg] Treatment Wstr Work Phone: [facility] 02-13-2023 15:00-0400 Body temperature 97.5 [degF] Treatment Wstr Work Phone: [facility] 11-21-2022 14:52-0400 Body temperature 97.59 [degF] Treatment Wstr Work Phone: [facility] 11-21-2022 14:52-0400 Diastolic blood pressure 71 mm[Hg] Treatment Wstr Work Phone: [facility] 11-21-2022 14:52-0400 Heart rate 55 /min Treatment Wstr Work Phone: [facility] 11-21-2022 14:52-0400 Systolic blood pressure 139 mm[Hg] Treatment Wstr Work Phone: [facility] 08-28-2022 07:27-0500 Body temperature 99.1 [degF] Tez Frank RN GYN.TAP PULLER Work Phone: [facility] 08-28-2022 07:27-0500 Body weight 99.84 kg Tez Frank RN GYN.TAP PULLER Work Phone: [facility] 08-28-2022 07:27-0500 Diastolic blood pressure 70 mm[Hg] Tez Frank RN GYN.TAP PULLER Work Phone: [facility] 08-28-2022 07:27-0500 Heart rate 86 /min Tez Frank RN GYN.TAP PULLER Work Phone: [facility] 08-28-2022 07:27-0500 Respiratory rate 18 /min Tez Frank RN GYN.TAP PULLER Work Phone: [facility] 08-28-2022 07:27-0500 SaO2% (BldA) [Mass fraction] 97 % Tez Frank RN GYN.TAP PULLER Work Phone: [facility] 08-28-2022 07:27-0500 Systolic blood pressure 132 mm[Hg] Tez Frank RN GYN.TAP PULLER Work Phone: [facility] 08-23-2022 17:17-0500 Body temperature 96.8 [degF] Juan J Rubalcava MD Work Phone: [facility] 08-23-2022 17:17-0500 Body weight 100.25 kg Juan J Rubalcava MD Work Phone: [facility] 08-23-2022 17:17-0500 Diastolic blood pressure 62 mm[Hg] Juan J Rubalcava MD Work Phone: [facility] 08-23-2022 17:17-0500 Heart rate 65 /min Juan J Rubalcava MD Work Phone: [facility] 08-23-2022 17:17-0500 Respiratory rate 16 /min Juan J Rubalcava MD Work Phone: [facility] 08-23-2022 17:17-0500 SaO2% (BldA) [Mass fraction] 96 % Juan J Rubalcava MD Work Phone: [facility] 08-23-2022 17:17-0500 Systolic blood pressure 122 mm[Hg] Juan J Rubalcava MD Work Phone: [facility] 06-06-2022 15:13-0500 Diastolic blood pressure 80 mm[Hg] Treatment Wstr Work Phone: [facility] 06-06-2022 15:13-0500 Heart rate 67 /min Treatment Wstr Work Phone: [facility] 06-06-2022 15:13-0500 Systolic blood pressure 127 mm[Hg] Treatment Wstr Work Phone: [facility] 06-06-2022 14:45-0500 Body height 172.7 cm Braden Cosby MD Work Phone: [facility] 06-06-2022 14:45-0500 Body temperature 97.2 [degF] Treatment Wstr Work Phone: [facility] 06-06-2022 14:45-0500 Body weight 103.42 kg Braden Cosby MD Work Phone: [facility] 06-06-2022 14:45-0500 Diastolic blood pressure 76 mm[Hg] Braden Cosby MD Work Phone: [facility] 06-06-2022 14:45-0500 Heart rate 61 /min Braden Cosby MD Work Phone: [facility] 06-06-2022 14:45-0500 Systolic blood pressure 134 mm[Hg] Braden Cosby MD Work Phone: [facility] 02-19-2022 18:58-0400 Diastolic blood pressure 62 mm[Hg] Juan J Rubalcava MD Work Phone: [facility] 02-19-2022 18:58-0400 Systolic blood pressure 126 mm[Hg] Juan J Rubalcava MD Work Phone: [facility] 02-19-2022 18:07-0400 Body height 171.7 cm Juan J Rubalcava MD Work Phone: [facility] 02-19-2022 18:07-0400 Body temperature 97.11 [degF] Juan J Rubalcava MD Work Phone: [facility] 02-19-2022 18:07-0400 Body weight 97.8 kg Juan J Rubalcava MD Work Phone: [facility] 02-19-2022 18:07-0400 Heart rate 68 /min Juan J Rubalcava MD Work Phone: [facility] 02-19-2022 18:07-0400 Respiratory rate 16 /min Juan J Rubalcava MD Work Phone: [facility] Encounters Encounter Date Encounter Type Care Provider Facility Start: 04-26-2025 End: 04-26-2025 ambulatory JUAN J RUBALCAVA Facility:[facility] Start: 04-26-2025 Encounter for genera l adult medical examination without abnormal findings JUAN J RUBALCAVA [facility] Start: 04-22-2025 End: 04-22-2025 Patient encounter procedure Claudia HANCOCK -[facility] Work Phone: Start: 04-22-2025 End: 04-22-[address] Juan J Rubalcava MD Work Phone: -[facility] Start: 04-22-2025 End: 04-22-2025 ambulatory BRADEN COSBY Facility:[facility] Start: 03-25-2025 Encounter for genera l adult medical examination without abnormal findings Claudia HANCOCK [facility] Start: 03-19-2025 Non-patient / Non-visit Dr. Yves garcía MD -[facility] Start: 03-19-2025 End: 03-19-[address] Juan J Rubalcava MD Work Phone: -Cardiovascular Services Start: 03-19-2025 End: 03-19-2025 Patient encounter procedure Claudia HANCOCK -Cardiovascular Services Work Phone: Start: 03-19-2025 End: 03-19-2025 ambulatory Claudia HANCOCK Facility:[facility] Start: 02-24-2025 End: 02-24-2025 Patient encounter procedure Claudia HANCOCK -[facility] Work Phone: Start: 02-24-2025 End: 02-24-[address] Juan J Rubalcava MD Work Phone: -[facility] Start: 10-26-2024 End: 10-26-2024 Patient encounter procedure Claudia HANCOCK -Laboratory Work Phone: Start: 10-26-2024 End: 10-26-[address] Juan J Rubalcava MD Work Phone: [facility] Work Phone: Start: 10-26-2024 End: 10-26-2024 Subsequent hospital visit by physician [facility] Work Phone: Radiology Comment on above: Hereditary hemochrom atosis [E83.110] Start: 10-26-2024 End: 10-26-2024 ambulatory Claudia HANCOCK Facility:[facility] Start: 10-14-2024 End: 10-14-2024 Patient encounter procedure Carlos Flores MD Work Phone: Hematology/Oncology Start: 10-14-2024 End: 10-14-2024 ambulatory Treatment Rm 3 [facility] Work Phone: Hematology/Oncology Comment on above: Hereditary hemochrom atosis (HCC) (Primary Dx) Start: 10-14-2024 End: 10-19-2024 Telephone encounter Carlos Flores MD Work Phone: Hematology/Oncology Comment on above: Appointment (ANNIE pete) Start: 10-12-2024 End: 10-12-2024 Patient encounter procedure Juan J Rubalcava MD Work Phone: [facility] Comment on above: Need for vaccination (Primary Dx); Essential hypertension; Other hyperlipidemia; Hereditary hemochromatosis (HCC); Impaired fasting glucose; 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; Screening for prostate cancer; Stented coronary artery (ERIN to RCA) Start: 10-12-2024 End: 10-12-2024 ambulatory JUAN J RUBALCAVA Facility:[facility] Start: 09-25-2024 End: 09-25-2024 Refill Juan J Rubalcava MD Work Phone: Internal Medicine [place] Start: 08-26-2024 End: 08-26-2024 Patient encounter procedure Claudia HANCOCK -[facility] Work Phone: Start: 08-26-2024 End: 08-26-2024 ambulatory Claudia HANCOCK Facility:[facility] Start: 08-26-2024 End: 08-26-2024 ambulatory Claudia HANCOCK Facility:[facility] Start: 08-16-2024 End: 08-16-2024 Emergency department patient visit Dr. Rafa Pulido MD -Emergency Department Work Phone: Start: 08-09-2024 End: 08-09-2024 Emergency department patient visit Dr. Rafa Pulido MD -Emergency Department Work Phone: Start: 07-30-2024 End: 07-31-2024 Refill Juan J Rubalcava MD Work Phone: Internal [facility] [place] Comment on above: Refill Request Start: 07-20-2024 End: 07-21-2024 Refill Juan J Rubalcava MD Work Phone: [facility] [place] Comment on above: Refill Request Start: 06-02-2024 End: 06-02-2024 ambulatory Claudia HANCOCK Facility:[facility] Start: 05-21-2024 End: 05-21-2024 Telephone encounter Juan J Rubalcava MD Work Phone: [address] [place] [address] Comment on above: Patient Question Start: 05-19-2024 ambulatory Brice Gutierrez Facility:[facility] Start: 05-15-2024 ambulatory Jazmine Vivas Facility:[facility] Start: 05-15-2024 End: 05-19-2024 Evaluation and management of inpatient [facility] Facility:[facility] Start: 05-15-2024 ambulatory [facility] Facility:[facility] [place] Start: 05-12-2024 End: 05-12-2024 Telephone encounter Jua nJ Rubalcava MD Work Phone: [facility] [place] Comment on above: Patient Request Electronic Communica tion Start: 05-11-2024 End: 05-12-2024 Telephone encounter Carlos Flores MD Work Phone: Hematology/Oncology Comment on above: surgical Clearance Start: 05-06-2024 End: 05-07-2024 Refill Juan J Rubalcava MD Work Phone: [facility] [place] Comment on above: Refill Request Start: 04-27-2024 End: 04-27-[address] SANTIAGO PEREZ MD [facility] Start: 04-27-2024 End: 04-27-[address] SANTIAGO PEREZ MD [facility] Start: 04-27-2024 End: 04-27-[address] SANTIAGO PEREZ MD Facility:[facility] Start: 04-22-2024 End: 04-22-2024 Refill Juan J Rubalcava MD Work Phone: [facility] [place] Comment on above: Refill Request Hereditary hemochrom atosis (HCC) (Primary Dx) Start: 04-14-2024 End: 04-14-2024 Patient encounter procedure Juan J Rubalcava MD Work Phone: [facility] [place] Comment on above: Medicare annual well ness visit, initial (Primary Dx); Male pattern alopecia; Hereditary hemochromatosis (HCC); Essential hypertension; Screening for depression; Encounter for screening examination for other mental health and behavioral disorders; Other hyperlipidemia; Impaired fasting glucose; Preoperative examination Start: 04-14-2024 End: 04-14-2024 Preprocedural examination done Juan J Rubalcava MD Work Phone: [facility] Start: 04-13-2024 End: 04-13-2024 Telephone encounter Juan J Rubalcava MD Work Phone: [facility] [place] Comment on above: Surgical Clearance Start: 04-06-2024 End: 04-07-2024 Refill Juan J Rubalcava MD Work Phone: [facility] [place] Comment on above: Refill Request Start: 04-02-[address] JUAN J CRUZ MD Facility:[facility] Start: 11-14-2023 End: 11-14-2023 ambulatory Treatment Rm 6 Miguel [facility] Work Phone: Hematology/Oncology Comment on above: Hereditary hemochrom atosis (HCC) (Primary Dx) Start: 11-14-2023 End: 11-14-2023 Patient encounter procedure Carlos Flores MD Work Phone: Hematology/Oncology Start: 11-14-2023 Telephone encounter Carlos adair MD Work Phone: Hematology/Oncology Comment on above: Lab Orders Start: 11-02-2023 Telephone encounter Carlos adair MD Work Phone: [place] Start: 09-18-2023 Telephone encounter Juan J peraza MD Work Phone: [facility] [place] Comment on above: Results Start: 2023 Orders Only Juan J trejo MD Work Phone: [facility] [place] Comment on above: Essential hypertensi on (Primary Dx); Leg edema, right Start: 09-04-2023 End: 09-04-2023 Patient encounter procedure Juan J Rubalcava MD Work Phone: [facility] [place] Comment on above: Atherosclerosis of n ative coronary artery of [place] heart without angina pectoris (Primary Dx); Essential hypertension; Need for prophylactic vaccination and inoculation against influenza; Leg edema, right; Other hyperlipidemia; Need for vaccination Start: 05-15-2023 End: 05-15-2023 ambulatory Treatment Rm 9 Miguel [facility] Work Phone: Hematology/Oncology Comment on above: Hereditary hemochrom atosis (HCC) (Primary Dx) Start: 05-15-2023 Telephone encounter Carlos adair MD Work Phone: Hematology/Oncology Start: 05-09-2023 End: 05-09-2023 Office outpatient visit 15 minutes Katharine Carter RN GYN.AUTOMOTIVE PARTS COUNTER ASSISTANT Work Phone: [facility] [place] Comment on above: Murmur, heart (Prima ry Dx); Post-viral cough syndrome Start: 05-05-2023 End: 05-05-2023 Patient encounter procedure Mamdaou Loya APRN.[employer] Work Phone: [facility] Comment on above: Post-viral cough syn drome (Primary Dx); Heart murmur Start: 04-10-2023 Refill Juan J trejo MD Work Phone: [facility] [place] Comment on above: Refill Request Start: 02-13-2023 End: 02-13-2023 ambulatory Treatment Rm 6 Miguel [facility] Work Phone: Hematology/Oncology Comment on above: Hereditary hemochrom atosis (HCC) (Primary Dx) Start: 11-21-2022 End: 11-21-2022 ambulatory Treatment Rm 3 Miguel [facility] Work Phone: Hematology/Oncology Comment on above: Hereditary hemochrom atosis (HCC) (Primary Dx) Start: 10-22-2022 Refill Juan J trejo MD Work Phone: [facility] [place] Comment on above: Refill Request Start: 08-30-2022 End: 08-30-2022 Subsequent hospital visit by physician [facility] Work Phone: Radiology Comment on above: Screening for abdomi nal aortic aneurysm [Z13.6] Start: 08-29-2022 End: 08-29-2022 ambulatory Treatment Rm 1 Miguel [facility] Work Phone: Hematology/Oncology Comment on above: Hereditary hemochrom atosis (HCC) (Primary Dx) Start: 08-28-2022 Orders Only Anderson Hernandes Work Phone: Hematology/Oncology Comment on above: Hereditary hemochrom atosis (HCC) (Primary Dx) Start: 08-28-2022 End: 08-28-2022 Office outpatient visit 25 minutes Tez Frank APRN.[facility] Work Phone: [facility] Comment on above: Throat pain (Primary Dx) Start: 08-23-2022 End: 08-23-2022 Patient encounter procedure Juan J Rubalcava MD Work Phone: [facility] [place] Comment on above: Essential hypertensi on (Primary Dx); Other hyperlipidemia; Impaired fasting glucose; Diastasis of rectus abdominis Start: 06-06-2022 End: 06-06-2022 ambulatory Treatment Rm 1 Miguel [facility] Work Phone: Hematology/Oncology Comment on above: Hereditary hemochrom atosis (HCC) (Primary Dx) Hereditary hemochrom atosis (HCC) (Primary Dx); Vertigo Start: 06-06-2022 End: 06-06-2022 Patient encounter procedure Braden Cosby MD Work Phone: [facility] Start: 05-14-2022 Refill Juan J trejo MD Work Phone: [facility] [place] Comment on above: Refill Request Start: 04-25-2022 Refill Braden Cosby MD Work Phone: Hematology/Oncology Comment on above: Refill Request Start: 04-13-2022 Refill Juan J trejo MD Work Phone: [facility] [place] Comment on above: Refill Request Start: 03-12-2022 End: 03-12-2022 ambulatory Treatment Rm 1 [facility] Work Phone: Hematology/Oncology Comment on above: Hereditary hemochrom atosis (HCC) (Primary Dx) Start: 02-19-2022 End: 02-19-2022 Patient encounter procedure Juan J Rubalcava MD Work Phone: [facility] [place] Comment on above: Routine medical exam (Primary Dx); Screening for abdominal aortic aneurysm; Essential hypertension; Impaired fasting glucose; Hereditary hemochromatosis (HCC); Need for vaccination Start: 02-19-2022 End: 02-19-2022 Patient encounter status Juan J Rubalcava MD Work Phone: [facility] [place] Start: 01-31-2022 Telephone encounter Braden Cosby MD Work Phone: Hematology/Oncology Comment on above: Appointment Start: 12-07-2021 Telephone encounter Juan J peraza MD Work Phone: Family [facility] [place] Comment on above: Diarrhea Start: 10-18-2021 Refill Juan J trejo MD Work Phone: [facility] [place] Comment on above: Prescription Refills Start: 11-19-2020 End: 11-19-2020 Subsequent hospital visit by physician [facility] [place] Work Phone: Radiology Comment on above: Injury of left ring finger, initial encounter [S69.92XA] Start: 12-18-2017 Ambulatory [facility]OLIVA Perkins ty:UNI Procedures Date Procedure Procedure Detail Performing Clinician Start: 08-16-2024 X-ray of lumbar spin e, two or three views Dr. Juan J Rubalcava MD Work Phone: Start: 08-16-2024 Plain x-ray of pelvi s and lower extremity Dr. Juan J Rubalcava MD Work Phone: Start: 08-09-2024 X-ray of chest, PA a nd lateral views Dr. Juan J Rubalcava MD Work Phone: Start: 05-18-2024 History of placement of stent for coronary artery disease History of coronary artery stent placement Claudia HANCOCK Comment on above: 4.0 x 40 mm [place] MR KHAN to pRCA 05/18/24 Start: 04-14-2024 Adult depression screening assessment Juan J Rubalcava MD Work Phone: Start: 03-14-2024 Lipid 1996 panel - S milan or Plasma Juan J Rubalcava MD Work Phone: Start: 09-04-2023 RSV VACCINE, BIVALEN T (ABRYSVO) Juan J Rubalcava MD Work Phone: Start: 08-29-2023 Lipid 1996 panel - S milan or Plasma Juan J Rubalcava MD Work Phone: Start: 02-23-2023 Lipid 1996 panel - S milan or Plasma Juan J Rbualcava MD Work Phone: Start: 08-30-2022 Us abdominal aorta r eal time screen study aaa Juan J Rubalcava MD Work Phone: Start: 08-28-2022 STREP A MOLECULAR (POC) Tez Frank RN GYN.[employer] P[employer]ER Work Phone: Start: 02-19-2022 Adult depression screening assessment Juan J Rubalcava MD Work Phone: Start: 02-16-2021 Adult depression screening assessment Juan J Rubalcava MD Work Phone: Start: 11-19-2020 Radex fingr minimum 2 views Dereje Lao RN GYN.[employer]ER Work Phone: Start: 02-25-2015 Colonoscopy Juan J Thomas MD Work Phone: Arthroplasty of knee DR NAT PEREZ MD Comment on above: PARTIAL, LEFT Arthroscopy of knee DR SHIRA PEREZ MD Comment on above: TOTAL OF THREE Colectomy partial w/anastomosis DR SANTIAGO PEREZ MD Entire toe (body structure) DR SANTIAGO PEREZ MD Comment on above: L foot great toe alejandra nt replacement Plan of Treatment Date Care Activity Detail Author Start: 10-12-2034 Urine microalbumin profile DTaP,Tdap,Td Vaccine (3 - Td or Tdap) [facility] Start: 03-14-2029 Lipid panel Lipid Screening [facility] Start: 08-29-2028 Lipid panel Lipid Screening [facility] Start: 02-24-2028 Lipid 1996 panel - S milan or Plasma Lipid Screening [facility] Start: 03-14-2027 [facility] Start: 02-17-2027 LIPID SCREEN LIPID SCREEN [facility] Start: 08-29-2026 [facility] Start: 02-23-2026 [facility] Start: 02-11-2026 LIPID SCREEN LIPID SCREEN [facility] Start: 10-14-2025 BP Controlled (<130/80) BP Controlle d (<130/80) [facility] Start: 10-12-2025 Annual PCP Team Block Mechanic driss Disease Visit Annual PCP Team Chronic Disease Visit [facility] Start: 10-12-2025 BP Controlled (<130/80) BP Controlle d (<130/80) [facility] Start: 10-12-2025 Covid-19 Vaccine ( season) Covid-19 Vaccine () [facility] Comment on above: Postponed from 03/22 (Declined at this time) Start: 04-16-2025 End: 07-16-2025 [id number] [Mass/volume] in Serum or Plasma ALPHA FETOPROTEIN Lab Routine Hereditary hemochromatosis (HCC) Expected: 04/16/2025, Expires: 07/16/2025 [facility] Work Phone: Comment on above: Expected: 04/16/2025 , Expires: 07/16/2025 Start: 04-15-2025 End: 04-15-2025 Patient encounter procedure 04/15/2025 5:20 PM EDT Office Visit [facility] [place] [address] [place] [address] Juan J Rubalcava MD [address] [place] [address] Yearly w/6 month follow-up [facility] [place] Comment on above: Yearly w/6 month fol low-up Start: 04-14-2025 Annual PCP Team Block Mechanic driss Disease Visit Annual PCP Team Chronic Disease Visit [facility] Start: 04-14-2025 Anxiety Screening Anxiety Screening [facility] Start: 04-14-2025 BP Controlled (<130/80) BP Controlle d (<130/80) [facility] Start: 04-14-2025 Depression Screening Depression Scre ening [facility] Start: 04-01-2025 End: 04-01-2025 ambulatory [facility] Comment on above: (SO)CBC/IRON STUDIES * OV/LAB EARLY/?PHLEBO TODAY* ABRAMZAINH Q6MO PHLEBO/LAB&OV E MÓNICA* Start: 03-31-2025 End: 03-31-2025 ambulatory [facility] Comment on above: CBC/IRON STUDIES* OV/LAB EARLY/?PHLEBO TODAY* ABRAMOVICH Q6MO PHLEBO/LAB&OV E MÓNICA* Start: 03-29-2025 End: 06-28-2025 Comprehensive metabolic 2000 panel - Serum or Plasma COMPREHENSIVE METABOLIC PANEL Lab Routine Other hyperlipidemia Expected: 03/29/2025, Expires: 06/28/2025 [facility] Work Phone: Comment on above: Expected: 03/29/2025 , Expires: 06/28/2025 Start: 03-29-2025 End: 06-28-2025 Hemoglobin A1c in Blood HEMOGLOBIN A1C Lab Routine Impaired fasting glucose Expected: 03/29/2025, Expires: 06/28/2025 [facility] Comment on above: Expected: 03/29/2025 , Expires: 06/28/2025 Start: 03-29-2025 End: 06-28-2025 Lipid 1996 panel - Serum or Plasma LIPID PANEL, FASTING Lab Routine Other hyperlipidemia Expected: 03/29/2025, Expires: 06/28/2025 [facility] Comment on above: Expected: 03/29/2025 , Expires: 06/28/2025 Start: 03-29-2025 End: 06-28-2025 PSA/PROSTATE SPECIFIC ANTIGEN SCREENING PSA/PROSTATE SPECIFIC ANTIGEN SCREENING Lab Routine Screening for prostate cancer Expected: 03/29/2025, Expires: 06/28/2025 [facility] Comment on above: Expected: 03/29/2025 , Expires: 06/28/2025 Start: 03-14-2025 Hepatitis B surface antibody level LDL Cholesterol [facility] Start: 02-25-2025 Colonoscopy COLONOSCOPY [facility] Start: 02-25-2025 COLORECTAL CANCER SCREENING COLORECTAL CANCER SCREENING [facility] Start: 02-25-2025 Screening for malign ant neoplasm of colon [facility] Start: 02-17-2025 DIABETES SCREEN DIABETES SCREEN [facility] Start: 10-26-2024 End: 10-26-2024 Patient encounter procedure 10/26/2024 4:00 PM EDT Appointment Radiology [address] [place] [address] Hereditary hemochromatosis [E83.110] Radiology Comment on above: Hereditary hemochrom atosis [E83.110] Start: 10-14-2024 End: 10-14-2024 ambulatory [facility] Comment on above: CBC/IRON STUDIES* OV/LAB EARLY/?PHLEBO TODAY* MARK - this date per patient Q6MO PHLEBO/LAB&OV E MÓNICA* Start: 10-12-2024 End: 10-12-2024 Patient encounter procedure 10/12/2024 5:40 PM EDT Office Visit [facility] [place] [address] [place] [address] Juan J Rubalcava MD [address] [place] [address] 6 month follow-up [facility] [place] Comment on above: 6 month follow-up Start: 09-04-2024 Annual PCP Team Block Mechanic driss Disease Visit Annual PCP Team Chronic Disease Visit [facility] Start: 09-04-2024 BP Controlled (<130/80) BP Controlle d (<130/80) [facility] Start: 08-29-2024 Hepatitis B surface antibody level LDL Cholesterol [facility] Start: 08-16-2024 [facility] Start: 08-12-2024 DIABETES SCREEN DIABETES SCREEN [facility] Start: 08-09-2024 [facility] Start: 08-09-2024 [facility] Start: 07-22-2024 Advance Directive Discussion Advance Directive Discussion [facility] Start: 07-16-2024 End: 07-16-2024 ambulatory [facility] Comment on above: H&H OV/LAB EARLY/?PHLEBO TODAY* ABRAMOVICH Q3MO PHLEBO/LAB&OV E MÓNICA* Start: 05-27-2024 PROSTATE CANCER SCRE ENING DISCUSSION PROSTATE CANCER SCREENING DISCUSSION [facility] Start: 05-27-2024 Prostate specific an tigen measurement Prostate Cancer Screening Discussion [facility] Start: 05-05-2024 BP Controlled (<130/80) BP Controlle d (<130/80) [facility] Start: 04-22-2024 End: 04-22-2024 ambulatory Hematology/Oncology Comment on above: OV/LAB 04/18/?PHLEBO TODAY* Q3MO PHLEBO/LAB 04/18 /OV EARLY* Q3MO PHLEBO/LAB 04/18 * ov next cycle Start: 04-18-2024 End: 04-18-2024 ambulatory [facility] Comment on above: H&H CBC/IRON STUDIES Start: 04-14-2024 End: 04-14-2024 Patient encounter procedure 04/14/2024 8:00 AM EDT Office Visit [facility] [place] [address] [place] [address] Juan J Rubalcava MD [address] [place] [address] Wellness/Surgical Clearance for right total knee replacement scheduled for May [address] Perez--to fax forms over. [facility] [place] Comment on above: Wellness/Surgical Cl earance for right total knee replacement scheduled for May [address] Perez--to fax forms over. Start: 03-22-2024 Covid-19 Vaccine ( season) Covid-19 Vaccine ( season) [facility] Start: 03-22-2024 Covid-19 Vaccine ( season) Covid-19 Vaccine () [facility] Start: 03-22-2024 Influenza vaccination Influenza Vacc ine (#1) [facility] Start: 03-19-2024 End: 03-19-2024 Patient encounter procedure 03/19/2024 4:00 PM EDT Office Visit [facility] [place] [address] [place], [place] [id number] Juan J Rubalcava MD [address] [place], [place] [id number] Wellness [facility] [place] Comment on above: Wellness Start: 03-04-2024 Annual PCP Team Block Mechanic driss Disease Visit Annual PCP Team Chronic Disease Visit [facility] Start: 03-04-2024 End: 06-03-2024 Comprehensive metabolic 2000 panel - Serum or Plasma COMP METABOLIC PANEL Lab Routine Other hyperlipidemia Expected: 03/04/2024, Expires: 06/03/2024 [facility] Work Phone: Comment on above: Expected: 03/04/2024 , Expires: 06/03/2024 Start: 03-04-2024 End: 06-03-2024 Lipid 1996 panel - Serum or Plasma LIPID PANEL BASIC Lab Routine Other hyperlipidemia Expected: 03/04/2024, Expires: 06/03/2024 [facility] Work Phone: Comment on above: Expected: 03/04/2024 , Expires: 06/03/2024 Start: 02-24-2024 Hepatitis B surface antibody level LDL Cholesterol [facility] Start: 11-14-2023 End: 02-13-2024 CBC W Auto Differential panel - Blood COMPLETE BLOOD COUNT AND DIFFERENTIAL Lab STAT Hereditary hemochromatosis (HCC) Expected: 11/14/2023, Expires: 02/13/2024 [facility] Work Phone: Comment on above: Expected: 11/14/2023 , Expires: 02/13/2024 Start: 11-05-2023 End: 02-04-2024 HFE gene targeted mutation analysis in Blood or Tissue by Molecular genetics method HFE (HEMOCHROMATOSIS) Lab Routine Hereditary hemochromatosis (HCC) Expected: 11/05/2023, Expires: 02/04/2024 [facility] Work Phone: Comment on above: Expected: 11/05/2023 , Expires: 02/04/2024 Start: 11-04-2023 Urine microalbumin profile [facility] Start: 08-23-2023 ANNUAL PCP TEAM MANAGER EQUIPMENT DRISS DISEASE VISIT ANNUAL PCP TEAM CHRONIC DISEASE VISIT [facility] Start: 08-23-2023 BP CONTROLLED (<130/80) BP CONTROLLE D (<130/80) [facility] Start: 07-22-2023 Advance Directive Discussion Advance Directive Discussion [facility] Start: 07-22-2023 Behavioral Health Screening Behavioral Health Screening [facility] Start: 07-22-2023 Depression Assessment Depression Ass essment [facility] Start: 03-22-2023 Covid-19 Vaccine () Covid-19 Vaccine () [facility] Start: 03-22-2023 Influenza vaccination C [facility] Start: 02-20-2023 End: 04-22-2023 Comprehensive metabolic 2000 panel - Serum or Plasma COMP METABOLIC PANEL Lab Routine Other hyperlipidemia Expected: 02/20/2023, Expires: 04/22/2023 [facility] Work Phone: Comment on above: Expected: 02/20/2023 , Expires: 04/22/2023 Start: 02-20-2023 End: 04-22-2023 Hemoglobin A1c in Blood HGB A1C Lab Routine Impaired fasting glucose Expected: 02/20/2023, Expires: 04/22/2023 [facility] Work Phone: Comment on above: Expected: 02/20/2023 , Expires: 04/22/2023 Start: 02-20-2023 End: 04-22-2023 Lipid 1996 panel - Serum or Plasma LIPID PANEL BASIC Lab Routine Other hyperlipidemia Expected: 02/20/2023, Expires: 04/22/2023 [facility] Work Phone: Comment on above: Expected: 02/20/2023 , Expires: 04/22/2023 Start: 02-19-2023 Adult depression screening assessment DEPRESSION SCREENING [facility] Start: 02-19-2023 ANNUAL PCP TEAM MANAGER EQUIPMENT DRISS DISEASE VISIT ANNUAL PCP TEAM CHRONIC DISEASE VISIT [facility] Start: 02-19-2023 BP CONTROLLED (<130/80) BP CONTROLLE D (<130/80) [facility] Start: 02-17-2023 Hepatitis B surface antibody level LDL CHOLESTEROL [facility] Start: 02-08-2023 COVID-19 VACCINE (5 - Moderna series) COVID-19 VACCINE (5 - Moderna series) [facility] Start: 08-21-2022 ANNUAL PCP TEAM MANAGER EQUIPMENT DRISS DISEASE VISIT ANNUAL PCP TEAM CHRONIC DISEASE VISIT [facility] Start: 08-21-2022 BP CONTROLLED (<130/80) BP CONTROLLE D (<130/80) [facility] Start: 07-22-2022 ADVANCE DIRECTIVE DISCUSSION ADVANCE DIRECTIVE DISCUSSION [facility] Start: 07-22-2022 DEPRESSION ASSESSMENT DEPRESSION ASS ESSMENT [facility] Start: 03-22-2022 Influenza vaccination INFLUENZA (#1) [facility] Start: 02-16-2022 Adult depression screening assessment DEPRESSION SCREENING [facility] Start: 02-11-2022 Hepatitis B surface antibody level LDL CHOLESTEROL [facility] Start: 10-07-2021 COVID-19 VACCINE (4 - Booster for Moderna series) COVID-19 VACCINE (4 - Booster for Moderna series) [facility] Start: 2021 ADVANCE DIRECTIVE DISCUSSION ADVANCE DIRECTIVE DISCUSSION [facility] Start: 2021 PNEUMOVAX AGE 65 AND OVER WITH 5YR LOOKBACK (#1) PNEUMOVAX AGE 65 AND OVER WITH 5YR LOOKBACK (#1) [facility] Start: 08-15-2021 BP CONTROLLED (<130/80) BP CONTROLLE D (<130/80) [facility] Start: 08-04-2021 COVID-19 VACCINE (4 - Booster for Moderna series) COVID-19 VACCINE (4 - Booster for Moderna series) [facility] Start: 07-22-2021 DEPRESSION ASSESSMENT DEPRESSION ASS ESSMENT [facility] Start: 2016 RSV Vaccine (1 - 1-d ose 60+ series) RSV Vaccine (1 - 1-dose 60+ series) [facility] Start: 09-19-2013 FECAL OCCULT BLOOD FECAL OCCULT BLOO D [facility] Start: 09-19-2013 Screening for malign ant neoplasm of colon Fecal Occult Blood [facility] Start: 2001 COLOGUARD (FIT-DNA) COLOGUARD (FIT-D NA) [facility] Start: [address] COLONOGRAPHY [facility] Start: 2001 Screening for malign ant neoplasm of colon [facility] Start: 2001 SIGMOIDOSCOPY SIGMOIDOSCOPY [facility] Start: 1974 Anxiety Screening Anxiety Screening [facility] Start: 1974 Depression Screening Depression Scre ening [facility] Start: 1956 ABDOMINAL AORTIC ANE URYSM SCREENING ABDOMINAL AORTIC ANEURYSM SCREENING [facility] Ankle brachial press ure index [facility] End: 11-03-2024 CBC W Auto Differential panel - Blood COMPLETE BLOOD COUNT AND DIFFERENTIAL Lab Routine Hereditary hemochromatosis (HCC) Every 3 months for 4 Occurrences starting 11/05/2023 until 11/03/2024 [facility] Work Phone: Comment on above: Every 3 months for 4 Occurrences starting 11/05/2023 until 11/03/2024 ECG COMPLETE ECG COMPLETE ECG Routine Ordered: 04/14/2024 [facility] Work Phone: Comment on above: Ordered: 04/14/2024 End: 05-09-2024 Echocardiography ECHO Cardiology Routine Murmur, heart 1 Occurrences starting 05/09/2023 until 05/09/2024 [facility] Work Phone: Comment on above: 1 Occurrences starti ng 05/09/2023 until 05/09/2024 End: 11-03-2024 Ferritin [Mass/volume] in Serum or Plasma FERRITIN Lab Routine Hereditary hemochromatosis (HCC) Every 3 months for 4 Occurrences starting 11/05/2023 until 11/03/2024 [facility] Work Phone: Comment on above: Every 3 months for 4 Occurrences starting 11/05/2023 until 11/03/2024 End: 08-28-2023 Hematocrit [Volume Fraction] of Blood HEMATOCRIT (HCT) Lab STAT Hereditary hemochromatosis (HCC) Every 3 months for 2 Occurrences starting 08/28/2022 until 08/28/2023 [facility] Work Phone: Comment on above: Every 3 months for 2 Occurrences starting 08/28/2022 until 08/28/2023 End: 08-28-2023 Hemoglobin [Mass/volume] in Blood HEMOGLOBIN (HGB) Lab STAT Hereditary hemochromatosis (HCC) Every 3 months for 2 Occurrences starting 08/28/2022 until 08/28/2023 [facility] Work Phone: Comment on above: Every 3 months for 2 Occurrences starting 08/28/2022 until 08/28/2023 End: 11-03-2024 Iron and Iron binding capacity panel - Serum or Plasma IRON AND TIBC Lab Routine Hereditary hemochromatosis (HCC) Every 3 months for 4 Occurrences starting 11/05/2023 until 11/03/2024 [facility] Work Phone: Comment on above: Every 3 months for 4 Occurrences starting 11/05/2023 until 11/03/2024 Patient Education [facility] Work Phone: Patient referral [facility] Work Phone: End: 11-13-2025 US Abdomen RUQ US ABD RIGHT UPPER QUADRANT Radiology Routine Hereditary hemochromatosis (HCC) 1 Occurrences starting 10/14/2024 until 11/13/2025 [facility] Comment on above: 1 Occurrences starti ng 10/14/2024 until 11/13/2025 US Abdomen RUQ US ABD RIGHT UPP ER QUADRANT Radiology Routine Hereditary hemochromatosis 10/26/2024 7:50 AM EDT [facility] Work Phone: End: 03-21-2023 Us abdominal aorta real time screen study aaa US SCREENING FOR AAA Radiology Routine Screening for abdominal aortic aneurysm 1 Occurrences starting 02/19/2022 until 03/21/2023 [facility] Work Phone: Comment on above: 1 Occurrences starti ng 02/19/2022 until 03/21/[address] [facility] End: 10-03-2024 US Lower extremity vein - right US DVT LOWER RIGHT Radiology Routine Leg edema, right 1 Occurrences starting 09/04/2023 until 10/03/2024 [facility] Work Phone: Comment on above: 1 Occurrences starti ng 09/04/2023 until 10/03/2024 [facility] Immunizations Immunization Date Immunization Notes Care Provider Fa cili 10-12-2024 tetanus toxoid, redu destiney diphtheria toxoid, and acellular pertussis vaccine, adsorbed Juan J Rubalcava MD Work Phone: [facility] 05-16-2024 influenza, high dose seasonal, preservative-free Juan J Rubalcava MD Work Phone: [facility] 09-04-2023 respiratory syncytia l virus (RSV) vaccine, bivalent (ABRYSVO) Juan J Rubalcava MD Work Phone: [facility] 05-12-2023 influenza (HD-IIV4) vaccine, age 65+ yr, high dose, quadrivalent, PF (FLUZONE HIGH-DOSE) Juan J Rubalcava MD Work Phone: [facility] 05-12-2023 influenza virus vacc ine, unspecified formulation Juan J Rubalcava MD Work Phone: [facility] 06-02-2022 influenza, high-dose , quadrivalent vaccine (FLUZONE HIGH DOSE QUADRIVALENT) Juan J Rubalcava MD Work Phone: [facility] Work Phone: 06-02-2022 influenza virus vacc ine, unspecified formulation Juan J Rubalcava MD Work Phone: [facility] 02-19-2022 pneumococcal Conjuga te, unspecified formulation Juan J Rubalcava MD Work Phone: [facility] Work Phone: 02-19-2022 pneumococcal (PCV20) vaccine, 20 valent (PREVNAR 20) Juan J Rubalcava MD Work Phone: [facility] Work Phone: 04-21-2021 influenza, injectabl e, quadrivalent, preservative free Juan J Rubalcava MD Work Phone: [facility] Work Phone: 01-06-2021 zoster vaccine recombinant Juan J Rubalcava MD Work Phone: [facility] Work Phone: 10-22-2020 COVID-19 vaccine, fu ll dose (MODERNA) Juan J Rubalcava MD Work Phone: [facility] Work Phone: 09-24-2020 COVID-19 vaccine, fu ll dose (MODERNA) Juan J Rubalcava MD Work Phone: [facility] Work Phone: 08-18-2020 zoster vaccine recombinant Juan J Rubalcava MD Work Phone: [facility] Work Phone: 04-21-2020 influenza, seasonal, injectable Juan J Rubalcava MD Work Phone: [facility] Work Phone: 05-15-2019 Influenza, injectabl e, Madin Jyoti Canine Kidney, quadrivalent with preservative Juan J Rubalcava MD Work Phone: [facility] 04-28-2018 influenza, injectabl e, quadrivalent, contains preservative Juan J Rubalcava MD Work Phone: [facility] Work Phone: 05-18-2017 influenza, injectabl e, quadrivalent, preservative free Juan J Rubalcava MD Work Phone: [facility] Work Phone: 05-29-2016 influenza, injectabl e, quadrivalent, contains preservative Juan J Rubalcava MD Work Phone: [facility] 04-29-2015 influenza, injectabl e, quadrivalent, contains preservative Juan J Rubalcava MD Work Phone: [facility] 05-11-2014 influenza, seasonal, injectable Juan J Rubalcava MD Work Phone: [facility] 11-03-2013 tetanus toxoid, redu destiney diphtheria toxoid, and acellular pertussis vaccine, adsorbed Juan J Rubalcava MD Work Phone: [facility] 05-01-2013 influenza virus vacc ine, unspecified formulation Juan J Rubalcava MD Work Phone: [facility] 07-11-2009 novel influenza-H1N1 -09, preservative-free, injectable Juan J Rubalcava MD Work Phone: [facility] Work Phone: 05-03-2007 influenza virus vacc ine, unspecified formulation Juan J Rubalcava MD Work Phone: [facility] Work Phone: 07-04-2005 influenza virus vacc ine, unspecified formulation Juan J Rubalcava MD Work Phone: [facility] Work Phone: 05-03-2004 pneumococcal polysaccharide vaccine, 23 valent Juan J Rubalcava MD Work Phone: [facility] Work Phone: Payers Date Payer Category Payer Medicare [id number] 2024 Self-pay 2024 Unknown [id number] 2023 Private Health Insurance [id number] 2023 Unknown [id number] 2021 Unknown [employer] C[employer] PPO OOS [id number] 2021-Present [phone] [address] [place] [address] PPO [id number] 2010 Unknown [id number] 2009 Unknown [id number] 1956 Unknown [id number] 2.16.840.1.891832.3.579.2 .627 1956 Unknown [id number] 2.16.840.1.889439.3.579.2 .627 1956 Unknown [id number] 2.16.840.1.963843.3.579.2 .627 Unknown [id number] 2.16.840.1.733503.3.579.2 .462 Unknown [id number] 2.16.840.1.250324.3.579.2 .462 Unknown [id number] 2.16.840.1.085624.3.579.2 .462 Unknown [id number] 2.16.840.1.225580.3.579.2 .462 Unknown [id number] 2.16.840.1.422254.3.579.2 .462 Unknown [id number] 2.16.840.1.579958.3.579.2 .462 Unknown [id number] 2.16.840.1.299459.3.579.2 .462 Unknown [id number] 2.16.840.1.268967.3.579.2 .462 Unknown [id number] 2.16.840.1.286960.3.579.2 .462 Unknown [id number] 2.16.840.1.721822.3.579.2 .462 Unknown [id number] 2.16.840.1.304078.3.579.2 .462 Unknown [id number] 2.16.840.1.378135.3.579.2 .462 Unknown [id number] 2.16.840.1.408340.3.579.2 .462 Unknown [id number] 2.16.840.1.026289.3.579.2 .462 Unknown [id number] 2.16.840.1.336450.3.579.2 .462 Unknown [id number] 2.16.840.1.990179.3.579.2 .462 Unknown [id number] 2.16.840.1.822269.3.579.2 .462 Unknown [id number] 2.16.840.1.325450.3.579.2 .462 Unknown [id number] 2.16.840.1.353670.3.579.2 .462 Unknown [id number] 2.16.840.1.490485.3.579.2 .462 Unknown [id number] 2.16.840.1.740381.3.579.2 .462 Unknown [id number] 2.16.840.1.983780.3.579.2 .462 Unknown [id number] 2.16.840.1.622943.3.579.2 .462 Social History Date Type Detail Facility Start: 03-31-2012 End: 08-16-2024 Tobacco smoking status NHIS Ex-smoker [facility] Start: 08-23-1983 End: 08-23-2003 History of tobacco use Current smoker [facility] Start: 08-23-1983 End: 08-23-2003 History of tobacco use Cigarette Smoker [facility] End: 07-22-1994 History of tobacco use Chews Tobacco [facility] Start: 08-21-2021 End: 10-14-2024 Alcohol intake Current drinker of alcohol (finding) [facility] Start: 08-21-2021 End: 11-21-2022 Alcohol intake [facility] Work Phone: Start: 04-27-2020 History SDOH Alcohol Frequency 2 [facility] Start: 04-27-2020 End: 02-19-2022 History SDOH Alcohol Binge 1 [facility] Start: 1955 Sex Assigned At Not on file C [facility] Start: 02-19-2022 History SDOH Alcohol Frequency 3 [facility] Start: 02-19-2022 History SDOH Physica l Activity DPW 5 [facility] Start: 10-20-2020 End: 06-06-2022 Exposure to SARS-CoV-2 (event) Not sure [facility] Work Phone: Start: 03-31-2012 End: 04-14-2024 Tobacco use and exposure Former smokeless tobacco user [facility] Start: 02-19-2022 End: 11-21-2022 Alcohol Use Disorder Identification Test - Consumption [AUDIT-C] [facility] Work Phone: How often to you hav e a drink containing alcohol? 2-4 times a month [facility] Work Phone: How many standard dr inks containing alcohol do you have on a typical day? 1 or 2 [facility] Work Phone: How often do you hav e 6 or more drinks on 1 occasion? Never [facility] Work Phone: Adult Depression Scr eening Assessment 0 [facility] Work Phone: Do you feel stress - tense, restless, nervous, or anxious, or unable to sleep at night because your mind is troubled all the time - these days [OSQ] Not at all [facility] Work Phone: How often to you hav e a drink containing alcohol? Monthly or less [facility] How many standard dr inks containing alcohol do you have on a typical day? 3 or 4 [facility] Tobacco Nicotine Use: st art age: 21, stop age: 41. Type: Cigarettes. [facility] Sex Assigned At Sex [facility] Start: 10-14-2024 Alcohol Comment occ [facility] Start: 10-29-2024 Sex Male (finding) [facility] Start: 1955 Sex Assigned At Male W [facility] Medical Equipment Procedure Code Equipment Code Equipment Origin al Text Equipment Identifier Dates ([id number]) Drug-eluting coronary artery stent, bioabsorbable-polyme r-coated ()[id number] FDA Start: 05-18-2024 Functional Status Date Assessment Result Facility 01-13-2015 Are you deaf, or do you have serious difficulty hearing No 01/13/2015 3:16 PM EDT Marian Molina Ma, MA No [facility] 01-13-2015 Are you blind, or do you have serious difficulty seeing, even when wearing glasses No 01/13/2015 3:16 PM EDT Marian Molina Ma, MA No [facility] 01-13-2015 Do you have serious difficulty walking or climbing stairs No 01/13/2015 3:16 PM EDT Marian Molina Ma, MA No [facility] 01-13-2015 Do you have difficul ty dressing or bathing No 01/13/2015 3:16 PM EDT Marian Molina Ma, MA No [facility] 01-13-2015 Because of a physica l, mental, or emotional condition, do you have difficulty doing errands alone such as visiting a physician's office or shopping No 01/13/2015 3:16 PM EDT Marian Molina Ma, MA [facility] Mental Status Date Assessment Result Facility 08-09-2024 Cognitive function Level Of Cons ciousness Awake;Alert;Appropriate;Fol lows Commands [facility] Work Phone: 01-13-2015 Because of a physica l, mental, or emotional condition, do you have serious difficulty concentrating, remembering, or making decisions No 01/13/2015 3:16 PM EDT Marian Molina Ma, MA [facility] Clinical Notes 10-30-2018 to 04-26-2025 Note Date & Type Note Facility 04-26-2025 Note HNO ID: [id number] Author: JUAN J RUBALCAVA MD Service: ? Author Type: Physician Type: Progress Notes Filed: 04/26/2025 18:33 Note Text: Subjective Oliva Grey is a 69 year old male. Patient presents with: Yearly Exam F/U 6 months Oliva was here for his annual physical. He was doing well. CAD was stable. Hypertension and lipids were controlled. His glucose was now a concern. We reviewed his lab results. His right shoulder was now more bothersome than his knee. He was postponing his total knee replacement further. An MRI of his shoulder was scheduled. Current care team: Patient Care Team: Juan J Rubalcava MD as PCP - General (Internal Medicine) Carlos Flores MD (Hematology/Oncology) Santiago Perez MD ([facility]) Bryn Jean-Baptiste MD, (Ophthalmology) Dejan Gutierrez MD (Cardiology) The history is provided by the patient. Review of Systems Constitutional: Negative for activity change, fatigue and unexpected weight change. HENT: Negative for congestion. Eyes: Negative for visual disturbance. Respiratory: Negative for cough and shortness of breath. Cardiovascular: Negative for chest pain, palpitations and leg swelling. Gastrointestinal: Negative for abdominal pain, blood in stool, constipation and diarrhea. Genitourinary: Negative for difficulty urinating and dysuria. Musculoskeletal: Positive for arthralgias. Skin: Negative. Neurological: Negative for dizziness, weakness, numbness and headaches. Psychiatric/Behavioral: Negative for dysphoric mood. The patient is not nervous/anxious. 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 Benign non-nodular prostatic hyperplasia without lower urinary tract symptoms 10/23/2016 Disorders of iron metabolism Esophagitis, unspecified Hereditary hemochromatosis 12/23/2015 History of kidney stones 10/23/2016 Hydrocele 11/07/2016 Hypertension Impaired fasting glucose 10/30/2018 Internal hemorrhoids without mention of complication 08/03/2005 Male pattern alopecia 09/05/2016 Non-STEMI (non-ST elevated myocardial infarction) (HCC) 05/15/2024 Nonspecific elevation of levels of transaminase or lactic acid dehydrogenase (LDH) Obstructive sleep apnea 04/16/2011 not treated by choice. Other hyperlipidemia 12/24/2005 Testicular calcification 11/07/2016 PAST SURGICAL HISTORY Procedure Laterality Date ARTHROSCOPY SHOULDER W/ROTATOR CUFF RPR Right 09/03/2018 Dr. John Mccoy CARDIAC CATH 07/10/2010 CC PTCA STENT 05/18/2024 Drug eluting stent to RCA COLONOSCOPY FLX DX W/COLLJ SPEC WHEN PFRMD 08/25/2004 Colonoscopy CYSTOSCOPY,URETEROSCOPY,STONE REMV Left 01/11/2017 retrograde pyelogram, laser lithotripsy EGD TRANSORAL BIOPSY SINGLE/MULTIPLE 04/20/2008 EGD TRANSORAL BIOPSY SINGLE/MULTIPLE 11/02/2011 ESOPHAGOSCOPY FLEX BALLOON DILAT <30 MM DIAM 09/20/2000 Esophageal dilatation PAST SURGICAL HISTORY OF 2003 sigmoid colectomy, diverticultis, appendectomy. PAST SURGICAL HISTORY OF Left 08/2004 artifical joint replaced left great toe PAST SURGICAL HISTORY OF Left 2010 left knee surgery, knee scope x 2 PAST SURGICAL HISTORY OF Right 03/2014 Arthroscopy right knee, meniscal tear, Dr. Rivera PAST SURGICAL HISTORY OF Left 09/01/[address] Rivera FAMILY HISTORY Problem Relation Age of Onset Heart Father Heart Mother pacemaker Cancer Brother throat lymph nodes Multiple Sclerosis Sister Social History Tobacco Use Smoking status: Former Current packs/day: 0.00 Average packs/day: 1 pack/day for 20.0 years (20.0 ttl pk-yrs) Types: Cigarettes Start date: 08/23/1983 Quit date: 08/23/2003 Years since quittin.6 Smokeless tobacco: Former Types: Chew Quit date: 07/22/1994 Vaping Use Vaping status: Never Used Substance Use Topics Alcohol use: Yes Alcohol/week: 2.3 standard drinks of alcohol Types: 1 Cans of Beer (12oz), 1 Mixed Drinks per week Comment: occ Drug use: No ALLERGIES Allergen Reactions Simvastatin Other: See Comments myalgia shoulders Current Outpatient Medications Medication Sig amLODIPine (NORVASC) 5 mg tablet Take 1 tablet by mouth once daily. losartan (COZAAR) 100 mg tablet Take 1 tablet by mouth once daily. finasteride (PROPECIA) 1 mg tablet Take 1 tablet by mouth once daily. BRILINTA 90 mg tablet Take 90 mg by mouth two times a day. metoprolol succinate ER (TOPROL XL) 50 mg 24 hr tablet Take 1 tablet by mouth once daily. chlorthalidone (HYGROTON) 25 mg tablet Take 1 tablet by mouth once daily. atorvastatin (LIPITOR) 20 mg tablet Take 1 tablet by mouth once daily. omeprazole (PRILOSEC) 40 mg capsule Take 1 capsule by mouth (more content not included)... [facility] 04-22-2025 Note HNO ID: [id number] Author: LAURA DOMINGUEZ, ? Service: ? Author Type: Nurse Practitioner Type: Progress Notes Filed: 04/22/2025 15:37 Note Text: Oliva Grey 1955 HISTORY OF PRESENT ILLNESS: Oliva Grey is a 69 year old male dx in 2002 with hereditary hemochromatosis on basis of elevted LFT, liver biopsy showed iron index > 1.9g. gene analysis showed heterozygous mutations in 2 gene (this is per Dr Cosby's note, report not readily available to me) He has been having phlebotomy every 6 months. Last ferritin was 27 measured in May 2022. We noted mild anemia. Interval Hx: Achy, shoulder and knee. Due for a knee replacement but had to delay due to heart attack. Was taking NSAIDs for these pains but stopped due to anticoagulation. No changes in bowel habits. No No rash, or skin changes. No itching. CLINICAL IMPRESSION: Hereditary hemochromatosis - reviewed target for HH is ferritin 50 - 100 - doing well with q6 mo RECOMMENDATION/PLAN: 1. Phlebotomy today 2. Back in 6 months with phlebotomy 3. 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 Benign non-nodular prostatic hyperplasia without lower urinary tract symptoms 10/23/2016 Disorders of iron metabolism Esophagitis, unspecified Hereditary hemochromatosis 12/23/2015 History of kidney stones 10/23/2016 Hydrocele 11/07/2016 Hypertension Impaired fasting glucose 10/30/2018 Internal hemorrhoids without mention of complication 08/03/2005 Male pattern alopecia 09/05/2016 Non-STEMI (non-ST elevated myocardial infarction) (HCC) 05/15/2024 Nonspecific elevation of levels of transaminase or lactic acid dehydrogenase (LDH) Obstructive sleep apnea 04/16/2011 not treated by choice. Other hyperlipidemia 12/24/2005 Testicular calcification 11/07/2016 PAST SURGICAL HISTORY Procedure Laterality Date ARTHROSCOPY SHOULDER W/ROTATOR CUFF RPR Right 09/03/2018 [facility], Dr. Lopez CARDIAC CATH 07/10/2010 CC PTCA STENT 05/18/2024 Drug eluting stent to RCA COLONOSCOPY FLX DX W/COLLJ SPEC WHEN PFRMD 08/25/2004 Colonoscopy CYSTOSCOPY,URETEROSCOPY,STONE REMV Left 01/11/2017 retrograde pyelogram, laser lithotripsy EGD TRANSORAL BIOPSY SINGLE/MULTIPLE 04/20/2008 EGD TRANSORAL BIOPSY SINGLE/MULTIPLE 11/02/2011 ESOPHAGOSCOPY FLEX BALLOON DILAT <30 MM DIAM 09/20/2000 Esophageal dilatation PAST SURGICAL HISTORY OF 2003 sigmoid colectomy, diverticultis, appendectomy. PAST SURGICAL HISTORY OF Left 08/2004 artifical joint replaced left great toe PAST SURGICAL HISTORY OF Left 2010 left knee surgery, knee scope x 2 PAST SURGICAL HISTORY OF Right 03/2014 Arthroscopy right knee, meniscal tear, Dr. Rivera PAST SURGICAL HISTORY OF Left 09/01/[address] Rivera FAMILY HISTORY Problem Relation Age of Onset Heart Father Heart Mother pacemaker Cancer Brother throat lymph nodes Multiple Sclerosis Sister Social History Tobacco Use Smoking status: Former Current packs/day: 0.00 Average packs/day: 1 pack/day for 20.0 years (20.0 ttl pk-yrs) Types: Cigarettes Start date: 08/23/1983 Quit date: 08/23/2003 Years since quittin.6 Smokeless tobacco: Former Types: Chew Quit date: 07/22/1994 Vaping Use Vaping status: Never Used Substance Use Topics Alcohol use: Yes Alcohol/week: 2.3 standard drinks of alcohol Types: 1 Cans of Beer (12oz), 1 Mixed Drinks per week Comment: occ Drug use: No ALLERGIES: ALLERGIES Allergen Reactions Simvastatin Other: See Comments myalgia shoulders CURRENT OUTPATIENT MEDICATIONS: amLODIPine (NORVASC) 5 mg tablet Take 1 tablet by mouth once daily. losartan (COZAAR) 100 mg tablet Take 1 tablet by mouth once daily. finasteride (PROPECIA) 1 mg tablet Take 1 tablet by mouth once daily. potassium chloride SR (MICRO-K) 10 mEq CR capsule Take 1 capsule by mouth once daily. BRILINTA 90 mg tablet Take 90 mg by mouth two times a day. metoprolol succinate ER (TOPROL XL) 50 mg 24 hr tablet Take 1 tablet by mouth once daily. chlorthalidone (HYGROTON) 25 mg tablet Take 1 tablet by mouth once daily. atorvastatin (LIPITOR) 20 mg tablet Take 1 tablet by mouth once daily. omeprazole (PRILOSEC) 40 mg capsule Take 1 capsule by mouth once daily. folic acid 1 mg tablet Take 1 tablet by mouth once daily. fluticasone (FLONASE) 50 mcg/actuation nasal spray Use 2 Sprays in each nostril once daily. For allergy symptoms. ID#[id number] Cholecalciferol, Vitamin D3, 1,000 unit cap Take 1 capsule by mouth once daily. FIBERCON 625 MG TAB Take 625 mg by mouth two times a day. Flurbiprofen 100 mg tablet Take 1 tablet (more content not included)... [facility] 02-24-2025 Evaluation note Diagnosis Onset Date Resolution Cardiac murmur acute February 3:11pm Diminished pulses in lower extremity acute February 24, 2 025 3:11pm Essential hypertension acute February 24, 2025 3:11pm History of coronary artery stent placement May 18, 2024 acute February 24, 2025 3:11pm [facility] Work Phone: 1(850) 558-861408-06-2025 Evaluation note* Diagnosis Onset Date Resolution Status Admit Date Cardiac murmur acute February 3:11pm Diminished pulses in lower extremity acute February 24, 2025 3:11pm Essential hypertension acute Au 2024 3:11pm History of coronary artery stent placement May 18, 2024 acute February 24, 2 025 3:11pm Essential hypertension acute Oc 2024 3:32pm History of coronary artery stent placement May 18, 2024 acute April 22, 2025 3:32pm Moderate left ventricular hypertrophy acute April 22 3:32pm [facility] Work Phone: 1(747) 683-260904-07-2025 History of Present illness Narrative* Aura Go RDMS - 10/26/2024 7:45 AM EDT Radiology Service Progress Note PATIENT NAME: Oliva Grey DATE OF SERVICE: October 26, 2024 TIME: 1:58 PM PATIENT IDENTITY VERIFICATION COMPLETED USING TWO (2) IDENTIFIERS: Name and Date of confirmedby patient verbally. FALL SCREENING: Has the patient had 2 falls in the last year or 1 fall with injury or currently using an Ambulatory Assistive Device (Walker, Cane, Wheelchair, Crutches, etc.)? No PATIENT GENDER DATA: Assigned male at PATIENT RELEVANT IMPLANT DATA REVIEWED: Not Applicable PATIENT PRESENTS WITH AN IMPLANTABLE OR ATTACHED GENETIC TECHNOLOGIST: No RADIOLOGY DEPARTMENT: Ultrasound PERIPHERAL IV DATA: Not applicable SIGNED BY: Aura Go RDMS RVT October 26, 2024 1:58 PM [facility] NoteHNO ID: [id number] Author: AURA GO RDMS Service: ? Author Type: Safekeeping Clerk Type: Progress Notes Filed: 10/26/2024 13:58 Note Text: Radiology Service Progress Note PATIENT NAME: Oliva Grey DATE OF SERVICE: October 26, 2024 TIME: 1:58 PM PATIENT IDENTITY VERIFICATION COMPLETED USING TWO (2) IDENTIFIERS: Name and Date of confirmed by patient verbally. FALL SCREENING: Has the patient had 2 falls in the last year or 1 fall with injury or currently using an Ambulatory Assistive Device (Walker, Cane, Wheelchair, Crutches, etc.)? No PATIENT GENDER DATA: Assigned male at PATIENT RELEVANT IMPLANT DATA REVIEWED: Not Applicable PATIENT PRESENTS WITH AN IMPLANTABLE OR ATTACHED GENETIC TECHNOLOGIST: No RADIOLOGY DEPARTMENT: Ultrasound PERIPHERAL IV DATA: Not applicable SIGNED BY: Aura Go RDMS RVT October 26, 2024 1:[address] [facility]03-31-2025 Telephone encounter Note* Telephone Encounter - Candelario Hinojosa - 10/19/2024 5:07 PM EDT I called and spoke to Oliva and scheduled him for the abdomen ultrasound for 10/26/24 at 4:00 pm, he confirmed this date and time Candelario Chapa [facility]03-31-2025 Miscellaneous Notes* Telephone Encounter - Candelario Hinojosa - 10/19/2024 5:07 PM EDT I called and spoke to Oliva and scheduled him for the abdomen ultrasound for 10/26/24 at 4:00 pm, he confirmed this date and time Candelario Chapa * Telephone Encounter - Candelario Hinojosa - 10/14/2024 4:14 PM EDT I called and left patient a message to call back to schedule the abdomen ultrasound that had ordered at the office visit on 10/14/24. When patient calls back please schedule patient for a date and time that works for him Candelario Chapa [facility] Telephone encounter Note * Telephone Encounter - Candelario Hinojosa - 10/14/2024 4:14 PM EDT I called and left patient a message to call back to schedule the abdomen ultrasound that had ordered at the office visit on 10/14/24. When patient calls back please schedule patient for a date and time that works for him Candelario Chapa [facility] [facility]03-26-2025 NoteHNO ID: [id number] Author: CARLOS FLORES MD Service: ? Author Type: Physician Type: Progress Notes Filed: 10/14/2024 15:32 Note Text: (Elements copied from my note dated November 14, 2023 , have been reviewed and updated where appropriate, and all reflect current assessment and medical decision making from today's encounter, October 14, 2024) HISTORY OF PRESENT ILLNESS: Oliva Grey is a 69 year old male dx in 2002 with hereditary hemochromatosis on basis of elevted LFT, liver biopsy showed iron index > 1.9g. gene analysis showed heterozygous mutations in 2 gene (this is per Dr Cosby's note, report not readily available to me) He has been having phlebotomy every 6 months. Last ferritin was 27 measured in May 2022. We noted mild anemia. CLINICAL IMPRESSION: Hereditary hemochromatosis RECOMMENDATION/PLAN: 1. Phlebotomy 2. Back in 6 months with phlebotomy 3. Yearly AFP and liver US Written and verbal health teaching given to patient, patient verbalizes understanding and agrees with treatment plan. 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 Benign non-nodular prostatic hyperplasia without lower urinary tract symptoms 10/23/2016 Disorders of iron metabolism Esophagitis, unspecified Hereditary hemochromatosis (HCC) 12/23/2015 History of kidney stones 10/23/2016 Hydrocele 11/07/2016 Hypertension Impaired fasting glucose 10/30/2018 Internal hemorrhoids without mention of complication 08/03/2005 Male pattern alopecia 09/05/2016 Non-STEMI (non-ST elevated myocardial infarction) (HCC) 05/15/2024 Nonspecific elevation of levels of transaminase or lactic acid dehydrogenase (LDH) Obstructive sleep apnea 04/16/2011 not treated by choice. Other hyperlipidemia 12/24/2005 Testicular calcification 11/07/2016 PAST SURGICAL HISTORY Procedure Laterality Date ARTHROSCOPY SHOULDER W/ROTATOR CUFF RPR Right 09/03/2018 [facility], Dr. Lopez CARDIAC CATH 07/10/2010 CC PTCA STENT 05/18/2024 Drug eluting stent to RCA COLONOSCOPY FLX DX W/COLLJ SPEC WHEN PFRMD 08/25/2004 Colonoscopy CYSTOSCOPY,URETEROSCOPY,STONE REMV Left 01/11/2017 retrograde pyelogram, laser lithotripsy EGD TRANSORAL BIOPSY SINGLE/MULTIPLE 04/20/2008 EGD TRANSORAL BIOPSY SINGLE/MULTIPLE 11/02/2011 ESOPHAGOSCOPY FLEX BALLOON DILAT <30 MM DIAM 09/20/2000 Esophageal dilatation PAST SURGICAL HISTORY OF 2003 sigmoid colectomy, diverticultis, appendectomy. PAST SURGICAL HISTORY OF Left 08/2004 artifical joint replaced left great toe PAST SURGICAL HISTORY OF Left 2010 left knee surgery, knee scope x 2 PAST SURGICAL HISTORY OF Right 03/2014 Arthroscopy right knee, meniscal tear, Dr. Rivera PAST SURGICAL HISTORY OF Left 09/01/[address] Rivera FAMILY HISTORY Problem Relation Age of Onset Heart Father Heart Mother pacemaker Cancer Brother throat lymph nodes Multiple Sclerosis Sister Social History Tobacco Use Smoking status: Former Current packs/day: 0.00 Average packs/day: 1 pack/day for 20.0 years (20.0 ttl pk-yrs) Types: Cigarettes Start date: 08/23/1983 Quit date: 08/23/2003 Years since quittin.1 Smokeless tobacco: Former Types: Chew Quit date: 07/22/1994 Vaping Use Vaping status: Never Used Substance Use Topics Alcohol use: Yes Alcohol/week: 2.3 standard drinks of alcohol Types: 1 Cans of Beer (12oz), 1 Mixed Drinks per week Comment: occ Drug use: No ALLERGIES: ALLERGIES Allergen Reactions Simvastatin Other: See Comments myalgia shoulders CURRENT OUTPATIENT MEDICATIONS: potassium chloride SR (MICRO-K) 10 mEq CR capsule Take 1 capsule by mouth once daily. BRILINTA 90 mg tablet Take 90 mg by mouth two times a day. metoprolol succinate ER (TOPROL XL) 50 mg 24 hr tablet Take 1 tablet by mouth once daily. chlorthalidone (HYGROTON) 25 mg tablet Take 1 tablet by mouth once daily. atorvastatin (LIPITOR) 20 mg tablet Take 1 tablet by mouth once daily. omeprazole (PRILOSEC) 40 mg capsule Take 1 capsule by mouth once daily. folic acid 1 mg tablet Take 1 tablet by mouth once daily. finasteride (PROPECIA) 1 mg tablet Take 1 tablet by mouth once daily. losartan (COZAAR) 100 mg tablet Take 1 tablet by mouth once daily. amLODIPine (NORVASC) 5 mg tablet Take 1 tablet by mouth once daily. fluticasone (FLONASE) 50 mcg/actuation nasal spray Use 2 Sprays in each nostril once daily. For allergy symptoms. ID#[id number] Cholecalciferol, Vitamin D3, 1,000 unit cap Take 1 capsule by mouth once daily. FIBERCON 625 MG TAB Take 625 mg by mouth two times a day. Flurbiprofen 100 mg tablet Take 1 tablet by mouth two times a day. (Patient not taking: Repor (more content not included)...[facility]03-26-2025 History of Present illness Narrative* Carlos Flores MD - 10/14/2024 2:53 PM EDT (Elements copied from my note dated November 14, 2023 , have been reviewed and updated where appropriate, and all reflect current assessment and medical decision making from today's encounter, September) HISTORY OF PRESENT ILLNESS: Oliva Grey is a 69 year old male dx in 2002 with hereditary hemochromatosis on basis of elevted LFT, liver biopsy showed iron index > 1.9g. gene analysis showed heterozygous mutations in 2 gene (this is per Dr Cosby's note, report not readily available to me) He has been having phlebotomy every 6 months. Last ferritin was 27 measured in May 2022. We noted mild anemia. CLINICAL IMPRESSION: Hereditary hemochromatosis RECOMMENDATION/PLAN: 1. Phlebotomy 2. Back in 6 months with phlebotomy 3. Yearly AFP and liver US Written and verbal health teaching given to patient, patient verbalizes understanding and agrees with treatment plan. 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 Benign non-nodular prostatic hyperplasia without lower urinary tract symptoms 10/23/2016 Disorders of iron metabolism Esophagitis, unspecified Hereditary hemochromatosis (HCC) 12/23/2015 History of kidney stones 10/23/2016 Hydrocele 11/07/2016 Hypertension Impaired fasting glucose 10/30/2018 Internal hemorrhoids without mention of complication 08/03/2005 Male pattern alopecia 09/05/2016 Non-STEMI (non-ST elevated myocardial infarction) (HCC) 05/15/2024 Nonspecific elevation of levels of transaminase or lactic acid dehydrogenase (LDH) Obstructive sleep apnea 04/16/2011 not treated by choice. Other hyperlipidemia 12/24/2005 Testicular calcification 11/07/2016 PAST SURGICAL HISTORY Procedure Laterality Date ARTHROSCOPY SHOULDER W/ROTATOR CUFF RPR Right [facility]03/[facility] CATH 07/10/2010 CC PTCA STENT 05/18/2024 Drug eluting stent to RCA COLONOSCOPY FLX DX W/COLLJ SPEC WHEN PFRMD 08/25/2004 Colonoscopy CYSTOSCOPY,URETEROSCOPY,STONE REMV Left 01/11/2017 retrograde pyelogram, laser lithotripsy EGD TRANSORAL BIOPSY SINGLE/MULTIPLE 04/20/2008 EGD TRANSORAL BIOPSY SINGLE/MULTIPLE 11/02/2011 ESOPHAGOSCOPY FLEX BALLOON DILAT <30 MM DIAM 09/20/2000 Esophageal dilatation PAST SURGICAL HISTORY OF 2003 sigmoid colectomy, diverticultis, appendectomy. PAST SURGICAL HISTORY OF Left 08/2004 artifical joint replaced left great toe PAST SURGICAL HISTORY OF Left 2010 left knee surgery, knee scope x 2 PAST SURGICAL HISTORY OF Right 03/2014 Arthroscopy right knee, meniscal tear, Dr. Rivera PAST SURGICAL HISTORY OF Left 09/01/[address] Rivera FAMILY HISTORY Problem Relation Age of Onset Heart Father Heart Mother pacemaker Cancer Brother throat lymph nodes Multiple Sclerosis Sister Social History Tobacco Use Smoking status: Former Current packs/day: 0.00 Average packs/day: 1 pack/day for 20.0 years (20.0 ttl pk-yrs) Types: Cigarettes Start date: 08/23/1983 Quit date: 08/23/2003 Years since quittin.1 Smokeless tobacco: Former Types: Chew Quit date: 07/22/1994 Vaping Use Vaping status: Never Used Substance Use Topics Alcohol use: Yes Alcohol/week: 2.3 standard drinks of alcohol Types: 1 Cans of Beer (12oz), 1 Mixed Drinks per week Comment: occ Drug use: No ALLERGIES: ALLERGIES Allergen Reactions Simvastatin Other: See Comments myalgia shoulders CURRENT OUTPATIENT MEDICATIONS: potassium chloride SR (MICRO-K) 10 mEq CR capsule Take 1 capsule by mouth once daily. BRILINTA 90 mg tablet Take 90 mg by mouth two times a day. metoprolol succinate ER (TOPROL XL) 50 mg 24 hr tablet Take 1 tablet by mouth once daily. chlorthalidone (HYGROTON) 25 mg tablet Take 1 tablet by mouth once daily. atorvastatin (LIPITOR) 20 mg tablet Take 1 tablet by mouth once daily. omeprazole (PRILOSEC) 40 mg capsule Take 1 capsule by mouth once daily. folic acid 1 mg tablet Take 1 tablet by mouth once daily. finasteride (PROPECIA) 1 mg tablet Take 1 tablet by mouth once daily. losartan (COZAAR) 100 mg tablet Take 1 tablet by mouth once daily. amLODIPine (NORVASC) 5 mg tablet Take 1 tablet by mouth once daily. fluticasone (FLONASE) 50 mcg/actuation nasal spray Use 2 Sprays in each nostril once daily. For allergy symptoms. ID#[id number] Cholecalciferol, Vitamin D3, 1,000 unit cap Take 1 capsule by mouth once daily. FIBERCON 625 MG TAB Take 625 mg by mouth two times a day. Flurbiprofen 100 mg tablet Take 1 tablet by mouth two times a day. (Patient not taking: Reported on10/14/2024) REVIEW OF SYSTEMS: GENERAL: No fever, night sweats, weight loss or malaise. All other reviewed and negative other than HPI. PHYSICAL EXAMINATION: VITAL SIGNS: BP 113/74 Pulse 80 Temp (Src) 97.4 (Temporal) Wt 211 lb 8 oz (95.9kg) SpO2 97% GENERAL APPEARANCE: Well appearing, in no acute distress, alert and oriented x3, well-hydrated, well nourished. I spent a total of 20 minutes on the date of the service which included preparing to see the patient, [id number] patient care, completing clinical documentation, obtaining and/or reviewing separately obtained history, counseling and educating the patient/family/caregiver, ordering medications, eric ts, or procedures, independently interpreting results (not separately reported), and communicating results to the patient/family/caregiver. Electronically Signed: Carlos Flores MD October 14, 2024 documented in this encounterFort [facility]25 NoteHNO ID: [id number] Author: JUAN J RUBALCAVA MD Service: ? Author Type: Physician Type: Progress Notes Filed: 10/12/2024 19:18 Note Text: This note was created using RealScout[employer]. Subjective Patient presents with: F/U 6 months Oliva Grey is a 69 year old male. His total knee was cancelled. He had NSTEMI on May 15, and was now on Brillinta for one year s/p ERIN to the RCA. His other conditions were stable. Review of Systems Constitutional: Negative for fatigue and fever. Respiratory: Negative for cough and shortness of breath. Cardiovascular: Negative for chest pain, palpitations and leg swelling. Neurological: Negative for dizziness, light-headedness and headaches. ACTIVE PROBLEM LIST Other Hyperlipidemia Esophagitis Atherosclerosis of [place] Coronary Artery of 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 Lopez CARDIAC CATH 07/10/2010 CC PTCA STENT 05/18/2024 Drug eluting stent to RCA COLONOSCOPY FLX DX W/COLLJ SPEC WHEN PFRMD 08/25/2004 Colonoscopy CYSTOSCOPY,URETEROSCOPY,STONE REMV Left 01/11/2017 retrograde pyelogram, laser lithotripsy EGD TRANSORAL BIOPSY SINGLE/MULTIPLE 04/20/2008 EGD TRANSORAL BIOPSY SINGLE/MULTIPLE 11/02/2011 ESOPHAGOSCOPY FLEX BALLOON DILAT <30 MM DIAM 09/20/2000 Esophageal dilatation PAST SURGICAL HISTORY OF 2003 sigmoid colectomy, diverticultis, appendectomy. PAST SURGICAL HISTORY OF Left 08/2004 artifical joint replaced left great toe PAST SURGICAL HISTORY OF Left 2010 left knee surgery, knee scope x 2 PAST SURGICAL HISTORY OF Right 03/2014 Arthroscopy right knee, meniscal tear, Dr. Rivera PAST SURGICAL HISTORY OF Left 09/01/[address] Rivera Social History Tobacco Use Smoking status: Former Current packs/day: 0.00 Average packs/day: 1 pack/day for 20.0 years (20.0 ttl pk-yrs) Types: Cigarettes Start date: 08/23/1983 Quit date: 08/23/2003 Years since quittin.1 Smokeless tobacco: Former Types: Chew Quit date: 07/22/1994 Vaping Use Vaping status: Never Used Substance Use Topics Alcohol use: Yes Alcohol/week: 2.3 standard drinks of alcohol Types: 1 Cans of Beer (12oz), 1 Mixed Drinks per week Drug use: No Current Outpatient Medications Medication Sig potassium chloride SR (MICRO-K) 10 mEq CR capsule Take 1 capsule by mouth once daily. BRILINTA 90 mg tablet Take 90 mg by mouth two times a day. chlorthalidone (HYGROTON) 25 mg tablet Take 1 tablet by mouth once daily. atorvastatin (LIPITOR) 20 mg tablet Take 1 tablet by mouth once daily. omeprazole (PRILOSEC) 40 mg capsule Take 1 capsule by mouth once daily. folic acid 1 mg tablet Take 1 tablet by mouth once daily. finasteride (PROPECIA) 1 mg tablet Take 1 tablet by mouth once daily. losartan (COZAAR) 100 mg tablet Take 1 tablet by mouth once daily. Flurbiprofen 100 mg tablet Take 1 tablet by mouth two times a day. amLODIPine (NORVASC) 5 mg tablet Take 1 tablet by mouth once daily. metoprolol succinate ER (TOPROL XL) 50 mg 24 hr tablet Take 1 tablet by mouth once daily. fluticasone (FLONASE) 50 mcg/actuation nasal spray Use 2 Sprays in each nostril once daily. For allergy symptoms. ID#[id number] Cholecalciferol, Vitamin D3, 1,000 unit cap Take 1 capsule by mouth once daily. FIBERCON 625 MG TAB Take one(1) tablet two(2) times daily. No current facility-administered medications for this visit. Objective BP 116/66 (BP Site: Left Arm, BP Position: Sitting, BP Cuff Size: Large Adult) Pulse 72 Temp 36.3 ?C (97.4 ?F) (Temporal) Wt 95.3 kg (210 lb 1.6 oz) BMI 32.18 kg/m? Physical Exam Constitutional: Appearance: He is not ill-appearing. HENT: Head: Normocephalic. Eyes: Conjunctiva/sclera: Conjunctivae normal. Cardiovascular: Rate and Rhythm: Normal rate and regular rhythm. Heart sounds: No murmur heard. No gallop. Pulmonary: Breath sounds: Normal breath sounds. Musculoskeletal: Right lower leg: No edema. Left lower leg: No edema. Neurological: Mental Status: He is alert. Assessment and Plan 1. Need for vaccination - ICD9: V05.9, ICD10: Z23 (primary diagnosis) - TDAP VACCINE, AGE 7+ YR (ADACEL, BOOSTRIX) 2. Essential hypertension - ICD9: 401.9, ICD10: I10 - Controlled - Continue current medications - POTASSIUM CHLORIDE ER 10 MEQ CAPSULE,EXTENDED RELEASE 3. Other hyperlipidemia - ICD9: 272.4, ICD10: E78.49 - Controlled. Continue medication. - COMPREHENSIVE METABOLIC PANEL - LIPID PANEL, FASTING 4. Hereditary hemochromatosis (H (more content not included)...[facility]03-24-2025 History of Present illness Narrative* Juan J Rubalcava MD - 10/12/2024 5:58 PM EDT This note was created using NoteWriter. Subjective Patient presents with: F/U 6 months Oliva Grey is a 69 year old male. His total knee was cancelled. He had NSTEMI on May 15, and was now on Brillinta for one year s/p ERIN to the RCA. His other conditions were stable. Review of Systems Constitutional: Negative for fatigue and fever. Respiratory: Negative for cough and shortness of breath. Cardiovascular: Negative for chest pain, palpitations and leg swelling. Neurological: Negative for dizziness, light-headedness and headaches. ACTIVE PROBLEM LIST Other Hyperlipidemia Esophagitis Atherosclerosis of [place] Coronary Artery of 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 Lopez CARDIAC CATH 07/10/2010 CC PTCA STENT 05/18/2024 Drug eluting stent to RCA COLONOSCOPY FLX DX W/COLLJ SPEC WHEN PFRMD 08/25/2004 Colonoscopy CYSTOSCOPY,URETEROSCOPY,STONE REMV Left 01/11/2017 retrograde pyelogram, laser lithotripsy EGD TRANSORAL BIOPSY SINGLE/MULTIPLE 04/20/2008 EGD TRANSORAL BIOPSY SINGLE/MULTIPLE 11/02/2011 ESOPHAGOSCOPY FLEX BALLOON DILAT <30 MM DIAM 09/20/2000 Esophageal dilatation PAST SURGICAL HISTORY OF 2003 sigmoid colectomy, diverticultis, appendectomy. PAST SURGICAL HISTORY OF Left 08/2004 artifical joint replaced left great toe PAST SURGICAL HISTORY OF Left 2010 left knee surgery, knee scope x 2 PAST SURGICAL HISTORY OF Right 03/2014 Arthroscopy right knee, meniscal tear, Dr. Rivera PAST SURGICAL HISTORY OF Left 09/01/[address] Rivera Social History Tobacco Use Smoking status: Former Current packs/day: 0.00 Average packs/day: 1 pack/day for 20.0 years (20.0 ttl pk-yrs) Types: Cigarettes Start date: 08/23/1983 Quit date: 08/23/2003 Years since quittin.1 Smokeless tobacco: Former Types: Chew Quit date: 07/22/1994 Vaping Use Vaping status: Never Used Substance Use Topics Alcohol use: Yes Alcohol/week: 2.3 standard drinks of alcohol Types: 1 Cans of Beer (12oz), 1 Mixed Drinks per week Drug use: No Current Outpatient Medications Medication Sig potassium chloride SR (MICRO-K) 10 mEq CR capsule Take 1 capsule by mouth once daily. BRILINTA 90 mg tablet Take 90 mg by mouth two times a day. chlorthalidone (HYGROTON) 25 mg tablet Take 1 tablet by mouth once daily. atorvastatin (LIPITOR) 20 mg tablet Take 1 tablet by mouth once daily. omeprazole (PRILOSEC) 40 mg capsule Take 1 capsule by mouth once daily. folic acid 1 mg tablet Take 1 tablet by mouth once daily. finasteride (PROPECIA) 1 mg tablet Take 1 tablet by mouth once daily. losartan (COZAAR) 100 mg tablet Take 1 tablet by mouth once daily. Flurbiprofen 100 mg tablet Take 1 tablet by mouth two times a day. amLODIPine (NORVASC) 5 mg tablet Take 1 tablet by mouth once daily. metoprolol succinate ER (TOPROL XL) 50 mg 24 hr tablet Take 1 tablet by mouth once daily. fluticasone (FLONASE) 50 mcg/actuation nasal spray Use 2 Sprays in each nostril once daily. For allergy symptoms. ID#[id number] Cholecalciferol, Vitamin D3, 1,000 unit cap Take 1 capsule by mouth once daily. FIBERCON 625 MG TAB Take one(1) tablet two(2) times daily. No current facility-administered medications for this visit. Objective BP 116/66 (BP Site: Left Arm, BP Position: Sitting, BP Cuff Size: Large Adult) Pulse 72 Temp 36.3 C (97.4 F) (Temporal) Wt 95.3 kg (210 lb 1.6 oz) BMI 32.18 kg/m Physical Exam Constitutional: Appearance: He is not ill-appearing. HENT: Head: Normocephalic. Eyes: Conjunctiva/sclera: Conjunctivae normal. Cardiovascular: Rate and Rhythm: Normal rate and regular rhythm. Heart sounds: No murmur heard. No gallop. Pulmonary: Breath sounds: Normal breath sounds. Musculoskeletal: Right lower leg: No edema. Left lower leg: No edema. Neurological: Mental Status: He is alert. Assessment and Plan 1. Need for vaccination - ICD9: V05.9, ICD10: Z23 (primary diagnosis) - TDAP VACCINE, AGE 7+ YR (ADACEL, BOOSTRIX) 2. Essential hypertension - ICD9: 401.9, ICD10: I10 - Controlled - Continue current medications - POTASSIUM CHLORIDE ER 10 MEQ CAPSULE,EXTENDED RELEASE 3. Other hyperlipidemia - ICD9: 272.4, ICD10: E78.49 - Controlled. Continue medication. - COMPREHENSIVE METABOLIC PANEL - LIPID PANEL, FASTING 4. Hereditary hemochromatosis (HCC) - ICD9: 275.01, ICD10: E83.110 - Monitored by hematology. 5. Impaired fasting glucose - ICD9: 790.21, ICD10: R73.01 - Low carb diet. - HEMOGLOBIN A1C 6. 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 - ICD9: 414.01, ICD10: I25.10 - History of non STEMI, and ERIN to RCA. - BRILINTA 90 MG TABLET - METOPROLOL SUCCINATE ER 50 MG TABLET,EXTENDED RELEASE 24 HR 7. Screening for prostate cancer - ICD9: V76.44, ICD10: Z12.5 The meaning of a false positive PSA and false negative PSA has been discussed, and the patient indicates their understanding of the limitations of this screening test. - PSA/PROSTATE SPECIFIC ANTIGEN SCREENING 8. Stented coronary artery (ERIN to RCA) - ICD9: V45.82, ICD10: Z95.5 Noted. Surgery postponed . Juan J Rubalcava MD documented in this encounterFort [facility]03-[facility] Telephone encounter Note * Telephone Encounter - [place] Corinna Chapa - 09/25/2024 9:59 AM EST Prescription Refill Information The patient has been identified by name and date of : Yes Caregiver verified no other encounters exist for this prescription request: Yes Caregiver confirmed with patient/requestor that no other refills are due, in the near future, with this provider at this time: Yes The last office visit in the department: 04/14/24 Does the patient have a future office visit with this provider/department: Yes Requested Prescriptions Pending Prescriptions Disp Refills chlorthalidone (HYGROTON) 25 mg tablet 90 tablet 3 Sig: Take 1 tablet by mouth once daily. Patient is requesting sent today, he is out of the weekend. Corinna Chapa September 25, 2024 10:00 AM [facility]03-07-[facility] Miscellaneous Notes* Telephone Encounter - Corinna Gupta - 09/25/2024 9:59 AM EST Prescription Refill Information The patient has been identified by name and date of : Yes Caregiver verified no other encounters exist for this prescription request: Yes Caregiver confirmed with patient/requestor that no other refills are due, in the near future, with this provider at this time: Yes The last office visit in the department: 04/14/24 Does the patient have a future office visit with this provider/department: Yes Requested Prescriptions Pending Prescriptions Disp Refills chlorthalidone (HYGROTON) 25 mg tablet 90 tablet 3 Sig: Take 1 tablet by mouth once daily. Patient is requesting sent today, he is out of the weekend. Corinna Chapa September 25, 2024 10:00 AM documented in this encounterFort [facility] Hospital02-05-2025 Evaluation note* Diagnosis Onset Date Resolution Status Admit Date Essential hypertension acute Fe 2024 2:24pm History of coronary artery stent placement May 18, 2024 acute August 26, 2024 2:24pm [facility] Work Phone: 1(230) 569-783101-09-2025 Telephone encounter Note* Telephone Encounter - Ana Cristina Collins - 07/30/2024 9:43 AM EST Prescription Refill Information The patient has been identified by name and date of : Yes Caregiver verified no other encounters exist for this prescription request: Yes Caregiver confirmed with patient/requestor that no other refills are due, in the near future, with this provider at this time: Yes The last office visit in the department: 04-14-24 Does the patient have a future office visit with this provider/department: Yes Requested Prescriptions Pending Prescriptions Disp Refills atorvastatin (LIPITOR) 20 mg tablet 90 tablet 3 Sig: Take 1 tablet by mouth once daily. Ana Cristina Collins July 30, 2024 9:43 AM [facility]01-[facility] Miscellaneous Notes* Telephone Encounter - Ana Cristina Collins - 07/30/2024 9:43 AM EST Prescription Refill Information The patient has been identified by name and date of : Yes Caregiver verified no other encounters exist for this prescription request: Yes Caregiver confirmed with patient/requestor that no other refills are due, in the near future, with this provider at this time: Yes The last office visit in the department: 04-14-24 Does the patient have a future office visit with this provider/department: Yes Requested Prescriptions Pending Prescriptions Disp Refills atorvastatin (LIPITOR) 20 mg tablet 90 tablet 3 Sig: Take 1 tablet by mouth once daily. Ana Cristina Collins July 30, 2024 9:43 AM documented [facility] encounter[facility] Telephone encounter Note * Telephone Encounter - Katelyn Randle - 07/20/2024 3:57 PM EST Prescription Refill Information The patient has been identified by name and date of : Yes Caregiver verified no other encounters exist for this prescription request: Yes Caregiver confirmed with patient/requestor that no other refills are due, in the near future, with this provider at this time: Yes The last office visit in the department: 04/14/2024 Does the patient have a future office visit with this provider/department: Yes Requested Prescriptions Pending Prescriptions Disp Refills omeprazole (PRILOSEC) 40 mg capsule 90 capsule 3 Sig: Take 1 capsule by mouth once daily. Katelyn Velasco July 20, 2024 3:57 PM [facility]12-30-[facility] Miscellaneous Notes* Telephone Encounter - Katelyn Randle - 07/20/2024 3:57 PM EST Prescription Refill Information The patient has been identified by name and date of : Yes Caregiver verified no other encounters exist for this prescription request: Yes Caregiver confirmed with patient/requestor that no other refills are due, in the near future, with this provider at this time: Yes The last office visit in the department: 04/14/2024 Does the patient have a future office visit with this provider/department: Yes Requested Prescriptions Pending Prescriptions Disp Refills omeprazole (PRILOSEC) 40 mg capsule 90 capsule 3 Sig: Take 1 capsule by mouth once daily. Katelyn Velasco July 20, 2024 3:57 PM documented in this encounterFort [facility]10-31-2024 Telephone encounter Note * Telephone Encounter - Michael Duggan RN - 05/21/2024 2:26 PM EDT Spoke with patient. Given message from provider's office. Patient verbalizes understanding. Michael Duggan RN [facility]10-[facility] Miscellaneous Notes* Telephone Encounter - Michael Duggan RN - 05/21/2024 2:26 PM EDT Spoke with patient. Given message from provider's office. Patient verbalizes understanding. Michael Duggan RN * Telephone Encounter - Juan J Rubalcava MD - 05/21/2024 1:44 PM EDT He doesn't have to as long as he is following up with cardiology. If there are concerns with medications, results, side effects etc, I will need to see him to catch up. * Telephone Encounter - Jeannie Ellison - 05/21/2024 11:09 AM EDT Pt called in stating he had a heart attack last Tuesday 05/15 and was released 05/19. He wanted to make sure he didn't need to see Dr. Car for follow up he prefers not to if he can avoid it. Please advise and call patient regarding. Thank you documented in this encounterFort [facility] Hospital10-31-2024 Telephone encounter Note * Telephone Encounter - Juan J Rubalcava MD - 05/21/2024 1:44 PM EDT He doesn't have to as long as he is following up with cardiology. If there are concerns with medications, results, side effects etc, I will need to see him to catch up. [facility] Telephone encounter Note* Telephone Encounter - Jeannie Ellison - 05/21/2024 11:09 AM EDT Pt called in stating he had a heart attack last Tuesday 05/15 and was released 05/19. He wanted to make sure he didn't need to see Dr. Car for follow up he prefers not to if he can avoid it. Please advise and call patient regarding. Thank you [facility]10-29-2024 [facility] Medical Records Department [address] [place] [address] Discharge Summary 05/19/24 0948 MR#: [id number] Acct: [id number] Name: OLIVA GREY Rep #: [id number] : [id number] 68 From: Clayton Alaniz DO PCP: Dr. Juan J Rubalcava MD Status:DIS IN [facility] Prov[facility] Date of Admission: 05/15/24 Date of Discharge: 05/19/24 Primary Care Physician: Dr. Juan J Rubalcava MD Consultations 05/15/24 13:32 Consult: Cardiology Routine Consulting Provider: Debbie Raymond Reason for Consult: Chest Pain EMERGENT Consult: No MD Notified: Yes Date Notified: 05/15/24 Time Notified: 12:54 Method of Notification: Text Reason For Visit: CHEST PAIN WITH ELEVATED TROPONIN Diagnosis Discharge Diagnosis (1) Acute non-ST elevation myocardial infarction (NSTEMI): Status: Acute Code(s): I21.4 - Non-ST elevation (NSTEMI) myocardial infarction Plan 1. Acute non-STEMI with occlusive coronary artery disease right coronary artery- status post ERIN right coronary artery postop day 0-patient will remain on his present medications, he will continue to be monitored #2 essential hypertension-patient ask if he could go off of some of his hypertensive medications, I told him that this is usually not possible, patient stated that he felt since he was getting better circulation to his heart that he could go off of some of his blood pressure medication but explained that that had nothing to do with his essential hypertension. #3 hyperlipidemia-patient is on atorvastatin #4 GERD-patient is on omeprazole Total clinical time spent by myself addressing the patient's medical issues, reviewing all of his data, and collaborating with patient's care team: 35-minute Medications at Discharge Home Medications atorvastatin 20 mg tablet 20 mg PO DAILY cholesterol 01/09/17 qjja-osq-dxasr-qliekavqs-keyvywae-qhnv-pectin 1,000 mg tablet 1,000 mg PO DAILY bowels 01/09/17 cholecalciferol (vitamin D3) 25 mcg (1,000 unit) capsule 1,000 unit PO DAILY supplement 01/09/17 finasteride 1 mg tablet 1 mg PO QHS prostate 01/09/17 folic acid 1 mg tablet 1 mg PO DAILY@0800 supplement 01/09/17 metoprolol succinate 50 mg tablet,extended release 24 hr 50 mg PO DAILY HR 01/09/17 amlodipine 5 mg tablet 5 mg PO DAILY blood pressure 05/15/24 hydrochlorothiazide 25 mg tablet 25 mg PO DAILY water pill 05/15/24 losartan 100 mg tablet 100 mg PO DAILY blood pressure 05/15/24 omeprazole 40 mg capsule,delayed release 40 mg PO DAILY acid reflux 10/25/24 acetaminophen 325 mg tablet 650 mg (2 x 325 mg) PO Q6H PRN PRN Pain 1-10 Or Fever >100.7 #0 tabs 05/19/24 aspirin 81 mg tablet,delayed release 81 mg PO BREAKFAST #0 tabs 05/19/24 ticagrelor 90 mg tablet (Brilinta) 90 mg PO BID #60 tabs 05/19/24 tramadol 50 mg tablet 50 mg PO .QID PRN pain #40 tabs 05/19/24 Hospital Course Operations None Procedures Cardiac catheterization (With insertion of ERIN into right coronary artery) Summary of Care Provided Minutes Spent on Discharge: 31 Hospital Course: This 68-year-old white male was seen in the emergency room at [facility] with complaints of chest pain. After exercising at home on a stationary bike, patient got off the bicycle and started having some indigestion symptoms and took medication. The symptoms did not resolve so he presented to the emergency room for evaluation. Workup in the emergency room showed his pulse ox to be normal on room air, chemistry panel was unremarkable other than a blood sugar of 173. Initial troponin was 12 but subsequent troponin was obtained and it was 116. CTA of the chest was performed was negative for pulmonary embolus. Patient was admitted to PCU and seen in consultation by cardiology, echocardiogram was performed and showed no evidence of valvular heart disease or impaired EF. A third set of cardiac enzymes revealed an elevated troponin at 1104, the patient was scheduled for a cardiac catheterization and underwent a catheterization on 05/18/2024 with insertion of a ERIN in the right coronary artery for obstructive coronary disease. Patient tolerated the procedure well. On 05/19/2024, patient was seen and examined: On examination he appeared in good health and spirits. Vital signs as documented. Skin warm and dry and without overt rashes. Neck without JVD, neck was supple, trachea midline, thyroid was normal. Lungs clear bilaterally, normal air movement was noted. Heart exam notable for regular rhythm, normal sounds and absence of murmurs, rubs or gallops. Abdomen unremarkable and without evidence of organomegaly, masses, or abdominal aortic enlargement. Bowel sounds are present, abdomen is not distended. Extremities nonedematous, no cyanosis was noted, no clubbing was noted. Neuro: Cranial nerves II through XII are grossly intact, no focal motor deficits were noted, s (more content not included)...[facility]24 Telephone encounter Note* Telephone Encounter - Savannah Waters LPN - 05/12/2024 1:38 PM EDT faxed. Savannah Waters LPN [facility]10-[facility] Miscellaneous Notes* Telephone Encounter - Savannah Waters LPN - 05/12/2024 1:38 PM EDT faxed. Savannah Waters LPN * Telephone Encounter - Jolanta Bray - 05/12/2024 1:34 PM EDT Please fax last office visit note from Dr. Flores to [facility] [phone] documented in this encounterFort [facility]10-22-2024 Telephone encounter Note * Telephone Encounter - Jolanta Bray - 05/12/2024 1:34 PM EDT Please fax last office visit note from Dr. Flores to [facility] [phone] [facility] Work Phone: [phone] Telephone encounter Note* Telephone Encounter - Shira Ramirez LPN - 05/12/2024 9:21 AM EDT Surgery clearance form completed and faxed. Shira Ramirez LPN [facility]10-[facility] Miscellaneous Notes* Telephone Encounter - Shira Ramirez LPN - 05/12/2024 9:21 AM EDT Surgery clearance form completed and faxed. Shira Ramirez LPN * Telephone Encounter - Candelario Hinojosa - 05/11/2024 11:32 AM EDT [facility] called and asked if had received the surgical clearance form on Saturday05/08/24, it does not look like we did after speaking to nursing staff. They are resending fax to [phone] Patient is scheduled for surgery on 05/19/24 Candelario Chapa documented in this encounterFort [facility] Hospital10-22-2024 Telephone encounter Note * Telephone Encounter - Allyssa Gaston RN - 05/12/2024 9:20 AM EDT Denise with [facility] calling and requesting patent's recent EKG results be faxed to them for upcoming procedure. Faxed as requested to [phone]. Allyssa Gaston RN [facility]10-[facility]24 Miscellaneous Notes* Telephone Encounter - Allyssa Gaston RN - 05/12/2024 9:20 AM EDT Denise with [facility] calling and requesting patent's recent EKG results be faxed to them for upcoming procedure. Faxed as requested to [phone]. Allyssa Gaston RN documented in this encounterFort [facility] Hospital10-21-2024 Telephone encounter Note * Telephone Encounter - Candelario Hinojosa - 05/11/2024 11:32 AM EDT [facility] called and asked if had received the surgical clearance form on Saturday05/08/24, it does not look like we did after speaking to nursing staff. They are resending fax to [phone] Patient is scheduled for surgery on 05/19/24 Candelario Chapa [facility]10-[facility] Telephone encounter Note* Telephone Encounter - Tashia Alexander - 05/06/2024 3:00 PM EDT Prescription Refill Information The patient has been identified by name and date of : Yes Caregiver verified no other encounters exist for this prescription request: Yes Caregiver confirmed with patient/requestor that no other refills are due, in the near future, with this provider at this time: Yes The last office visit in the department: 04/14/24 Does the patient have a future office visit with this provider/department: Yes Requested Prescriptions Pending Prescriptions Disp Refills folic acid 1 mg tablet 90 tablet 3 Sig: Take 1 tablet by mouth once daily. Tashia Chapa May 06, 2024 3:01 PM [facility] Miscellaneous Notes* Telephone Encounter - Tashia Alexander - 05/06/2024 3:00 PM EDT Prescription Refill Information The patient has been identified by name and date of : Yes Caregiver verified no other encounters exist for this prescription request: Yes Caregiver confirmed with patient/requestor that no other refills are due, in the near future, with this provider at this time: Yes The last office visit in the department: 04/14/24 Does the patient have a future office visit with this provider/department: Yes Requested Prescriptions Pending Prescriptions Disp Refills folic acid 1 mg tablet 90 tablet 3 Sig: Take 1 tablet by mouth once daily. Tashia Chapa May 06, 2024 3:01 PM documented in this encounterFort Hamilton Hospital09-24-2024 Instructions* Patient Instructions* Juan J Rubalcava MD - 04/14/2024 8:51 AM EDT STOP Flurbiprofen for joint pains one week before surgery. Do not take aspirin, ibuprofen, naproxenone week before surgery. On the morning of surgery take only the following medications for blood pressure: 1) amlodipine 5 mg 2) metoprolol ER 50 mg 3) losartan 100 mg Do not take your other medications the morning of surgery. Screening schedule The following prevention plan is recommended: Depression Screening Never done Anxiety Screening Never done Advance Directive Discussion due on 07/22/2023 DTaP,Tdap,Td Vaccine(2 - Td or Tdap) due on 11/04/2023 Covid-19 Vaccine( season) due on 03/22/2024 Influenza Vaccine(1) due on 03/22/2024 WHAT YOU CAN DO TO PREVENT FALLS Many falls can be prevented. By making some changes, you can lower your chances of falling. Four things YOU can do to prevent falls for you* and your caregiver 1. Begin a regular exercise program Exercise is one of the most important ways to lower your chances of falling. It makes you stronger and helps you feel better. Exercises that improve balance and coordination (like Romeo Chi) are the most helpful. Lack of exercise leads to weakness and increases your chances of falling. Ask your doctor or health care provider about the best type of exercise program for you. 2. Have your health care provider review your medicines Have your doctor or pharmacist review all the medicines you take, even zdxa-kws-sexjcxm medicines. As you get older, the way medicines work in your body can change. Some medicines, or combinations of medicines, can make you sleepy or dizzy andcan cause you to fall. 3. Have your vision checked Have your eyes checked by an eye doctor at least once a year. You may be wearing the wrong glasses or have a condition like glaucoma or cataracts that limits your vision. Poor vision can increase your chances of falling. 4. Make your home safer About half of all falls happen at home. To make your home safer: Remove things you can trip over (like papers, books, clothes, and shoes) from stairs and places where you walk. Remove small throw rugs or use double-sided tape to keep the rugs from slipping. Keep items you use often in cabinets you can reach easily without using a step stool. Have grab bars put in next to your toilet and in the tub or shower. Use non-slip mats in the bathtub and on shower floors. Improve the lighting in your home. As you get older, you need brighter lights to see well. Hang light-weight curtains or shades to reduce glare. Have handrails and lights put in on all staircases. Wear shoes both inside and outside the house. Avoid going barefoot or wearing slippers. For more information, contact: Centers for Disease Control and Prevention www.cdc.gov/injury * This information may not apply if you have certain medical conditions. documented in this encounterFort [facility] Hospital09-24-2024 History of Present illness Narrative* Juan J Rubalcava MD - 04/14/2024 8:30 AM EDT This note was created using [employer]. Subjective Patient presents with: Medicare Wellness Exam Pre-Op Exam Consultation requested by Dr. Santiago Perez for an opinion regarding preoperative examination. My final recommendations will be communicated back to the requesting physician by way of shared Medical record. Oliva Grey is a 68 year old male scheduled for right robotic assisted total knee arthroplastyOct2023. He has no history of myocardial infarction, congestive heart failure, DVT, PE, bleeding tendencies,or adverse effects from anesthesia. His chronic conditions were controlled. Review of Systems Constitutional: Negative for fatigue, fever and unexpected weight change. HENT: Negative for congestion. Respiratory: Negative for shortness of breath and wheezing. Cardiovascular: Positive for leg swelling. Negative for chest pain and palpitations. Gastrointestinal: Negative for diarrhea, nausea and vomiting. Genitourinary: Negative for difficulty urinating and dysuria. ACTIVE PROBLEM LIST Other Hyperlipidemia Esophagitis Atherosclerosis of [place] Coronary Artery of 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 Lopez CARDIAC CATH 07/10/2010 COLONOSCOPY FLX DX W/COLLJ SPEC WHEN PFRMD 08/25/2004 Colonoscopy CYSTOSCOPY,URETEROSCOPY,STONE REMV Left 01/11/2017 retrograde pyelogram, laser lithotripsy EGD TRANSORAL BIOPSY SINGLE/MULTIPLE 04/20/08 EGD TRANSORAL BIOPSY SINGLE/MULTIPLE 11/02/11 ESOPHAGOSCOPY FLEX BALLOON DILAT <30 MM DIAM 09/20/2000 Esophageal dilatation PAST SURGICAL HISTORY OF 2003 sigmoid colectomy, diverticultis, appendectomy. PAST SURGICAL HISTORY OF Left 08/2004 artifical joint replaced left great toe PAST SURGICAL HISTORY OF Left 2010 left knee surgery, knee scope x 2 PAST SURGICAL HISTORY OF Right 03/2014 Arthroscopy right knee, meniscal tear, Dr. Rivera PAST SURGICAL HISTORY OF Left 09/01/[address] Rivera Social History Tobacco Use Smoking status: Former Current packs/day: 0.00 Average packs/day: 1 pack/day for 20.0 years (20.0 ttl pk-yrs) Types: Cigarettes Start date: 08/23/1983 Quit date: 08/23/2003 Years since quittin.6 Smokeless tobacco: Former Types: Chew Quit date: 07/22/1994 Vaping Use Vaping status: Never Used Substance Use Topics Alcohol use: Yes Alcohol/week: 2.3 standard drinks of alcohol Types: 1 Cans of Beer (12oz), 1 Mixed Drinks per week Drug use: No ALLERGIES Allergen Reactions Simvastatin Other: See Comments myalgia shoulders Current Outpatient Medications Medication Sig amLODIPine (NORVASC) 5 mg tablet Take 1 tablet by mouth once daily. chlorthalidone (HYGROTON) 25 mg tablet Take 1 tablet by mouth once daily. metoprolol succinate ER (TOPROL XL) 50 mg 24 hr tablet Take 1 tablet by mouth once daily. atorvastatin (LIPITOR) 20 mg tablet Take 1 tablet by mouth once daily. omeprazole (PRILOSEC) 40 mg capsule Take 1 capsule by mouth once daily. folic acid 1 mg tablet Take 1 tablet by mouth once daily. fluticasone (FLONASE) 50 mcg/actuation nasal spray Use 2 Sprays in each nostril once daily. For allergy symptoms. ID#[id number] (Patient taking differently: Use 2 Sprays in each nostril once daily.For allergy symptoms. ID#[id number] Prn) Cholecalciferol, Vitamin D3, 1,000 unit cap Take 1 capsule by mouth once daily. FIBERCON 625 MG TAB Take one(1) tablet two(2) times daily. finasteride (PROPECIA) 1 mg tablet Take 1 tablet by mouth once daily. losartan (COZAAR) 100 mg tablet Take 1 tablet by mouth once daily. Flurbiprofen 100 mg tablet Take 1 tablet by mouth two times a day. No current facility-administered medications for this visit. Objective BP 123/78 (BP Site: Left Arm, BP Position: Sitting, BP Cuff Size: Large Adult) Pulse 72 Temp 36.6 C (97.8 F) (Temporal) Ht 172.1 cm (5' 7.75) Wt 101.6 kg (223 lb 15.8 oz) BMI 34.31 kg/m Physical Exam Constitutional: Appearance: Normal appearance. HENT: Head: Normocephalic. Eyes: Conjunctiva/sclera: Conjunctivae normal. Neck: Vascular: No carotid bruit. Cardiovascular: Rate and Rhythm: Normal rate and regular rhythm. Heart sounds: No murmur heard. No gallop. Pulmonary: Breath sounds: Normal breath sounds. Abdominal: Tenderness: There is no abdominal tenderness. Musculoskeletal: Right lower le+ Edema present. Left lower leg: No edema. Neurological: General: No focal deficit present. Mental Status: He is alert. Gait: Gait normal. Latest Ref Rn 03/14/2024 Protein, Total 6.3 - 8.0 g/dL 7.2 Albumin 3.9 - 4.9 g/dL 4.3 Calcium 8.5 - 10.2 mg/dL 9.8 Bilirubin, Total 0.2 - 1.3 mg/dL 0.8 Alkaline Phosphatase 38 - 113 U/L 60 AST 14 - 40 U/L 65 (H) ALT 10 - 54 U/L 91 (H) Glucose 74 - 99 mg/dL 114 (H) BUN 9 - 24 mg/dL 20 Creatinine 0.73 - 1.22 mg/dL 0.87 Sodium 136 - 144 mmol/L 140 Potassium 3.7 - 5.1 mmol/L 4.7 Chloride 98 - 107 mmol/L 104 CO2 22 - 30 mmol/L 23 Anion Gap 8 - 15 mmol/L 13 eGFR >=60 mL/min/1.73m 95 Cholesterol, Total <200 mg/dL 124 Triglyceride <150 mg/dL 124 HDL Cholesterol >39 mg/dL 31 (L) Non HDL Cholesterol <130 mg/dL 93 Fasting Time hrs 12 VLDL Cholesterol <30 mg/dL 25 TC:HDL Ratio <5.10 4.00 LDL Cholesterol <100 mg/dL 68 LDL:HDL Ratio <2.54 2.19 Legend: (H) High (L) Low EKG RESULTS: sinus bradycardia, left axis deviation, 1st degree AV block, and similar to previous EKG. Assessment and Plan 1. Medicare annual wellness visit, initial - ICD9: V70.0, ICD10: Z00.00 (primary diagnosis) - See wellness note. 2. Male pattern alopecia - ICD9: 704.09, ICD10: L64.9 Controlled. Continue medication. - FINASTERIDE 1 MG TABLET 3. Hereditary hemochromatosis (HCC) - ICD9: 275.01, ICD10: E83.110 Stable. He follows with hematology. 4. Essential hypertension - ICD9: 401.9, ICD10: I10 - Controlled - Continue current medications - See printed instructions for surgery. - LOSARTAN 100 MG TABLET 5. Screening for depression - ICD9: V79.0, ICD10: Z13.31 - DEPRESSION SCREENING 6. Encounter for screening examination for other mental health and behavioral disorders - ICD9: V79.8, ICD10: Z13.39 - ANXIETY SCREENING 7. Other hyperlipidemia - ICD9: 272.4, ICD10: E78.49 - Controlled. Continue medication. 8. Impaired fasting glucose - ICD9: 790.21, ICD10: R73.01 - Stable. Diet. 9. Preoperative examination - ICD9: V72.84, ICD10: Z01.818 - No contraindication. - [place] Activity Status Index 42.7. - Revised Cardiac Risk index Class 1= 0.49% risk of MACE. - ACS NSQIP surgical risk calculator: Average risk for infection, renal failure, VTE, sepsis. Belowaverage risk for all other outcomes. - See printed instructions or information. Juan J Rubalcava MD * Juan J Rubalcava MD - 04/14/2024 8:24 AM EDT Images from the original note were not included. Oliva Grey is a 68 year old male here for a Medicare wellness visit. Medicare Health Risk Assessment General Health Good Exercise: Minutes/Day 10 min Exercise: Days/Week 5 days Alcohol: Daily Use 2-4 times a month Alcohol: Drinks/Day 1 or 2 Alcohol: 6 or more drinks Never Feel off balance No Concerns: Teeth/Dentures No Concerns: Sexual function No Troubled by feelings None of the above Frequency: Eating healthy diet Nearly every day ADLs requiring help None of the above Safety precautions in home/vehicle Smoke, vape, chews tobacco No Difficulty hearing No Difficulty seeing No Current Providers Specialists: I have reviewed specialist-related care of the patient in the medical record. Current care team: Patient Care Team: Juan J Rubalcava MD as PCP - General (Internal Medicine) Carlos Flores MD (Hematology/Oncology) Santiago Perez MD ([facility]) MD Jerilyn, (Ophthalmology) Medical/Family history review Reviewed and updated problem list, medical/surgical/family/social history, medications, and allergies. Opioid use review Opioid Medications (last 90 days) No data to display Anxiety/Depression screening Recommendation: no further intervention at this time Cognitive screening Mini Cog Score: 4 Cognitive screening reviewed and No further action needed (score 3-5). Functional Observation Was the patient's Timed Up & Go test unsteady or >= 12 seconds? No Advance Care Planning Patient did not wish or was not able to name a surrogate decision maker or provide an advance care plan Measurements BP 123/78 (BP Site: Left Arm, BP Position: Sitting, BP Cuff Size: Large Adult) Pulse 72 Temp 36.6 C (97.8 F) (Temporal) Ht 172.1 cm (5' 7.75) Wt 101.6 kg (223 lb 15.8 oz) BMI 34.31 kg/m Vision Screening: Follows with optometry/ophthalmology Right: 20/40 Left: 20/ 40 Both: 20/40 Assessment/Plan Medicare annual wellness visit, initial (Z00.00) - Counseled on healthy diet and regular exercise - Fall avoidance information provided - Personalized prevention plan provided - Discussed need for and benefit of weight loss. BMI 34.31 kg/(m^2) - Counseled patient on alcohol intake and associated health risks - Vaccine recommendations reviewed. documented in this encounter[facility]09-[facility]24 Telephone encounter Note * Telephone Encounter - Kimberley Lane LPN - 04/13/2024 4:23 PM EDT [facility]14/2025, Robotic Assisted Right Total Knee Arthroplasty 05/19/2024. Date of Pre-op appointment with Aletha Shaw PA-C on 05/12/2024. Per Nimo, Surgical Clearance can be up to 6 months as long as the PCP approves. Kimberley Lane LPN [facility]09-[facility] Miscellaneous Notes* Telephone Encounter - Kimberley Lane LPN - 04/13/2024 4:23 PM EDT [facility], 04/14/2025, Robotic Assisted Right Total Knee Arthroplasty 05/19/2024. Date of Pre-op appointment with Aletha Shaw PA-C on 05/12/2024. Per Nimo, Surgical Clearance can be up to 6 months as long as the PCP approves. Kimberley Lane LPN documented in this encounterFort [facility] Hospital09-16-2024 Telephone encounter Note * Telephone Encounter - Arleen Graff - 04/06/2024 4:43 PM EDT Prescription Refill Information The patient has been identified by name and date of : Yes Caregiver verified no other encounters exist for this prescription request: Yes Caregiver confirmed with patient/requestor that no other refills are due, in the near future, with this provider at this time: Yes The last office visit in the department: 09-04-23 Does the patient have a future office visit with this provider/department: Yes Requested Prescriptions Pending Prescriptions Disp Refills amLODIPine (NORVASC) 5 mg tablet 90 tablet 3 Sig: Take 1 tablet by mouth once daily. Arleen French Chapa April 06, 2024 4:44 PM [facility]09-16-[facility] Miscellaneous Notes* Telephone Encounter - Arleen Graff - 04/06/2024 4:43 PM EDT Prescription Refill Information The patient has been identified by name and date of : Yes Caregiver verified no other encounters exist for this prescription request: Yes Caregiver confirmed with patient/requestor that no other refills are due, in the near future, with this provider at this time: Yes The last office visit in the department: 09-04-23 Does the patient have a future office visit with this provider/department: Yes Requested Prescriptions Pending Prescriptions Disp Refills amLODIPine (NORVASC) 5 mg tablet 90 tablet 3 Sig: Take 1 tablet by mouth once daily. Arleen French Chapa April 06, 2024 4:44 PM documented in this encounterFort [facility] Hospital04-26-2024 Telephone encounter Note * Telephone Encounter - Mariaelena Granado RN - 11/15/2023 10:28 AM EDT Images from the original note were not included. There are standing order for above labs to be drawn on 04/18/24. I updated the appointment note. Ana Cristina Granado RN [facility] Work Phone: 1(390) 298-428604-26-2024 Miscellaneous Notes* Telephone Encounter - Mariaelena Granado RN - 11/15/2023 10:28 AM EDT Images from the original note were not included. There are standing order for above labs to be drawn on 04/18/24. I updated the appointment note. Ana Cristina Granado, RN * Telephone Encounter - Liz Vallejo - 11/14/2023 3:25 PM EDT Please file H & H to be drawn on 04/18/24 as patient will have labs drawn at [facility]. documented in this encounterFort [facility]04-25-2024 Telephone encounter Note * Telephone Encounter - Liz Vallejo - 11/14/2023 3:25 PM EDT Please file H & H to be drawn on 04/18/24 as patient will have labs drawn at [facility]. [facility] History of Present illness Narrative* Carlos Flores MD - 11/14/2023 3:12 PM EDT (Elements copied from my note dated August 08, 2023, have been reviewed and updated where appropriate, and all reflect current assessment and medical decision making from today's encounter, November 14, 2023) HISTORY OF PRESENT ILLNESS: Oliva Grey is a 67 year old male dx in 2002 with hereditary hemochromatosis on basis of elevted LFT, liver biopsy showed iron index > 1.9g. gene analysis showed heterozygous mutations in 2 gene (this is per Dr Cosby's note, report not readily available to me) He has been having phlebotomy every 3 months. Last ferritin was 27 measured in May 2022. We noted mild anemia. CLINICAL IMPRESSION: Hereditary hemochromatosis RECOMMENDATION/PLAN: 1. Hold phlebotomy 2. Back in 6 months with possible phlebotomy, target ferritin 50 Written and verbal health teaching given to patient, patient verbalizes understanding and agrees with treatment plan. 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 Benign non-nodular prostatic hyperplasia without lower urinary tract symptoms 10/23/2016 Disorders of iron metabolism Esophagitis, unspecified Hereditary hemochromatosis (HCC) 12/23/2015 History of kidney stones 10/23/2016 Hydrocele 11/07/2016 Hypertension Impaired fasting glucose 10/30/2018 Internal hemorrhoids without mention of complication 08/03/2005 Male pattern alopecia 09/05/2016 Nonspecific elevation of levels of transaminase or lactic acid dehydrogenase (LDH) Obstructive sleep apnea 04/16/2011 not treated by choice. Other hyperlipidemia 12/24/2005 Testicular calcification 11/07/2016 PAST SURGICAL HISTORY Procedure Laterality Date ARTHROSCOPY SHOULDER W/ROTATOR CUFF RPR Right 09/03/2018 [facility], Dr. Lopez CARDIAC CATH 07/10/2010 COLONOSCOPY FLX DX W/COLLJ SPEC WHEN PFRMD 08/25/2004 Colonoscopy CYSTOSCOPY,URETEROSCOPY,STONE REMV Left 01/11/2017 retrograde pyelogram, laser lithotripsy EGD TRANSORAL BIOPSY SINGLE/MULTIPLE 04/20/08 EGD TRANSORAL BIOPSY SINGLE/MULTIPLE 11/02/11 ESOPHAGOSCOPY FLEX BALLOON DILAT <30 MM DIAM 09/20/2000 Esophageal dilatation PAST SURGICAL HISTORY OF 2003 sigmoid colectomy, diverticultis, appendectomy. PAST SURGICAL HISTORY OF Left 08/2004 artifical joint replaced left great toe PAST SURGICAL HISTORY OF Left 2010 left knee surgery, knee scope x 2 PAST SURGICAL HISTORY OF Right 03/2014 Arthroscopy right knee, meniscal tear, Dr. Rivera PAST SURGICAL HISTORY OF Left 09/01/[address] Rivera FAMILY HISTORY Problem Relation Age of Onset Heart Father Heart Mother pacemaker Cancer Brother throat lymph nodes Multiple Sclerosis Sister Social History Tobacco Use Smoking status: Former Packs/day: 1.00 Years: 20.00 Additional pack years: 0.00 Total pack years: 20.00 Types: Cigarettes Quit date: 08/23/2003 Years since quittin.2 Smokeless tobacco: Former Types: Chew Quit date: 07/22/1994 Vaping Use Vaping Use: Never used Substance Use Topics Alcohol use: Yes Alcohol/week: 2.3 standard drinks of alcohol Types: 1 Cans of Beer (12oz), 1 Mixed Drinks per week Drug use: No ALLERGIES: ALLERGIES Allergen Reactions Simvastatin Other: See Comments myalgia shoulders CURRENT OUTPATIENT MEDICATIONS: chlorthalidone (HYGROTON) 25 mg tablet Take 1 tablet by mouth once daily. metoprolol succinate ER (TOPROL XL) 50 mg 24 hr tablet Take 1 tablet by mouth once daily. atorvastatin (LIPITOR) 20 mg tablet Take 1 tablet by mouth once daily. omeprazole (PRILOSEC) 40 mg capsule Take 1 capsule by mouth once daily. losartan (COZAAR) 100 mg tablet Take 1 tablet by mouth once daily. folic acid 1 mg tablet Take 1 tablet by mouth once daily. finasteride (PROPECIA) 1 mg tablet Take 1 tablet by mouth once daily. amLODIPine (NORVASC) 5 mg tablet Take 1 tablet by mouth once daily. fluticasone (FLONASE) 50 mcg/actuation nasal spray Use 2 Sprays in each nostril once daily. For allergy symptoms. ID#[id number] (Patient taking differently: Use 2 Sprays in each nostril once daily.For allergy symptoms. ID#[id number] Prn) meloxicam (MOBIC) 15 mg tablet Take 1 tablet by mouth once daily. With food for joint pains. Cholecalciferol, Vitamin D3, 1,000 unit cap Take 1 capsule by mouth once daily. FIBERCON 625 MG TAB Take one(1) tablet two(2) times daily. meclizine (ANTIVERT) 25 mg tab Take 1 tablet by mouth every 6 hours as needed (dizziness). (Patientnot taking: Reported on 11/14/2023) REVIEW OF SYSTEMS: GENERAL: No fever, night sweats, weight loss or malaise. All other reviewed and negative other than HPI. PHYSICAL EXAMINATION: VITAL SIGNS: BP 143/81 Pulse 77 Temp 97.5 Wt 230 lb (104.3kg) SpO2 95% GENERAL APPEARANCE: Well appearing, in no acute distress, alert and oriented x3, well-hydrated, well nourished. I spent a total of 20 minutes on the date of the service which included preparing to see the patient, [id number] patient care, completing clinical documentation, obtaining and/or reviewing separately obtained history, counseling and educating the patient/family/caregiver, ordering medications, eric ts, or procedures, independently interpreting results (not separately reported), and communicating results to the patient/family/caregiver. Electronically Signed: Carlos Flores MD November 14, 2023 documented in this encounterFort [facility] Hospital04-25-2024 Nurse Note* Shira Ramirez LPN - 11/14/2023 3:02 PM EDT Est.pt, discuss recent labs, questionable phlebo Shira S CLAUS Ramirez [facility]04-25-2024 Nurse Note* Shira Ramirez LPN - 11/14/2023 3:02 PM EDT Est.pt, discuss recent labs, questionable phlebo Shira S CLAUS Ramirez documented in this encounterFort [facility] Hospital04-25-2024 History of Present illness Narrative* Daniel Harmon, ERIC - 11/14/2023 1:04 PM EDT Pt doesn't need phlebo today due to ferritin. Recheck in [address] Flores. documented in this encounterFort [facility] Hospital04-16-2024 Miscellaneous Notes* Telephone Encounter - Mariaelena Granado RN - 11/05/2023 8:28 AM EDT Orders signed. Call to patient, left VM that labs have been ordered. Ana Cristina Granado RN * Telephone Encounter - Mariaelena Granado RN - 11/04/2023 8:45 AM EDT Patient needs iron studies per his check out note. CBC/IRON+TIBC/FERRITIN need drawn. Will route lab orders to Dr. Flores to sign when back on 11/04. Ana Cristina Granado, RN * Telephone Encounter - Pam Oreilly - 11/02/2023 11:03 AM EDT Patient approached the front desk person on Saturday to have extra labs done. He said Dr. Herrmann told him last time he wanted to check a few extra things that the patient thinks may need done before his appointment and may require fasting? Patient didn't know what the labs were called though. Please advise if patient needs additional labs and enter orders if needed. Patient requesting a call if additional labs are wanted. Pam Rangel documented in this encounterFort [facility] Hospital02-28-2024 Miscellaneous Notes* Telephone Encounter - Michael Duggan RN - 09/18/2023 4:49 PM EST Spoke with patient. Given message from provider's office. Patient verbalizes understanding. Michael Duggan RN * Telephone Encounter - Kimberley Lane LPN - 09/18/2023 8:27 AM EST Left message to call & speak to nurse. Kimberley Lane LPN * Telephone Encounter - Kimberley Lane LPN - 09/18/2023 8:25 AM EST ----- Message from Juan J Rubalcava MD sent at 2023 9:48 PM EST ----- Negative for DVT. Stop hydrochlorothiazide 25. Start chlorthalidone 25 mg daily for hypertension and edema. documented in this encounterFort [facility] Hospital02-14-2024 History of Present illness Narrative* Juan J Rubalcava MD - 09/04/2023 1:17 PM EST This note was created using [employer]. Subjective Oliav Grey is a 67 year old male. He was doing well. Right leg edema has progressed. It was not clear if this was related to his right knee arthritis. He just saw Dr. Lopez, and there was discussion about potential knee replacement.PT was recommended. His hypertension was controlled. Lipids were creeping up. He was taking his medications. We reviewed his labs. Review of Systems Constitutional: Negative for fatigue, fever and unexpected weight change. Respiratory: Negative for cough and shortness of breath. Cardiovascular: Negative for chest pain and palpitations. Gastrointestinal: Negative for diarrhea, nausea and vomiting. Genitourinary: Negative for difficulty urinating and dysuria. Neurological: Negative for dizziness and headaches. ACTIVE PROBLEM LIST Other Hyperlipidemia Esophagitis Atherosclerosis of [place] Coronary Artery of [place] Heart Without Angina Pectoris Arthritis Due to Hemochromatosis Hereditary Hemochromatosis (Hcc) Essential Hypertension Male Pattern Alopecia Ddd (Degenerative Disc Disease), Lumbar History of Kidney Stones Impaired Fasting Glucose Obesity, Class I, Bmi 30-34.9 Acquired Renal Cyst of Right Kidney Current Outpatient Medications Medication Sig atorvastatin (LIPITOR) 20 mg tablet Take 1 tablet by mouth once daily. omeprazole (PRILOSEC) 40 mg capsule Take 1 capsule by mouth once daily. losartan (COZAAR) 100 mg tablet Take 1 tablet by mouth once daily. folic acid 1 mg tablet Take 1 tablet by mouth once daily. finasteride (PROPECIA) 1 mg tablet Take 1 tablet by mouth once daily. amLODIPine (NORVASC) 5 mg tablet Take 1 tablet by mouth once daily. hydroCHLOROthiazide 25 mg tablet Take 1 tablet by mouth once daily. metoprolol succinate ER (TOPROL XL) 50 mg 24 hr tablet Take 1 tablet by mouth once daily. meclizine (ANTIVERT) 25 mg tab Take 1 tablet by mouth every 6 hours as needed (dizziness). fluticasone (FLONASE) 50 mcg/actuation nasal spray Use 2 Sprays in each nostril once daily. For allergy symptoms. ID#[id number] meloxicam (MOBIC) 15 mg tablet Take 1 tablet by mouth once daily. With food for joint pains. Cholecalciferol, Vitamin D3, 1,000 unit cap Take 1 capsule by mouth once daily. FIBERCON 625 MG TAB Take one(1) tablet two(2) times daily. benzonatate (TESSALON PERLE) 100 mg capsule Take 2 capsules by mouth three times a day as needed. (Patient not taking: Reported on 09/04/2023) No current facility-administered medications for this visit. Objective BP 129/77 (BP Site: Left Arm, BP Position: Sitting, BP Cuff Size: Large Adult) Pulse 69 Temp 36.6 C (97.9 F) (Temporal) Resp 16 Wt 102.1 kg (225 lb) BMI 34.62 kg/m Physical Exam Constitutional: Appearance: He is not ill-appearing. Cardiovascular: Rate and Rhythm: Normal rate and regular rhythm. Heart sounds: No murmur heard. No gallop. Pulmonary: Effort: No respiratory distress. Breath sounds: No wheezing or rales. Musculoskeletal: General: No tenderness. Right lower le+ Edema present. Left lower leg: No edema. Neurological: Mental Status: He is alert. Gait: Gait normal. Depression Screening PHQ-2 Score PHQ-9 Score 09/04/2023 0 - Depression screening tool completed and reviewed. Based on score and interview, patient is not at risk for depression. Screening tool discussed with patient, and I recommended no further interventionat this time. Component Latest Ref Rng & Units 08/29/2023 Glucose 74 - 99 mg/dL 97 BUN 9 - 24 mg/dL 20 Creatinine 0.73 - 1.22 mg/dL 0.81 Sodium 136 - 144 mmol/L 136 Potassium 3.7 - 5.1 mmol/L 5.4 (H) Chloride 97 - 105 mmol/L 102 CO2 22 - 30 mmol/L 21 (L) Anion Gap 9 - 18 mmol/L 13 Calcium 8.5 - 10.2 mg/dL 9.9 eGFR >=60 mL/min/1.73m 97 Cholesterol, Total <200 mg/dL 142 Triglyceride <150 mg/dL 179 (H) HDL Cholesterol >39 mg/dL 32 (L) Non HDL Cholesterol <130 mg/dL 110 Fasting Time hrs 12 VLDL Cholesterol <30 mg/dL 36 (H) TC:HDL Ratio <5.10 4.44 LDL Cholesterol <100 mg/dL 74 LDL:HDL Ratio <2.54 2.31 Assessment and Plan 1. 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 - ICD9: 414.01, ICD10: I25.10 (primary diagnosis) Stable. 2. Essential hypertension - ICD9: 401.9, ICD10: I10 - Improving control - Continue current medications 3. Need for prophylactic vaccination and inoculation against influenza - ICD9: V04.81, ICD10: Z23 - METOPROLOL SUCCINATE ER 50 MG TABLET,EXTENDED RELEASE 24 HR 4. Leg edema, right - ICD9: 782.3, ICD10: R60.0 Rule out DVT. If negative, change hydrochlorothiazide to chlorthalidone. Discussed medication dosage, usage, goals of therapy, and side effects. - US DVT LOWER RIGHT 5. Other hyperlipidemia - ICD9: 272.4, ICD10: E78.49 Focus on diet. - COMP METABOLIC PANEL - LIPID PANEL BASIC 6. Need for vaccination - ICD9: V05.9, ICD10: Z23 - RSV VACCINE, BIVALENT (ABRYSVO) Juan J Rubalcava MD documented in this encounterFort [facility] Hospital10-25-2023 Miscellaneous Notes* Telephone Encounter - Pam Oreilly - 05/15/2023 2:35 PM EDT Opened in error documented in this encounterFort Hamilton Hospital10-19-2023 History of Present illness Narrative* Katharine Carter, JAMEL.AUTOMOTIVE PARTS COUNTER ASSISTANT - 05/09/2023 7:18 AM EDT SUBJECTIVE: RSV Vaccine(1 - 1-dose 60+ series) Never done BP Controlled (<130/80) due on 08/15/2021 Influenza Vaccine(1) due on 03/22/2023 Covid-19 Vaccine(5 - 2022-24 season) due on 03/22/2023 HPI Oilva Grey is a 67 year old male. PMH ACTIVE PROBLEM LIST Other Hyperlipidemia Esophagitis Atherosclerosis of [place] Coronary Artery of [place] Heart Without Angina Pectoris Arthritis Due to Hemochromatosis Hereditary Hemochromatosis (Hcc) Essential Hypertension Male Pattern Alopecia Ddd (Degenerative Disc Disease), Lumbar History of Kidney Stones Impaired Fasting Glucose Obesity, Class I, Bmi 30-34.9 Acquired Renal Cyst of Right Kidney PCP: Juan J Rubalcava MD Presents today for express care follow-up visit. He was seen for postviral cough syndrome. Treated with prednisone and benzonatate. Reports seeming to help somewhat, a bit improved but not yet back to baseline. Notes primarily cough sensation in his throat, not short of breath, able to complete daily activities unchanged. HTN: Without report of headache, chest pain, palpitations, dyspnea, peripheral edema, orthopnea, fatigue, or PND. Last 3 Encounter BP Readings: Date: BP: 05/09/2023 131/78 05/05/2023 120/75 03/04/2023 137/79 Hyperlipidemia. Mr. Grey reports doing well on current therapy.His most recent lipid panels are: Cholesterol, Total (mg/dL) Date Value 02/23/2023 141 02/17/2022 135 02/11/2021 110 01/30/2020 116 HDL Cholesterol (mg/dL) Date Value 02/23/2023 33 02/17/2022 33 02/11/2021 38 01/30/2020 29 LDL Cholesterol (mg/dL) Date Value 02/23/2023 74 02/17/2022 77 02/11/2021 55 01/30/2020 61 Triglyceride (mg/dL) Date Value 02/23/2023 169 02/17/2022 124 02/11/2021 86 01/30/2020 130 Former smoker. Both parents with history of heart disease. Review of Systems Constitutional: Negative. Respiratory: Positive for cough. Cardiovascular: Negative. Objective Physical Exam Vitals and nursing note reviewed. HENT: Head: Normocephalic and atraumatic. Eyes: Conjunctiva/sclera: Conjunctivae normal. Neck: Thyroid: No thyromegaly. Vascular: Normal carotid pulses. No JVD. Cardiovascular: Rate and Rhythm: Normal rate and regular rhythm. Pulses: Carotid pulses are 2+ on the right side and 2+ on the left side. Radial pulses are 2+ on the right side and 2+ on the left side. Heart sounds: No murmur heard. Pulmonary: Effort: Pulmonary effort is normal. Breath sounds: Normal breath sounds. Abdominal: General: Bowel sounds are normal. Palpations: Abdomen is soft. Musculoskeletal: Right lower leg: No edema. Left lower leg: No edema. Skin: General: Skin is warm and dry. Neurological: General: No focal deficit present. Mental Status: He is alert and oriented to person, place, and time. ALLERGIES Allergen Reactions Simvastatin Other: See Comments myalgia shoulders Medications benzonatate (TESSALON PERLE) 100 mg capsule Take 2 capsules by mouth three times a day as needed. losartan (COZAAR) 100 mg tablet Take 1 tablet by mouth once daily. folic acid 1 mg tablet Take 1 tablet by mouth once daily. finasteride (PROPECIA) 1 mg tablet Take 1 tablet by mouth once daily. amLODIPine (NORVASC) 5 mg tablet Take 1 tablet by mouth once daily. hydroCHLOROthiazide 25 mg tablet Take 1 tablet by mouth once daily. metoprolol succinate ER (TOPROL XL) 50 mg 24 hr tablet Take 1 tablet by mouth once daily. atorvastatin (LIPITOR) 20 mg tablet Take 1 tablet by mouth once daily. omeprazole (PRILOSEC) 40 mg capsule Take 1 capsule by mouth once daily. meclizine (ANTIVERT) 25 mg tab Take 1 tablet by mouth every 6 hours as needed (dizziness). fluticasone (FLONASE) 50 mcg/actuation nasal spray Use 2 Sprays in each nostril once daily. For allergy symptoms. ID#[id number] meloxicam (MOBIC) 15 mg tablet Take 1 tablet by mouth once daily. With food for joint pains. Cholecalciferol, Vitamin D3, 1,000 unit cap Take 1 capsule by mouth once daily. FIBERCON 625 MG TAB Take one(1) tablet two(2) times daily. predniSONE (DELTASONE) 20 mg tablet Take 2 tablets by mouth once daily for 5 days. 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 Benign non-nodular prostatic hyperplasia without lower urinary tract symptoms 10/23/2016 Disorders of iron metabolism Esophagitis, unspecified Hereditary hemochromatosis (HCC) 12/23/2015 History of kidney stones 10/23/2016 Hydrocele 11/07/2016 Hypertension Impaired fasting glucose 10/30/2018 Internal hemorrhoids without mention of complication 08/03/2005 Male pattern alopecia 09/05/2016 Nonspecific elevation of levels of transaminase or lactic acid dehydrogenase (LDH) Obstructive sleep apnea 04/16/2011 not treated by choice. Other hyperlipidemia 12/24/2005 Testicular calcification 11/07/2016 Social History Tobacco Use Smoking status: Former Packs/day: 1.00 Years: 20.00 Additional pack years: 0.00 Total pack years: 20.00 Types: Cigarettes Quit date: 08/23/2003 Years since quittin.7 Smokeless tobacco: Former Types: Chew Quit date: 07/22/1994 Vaping Use Vaping Use: Never used Substance Use Topics Alcohol use: Yes Alcohol/week: 2.3 standard drinks of alcohol Types: 1 Cans of Beer (12oz), 1 Mixed Drinks per week Drug use: No ASSESSMENT/PLAN: 1. Murmur, heart - ICD9: 785.2, ICD10: R01.1 (primary diagnosis) Heart murmur heard in urgent care with respiratory illness. Murmur not appreciated on exam today. Previously had echocardiogram 2012 [facility] which showed normal LV size, mild concentric left ventricular, LVEF 75%, stage II diastolic dysfunction. Normal RV size and function. Mild LAE, mild Jorge with trivial MR. No LVOT obstruction. Trivial TR. Mild aortic sclerosis with no AI. Aorta at the sinuses at upper limits of normal. Currently asymptomatic other than cough due to recent viral illness. Declines to schedule echocardiogram at this time, prefers to discuss with PCP prior to completion. - ECHO - PERFLUTREN LIPID MICROSPHERES 1.1 MG/ML INJECTION IN NS 10 ML - SODIUM CHLORIDE 0.9 % (FLUSH) INJECTION SYRINGE 2. Post-viral cough syndrome - ICD9: 786.2, ICD10: R05.8 He notes some improvement with current treatment, declines refill of benzonatate. Katharine Carter APRN.CNS Medical Decision Making: Problems: Low: Acute, uncomplicated illness or injury Data: Unique test(s) ordered: 1 Risk: Moderate: Drug management Medical Decision Making Level: 3 - Low documented in this encounterFort [facility] Hospital10-15-2023 History of Present illness Narrative* Mamadou LoyaJAMEL.TAP PULLER - 05/05/2023 2:03 PM EDT Subjective HPI HPI Oliva Grey is a 67 year old male who presents today for CC of cough. This started 3 weeksago, initially had viral symptoms that have subsided. Has tried otc medication for relief. Symptomsare worsened by nothing. Nonsmoker. 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 Benign non-nodular prostatic hyperplasia without lower urinary tract symptoms 10/23/2016 Disorders of iron metabolism Esophagitis, unspecified Hereditary hemochromatosis (HCC) 12/23/2015 History of kidney stones 10/23/2016 Hydrocele 11/07/2016 Hypertension Impaired fasting glucose 10/30/2018 Internal hemorrhoids without mention of complication 08/03/2005 Male pattern alopecia 09/05/2016 Nonspecific elevation of levels of transaminase or lactic acid dehydrogenase (LDH) Obstructive sleep apnea 04/16/2011 not treated by choice. Other hyperlipidemia 12/24/2005 Testicular calcification 11/07/2016 PAST SURGICAL HISTORY Procedure Laterality Date ARTHROSCOPY SHOULDER W/ROTATOR CUFF RPR Right 09/03/2018 [facility], Dr. Lopez CARDIAC CATH 07/10/2010 COLONOSCOPY FLX DX W/COLLJ SPEC WHEN PFRMD 08/25/2004 Colonoscopy CYSTOSCOPY,URETEROSCOPY,STONE REMV Left 01/11/2017 retrograde pyelogram, laser lithotripsy EGD TRANSORAL BIOPSY SINGLE/MULTIPLE 04/20/08 EGD TRANSORAL BIOPSY SINGLE/MULTIPLE 11/02/11 ESOPHAGOSCOPY FLEX BALLOON DILAT <30 MM DIAM 09/20/2000 Esophageal dilatation PAST SURGICAL HISTORY OF 2003 sigmoid colectomy, diverticultis, appendectomy. PAST SURGICAL HISTORY OF Left 08/2004 artifical joint replaced left great toe PAST SURGICAL HISTORY OF Left 2010 left knee surgery, knee scope x 2 PAST SURGICAL HISTORY OF Right 03/2014 Arthroscopy right knee, meniscal tear, Dr. Rivera PAST SURGICAL HISTORY OF Left 09/01/[address] Gessler ALLERGIES Simvastatin MEDICATIONS amLODIPine (NORVASC) 5 mg tablet Take 1 tablet by mouth once daily. atorvastatin (LIPITOR) 20 mg tablet Take 1 tablet by mouth once daily. benzonatate (TESSALON PERLE) 100 mg capsule Take 2 capsules by mouth three times a day as needed. Cholecalciferol, Vitamin D3, 1,000 unit cap Take 1 capsule by mouth once daily. FIBERCON 625 MG TAB Take one(1) tablet two(2) times daily. finasteride (PROPECIA) 1 mg tablet Take 1 tablet by mouth once daily. fluticasone (FLONASE) 50 mcg/actuation nasal spray Use 2 Sprays in each nostril once daily. For allergy symptoms. ID#[id number] folic acid 1 mg tablet Take 1 tablet by mouth once daily. hydroCHLOROthiazide 25 mg tablet Take 1 tablet by mouth once daily. losartan (COZAAR) 100 mg tablet Take 1 tablet by mouth once daily. meclizine (ANTIVERT) 25 mg tab Take 1 tablet by mouth every 6 hours as needed (dizziness). meloxicam (MOBIC) 15 mg tablet Take 1 tablet by mouth once daily. With food for joint pains. metoprolol succinate ER (TOPROL XL) 50 mg 24 hr tablet Take 1 tablet by mouth once daily. omeprazole (PRILOSEC) 40 mg capsule Take 1 capsule by mouth once daily. predniSONE (DELTASONE) 20 mg tablet Take 2 tablets by mouth once daily for 5 days. FAMILY HISTORY Problem Relation Age of Onset Heart Father Heart Mother pacemaker Cancer Brother throat lymph nodes Multiple Sclerosis Sister Social History Tobacco Use Smoking status: Former Packs/day: 1.00 Years: 20.00 Additional pack years: 0.00 Total pack years: 20.00 Types: Cigarettes Quit date: 08/23/2003 Years since quittin.7 Smokeless tobacco: Former Types: Chew Quit date: 07/22/1994 Vaping Use Vaping Use: Never used Substance Use Topics Alcohol use: Yes Alcohol/week: 2.3 standard drinks of alcohol Types: 1 Cans of Beer (12oz), 1 Mixed Drinks per week Drug use: No Review of Systems Constitutional: Negative for fever. HENT: Negative for congestion, ear pain, nosebleeds and sore throat. Respiratory: Positive for cough. Negative for sputum production, shortness of breath and wheezing. Musculoskeletal: Negative for neck pain. Objective Blood pressure 120/75, pulse 74, temperature 36.6 C (97.9 F), resp. rate 18, weight 103.5 kg (228 lb 3.2 oz), SpO2 95 %. Physical Exam Constitutional: General: He is not in acute distress. Appearance: He is not toxic-appearing or diaphoretic. HENT: Head: Normocephalic and atraumatic. Cardiovascular: Rate and Rhythm: Normal rate and regular rhythm. Heart sounds: S1 normal and S2 normal. Murmur heard. Systolic murmur is present with a grade of 3/6. Pulmonary: Effort: Pulmonary effort is normal. Breath sounds: Normal breath sounds. Neurological: Mental Status: He is alert and oriented to person, place, and time. Gait: Gait is intact. ASSESSMENT/PLAN: 1. Post-viral cough syndrome - ICD9: 786.2, ICD10: R05.8 (primary diagnosis) Exam negative Try steroids/cough medication - PREDNISONE 20 MG TABLET - BENZONATATE 100 MG CAPSULE 2. Heart murmur - ICD9: 785.2, ICD10: R01.1 Will schedule recheck with pcp -If you experience chest pain/shortness of breath go to ER Mamadou Loya APRN.TAP PULLER documented in this encounterFort [facility]09-20-2023 Miscellaneous Notes* Telephone Encounter - Kimberley Lane LPN - 04/10/2023 6:55 PM EDT TC to [facility] for Amlodipine was written 03/04/2023 for 90 tablets, 3 refills, escripted to [facility]. Patient to check with pharmacy. Kimberley Lane LPN * Telephone Encounter - Dedra Burrows - 04/10/2023 4:02 PM EDT Patient has been identified by name and date of : Yes Requested Prescriptions Pending Prescriptions Disp Refills amLODIPine (NORVASC) 5 mg tablet 90 tablet 3 Sig: Take 1 tablet by mouth once daily. RX INSTRUCTIONS: Patient aware RX will be sent to pharmacy. No need to notify patient. Dedra Burrows documented in this encounterFort Hamilton Hospital05-03-2023 History of Present illness Narrative* Sakian Yoder RN - 11/21/2022 2:51 PM EDT Patient declined further IV sticks to obtain more blood after 2 attempts documented in this encounterFort Hamilton Hospital04-03-2023 Miscellaneous Notes* Telephone Encounter - Kimberley Lane LPN - 10/22/2022 7:04 PM EDT Patient has been identified by name and date of : Yes Patient phones for refill(s): Requested Prescriptions Pending Prescriptions Disp Refills metoprolol succinate ER (TOPROL XL) 50 mg 24 hr tablet 90 tablet 3 Sig: Take 1 tablet by mouth once daily. Date of last office visit in primary care: 08/23/2022 Annual: 03/04/2023 Last 2 Encounter Wt Readings: Date: Wt: 08/28/2022 99.8 kg (220 lb 1.6 oz) 08/23/2022 100.2 kg (221 lb) Previous labs/tests for medication: Blood Pressure: BUN (mg/dL) Date Value 02/17/2022 18 08/12/2021 16 Sodium (mmol/L) Date Value 02/17/2022 140 08/12/2021 137 Last 1 Encounter BP Readings: Date: BP: 08/28/2022 132/70 Please advise. Thank you. Kimberley Lane LPN * Telephone Encounter - Casi Chapa - 10/22/2022 4:10 PM EDT Patient has been identified by name and date of : Yes Requested Prescriptions Pending Prescriptions Disp Refills metoprolol succinate ER (TOPROL XL) 50 mg 24 hr tablet 90 tablet 3 Sig: Take 1 tablet by mouth once daily. RX INSTRUCTIONS: Patient aware RX will be sent to pharmacy. No need to notify patient. Casi Grady Pss documented in this encounterFort Hamilton Hospital02-09-2023 History of Present illness Narrative* Stephania Christie RDMS - 08/30/2022 9:15 AM EST Radiology Service Progress Note PATIENT NAME: Oliva Grey DATE OF SERVICE: August 30, 2022 TIME: 9:30 AM PATIENT IDENTITY VERIFICATION COMPLETED USING TWO (2) IDENTIFIERS: Name and Date of confirmedby patient verbally. FALL SCREENING: Has the patient had 2 falls in the last year or 1 fall with injury or currently using an Ambulatory Assistive Device (Walker, Cane, Wheelchair, Crutches, etc.)? No PATIENT GENDER DATA: Male PATIENT RELEVANT IMPLANT DATA REVIEWED: Not Applicable RADIOLOGY DEPARTMENT: Ultrasound PERIPHERAL IV DATA: Not applicable SIGNED BY: Stephania Christie RDMS August 30, 2022 9:30 AM documented in this encounterFort Hamilton Hospital02-07-2023 History of Present illness Narrative* Tez Frank APRN.TAP PULLER - 08/28/2022 7:45 AM EST Subjective HPI Nontoxic-appearing male presents to urgent care with a chief complaint of sore throat. Duration of symptoms 4 days. Associated symptoms sore throat, fever, nausea, and headache. Patient does have some postnasal drip and a transient cough. Patient states positive sick contacts. Patient denies any trismus, difficulty swallowing, difficulty handling secretions, vomiting, abdominal pain, visual changes, acute headache, cough, pleuritic pain, or change in bowel or bladder habits. Past medical history prescription medication use allergies reviewed. .Patient presents with: Headache: Pt reported cough, fever x4 days, throat pain. 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 Benign non-nodular prostatic hyperplasia without lower urinary tract symptoms 10/23/2016 Disorders of iron metabolism Esophagitis, unspecified Hereditary hemochromatosis (HCC) 12/23/2015 History of kidney stones 10/23/2016 Hydrocele 11/07/2016 Hypertension Impaired fasting glucose 10/30/2018 Internal hemorrhoids without mention of complication 08/03/2005 Male pattern alopecia 09/05/2016 Nonspecific elevation of levels of transaminase or lactic acid dehydrogenase (LDH) Obstructive sleep apnea 04/16/2011 not treated by choice. Other hyperlipidemia 12/24/2005 Testicular calcification 11/07/2016 PAST SURGICAL HISTORY Procedure Laterality Date ARTHROSCOPY SHOULDER W/ROTATOR CUFF RPR Right 09/03/2018 [facility], Dr. Lopez CARDIAC CATH 07/10/2010 COLONOSCOPY FLX DX W/COLLJ SPEC WHEN PFRMD 08/25/2004 Colonoscopy CYSTOSCOPY,URETEROSCOPY,STONE REMV Left 01/11/2017 retrograde pyelogram, laser lithotripsy EGD TRANSORAL BIOPSY SINGLE/MULTIPLE 04/20/08 EGD TRANSORAL BIOPSY SINGLE/MULTIPLE 11/02/11 ESOPHAGOSCOPY FLEX BALLOON DILAT <30 MM DIAM 09/20/2000 Esophageal dilatation PAST SURGICAL HISTORY OF 2003 sigmoid colectomy, diverticultis, appendectomy. PAST SURGICAL HISTORY OF Left 08/2004 artifical joint replaced left great toe PAST SURGICAL HISTORY OF Left 2010 left knee surgery, knee scope x 2 PAST SURGICAL HISTORY OF Right 03/2014 Arthroscopy right knee, meniscal tear, Dr. Rivera PAST SURGICAL HISTORY OF Left 09/01/[address] Rivera ALLERGIES Simvastatin MEDICATIONS atorvastatin (LIPITOR) 20 mg tablet Take 1 tablet by mouth once daily. omeprazole (PRILOSEC) 40 mg capsule Take 1 capsule by mouth once daily. losartan (COZAAR) 100 mg tablet Take 1 tablet by mouth once daily. folic acid 1 mg tablet TAKE 1 TABLET ONCE DAILY finasteride (PROPECIA) 1 mg tablet Take 1 tablet by mouth once daily. amLODIPine (NORVASC) 5 mg tablet Take 1 tablet by mouth once daily. meclizine (ANTIVERT) 25 mg tab Take 1 tablet by mouth every 6 hours as needed (dizziness). metoprolol succinate ER (TOPROL XL) 50 mg 24 hr tablet Take 1 tablet by mouth once daily. fluticasone (FLONASE) 50 mcg/actuation nasal spray Use 2 Sprays in each nostril once daily. For allergy symptoms. ID#[id number] meloxicam (MOBIC) 15 mg tablet Take 1 tablet by mouth once daily. With food for joint pains. Cholecalciferol, Vitamin D3, 1,000 unit cap Take 1 capsule by mouth once daily. FIBERCON 625 MG TAB Take one(1) tablet two(2) times daily. FAMILY HISTORY Problem Relation Age of Onset Heart Father Heart Mother pacemaker Cancer Brother throat lymph nodes Multiple Sclerosis Sister Social History Tobacco Use Smoking status: Former Packs/day: 1.00 Years: 20.00 Pack years: 20.00 Types: Cigarettes Quit date: 08/23/2003 Years since quittin.0 Smokeless tobacco: Former Types: Chew Quit date: 07/22/1994 Vaping Use Vaping Use: Never used Substance Use Topics Alcohol use: Yes Alcohol/week: 2.3 standard drinks Types: 1 Cans of Beer (12oz), 1 Mixed Drinks per week Drug use: No BP 132/70 Pulse 86 Temp 37.3 C (99.1 F) (Tympanic) Resp 18 Wt 99.8 kg (220 lb 1.6 oz) SpO2 97% BMI 33.47 kg/m Review of Systems Constitutional: Positive for chills, fever and malaise/fatigue. HENT: Positive for congestion and sore throat. Negative for ear discharge, ear pain and sinus pain. Eyes: Negative for blurred vision, pain, discharge and redness. Respiratory: Positive for cough. Negative for hemoptysis, sputum production, shortness of breath, wheezing and stridor. Cardiovascular: Negative for chest pain. Gastrointestinal: Negative for abdominal pain, diarrhea, nausea and vomiting. Musculoskeletal: Positive for myalgias. Skin: Negative for itching and rash. Neurological: Positive for headaches. Negative for dizziness. Objective Physical Exam Constitutional: General: He is not in acute distress. Appearance: He is not diaphoretic. HENT: Head: Normocephalic. Jaw: No trismus, tenderness, swelling or pain on movement. Nose: Congestion present. Mouth/Throat: Lips: Spelter. Mouth: Mucous membranes are moist. Pharynx: Oropharynx is clear. Uvula midline. Posterior oropharyngeal erythema present. No pharyngeal swelling, oropharyngeal exudate or uvula swelling. Eyes: Conjunctiva/sclera: Conjunctivae normal. Pupils: Pupils are equal, round, and reactive to light. Cardiovascular: Rate and Rhythm: Normal rate and regular rhythm. Heart sounds: Normal heart sounds. Pulmonary: Effort: Pulmonary effort is normal. No tachypnea, accessory muscle usage or respiratory distress. Breath sounds: Normal breath sounds. No stridor. No wheezing, rhonchi or rales. Abdominal: Palpations: Abdomen is soft. Tenderness: There is no abdominal tenderness. Musculoskeletal: Cervical back: Normal range of motion and neck supple. No rigidity or tenderness. Lymphadenopathy: Cervical: No cervical adenopathy. Skin: General: Skin is warm and dry. Neurological: Mental Status: He is alert and oriented to person, place, and time. ASSESSMENT/PLAN: 1. Throat pain - ICD9: 784.1, ICD10: R07.0 - STREP A MOLECULAR (POC) Strep test positive. Placed on amoxicillin. We discussed rhinorrhea and cough are not consistent with strep this could be an another viral illness. Red flags properly ration discussed. Patient was educated on supportive therapies. Patient will follow up with primary care provider as needed. Patientwas instructed to immediately proceed to emergency room for any new, worsening, or symptoms lastinglonger than anticipated. The patient's clinical presentation is otherwise unremarkable at this time. Based on exam and clinical finding, the patient is stable for discharge. Plan of care was discussed with patient. Patient verbalizes understanding and agrees to plan of care. This note was generated using [employer] software. It may contain errors in wording, punctuation, or spelling. Tez Frank APRN.TAP PULLER documented in this encounterFort Hamilton Hospital02-02-2023 Instructions* Patient Instructions* Juan J Rubalcava MD - 08/23/2022 5:44 PM EST Schedule screening ultrasound for abdominal aortic aneurysm documented in this encounterFort [facility] Hospital02-02-2023 History of Present illness Narrative* Juan J Rubalcava MD - 08/23/2022 5:37 PM EST This note was created using [employer]. Subjective Oliva Grey is a 66 year old male. He was doing well. Blood pressure was controlled. He mentioned an epigastric bulge becoming more prominent over the years from regular sit ups. He had yet to schedule his abdominal aortic aneurysm screening. Review of Systems Constitutional: Negative. Respiratory: Negative. Cardiovascular: Negative. Gastrointestinal: Negative. ACTIVE PROBLEM LIST Other Hyperlipidemia Esophagitis Atherosclerosis of [place] Coronary Artery of [place] Heart Without Angina Pectoris Arthritis Due to Hemochromatosis Hereditary Hemochromatosis (Hcc) Essential Hypertension Male Pattern Alopecia Ddd (Degenerative Disc Disease), Lumbar History of Kidney Stones Impaired Fasting Glucose Obesity, Class I, Bmi 30-34.9 Acquired Renal Cyst of Right Kidney Social History Tobacco Use Smoking status: Former Packs/day: 1.00 Years: 20.00 Pack years: 20.00 Types: Cigarettes Quit date: 08/23/2003 Years since quittin.0 Smokeless tobacco: Former Types: Chew Quit date: 07/22/1994 Vaping Use Vaping Use: Never used Substance Use Topics Alcohol use: Yes Alcohol/week: 2.3 standard drinks Types: 1 Cans of Beer (12oz), 1 Mixed Drinks per week Drug use: No Current Outpatient Medications Medication Sig atorvastatin (LIPITOR) 20 mg tablet Take 1 tablet by mouth once daily. omeprazole (PRILOSEC) 40 mg capsule Take 1 capsule by mouth once daily. losartan (COZAAR) 100 mg tablet Take 1 tablet by mouth once daily. folic acid 1 mg tablet TAKE 1 TABLET ONCE DAILY finasteride (PROPECIA) 1 mg tablet Take 1 tablet by mouth once daily. amLODIPine (NORVASC) 5 mg tablet Take 1 tablet by mouth once daily. metoprolol succinate ER (TOPROL XL) 50 mg 24 hr tablet Take 1 tablet by mouth once daily. fluticasone (FLONASE) 50 mcg/actuation nasal spray Use 2 Sprays in each nostril once daily. For allergy symptoms. ID#[id number] meloxicam (MOBIC) 15 mg tablet Take 1 tablet by mouth once daily. With food for joint pains. Cholecalciferol, Vitamin D3, 1,000 unit cap Take 1 capsule by mouth once daily. FIBERCON 625 MG TAB Take one(1) tablet two(2) times daily. meclizine (ANTIVERT) 25 mg tab Take 1 tablet by mouth every 6 hours as needed (dizziness). (Patientnot taking: Reported on 08/23/2022) No current facility-administered medications for this visit. Objective BP 122/62 Pulse 65 Temp 36 C (96.8 F) Resp 16 Wt 100.2 kg (221 lb) SpO2 96% BMI 33.60 kg/m Physical Exam Constitutional: Appearance: Normal appearance. Cardiovascular: Rate and Rhythm: Normal rate and regular rhythm. Heart sounds: No murmur heard. No gallop. Pulmonary: Breath sounds: Normal breath sounds. Abdominal: Palpations: Abdomen is soft. Comments: Diastasis recti Musculoskeletal: Right lower leg: No edema. Left lower leg: No edema. Neurological: Mental Status: He is alert. Assessment and Plan 1. Essential hypertension - ICD9: 401.9, ICD10: I10 (primary diagnosis) - continue medications.. - good control 2. Other hyperlipidemia - ICD9: 272.4, ICD10: E78.49 - continue medication. - COMP METABOLIC PANEL - LIPID PANEL BASIC 3. Impaired fasting glucose - ICD9: 790.21, ICD10: R73.01 - diet. - HGB A1C 4. Diastasis of rectus abdominis - ICD9: 728.84, ICD10: M62.08 Reassured. Juan J Rubalcava MD documented in this encounterFort Hamilton Hospital11-16-2022 History of Present illness Narrative* Braden Cosby MD - 06/06/2022 2:44 PM EST PATIENT NAME: OLIVA GREY [facility] NO.: [id number] ATTENDING PHYSICIAN: Braden Cosby MD DATE OF SERVICE: 06/06/2022 DIAGNOSIS: Hereditary Hemochromatosis. HISTORY OF PRESENT ILLNESS: Mr. Grey is a 66-year-old gentleman with hereditary hemochromatosis. Interim history: Mr. Oliva Grey is doing well with phlebotomy with no shortness of breath with exertion, chest pain, palpitation or lightheadedness. He has vertigo x 2 months He has chronic fatigue with mild anemia from phlebotomy. He denies early satiety, bloating, jaundice, or pruritus. He has mild arthritic pain, but no evidence of diabetes mellitus, polyuria or polydipsia. All medications & allergies updated and reviewed by me. REVIEW OF SYSTEMS: CONSTITUTIONAL: No fevers, chills, nightsweats, unintended weight loss HEENT: Denies frequent or severe heaches, nasal congestion/sinus symptoms, problematic allergy problems. EYES: No diplopia or blurry vision. CARDIOVASCULAR: No chest pain, dyspnea, palpitations, orthopnea, PND, ankle edema. PULM: No dyspnea, unexplained cough. GI: No dysphagia/odynophagia, problematic reflux, constipation, diarrhea, changes in stool habits, hematochezia, melena. : No new urinary complaints, including dysuria, gross hematuria or pyuria. NEURO: No new balance problems, peripheral weakness/paresthesias or numbness of concern. MUSC-SKEL: No new joint pain, swelling, or erythema. PSY: No concerns regarding depression, anxiety or panic. INTEGUMENTARY: No new skin changes (rash, new or changing mole, new growth) On examination, Mr. Grey appeared to be in no acute distress. Performance status 90% BP 134/76 Pulse 61 Temp (Src) 97.2 (Temporal) Ht 5' 8 (1.73m) Wt 228 lb (103.4kg) BMI 34.68 kg/(m^2). HEENT: Sclerae anicteric. Neck: Supple. No thyromegaly. Chest is clear to auscultation. Cardiac exam is unremarkable, regular rate and rhythm. Abdomen is soft and nontender. No masses or hepatosplenomegaly or ascites. Extremities show no edema. Neurologic exam is nonfocal. LABS: Component Latest Ref Rng & Units 06/06/2022 Hemoglobin 13.0 - 17.0 g/dL 13.1 Hematocrit 39.0 - 51.0 % 42.8 Component Latest Ref Rng & Units 06/06/2022 Albumin 3.9 - 4.9 g/dL 4.2 Bilirubin, Total 0.2 - 1.3 mg/dL 0.4 Alkaline Phosphatase 38 - 113 U/L 72 AST 14 - 40 U/L 35 ALT 10 - 54 U/L 55 (H) Protein, Total 6.3 - 8.0 g/dL 6.9 IMPRESSION: Mr. Grey is doing well with phlebotomy and LFTs and AFP are normal. Ferritin level is < 50 2) positional vertigo - no headache or tinitius PLAN: Continue phlebotomy for hematocrit greater than 38% every 3 months. Repeat CBC, liver function, ferritin level, and office visit in 1 year. 2) Follow up with ENT if symptoms persist Portions of this documentation were copied and pasted from previous office visit notes in order to provide a cohesive continuity of the history. The note has been reviewed and edited and updated as necessary. Braden Cosby MD Cc: Juan J Rubalcava MD documented in this encounterFort Hamilton Hospital10-24-2022 Miscellaneous Notes* Telephone Encounter - Arleen Braswell Pss - 05/14/2022 12:33 PM EDT Patient has been identified by name and date of : Yes Requested Prescriptions Pending Prescriptions Disp Refills losartan (COZAAR) 100 mg tablet 90 tablet 3 Sig: Take 1 tablet by mouth once daily. RX INSTRUCTIONS: Patient aware RX will be sent to pharmacy. No need to notify patient. Arleen Braswell Pss documented in this encounterFort Hamilton Hospital10-06-2022 Miscellaneous Notes* Telephone Encounter - Braden Cosby MD - 04/26/2022 8:50 AM EDT Patient's request for medication is as follows Requested Prescriptions Signed Prescriptions Disp Refills folic acid 1 mg tablet 100 tablet 3 Sig: TAKE 1 TABLET ONCE DAILY Authorizing Provider: BRADEN COSBY Order entered - please phone pharmacy and notify patient. Braden Cosby MD documented in this encounterFort Hamilton Hospital09-27-2022 Miscellaneous Notes* Telephone Encounter - Cassidy Lynn RN - 04/17/2022 1:04 PM EDT Reports Pt is almost out. Please call once medications are put through. * Telephone Encounter - Kimberley Lane LPN - 04/16/2022 4:51 PM EDT Patient has been identified by name and date of : Yes Patient phones for refill(s): Requested Prescriptions Pending Prescriptions Disp Refills finasteride (PROPECIA) 1 mg tablet 90 tablet 3 Sig: Take 1 tablet by mouth once daily. amLODIPine (NORVASC) 10 mg tablet 3 Sig: Take 0.5 tablets by mouth once daily. Date of last office visit in primary care: 02/19/2022 6 month follow-up: 08/23/2022 Last 2 Encounter Wt Readings: Date: Wt: 02/19/2022 97.8 kg (215 lb 9.6 oz) 08/21/2021 98.9 kg (218 lb) Previous labs/tests for medication: Blood Pressure: BUN (mg/dL) Date Value 02/17/2022 18 08/12/2021 16 Sodium (mmol/L) Date Value 02/17/2022 140 08/12/2021 137 Last 1 Encounter BP Readings: Date: BP: 02/19/2022 126/62 Please advise. Thank you. Kimberley Lane LPN * Telephone Encounter - Ana Cristina Collins - 04/13/2022 8:49 AM EDT Patient has been identified by name and date of : Yes Requested Prescriptions Pending Prescriptions Disp Refills finasteride (PROPECIA) 1 mg tablet 90 tablet 3 Sig: Take 1 tablet by mouth once daily. amLODIPine (NORVASC) 10 mg tablet 3 Sig: Take 0.5 tablets by mouth once daily. RX INSTRUCTIONS: Patient aware RX will be sent to pharmacy. No need to notify patient. Ana Cristina Collins documented in this encounterFort Hamilton Hospital08-01-2022 Instructions* Patient Instructions* Juan J Rubalcava MD - 02/19/2022 6:50 PM EDT Advance Directive Forms Advanced Directives Forms (Liberian) o FORMS: [email or web address] o INFORMATIONAL BROCHURE: [email or web address] Advance Directives (non-Liberian) o FORMS: [email or web address] Please bring completed forms to your next appointment or email them to [email or web address]. Patient Resources How to Get Started Talking with Loved Ones about your Wishes at the [facility] of Life [email or web address] How to Navigate Conversations with your Care Team around your Preferences [email or web address] Have you ever planned for future healthcare decisions with a power of associate attorney, living will, or advance directives? Yes. Have you shared those records with your doctor? No and No. Please bring a copyto your next appointment or email to [email or web address] documented in this encounterFort [facility]08-[facility] History of Present illness Narrative* Juan J Rubalcava MD - 02/19/2022 6:34 PM EDT This note was created using [employer]. Subjective Patient presents with: Yearly Exam Oliva Grey is a 66 year old male was doing well in general. He lost weight to below 200 exercising regularly and watching his diet. 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 His hypertension and lipids were controlled. Glucose intolerance was stable. He had back pain that resolved. US of the kidneys showed some cysts with calcifications, but his symptoms resolved. He followed with Dr. Cosby for hematology, Dr. Hendricks, [facility], Dr. Jean-Baptiste, ophthalmology. Review of Systems Constitutional: Negative. HENT: Negative. Respiratory: Negative. Cardiovascular: Negative. Gastrointestinal: Negative. Genitourinary: Negative. Musculoskeletal: Negative. Neurological: Negative. Psychiatric/Behavioral: Negative. ACTIVE PROBLEM LIST Other Hyperlipidemia Esophagitis Atherosclerosis of [place] Coronary Artery of 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 Benign non-nodular prostatic hyperplasia without lower urinary tract symptoms 10/23/2016 Disorders of iron metabolism Esophagitis, unspecified Hereditary hemochromatosis (HCC) 12/23/2015 History of kidney stones 10/23/2016 Hydrocele 11/07/2016 Hypertension Impaired fasting glucose 10/30/2018 Internal hemorrhoids without mention of complication 08/03/2005 Male pattern alopecia 09/05/2016 Nonspecific elevation of levels of transaminase or lactic acid dehydrogenase (LDH) Obstructive sleep apnea 04/16/2011 not treated by choice. Other hyperlipidemia 12/24/2005 Testicular calcification 11/07/2016 PAST SURGICAL HISTORY Procedure Laterality Date ARTHROSCOPY SHOULDER W/ROTATOR CUFF RPR Right [facility]03/[facility] CATH 07/10/2010 COLONOSCOPY FLX DX W/COLLJ SPEC WHEN PFRMD 08/25/2004 Colonoscopy CYSTOSCOPY,URETEROSCOPY,STONE REMV Left 01/11/2017 retrograde pyelogram, laser lithotripsy EGD TRANSORAL BIOPSY SINGLE/MULTIPLE 04/20/08 EGD TRANSORAL BIOPSY SINGLE/MULTIPLE 11/02/11 ESOPHAGOSCOPY FLEX BALLOON DILAT <30 MM DIAM 09/20/2000 Esophageal dilatation PAST SURGICAL HISTORY OF 2003 sigmoid colectomy, diverticultis, appendectomy. PAST SURGICAL HISTORY OF Left 08/2004 artifical joint replaced left great toe PAST SURGICAL HISTORY OF Left 2010 left knee surgery, knee scope x 2 PAST SURGICAL HISTORY OF Right 03/2014 Arthroscopy right knee, meniscal tear, Dr. Rivera PAST SURGICAL HISTORY OF Left 09/01/[address] Rivera FAMILY HISTORY Problem Relation Age of Onset Heart Father Heart Mother pacemaker Cancer Brother throat lymph nodes Multiple Sclerosis Sister Social History Tobacco Use Smoking status: Former Smoker Packs/day: 1.00 Years: 20.00 Pack years: 20.00 Types: Cigarettes Quit date: 08/23/2003 Years since quittin.5 Smokeless tobacco: Former User Types: Chew Quit date: 07/22/1994 Vaping Use Vaping Use: Never used Substance Use Topics Alcohol use: Yes Alcohol/week: 2.3 standard drinks Types: 1 Cans of Beer (12oz), 1 Mixed Drinks per week Drug use: No Immunization History Administered Date(s) Administered COVID-19 vaccine, full dose (MODERNA) 09/24/2020 10/22/2020 06/09/2021 Influenza Seasonal Inj Age 3+ 05/11/2014 04/21/2020 Influenza Seasonal Inj Quad Age 6 Mo - 64 Yrs 04/29/2015 05/29/2016 04/28/2018 Influenza Seasonal Inj Quad Age 6 Mo-64 Yrs Pres Free 05/18/2017 04/21/2021 Influenza Seasonal Inj Quadrivalent Age 4+ ccII4 and Non Pres Free 05/15/2019 Influenza Vaccine, Split-Non Spec 07/04/2005 05/03/2007 05/01/2013 Novel Influenza H1N1, preservative free 07/11/2009 Pneumovax 05/03/2004 Tdap (Age 7+) 11/03/2013 Zoster Recombinant (Shingrix) 08/18/2020 01/06/2021 ALLERGIES Allergen Reactions Simvastatin Other: See Comments myalgia shoulders Current Outpatient Medications Medication Sig metoprolol succinate ER (TOPROL XL) 50 mg 24 hr tablet Take 1 tablet by mouth once daily. atorvastatin (LIPITOR) 20 mg tablet Take 1 tablet by mouth once daily. omeprazole (PRILOSEC) 40 mg capsule Take 1 capsule by mouth once daily. fluticasone (FLONASE) 50 mcg/actuation nasal spray Use 2 Sprays in each nostril once daily. For allergy symptoms. ID#[id number] losartan (COZAAR) 100 mg tablet Take 1 tablet by mouth once daily. folic acid 1 mg tablet Take 1 tablet by mouth once daily. finasteride (PROPECIA) 1 mg tablet Take 1 tablet by mouth once daily. amLODIPine (NORVASC) 5 mg tablet Take 1 tablet by mouth once daily. meloxicam (MOBIC) 15 mg tablet Take 1 tablet by mouth once daily. With food for joint pains. Cholecalciferol, Vitamin D3, 1,000 unit cap Take 1 capsule by mouth once daily. FIBERCON 625 MG TAB Take one(1) tablet two(2) times daily. No current facility-administered medications for this visit. Objective BP 130/74 (BP Site: Left Arm, BP Position: Sitting, BP Cuff Size: Large Adult) Pulse 68 Temp 36.2 C (97.1 F) (Temporal Artery) Resp 16 Ht 171.7 cm (5' 7.6) Wt 97.8 kg (215 lb 9.6 oz) BMI33.17 kg/m Physical Exam Constitutional: General: He is not in acute distress. Appearance: He is obese. He is not ill-appearing. HENT: Head: Normocephalic. Eyes: Conjunctiva/sclera: Conjunctivae normal. Cardiovascular: Rate and Rhythm: Normal rate and regular rhythm. Pulses: Normal pulses. Heart sounds: No murmur heard. No gallop. Pulmonary: Effort: Pulmonary effort is normal. Breath sounds: Normal breath sounds. Abdominal: Palpations: Abdomen is soft. Tenderness: There is no abdominal tenderness. Musculoskeletal: Right lower leg: No edema. Left lower leg: No edema. Lymphadenopathy: Cervical: No cervical adenopathy. Neurological: General: No focal deficit present. Mental Status: He is alert. Gait: Gait normal. Psychiatric: Mood and Affect: Mood normal. Behavior: Behavior normal. BP 126/62 (BP Site: Right Arm, BP Position: Sitting) Component Latest Ref Rng & Units 02/17/2022 Protein, Total 6.3 - 8.0 g/dL 7.0 Albumin 3.9 - 4.9 g/dL 4.5 Calcium 8.5 - 10.2 mg/dL 9.6 Bilirubin, Total 0.2 - 1.3 mg/dL 0.9 Alkaline Phosphatase 38 - 113 U/L 67 AST 14 - 40 U/L 29 ALT 10 - 54 U/L 40 Glucose 74 - 99 mg/dL 103 (H) BUN 9 - 24 mg/dL 18 Creatinine 0.73 - 1.22 mg/dL 0.78 Sodium 136 - 144 mmol/L 140 Potassium 3.7 - 5.1 mmol/L 4.4 Chloride 97 - 105 mmol/L 107 (H) CO2 22 - 30 mmol/L 23 Anion Gap 9 - 18 mmol/L 10 eGFR >=60 mL/min/1.73m 99 WBC 3.70 - 11.00 k/uL 6.58 RBC 4.20 - 6.00 m/uL 5.37 Hemoglobin 13.0 - 17.0 g/dL 12.9 (L) Hematocrit 39.0 - 51.0 % 43.7 MCV 80.0 - 100.0 fL 81.4 MCH 26.0 - 34.0 pg 24.0 (L) MCHC 30.5 - 36.0 g/dL 29.5 (L) RDW-CV 11.5 - 15.0 % 15.5 (H) Platelet Count 150 - 400 k/uL 280 MPV 9.0 - 12.7 fL 9.6 Absolute nRBC <0.01 k/uL <0.01 Cholesterol, Total <200 mg/dL 135 Triglyceride <150 mg/dL 124 HDL Cholesterol >39 mg/dL 33 (L) Non HDL Cholesterol <130 mg/dL 102 Fasting Time hrs 12 VLDL Cholesterol <30 mg/dL 25 TC:HDL Ratio <5.10 4.09 LDL Cholesterol <100 mg/dL 77 LDL:HDL Ratio <2.54 2.33 Hemoglobin A1C 4.3 - 5.6 % 6.3 (H) Estimated Average Glucose mg/dL 134 Assessment and Plan 1. Routine medical exam - ICD9: V70.0, ICD10: Z00.00 (primary diagnosis) - Counseled on healthy diet and regular exercise - Discussed need for and benefit of weight loss. BMI 33.17 kg/(m^2) - Ultrasound screening for AAA - Depression screening tool completed and reviewed with patient. Based on score and interview, patient is not at risk for depression and recommended no further intervention at this time. - Patient was counseled [id number] by myself (the billing provider) for the following immunizations and vaccine components, including side effects: Pneumococcal . Patient consents for immunization and understands risks and benefits. A VIS sheet on each immunization was given to the patient. - Advanced Directive Discussion. He will provide copy. 2. Screening for abdominal aortic aneurysm - ICD9: V81.2, ICD10: Z13.6 - US SCREENING FOR AAA 3. Essential hypertension - ICD9: 401.9, ICD10: I10 - good control - Continue current medication(s) - Reviewed risks of HTN and principles of treatment - Goal of BP <130/80 4. Impaired fasting glucose - ICD9: 790.21, ICD10: R73.01 Stable. 5. Hereditary hemochromatosis (HCC) - ICD9: 275.01, ICD10: E83.110 Stable, and followed by hematology. 6. Need for vaccination - ICD9: V05.9, ICD10: Z23 - PNEUMOCOCCAL VACCINE (PREVNAR 20) Juan J Rubalcava MD documented in this encounterFort [facility] Hospital07-13-2022 Miscellaneous Notes* Telephone Encounter - Lelia Love - 01/31/2022 10:02 AM EDT Patient is rescheduled, aware of date and time. Lelia Love * Telephone Encounter - Umm Ochoa - 01/31/2022 9:51 AM EDT Pt called regarding 02/28/22 labs and treatment. He needs to move those to the week after or even 2 weeks after. The later in the day appts is still the best. documented in this encounterFort [facility] Hospital05-20-2022 Miscellaneous Notes* Telephone Encounter - Sonia Gil LPN - 12/08/2021 10:50 AM EDT left detailed message regarding recommendations from pcp. Sonia Gil LPN * Telephone Encounter - Juan J Rubalcava MD - 12/07/2021 5:03 PM EDT Try imodium over the counter. Avoid dairy products. Stress hydration. Appointment if not better. * Telephone Encounter - Marian Maldonado LPN - 12/07/2021 8:21 AM EDT Pt's Venecia calls & reports pt has been having diarrhea for 5 days now, multiple times daily & at night. Denies nausea, vomiting,fever or blood in stool. Pt has cramping but no significant pain. Pt has tried Kaopectate without improvement. asking if pcp can recommend something for pt to try? Marian Maldonado LPN documented in this encounterFort Hamilton Hospital03-30-2022 Miscellaneous Notes* Telephone Encounter - Abhijit Ochoa Ma - 10/18/2021 10:52 AM EDT [place] 08/21/2021 Last refill: 10/21/2020 QTY: 90 Refills: 3 documented in this encounterFort Hamilton Hospital05-01-2021 History of Present illness Narrative* Ari Leonard RT(R) - 11/19/2020 11:50 AM EDT Radiology Service Progress Note PATIENT NAME: Oliva Grey DATE OF SERVICE: November 19, 2020 TIME: 11:43 AM PATIENT IDENTITY VERIFICATION COMPLETED USING TWO (2) IDENTIFIERS: Name and Date of confirmedby patient verbally. FALL SCREENING: Has the patient had 2 falls in the last year or 1 fall with injury or currently using an Ambulatory Assistive Device (Walker, Cane, Wheelchair, Crutches, etc.)? No PATIENT GENDER DATA: Male PATIENT RELEVANT IMPLANT DATA REVIEWED: Not Applicable RADIOLOGY DEPARTMENT: General X-ray: Exam(s) Completed: Upper Extremity X- Ray(s): Fingers/Thumb, left PERIPHERAL IV DATA: Not applicable SIGNED BY: RT Agueda(R) November 19, 2020 11:43 AM documented in this encounterFort Hamilton Hospital04-11-2019 History of Past illness Narrative* Problem Noted Date Resolved Date Obesity, Class II, BMI 35-39.9 10/30/2018 0 08/15/2020 Hydrocele 11/07/2016 10/24/2017 Testicular calcification 11/07/2016 019 Microscopic hematuria 10/23/2016 10/24/2017 Benign non-nodular prostatic hyperplasia without lower urinary tract symptoms 10/23/2016 10/30/2018 Scrotal mass 10/23/2016 10/24/2017 Acute idiopathic gout of left knee 03/03/2016 09/05/2016 Diverticulosis 09/24/2012 10/30/2018 SUMMARY 07/07/2010 04/30/2011 Overview: 54yoWM w/ HL, remote tobacco, GERD, & heriditary hemachromatosis. He presented to [facility] 07/04/10 w/ aricendo angina & had positive stress test. He is tx here for consideration coronary angiography. Dyspnea 07/07/2010 09/05/2016 Overview: Progressive dyspnea over months to years. 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 He also has therapeutic anemia which could cause BLANCO. Parenchymal lung disease from smoking is consideration. CTA reportedly not suggestive PE at OSH. CXR at OSH unremarkable. HTN (hypertension) 07/07/2010 09/24/2012 Overview: He does not have prior hx HTN but was noted to have SBP 170s at OSH ED. - currently well controlled on BB - consider evaluating for HEIDY given body habitus Hypertension 05/29/2010 08/06/2016 Hemochromatosis 05/29/2010 12/23/2015 Overview: He states that he has plebotomy performed every three months. Hgb 10 at OSH. - continue FA supplementation 09/03/[address] Milly vieira: Ok for high risk medication. (plaquenil) Airway obstruction 11/09/2008 09/05/2016 Overview: 11/09/2008- [facility], Oliva Hopson MD- upper airway obstruction Obstructive sleep apnea 11/09/2008 10/31/19 19 Overview: Never picked up AutoPAP. 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) 12/24/2005 09/05/2016 Nonspecific elevation of lev els of transaminase or lactic acid dehydrogenase (LDH) 08/07/2005 09/05/2016 Internal hemorrhoids without mention of complica tion 08/03/2005 10/24/2017 Disorders of iron metabolism 08/03/2005 Overview: High Iron levels documented as of this encounter (statuses as of 10/18/2021) [facility] of Past illness Narrative* Problem Noted Date Resolved Date Obesity, Class II, BMI 35-39.9 10/30/2018 0 08/15/2020 Hydrocele 11/07/2016 10/24/2017 Testicular calcification 11/07/2016 019 Microscopic hematuria 10/23/2016 10/24/2017 Benign non-nodular prostatic hyperplasia without lower urinary tract symptoms 10/23/2016 10/30/2018 Scrotal mass 10/23/2016 10/24/2017 Acute idiopathic gout of left knee 03/03/2016 09/05/2016 Diverticulosis 09/24/2012 10/30/2018 SUMMARY 07/07/2010 04/30/2011 Overview: 54yoWM w/ HL, remote tobacco, GERD, & heriditary hemachromatosis. He presented to [facility] 07/04/10 w/ crescendo angina & had positive stress test. He is tx here for consideration coronary angiography. Dyspnea 07/07/2010 09/05/2016 Overview: Progressive dyspnea over months to years. 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 He also has therapeutic anemia which could cause BLANCO. Parenchymal lung disease from smoking is consideration. CTA reportedly not suggestive PE at OSH. CXR at OSH unremarkable. HTN (hypertension) 07/07/2010 09/24/2012 Overview: He does not have prior hx HTN but was noted to have SBP 170s at OSH ED. - currently well controlled on BB - consider evaluating for HEIDY given body habitus Hypertension 05/29/2010 08/06/2016 Hemochromatosis 05/29/2010 12/23/2015 Overview: He states that he has plebotomy performed every three months. Hgb 10 at OSH. - continue FA supplementation 09/03/[address] Milly Latham eval: Ok for high risk medication. (plaquenil) Airway obstruction 11/09/2008 09/05/2016 Overview: 11/09/2008- [facility], Oliva Hopson MD- upper airway obstruction Obstructive sleep apnea 11/09/2008 10/31/19 Overview: Never picked up AutoPAP. 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) 12/24/2005 09/05/2016 Nonspecific elevation of lev els of transaminase or lactic acid dehydrogenase (LDH) 08/07/2005 09/05/2016 Internal hemorrhoids without mention of complica tion 08/03/2005 10/24/2017 Disorders of iron metabolism 08/03/2005 Overview: High Iron levels documented as of this encounter (statuses as of 12/08/2021) [facility] of Past illness Narrative* Problem Noted Date Resolved Date Obesity, Class II, BMI 35-39.9 10/30/2018 0 08/15/2020 Hydrocele 11/07/2016 10/24/2017 Testicular calcification 11/07/2016 019 Microscopic hematuria 10/23/2016 10/24/2017 Benign non-nodular prostatic hyperplasia without lower urinary tract symptoms 10/23/2016 10/30/2018 Scrotal mass 10/23/2016 10/24/2017 Acute idiopathic gout of left knee 03/03/2016 09/05/2016 Diverticulosis 09/24/2012 10/30/2018 SUMMARY 07/07/2010 04/30/2011 Overview: 54yoWM w/ HL, remote tobacco, GERD, & heriditary hemachromatosis. He presented to [facility] 07/04/10 w/ crescendo angina & had positive stress test. He is tx here for consideration coronary angiography. Dyspnea 07/07/2010 09/05/2016 Overview: Progressive dyspnea over months to years. 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 He also has therapeutic anemia which could cause BLANCO. Parenchymal lung disease from smoking is consideration. CTA reportedly not suggestive PE at OSH. CXR at OSH unremarkable. HTN (hypertension) 07/07/2010 09/24/2012 Overview: He does not have prior hx HTN but was noted to have SBP 170s at OSH ED. - currently well controlled on BB - consider evaluating for HEIDY given body habitus Hypertension 05/29/2010 08/06/2016 Hemochromatosis 05/29/2010 12/23/2015 Overview: He states that he has plebotomy performed every three months. Hgb 10 at OSH. - continue FA supplementation 09/03/[address] Milly Latham eval: Ok for high risk medication. (plaquenil) Airway obstruction 11/09/2008 09/05/2016 Overview: 11/09/2008- [facility], Oliva Hopson MD- upper airway obstruction Obstructive sleep apnea 11/09/2008 10/31/19 19 Overview: Never picked up AutoPAP. 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) 12/24/2005 09/05/2016 Nonspecific elevation of lev els of transaminase or lactic acid dehydrogenase (LDH) 08/07/2005 09/05/2016 Internal hemorrhoids without mention of complica tion 08/03/2005 10/24/2017 Disorders of iron metabolism 08/03/2005 Overview: High Iron levels documented as of this encounter (statuses as of 02/19/2022) [facility] illness Narrative* Problem Noted Date Resolved Date Obesity, Class II, BMI 35-39.9 10/30/2018 0 08/15/2020 Hydrocele 11/07/2016 10/24/2017 Testicular calcification 11/07/2016 019 Microscopic hematuria 10/23/2016 10/24/2017 Benign non-nodular prostatic hyperplasia without lower urinary tract symptoms 10/23/2016 10/30/2018 Scrotal mass 10/23/2016 10/24/2017 Acute idiopathic gout of left knee 03/03/2016 09/05/2016 Diverticulosis 09/24/2012 10/30/2018 SUMMARY 07/07/2010 04/30/2011 Overview: 54yoWM w/ HL, remote tobacco, GERD, & heriditary hemachromatosis. He presented to [facility] 07/04/10 w/ crescendo angina & had positive stress test. He is tx here for consideration coronary angiography. Dyspnea 07/07/2010 09/05/2016 Overview: Progressive dyspnea over months to years. 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 He also has therapeutic anemia which could cause BLANCO. Parenchymal lung disease from smoking is consideration. CTA reportedly not suggestive PE at OSH. CXR at OSH unremarkable. HTN (hypertension) 07/07/2010 09/24/2012 Overview: He does not have prior hx HTN but was noted to have SBP 170s at OSH ED. - currently well controlled on BB - consider evaluating for HEIDY given body habitus Hypertension 05/29/2010 08/06/2016 Hemochromatosis 05/29/2010 12/23/2015 Overview: He states that he has plebotomy performed every three months. Hgb 10 at OSH. - continue FA supplementation 09/03/[address] Milly vieira: Ok for high risk medication. (plaquenil) Airway obstruction 11/09/2008 09/05/2016 Overview: 11/09/2008- [facility], Oliva Hopson MD- upper airway obstruction Obstructive sleep apnea 11/09/2008 10/31/19 19 Overview: Never picked up AutoPAP. 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) 12/24/2005 09/05/2016 Nonspecific elevation of lev els of transaminase or lactic acid dehydrogenase (LDH) 08/07/2005 09/05/2016 Internal hemorrhoids without mention of complica tion 08/03/2005 10/24/2017 Disorders of iron metabolism 08/03/2005 Overview: High Iron levels documented as of this encounter (statuses as of 03/12/2022) [facility] Narrative* Problem Noted Date Resolved Date Obesity, Class II, BMI 35-39.9 10/30/2018 0 08/15/2020 Hydrocele 11/07/2016 10/24/2017 Testicular calcification 11/07/2016 019 Microscopic hematuria 10/23/2016 10/24/2017 Benign non-nodular prostatic hyperplasia without lower urinary tract symptoms 10/23/2016 10/30/2018 Scrotal mass 10/23/2016 10/24/2017 Acute idiopathic gout of left knee 03/03/2016 09/05/2016 Diverticulosis 09/24/2012 10/30/2018 SUMMARY 07/07/2010 04/30/2011 Overview: 54yoWM w/ HL, remote tobacco, GERD, & heriditary hemachromatosis. He presented to [facility] 07/04/10 w/ crescendo angina & had positive stress test. He is tx here for consideration coronary angiography. Dyspnea 07/07/2010 09/05/2016 Overview: Progressive dyspnea over months to years. 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 He also has therapeutic anemia which could cause BLANCO. Parenchymal lung disease from smoking is consideration. CTA reportedly not suggestive PE at OSH. CXR at OSH unremarkable. HTN (hypertension) 07/07/2010 09/24/2012 Overview: He does not have prior hx HTN but was noted to have SBP 170s at OSH ED. - currently well controlled on BB - consider evaluating for HEIDY given body habitus Hypertension 05/29/2010 08/06/2016 Hemochromatosis 05/29/2010 12/23/2015 Overview: He states that he has plebotomy performed every three months. Hgb 10 at OSH. - continue FA supplementation 09/03/[address] Milly Latham eval: Ok for high risk medication. (plaquenil) Airway obstruction 11/09/2008 09/05/2016 Overview: 11/09/2008- [facility], Oliva Hopson MD- upper airway obstruction Obstructive sleep apnea 11/09/2008 10/31/19 19 Overview: Never picked up AutoPAP. 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) 12/24/2005 09/05/2016 Nonspecific elevation of lev els of transaminase or lactic acid dehydrogenase (LDH) 08/07/2005 09/05/2016 Internal hemorrhoids without mention of complica tion 08/03/2005 10/24/2017 Disorders of iron metabolism 08/03/2005 Overview: High Iron levels documented as of this encounter (statuses as of 04/17/2022) [facility] Narrative* Problem Noted Date Resolved Date Obesity, Class II, BMI 35-39.9 10/30/2018 0 08/15/2020 Hydrocele 11/07/2016 10/24/2017 Testicular calcification 11/07/2016 019 Microscopic hematuria 10/23/2016 10/24/2017 Benign non-nodular prostatic hyperplasia without lower urinary tract symptoms 10/23/2016 10/30/2018 Scrotal mass 10/23/2016 10/24/2017 Acute idiopathic gout of left knee 03/03/2016 09/05/2016 Diverticulosis 09/24/2012 10/30/2018 SUMMARY 07/07/2010 04/30/2011 Overview: 54yoWM w/ HL, remote tobacco, GERD, & heriditary hemachromatosis. He presented to [facility] 07/04/10 w/ crescendo angina & had positive stress test. He is tx here for consideration coronary angiography. Dyspnea 07/07/2010 09/05/2016 Overview: Progressive dyspnea over months to years. 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 He also has therapeutic anemia which could cause BLANCO. Parenchymal lung disease from smoking is consideration. CTA reportedly not suggestive PE at OSH. CXR at OSH unremarkable. HTN (hypertension) 07/07/2010 09/24/2012 Overview: He does not have prior hx HTN but was noted to have SBP 170s at OSH ED. - currently well controlled on BB - consider evaluating for HEIDY given body habitus Hypertension 05/29/2010 08/06/2016 Hemochromatosis 05/29/2010 12/23/2015 Overview: He states that he has plebotomy performed every three months. Hgb 10 at OSH. - continue FA supplementation 09/03/[address] Milly Latham eval: Ok for high risk medication. (plaquenil) Airway obstruction 11/09/2008 09/05/2016 Overview: 11/09/2008- [facility], Oliva Hopson MD- upper airway obstruction Obstructive sleep apnea 11/09/2008 10/31/19 19 Overview: Never picked up AutoPAP. 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) 12/24/2005 09/05/2016 Nonspecific elevation of lev els of transaminase or lactic acid dehydrogenase (LDH) 08/07/2005 09/05/2016 Internal hemorrhoids without mention of complica tion 08/03/2005 10/24/2017 Disorders of iron metabolism 08/03/2005 Overview: High Iron levels documented as of this encounter (statuses as of 04/26/2022) [facility]04-11-2019 History of Past illness Narrative* Problem Noted Date Resolved Date Obesity, Class II, BMI 35-39.9 10/30/2018 0 08/15/2020 Hydrocele 11/07/2016 10/24/2017 Testicular calcification 11/07/2016 019 Microscopic hematuria 10/23/2016 10/24/2017 Benign non-nodular prostatic hyperplasia without lower urinary tract symptoms 10/23/2016 10/30/2018 Scrotal mass 10/23/2016 10/24/2017 Acute idiopathic gout of left knee 03/03/2016 09/05/2016 Diverticulosis 09/24/2012 10/30/2018 SUMMARY 07/07/2010 04/30/2011 Overview: 54yoWM w/ HL, remote tobacco, GERD, & heriditary hemachromatosis. He presented to [facility] 07/04/10 w/ crescendo angina & had positive stress test. He is tx here for consideration coronary angiography. Dyspnea 07/07/2010 09/05/2016 Overview: Progressive dyspnea over months to years. 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 He also has therapeutic anemia which could cause BLANCO. Parenchymal lung disease from smoking is consideration. CTA reportedly not suggestive PE at OSH. CXR at OSH unremarkable. HTN (hypertension) 07/07/2010 09/24/2012 Overview: He does not have prior hx HTN but was noted to have SBP 170s at OSH ED. - currently well controlled on BB - consider evaluating for HEIDY given body habitus Hypertension 05/29/2010 08/06/2016 Hemochromatosis 05/29/2010 12/23/2015 Overview: He states that he has plebotomy performed every three months. Hgb 10 at OSH. - continue FA supplementation 09/03/[address] Milly vieira: Ok for high risk medication. (plaquenil) Airway obstruction 11/09/2008 09/05/2016 Overview: 11/09/2008- [facility], Oliva Hopson MD- upper airway obstruction Obstructive sleep apnea 11/09/2008 10/31/19 19 Overview: Never picked up AutoPAP. 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) 12/24/2005 09/05/2016 Nonspecific elevation of lev els of transaminase or lactic acid dehydrogenase (LDH) 08/07/2005 09/05/2016 Internal hemorrhoids without mention of complica tion 08/03/2005 10/24/2017 Disorders of iron metabolism 08/03/2005 Overview: High Iron levels documented as of this encounter (statuses as of 05/14/2022) [facility]04-11-2019 History of Past illness Narrative* Problem Noted Date Resolved Date Obesity, Class II, BMI 35-39.9 10/30/2018 0 08/15/2020 Hydrocele 11/07/2016 10/24/2017 Testicular calcification 11/07/2016 019 Microscopic hematuria 10/23/2016 10/24/2017 Benign non-nodular prostatic hyperplasia without lower urinary tract symptoms 10/23/2016 10/30/2018 Scrotal mass 10/23/2016 10/24/2017 Acute idiopathic gout of left knee 03/03/2016 09/05/2016 Diverticulosis 09/24/2012 10/30/2018 SUMMARY 07/07/2010 04/30/2011 Overview: 54yoWM w/ HL, remote tobacco, GERD, & heriditary hemachromatosis. He presented to [facility] 07/04/10 w/ crescendo angina & had positive stress test. He is tx here for consideration coronary angiography. Dyspnea 07/07/2010 09/05/2016 Overview: Progressive dyspnea over months to years. 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 He also has therapeutic anemia which could cause BLANCO. Parenchymal lung disease from smoking is consideration. CTA reportedly not suggestive PE at OSH. CXR at OSH unremarkable. HTN (hypertension) 07/07/2010 09/24/2012 Overview: He does not have prior hx HTN but was noted to have SBP 170s at OSH ED. - currently well controlled on BB - consider evaluating for HEIDY given body habitus Hypertension 05/29/2010 08/06/2016 Hemochromatosis 05/29/2010 12/23/2015 Overview: He states that he has plebotomy performed every three months. Hgb 10 at OSH. - continue FA supplementation 09/03/[address] Milly Latham eval: Ok for high risk medication. (plaquenil) Airway obstruction 11/09/2008 09/05/2016 Overview: 11/09/2008- [facility], Oliva Hopson MD- upper airway obstruction Obstructive sleep apnea 11/09/2008 10/31/19 19 Overview: Never picked up AutoPAP. 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) 12/24/2005 09/05/2016 Nonspecific elevation of lev els of transaminase or lactic acid dehydrogenase (LDH) 08/07/2005 09/05/2016 Internal hemorrhoids without mention of complica tion 08/03/2005 10/24/2017 Disorders of iron metabolism 08/03/2005 Overview: High Iron levels documented as of this encounter (statuses as of 06/06/2022) [facility]04-11-2019 History of Past illness Narrative* Problem Noted Date Resolved Date Obesity, Class II, BMI 35-39.9 10/30/2018 0 08/15/2020 Hydrocele 11/07/2016 10/24/2017 Testicular calcification 11/07/2016 019 Microscopic hematuria 10/23/2016 10/24/2017 Benign non-nodular prostatic hyperplasia without lower urinary tract symptoms 10/23/2016 10/30/2018 Scrotal mass 10/23/2016 10/24/2017 Acute idiopathic gout of left knee 03/03/2016 09/05/2016 Diverticulosis 09/24/2012 10/30/2018 SUMMARY 07/07/2010 04/30/2011 Overview: 54yoWM w/ HL, remote tobacco, GERD, & heriditary hemachromatosis. He presented to [facility] 07/04/10 w/ crescendo angina & had positive stress test. He is tx here for consideration coronary angiography. Dyspnea 07/07/2010 09/05/2016 Overview: Progressive dyspnea over months to years. 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 He also has therapeutic anemia which could cause BLANCO. Parenchymal lung disease from smoking is consideration. CTA reportedly not suggestive PE at OSH. CXR at OSH unremarkable. HTN (hypertension) 07/07/2010 09/24/2012 Overview: He does not have prior hx HTN but was noted to have SBP 170s at OSH ED. - currently well controlled on BB - consider evaluating for HEIDY given body habitus Hypertension 05/29/2010 08/06/2016 Hemochromatosis 05/29/2010 12/23/2015 Overview: He states that he has plebotomy performed every three months. Hgb 10 at OSH. - continue FA supplementation 09/03/[address] Milly Latham eval: Ok for high risk medication. (plaquenil) Airway obstruction 11/09/2008 09/05/2016 Overview: 11/09/2008- [facility], Oliva Hopson MD- upper airway obstruction Obstructive sleep apnea 11/09/2008 10/31/19 19 Overview: Never picked up AutoPAP. 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) 12/24/2005 09/05/2016 Nonspecific elevation of lev els of transaminase or lactic acid dehydrogenase (LDH) 08/07/2005 09/05/2016 Internal hemorrhoids without mention of complica tion 08/03/2005 10/24/2017 Disorders of iron metabolism 08/03/2005 Overview: High Iron levels documented as of this encounter (statuses as of 06/07/2022) [facility]04-11-2019 History of Past illness Narrative* Problem Noted Date Resolved Date Obesity, Class II, BMI 35-39.9 10/30/2018 0 08/15/2020 Hydrocele 11/07/2016 10/24/2017 Testicular calcification 11/07/2016 019 Microscopic hematuria 10/23/2016 10/24/2017 Benign non-nodular prostatic hyperplasia without lower urinary tract symptoms 10/23/2016 10/30/2018 Scrotal mass 10/23/2016 10/24/2017 Acute idiopathic gout of left knee 03/03/2016 09/05/2016 Diverticulosis 09/24/2012 10/30/2018 SUMMARY 07/07/2010 04/30/2011 Overview: 54yoWM w/ HL, remote tobacco, GERD, & heriditary hemachromatosis. He presented to [facility] 07/04/10 w/ crescendo angina & had positive stress test. He is tx here for consideration coronary angiography. Dyspnea 07/07/2010 09/05/2016 Overview: Progressive dyspnea over months to years. 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 He also has therapeutic anemia which could cause BLANCO. Parenchymal lung disease from smoking is consideration. CTA reportedly not suggestive PE at OSH. CXR at OSH unremarkable. HTN (hypertension) 07/07/2010 09/24/2012 Overview: He does not have prior hx HTN but was noted to have SBP 170s at OSH ED. - currently well controlled on BB - consider evaluating for HEIDY given body habitus Hypertension 05/29/2010 08/06/2016 Hemochromatosis 05/29/2010 12/23/2015 Overview: He states that he has plebotomy performed every three months. Hgb 10 at OSH. - continue FA supplementation 09/03/[address] Milly Latham eval: Ok for high risk medication. (plaquenil) Airway obstruction 11/09/2008 09/05/2016 Overview: 11/09/2008- [facility], Oliva Hopson MD- upper airway obstruction Obstructive sleep apnea 11/09/2008 10/31/19 19 Overview: Never picked up AutoPAP. 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) 12/24/2005 09/05/2016 Nonspecific elevation of lev els of transaminase or lactic acid dehydrogenase (LDH) 08/07/2005 09/05/2016 Internal hemorrhoids without mention of complica tion 08/03/2005 10/24/2017 Disorders of iron metabolism 08/03/2005 Overview: High Iron levels documented as of this encounter (statuses as of 06/09/2022) [facility]04-11-2019 History of Past illness Narrative* Problem Noted Date Resolved Date Obesity, Class II, BMI 35-39.9 10/30/2018 0 08/15/2020 Hydrocele 11/07/2016 10/24/2017 Testicular calcification 11/07/2016 019 Microscopic hematuria 10/23/2016 10/24/2017 Benign non-nodular prostatic hyperplasia without lower urinary tract symptoms 10/23/2016 10/30/2018 Scrotal mass 10/23/2016 10/24/2017 Acute idiopathic gout of left knee 03/03/2016 09/05/2016 Diverticulosis 09/24/2012 10/30/2018 SUMMARY 07/07/2010 04/30/2011 Overview: 54yoWM w/ HL, remote tobacco, GERD, & heriditary hemachromatosis. He presented to [facility] 07/04/10 w/ crescendo angina & had positive stress test. He is tx here for consideration coronary angiography. Dyspnea 07/07/2010 09/05/2016 Overview: Progressive dyspnea over months to years. 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 He also has therapeutic anemia which could cause BLANCO. Parenchymal lung disease from smoking is consideration. CTA reportedly not suggestive PE at OSH. CXR at OSH unremarkable. HTN (hypertension) 07/07/2010 09/24/2012 Overview: He does not have prior hx HTN but was noted to have SBP 170s at OSH ED. - currently well controlled on BB - consider evaluating for HEIDY given body habitus Hypertension 05/29/2010 08/06/2016 Hemochromatosis 05/29/2010 12/23/2015 Overview: He states that he has plebotomy performed every three months. Hgb 10 at OSH. - continue FA supplementation 09/03/[address] Milly Latham eval: Ok for high risk medication. (plaquenil) Airway obstruction 11/09/2008 09/05/2016 Overview: 11/09/2008- [facility], Oliva Hopson MD- upper airway obstruction Obstructive sleep apnea 11/09/2008 10/31/19 Overview: Never picked up AutoPAP. 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) 12/24/2005 09/05/2016 Nonspecific elevation of lev els of transaminase or lactic acid dehydrogenase (LDH) 08/07/2005 09/05/2016 Internal hemorrhoids without mention of complica tion 08/03/2005 10/24/2017 Disorders of iron metabolism 08/03/2005 Overview: High Iron levels documented as of this encounter (statuses as of 08/24/2022) [facility]04-11-2019 History of Past illness Narrative* Problem Noted Date Resolved Date Obesity, Class II, BMI 35-39.9 10/30/2018 0 08/15/2020 Hydrocele 11/07/2016 10/24/2017 Testicular calcification 11/07/2016 019 Microscopic hematuria 10/23/2016 10/24/2017 Benign non-nodular prostatic hyperplasia without lower urinary tract symptoms 10/23/2016 10/30/2018 Scrotal mass 10/23/2016 10/24/2017 Acute idiopathic gout of left knee 03/03/2016 09/05/2016 Diverticulosis 09/24/2012 10/30/2018 SUMMARY 07/07/2010 04/30/2011 Overview: 54yoWM w/ HL, remote tobacco, GERD, & heriditary hemachromatosis. He presented to [facility] 07/04/10 w/ crescendo angina & had positive stress test. He is tx here for consideration coronary angiography. Dyspnea 07/07/2010 09/05/2016 Overview: Progressive dyspnea over months to years. 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 He also has therapeutic anemia which could cause BLANCO. Parenchymal lung disease from smoking is consideration. CTA reportedly not suggestive PE at OSH. CXR at OSH unremarkable. HTN (hypertension) 07/07/2010 09/24/2012 Overview: He does not have prior hx HTN but was noted to have SBP 170s at OSH ED. - currently well controlled on BB - consider evaluating for HEIDY given body habitus Hypertension 05/29/2010 08/06/2016 Hemochromatosis 05/29/2010 12/23/2015 Overview: He states that he has plebotomy performed every three months. Hgb 10 at OSH. - continue FA supplementation 09/03/[address] Milly Latham eval: Ok for high risk medication. (plaquenil) Airway obstruction 11/09/2008 09/05/2016 Overview: 11/09/2008- [facility], Oliva Hopson MD- upper airway obstruction Obstructive sleep apnea 11/09/2008 10/31/19 19 Overview: Never picked up AutoPAP. 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) 12/24/2005 09/05/2016 Nonspecific elevation of lev els of transaminase or lactic acid dehydrogenase (LDH) 08/07/2005 09/05/2016 Internal hemorrhoids without mention of complica tion 08/03/2005 10/24/2017 Disorders of iron metabolism 08/03/2005 Overview: High Iron levels documented as of this encounter (statuses as of 08/28/2022) [facility]04-11[facility]2019 History of Past illness Narrative* Problem Noted Date Resolved Date Obesity, Class II, BMI 35-39.9 10/30/2018 0 08/15/2020 Hydrocele 11/07/2016 10/24/2017 Testicular calcification 11/07/2016 019 Microscopic hematuria 10/23/2016 10/24/2017 Benign non-nodular prostatic hyperplasia without lower urinary tract symptoms 10/23/2016 10/30/2018 Scrotal mass 10/23/2016 10/24/2017 Acute idiopathic gout of left knee 03/03/2016 09/05/2016 Diverticulosis 09/24/2012 10/30/2018 SUMMARY 07/07/2010 04/30/2011 Overview: 54yoWM w/ HL, remote tobacco, GERD, & heriditary hemachromatosis. He presented to [facility] 07/04/10 w/ gabe angina & had positive stress test. He is tx here for consideration coronary angiography. Dyspnea 07/07/2010 09/05/2016 Overview: Progressive dyspnea over months to years. 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 He also has therapeutic anemia which could cause BLANCO. Parenchymal lung disease from smoking is consideration. CTA reportedly not suggestive PE at OSH. CXR at OSH unremarkable. HTN (hypertension) 07/07/2010 09/24/2012 Overview: He does not have prior hx HTN but was noted to have SBP 170s at OSH ED. - currently well controlled on BB - consider evaluating for HEIDY given body habitus Hypertension 05/29/2010 08/06/2016 Hemochromatosis 05/29/2010 12/23/2015 Overview: He states that he has plebotomy performed every three months. Hgb 10 at OSH. - continue FA supplementation 09/03/[address] Milly Latham eval: Ok for high risk medication. (plaquenil) Airway obstruction 11/09/2008 09/05/2016 Overview: 11/09/2008- [facility], Oliva Hopson MD- upper airway obstruction Obstructive sleep apnea 11/09/2008 10/31/19 19 Overview: Never picked up AutoPAP. 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) 12/24/2005 09/05/2016 Nonspecific elevation of lev els of transaminase or lactic acid dehydrogenase (LDH) 08/07/2005 09/05/2016 Internal hemorrhoids without mention of complica tion 08/03/2005 10/24/2017 Disorders of iron metabolism 08/03/2005 Overview: High Iron levels documented as of this encounter (statuses as of 08/29/2022) [facility]04-[facility]2019 History of Past illness Narrative* Problem Noted Date Resolved Date Obesity, Class II, BMI 35-39.9 10/30/2018 0 08/15/2020 Hydrocele 11/07/2016 10/24/2017 Testicular calcification 11/07/2016 019 Microscopic hematuria 10/23/2016 10/24/2017 Benign non-nodular prostatic hyperplasia without lower urinary tract symptoms 10/23/2016 10/30/2018 Scrotal mass 10/23/2016 10/24/2017 Acute idiopathic gout of left knee 03/03/2016 09/05/2016 Diverticulosis 09/24/2012 10/30/2018 SUMMARY 07/07/2010 04/30/2011 Overview: 54yoWM w/ HL, remote tobacco, GERD, & heriditary hemachromatosis. He presented to [facility] 07/04/10 w/ crescendo angina & had positive stress test. He is tx here for consideration coronary angiography. Dyspnea 07/07/2010 09/05/2016 Overview: Progressive dyspnea over months to years. 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 He also has therapeutic anemia which could cause BLANCO. Parenchymal lung disease from smoking is consideration. CTA reportedly not suggestive PE at OSH. CXR at OSH unremarkable. HTN (hypertension) 07/07/2010 09/24/2012 Overview: He does not have prior hx HTN but was noted to have SBP 170s at OSH ED. - currently well controlled on BB - consider evaluating for HEIDY given body habitus Hypertension 05/29/2010 08/06/2016 Hemochromatosis 05/29/2010 12/23/2015 Overview: He states that he has plebotomy performed every three months. Hgb 10 at OSH. - continue FA supplementation 09/03/[address] Milly Latham eval: Ok for high risk medication. (plaquenil) Airway obstruction 11/09/2008 09/05/2016 Overview: 11/09/2008- [facility], Oliva Hopson MD- upper airway obstruction Obstructive sleep apnea 11/09/2008 10/31/19 19 Overview: Never picked up AutoPAP. 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) 12/24/2005 09/05/2016 Nonspecific elevation of lev els of transaminase or lactic acid dehydrogenase (LDH) 08/07/2005 09/05/2016 Internal hemorrhoids without mention of complica tion 08/03/2005 10/24/2017 Disorders of iron metabolism 08/03/2005 Overview: High Iron levels documented as of this encounter (statuses as of 08/29/2022) [facility] History of Past illness Narrative* Problem Noted Date Resolved Date Obesity, Class II, BMI 35-39.9 10/30/2018 0 08/15/2020 Hydrocele 11/07/2016 10/24/2017 Testicular calcification 11/07/2016 019 Microscopic hematuria 10/23/2016 10/24/2017 Benign non-nodular prostatic hyperplasia without lower urinary tract symptoms 10/23/2016 10/30/2018 Scrotal mass 10/23/2016 10/24/2017 Acute idiopathic gout of left knee 03/03/2016 09/05/2016 Diverticulosis 09/24/2012 10/30/2018 SUMMARY 07/07/2010 04/30/2011 Overview: 54yoWM w/ HL, remote tobacco, GERD, & heriditary hemachromatosis. He presented to [facility] 07/04/10 w/ crescendo angina & had positive stress test. He is tx here for consideration coronary angiography. Dyspnea 07/07/2010 09/05/2016 Overview: Progressive dyspnea over months to years. 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 He also has therapeutic anemia which could cause BLANCO. Parenchymal lung disease from smoking is consideration. CTA reportedly not suggestive PE at OSH. CXR at OSH unremarkable. HTN (hypertension) 07/07/2010 09/24/2012 Overview: He does not have prior hx HTN but was noted to have SBP 170s at OSH ED. - currently well controlled on BB - consider evaluating for HEIDY given body habitus Hypertension 05/29/2010 08/06/2016 Hemochromatosis 05/29/2010 12/23/2015 Overview: He states that he has plebotomy performed every three months. Hgb 10 at OSH. - continue FA supplementation 09/03/[address] Milly Latham eval: Ok for high risk medication. (plaquenil) Airway obstruction 11/09/2008 09/05/2016 Overview: 11/09/2008- [facility], Oliva Hopson MD- upper airway obstruction Obstructive sleep apnea 11/09/2008 10/31/19 19 Overview: Never picked up AutoPAP. 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) 12/24/2005 09/05/2016 Nonspecific elevation of lev els of transaminase or lactic acid dehydrogenase (LDH) 08/07/2005 09/05/2016 Internal hemorrhoids without mention of complica tion 08/03/2005 10/24/2017 Disorders of iron metabolism 08/03/2005 Overview: High Iron levels documented as of this encounter (statuses as of 10/23/2022) [facility] History of Past illness Narrative* Problem Noted Date Resolved Date Obesity, Class II, BMI 35-39.9 10/30/2018 0 08/15/2020 Hydrocele 11/07/2016 10/24/2017 Testicular calcification 11/07/2016 019 Microscopic hematuria 10/23/2016 10/24/2017 Benign non-nodular prostatic hyperplasia without lower urinary tract symptoms 10/23/2016 10/30/2018 Scrotal mass 10/23/2016 10/24/2017 Acute idiopathic gout of left knee 03/03/2016 09/05/2016 Diverticulosis 09/24/2012 10/30/2018 SUMMARY 07/07/2010 04/30/2011 Overview: 54yoWM w/ HL, remote tobacco, GERD, & heriditary hemachromatosis. He presented to [facility] 07/04/10 w/ crescendo angina & had positive stress test. He is tx here for consideration coronary angiography. Dyspnea 07/07/2010 09/05/2016 Overview: Progressive dyspnea over months to years. 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 He also has therapeutic anemia which could cause BLANCO. Parenchymal lung disease from smoking is consideration. CTA reportedly not suggestive PE at OSH. CXR at OSH unremarkable. HTN (hypertension) 07/07/2010 09/24/2012 Overview: He does not have prior hx HTN but was noted to have SBP 170s at OSH ED. - currently well controlled on BB - consider evaluating for HEIDY given body habitus Hypertension 05/29/2010 08/06/2016 Hemochromatosis 05/29/2010 12/23/2015 Overview: He states that he has plebotomy performed every three months. Hgb 10 at OSH. - continue FA supplementation 09/03/[address] Milly Latham eval: Ok for high risk medication. (plaquenil) Airway obstruction 11/09/2008 09/05/2016 Overview: 11/09/2008- [facility], Oliva Hopson MD- upper airway obstruction Obstructive sleep apnea 11/09/2008 10/31/19 19 Overview: Never picked up AutoPAP. 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) 12/24/2005 09/05/2016 Nonspecific elevation of lev els of transaminase or lactic acid dehydrogenase (LDH) 08/07/2005 09/05/2016 Internal hemorrhoids without mention of complica tion 08/03/2005 10/24/2017 Disorders of iron metabolism 08/03/2005 Overview: High Iron levels documented as of this encounter (statuses as of 11/22/2022) [facility] History of Past illness Narrative* Problem Noted Date Diagnosed Date Resolved Date Obesity, Class II, BMI 35-39.9 10/30/2018 08/15/2020 Hydrocele 11/07/2016 10/24/2017 Testicular calcification 11/07/201605/2019 Microscopic hematuria 10/23/20162017 Benign non-nodular prostatic hyperplasia without lower urinary tract symptoms 10/23/201605/2019 Scrotal mass 10/23/2016 10/24/2017 Acute idiopathic gout of left knee 03/03/2016 09/05/2016 Diverticulosis 09/24/2012 10/30/2018 SUMMARY 07/07/2010 04/30/2011 Overview: 54yoWM w/ HL, remote tobacco, GERD, & heriditary hemachromatosis. He presented to [facility] 07/04/10 w/ crescendo angina & had positive stress test. He is tx here for consideration coronary angiography. Dyspnea 07/07/2010 09/05/2016 Overview: Progressive dyspnea over months to years. 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 He also has therapeutic anemia which could cause BLANCO. Parenchymal lung disease from smoking is consideration. CTA reportedly not suggestive PE at OSH. CXR at OSH unremarkable. HTN (hypertension) 07/07/2010 3 Overview: He does not have prior hx HTN but was noted to have SBP 170s at OSH ED. - currently well controlled on BB - consider evaluating for HEIDY given body habitus Hypertension 05/29/2010 08/06/2016 Hemochromatosis 05/29/2010 12/23/2015 Overview: He states that he has plebotomy performed every three months. Hgb 10 at OSH. - continue FA supplementation 09/03/[address] Milly Latham eval: Ok for high risk medication. (plaquenil) Airway obstruction 11/09/2008 7 Overview: 11/09/2008- [facility], Oliva Hopson MD- upper airway obstruction Obstructive sleep apnea 11/09/200810/20 Overview: Never picked up AutoPAP. 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) 12/24/2005 7 Nonspecific elevation of lev els of transaminase or lactic acid dehydrogenase (LDH) 08/07/2005 09/05/2016 Internal hemorrhoids without mention of complication 08/03/2005 10/24/2017 Disorders of iron metabolism 08/03/2005 09/05/2016 Overview: High Iron levels documented as of this encounter (statuses as of 02/13/2023) [facility]04-11-2019 History of Past illness Narrative* Problem Noted Date Diagnosed Date Resolved Date Obesity, Class II, BMI 35-39.9 10/30/2018 08/15/2020 Hydrocele 11/07/2016 10/24/2017 Testicular calcification 11/07/201605/2019 Microscopic hematuria 10/23/20162017 Benign non-nodular prostatic hyperplasia without lower urinary tract symptoms 10/23/201605/2019 Scrotal mass 10/23/2016 10/24/2017 Acute idiopathic gout of left knee 03/03/2016 09/05/2016 Diverticulosis 09/24/2012 10/30/2018 SUMMARY 07/07/2010 04/30/2011 Overview: 54yoWM w/ HL, remote tobacco, GERD, & heriditary hemachromatosis. He presented to [facility] 07/04/10 w/ crescendo angina & had positive stress test. He is tx here for consideration coronary angiography. Dyspnea 07/07/2010 09/05/2016 Overview: Progressive dyspnea over months to years. 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 He also has therapeutic anemia which could cause BLANCO. Parenchymal lung disease from smoking is consideration. CTA reportedly not suggestive PE at OSH. CXR at OSH unremarkable. HTN (hypertension) 07/07/2010 3 Overview: He does not have prior hx HTN but was noted to have SBP 170s at OSH ED. - currently well controlled on BB - consider evaluating for HEIDY given body habitus Hypertension 05/29/2010 08/06/2016 Hemochromatosis 05/29/2010 12/23/2015 Overview: He states that he has plebotomy performed every three months. Hgb 10 at OSH. - continue FA supplementation 09/03/[address] Milly Latham eval: Ok for high risk medication. (plaquenil) Airway obstruction 11/09/2008 7 Overview: 11/09/2008- [facility], Oliva Hopson MD- upper airway obstruction Obstructive sleep apnea 11/09/200810/20 Overview: Never picked up AutoPAP. 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) 12/24/2005 7 Nonspecific elevation of lev els of transaminase or lactic acid dehydrogenase (LDH) 08/07/2005 09/05/2016 Internal hemorrhoids without mention of complication 08/03/2005 10/24/2017 Disorders of iron metabolism 08/03/2005 09/05/2016 Overview: High Iron levels documented as of this encounter (statuses as of 04/11/2023) [facility]04-11-2019 History of Past illness Narrative* Problem Noted Date Diagnosed Date Resolved Date Obesity, Class II, BMI 35-39.9 10/30/2018 08/15/2020 Hydrocele 11/07/2016 10/24/2017 Testicular calcification 11/07/201605/2019 Microscopic hematuria 10/23/20162017 Benign non-nodular prostatic hyperplasia without lower urinary tract symptoms 10/23/201605/2019 Scrotal mass 10/23/2016 10/24/2017 Acute idiopathic gout of left knee 03/03/2016 09/05/2016 Diverticulosis 09/24/2012 10/30/2018 SUMMARY 07/07/2010 04/30/2011 Overview: 54yoWM w/ HL, remote tobacco, GERD, & heriditary hemachromatosis. He presented to [facility] 07/04/10 w/ crescendo angina & had positive stress test. He is tx here for consideration coronary angiography. Dyspnea 07/07/2010 09/05/2016 Overview: Progressive dyspnea over months to years. 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 He also has therapeutic anemia which could cause BLANCO. Parenchymal lung disease from smoking is consideration. CTA reportedly not suggestive PE at OSH. CXR at OSH unremarkable. HTN (hypertension) 07/07/2010 03 3 Overview: He does not have prior hx HTN but was noted to have SBP 170s at OSH ED. - currently well controlled on BB - consider evaluating for HEIDY given body habitus Hypertension 05/29/2010 08/06/2016 Hemochromatosis 05/29/2010 12/23/2015 Overview: He states that he has plebotomy performed every three months. Hgb 10 at OSH. - continue FA supplementation 09/03/[address] Milly Latham eval: Ok for high risk medication. (plaquenil) Airway obstruction 11/09/2008 7 Overview: 11/09/2008- [facility], Oliva Hopson MD- upper airway obstruction Obstructive sleep apnea 11/09/200810/20 Overview: Never picked up AutoPAP. 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) 12/24/2005 7 Nonspecific elevation of lev els of transaminase or lactic acid dehydrogenase (LDH) 08/07/2005 09/05/2016 Internal hemorrhoids without mention of complication 08/03/2005 10/24/2017 Disorders of iron metabolism 08/03/2005 09/05/2016 Overview: High Iron levels documented as of this encounter (statuses as of 05/05/2023) [facility]04-[facility]2019 History of Past illness Narrative* Problem Noted Date Diagnosed Date Resolved Date Obesity, Class II, BMI 35-39.9 10/30/2018 08/15/2020 Hydrocele 11/07/2016 10/24/2017 Testicular calcification 11/07/201605/2019 Microscopic hematuria 10/23/20162017 Benign non-nodular prostatic hyperplasia without lower urinary tract symptoms 10/23/201605/2019 Scrotal mass 10/23/2016 10/24/2017 Acute idiopathic gout of left knee 03/03/2016 09/05/2016 Diverticulosis 09/24/2012 10/30/2018 SUMMARY 07/07/2010 04/30/2011 Overview: 54yoWM w/ HL, remote tobacco, GERD, & heriditary hemachromatosis. He presented to [facility] 07/04/10 w/ crescendo angina & had positive stress test. He is tx here for consideration coronary angiography. Dyspnea 07/07/2010 09/05/2016 Overview: Progressive dyspnea over months to years. 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 He also has therapeutic anemia which could cause BLANCO. Parenchymal lung disease from smoking is consideration. CTA reportedly not suggestive PE at OSH. CXR at OSH unremarkable. HTN (hypertension) 07/07/2010 3 Overview: He does not have prior hx HTN but was noted to have SBP 170s at OSH ED. - currently well controlled on BB - consider evaluating for HEIDY given body habitus Hypertension 05/29/2010 08/06/2016 Hemochromatosis 05/29/2010 12/23/2015 Overview: He states that he has plebotomy performed every three months. Hgb 10 at OSH. - continue FA supplementation 09/03/[address] Milly Latham eval: Ok for high risk medication. (plaquenil) Airway obstruction 11/09/2008 7 Overview: 11/09/2008- [facility], Oliva Hopson MD- upper airway obstruction Obstructive sleep apnea 11/09/200810/20 Overview: Never picked up AutoPAP. 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) 12/24/2005 7 Nonspecific elevation of lev els of transaminase or lactic acid dehydrogenase (LDH) 08/07/2005 09/05/2016 Internal hemorrhoids without mention of complication 08/03/2005 10/24/2017 Disorders of iron metabolism 08/03/2005 09/05/2016 Overview: High Iron levels documented as of this encounter (statuses as of 05/09/2023) [facility]04-[facility]2019 History of Past illness Narrative* Problem Noted Date Diagnosed Date Resolved Date Obesity, Class II, BMI 35-39.9 10/30/2018 08/15/2020 Hydrocele 11/07/2016 10/24/2017 Testicular calcification 11/07/201605/2019 Microscopic hematuria 10/23/20162017 Benign non-nodular prostatic hyperplasia without lower urinary tract symptoms 10/23/201605/2019 Scrotal mass 10/23/2016 10/24/2017 Acute idiopathic gout of left knee 03/03/2016 09/05/2016 Diverticulosis 09/24/2012 10/30/2018 SUMMARY 07/07/2010 04/30/2011 Overview: 54yoWM w/ HL, remote tobacco, GERD, & heriditary hemachromatosis. He presented to [facility] 07/04/10 w/ crescendo angina & had positive stress test. He is tx here for consideration coronary angiography. Dyspnea 07/07/2010 09/05/2016 Overview: Progressive dyspnea over months to years. 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 He also has therapeutic anemia which could cause BLANCO. Parenchymal lung disease from smoking is consideration. CTA reportedly not suggestive PE at OSH. CXR at OSH unremarkable. HTN (hypertension) 07/07/2010 3 Overview: He does not have prior hx HTN but was noted to have SBP 170s at OSH ED. - currently well controlled on BB - consider evaluating for HEIDY given body habitus Hypertension 05/29/2010 08/06/2016 Hemochromatosis 05/29/2010 12/23/2015 Overview: He states that he has plebotomy performed every three months. Hgb 10 at OSH. - continue FA supplementation 09/03/[address] Milly Latham eval: Ok for high risk medication. (plaquenil) Airway obstruction 11/09/2008 7 Overview: 11/09/2008- [facility], Oliva Hopson MD- upper airway obstruction Obstructive sleep apnea 11/09/200810/20 Overview: Never picked up AutoPAP. 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) 12/24/2005 7 Nonspecific elevation of lev els of transaminase or lactic acid dehydrogenase (LDH) 08/07/2005 09/05/2016 Internal hemorrhoids without mention of complication 08/03/2005 10/24/2017 Disorders of iron metabolism 08/03/2005 09/05/2016 Overview: High Iron levels documented as of this encounter (statuses as of 05/16/2023) [facility]04-[facility]-2019 History of Past illness Narrative* Problem Noted Date Diagnosed Date Resolved Date Obesity, Class II, BMI 35-39.9 10/30/2018 08/15/2020 Hydrocele 11/07/2016 10/24/2017 Testicular calcification 11/07/201605/2019 Microscopic hematuria 10/23/20162017 Benign non-nodular prostatic hyperplasia without lower urinary tract symptoms 10/23/201605/2019 Scrotal mass 10/23/2016 10/24/2017 Acute idiopathic gout of left knee 03/03/2016 09/05/2016 Diverticulosis 09/24/2012 10/30/2018 SUMMARY 07/07/2010 04/30/2011 Overview: 54yoWM w/ HL, remote tobacco, GERD, & heriditary hemachromatosis. He presented to [facility] 07/04/10 w/ crescendo angina & had positive stress test. He is tx here for consideration coronary angiography. Dyspnea 07/07/2010 09/05/2016 Overview: Progressive dyspnea over months to years. 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 He also has therapeutic anemia which could cause BLANCO. Parenchymal lung disease from smoking is consideration. CTA reportedly not suggestive PE at OSH. CXR at OSH unremarkable. HTN (hypertension) 07/07/2010 3 Overview: He does not have prior hx HTN but was noted to have SBP 170s at OSH ED. - currently well controlled on BB - consider evaluating for HEIDY given body habitus Hypertension 05/29/2010 08/06/2016 Hemochromatosis 05/29/2010 12/23/2015 Overview: He states that he has plebotomy performed every three months. Hgb 10 at OSH. - continue FA supplementation 09/03/[address] Milly Latham eval: Ok for high risk medication. (plaquenil) Airway obstruction 11/09/2008 7 Overview: 11/09/2008- [facility], Oliva Hopson MD- upper airway obstruction Obstructive sleep apnea 11/09/200810/20 Overview: Never picked up AutoPAP. 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) 12/24/2005 7 Nonspecific elevation of lev els of transaminase or lactic acid dehydrogenase (LDH) 08/07/2005 09/05/2016 Internal hemorrhoids without mention of complication 08/03/2005 10/24/2017 Disorders of iron metabolism 08/03/2005 09/05/2016 Overview: High Iron levels documented as of this encounter (statuses as of 05/16/2023) [facility]04-[facility]2019 History of Past illness Narrative* Problem Noted Date Diagnosed Date Resolved Date Obesity, Class II, BMI 35-39.9 10/30/2018 08/15/2020 Hydrocele 11/07/2016 10/24/2017 Testicular calcification 11/07/201605/2019 Microscopic hematuria 10/23/20162017 Benign non-nodular prostatic hyperplasia without lower urinary tract symptoms 10/23/201605/2019 Scrotal mass 10/23/2016 10/24/2017 Acute idiopathic gout of left knee 03/03/2016 09/05/2016 Diverticulosis 09/24/2012 10/30/2018 SUMMARY 07/07/2010 04/30/2011 Overview: 54yoWM w/ HL, remote tobacco, GERD, & heriditary hemachromatosis. He presented to [facility] 07/04/10 w/ crescendo angina & had positive stress test. He is tx here for consideration coronary angiography. Dyspnea 07/07/2010 09/05/2016 Overview: Progressive dyspnea over months to years. 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 He also has therapeutic anemia which could cause BLANCO. Parenchymal lung disease from smoking is consideration. CTA reportedly not suggestive PE at OSH. CXR at OSH unremarkable. HTN (hypertension) 07/07/2010 3 Overview: He does not have prior hx HTN but was noted to have SBP 170s at OSH ED. - currently well controlled on BB - consider evaluating for HEIDY given body habitus Hypertension 05/29/2010 08/06/2016 Hemochromatosis 05/29/2010 12/23/2015 Overview: He states that he has plebotomy performed every three months. Hgb 10 at OSH. - continue FA supplementation 09/03/[address] Milly Latham eval: Ok for high risk medication. (plaquenil) Airway obstruction 11/09/2008 7 Overview: 11/09/2008- [facility], Oliva Hopson MD- upper airway obstruction Obstructive sleep apnea 11/09/200810/20 Overview: Never picked up AutoPAP. 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) 12/24/2005 7 Nonspecific elevation of lev els of transaminase or lactic acid dehydrogenase (LDH) 08/07/2005 09/05/2016 Internal hemorrhoids without mention of complication 08/03/2005 10/24/2017 Disorders of iron metabolism 08/03/2005 09/05/2016 Overview: High Iron levels documented as of this encounter (statuses as of 05/26/2023) [facility]04-[facility]2019 History of Past illness Narrative* Problem Noted Date Diagnosed Date Resolved Date Obesity, Class II, BMI 35-39.9 10/30/2018 08/15/2020 Hydrocele 11/07/2016 10/24/2017 Testicular calcification 11/07/201605/2019 Microscopic hematuria 10/23/20162017 Benign non-nodular prostatic hyperplasia without lower urinary tract symptoms 10/23/201605/2019 Scrotal mass 10/23/2016 10/24/2017 Acute idiopathic gout of left knee 03/03/2016 09/05/2016 Diverticulosis 09/24/2012 10/30/2018 SUMMARY 07/07/2010 04/30/2011 Overview: 54yoWM w/ HL, remote tobacco, GERD, & heriditary hemachromatosis. He presented to [facility] 07/04/10 w/ crescendo angina & had positive stress test. He is tx here for consideration coronary angiography. Dyspnea 07/07/2010 09/05/2016 Overview: Progressive dyspnea over months to years. 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 He also has therapeutic anemia which could cause BLANCO. Parenchymal lung disease from smoking is consideration. CTA reportedly not suggestive PE at OSH. CXR at OSH unremarkable. HTN (hypertension) 07/07/2010 3 Overview: He does not have prior hx HTN but was noted to have SBP 170s at OSH ED. - currently well controlled on BB - consider evaluating for HEIDY given body habitus Hypertension 05/29/2010 08/06/2016 Hemochromatosis 05/29/2010 12/23/2015 Overview: He states that he has plebotomy performed every three months. Hgb 10 at OSH. - continue FA supplementation 09/03/[address] Milly Latham eval: Ok for high risk medication. (plaquenil) Airway obstruction 11/09/2008 7 Overview: 11/09/2008- [facility], Oliva Hopson MD- upper airway obstruction Obstructive sleep apnea 11/09/200810/20 Overview: Never picked up AutoPAP. 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) 12/24/2005 7 Nonspecific elevation of lev els of transaminase or lactic acid dehydrogenase (LDH) 08/07/2005 09/05/2016 Internal hemorrhoids without mention of complication 08/03/2005 10/24/2017 Disorders of iron metabolism 08/03/2005 09/05/2016 Overview: High Iron levels documented as of this encounter (statuses as of 09/04/2023) [facility]04-[facility] History of Past illness Narrative* Problem Noted Date Diagnosed Date Resolved Date Obesity, Class II, BMI 35-39.9 10/30/2018 08/15/2020 Hydrocele 11/07/2016 10/24/2017 Testicular calcification 11/07/201605/2019 Microscopic hematuria 10/23/20162017 Benign non-nodular prostatic hyperplasia without lower urinary tract symptoms 10/23/201605/2019 Scrotal mass 10/23/2016 10/24/2017 Acute idiopathic gout of left knee 03/03/2016 09/05/2016 Diverticulosis 09/24/2012 10/30/2018 SUMMARY 07/07/2010 04/30/2011 Overview: 54yoWM w/ HL, remote tobacco, GERD, & heriditary hemachromatosis. He presented to [facility] 07/04/10 w/ crescendo angina & had positive stress test. He is tx here for consideration coronary angiography. Dyspnea 07/07/2010 09/05/2016 Overview: Progressive dyspnea over months to years. 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 He also has therapeutic anemia which could cause BLANCO. Parenchymal lung disease from smoking is consideration. CTA reportedly not suggestive PE at OSH. CXR at OSH unremarkable. HTN (hypertension) 07/07/2010 3 Overview: He does not have prior hx HTN but was noted to have SBP 170s at OSH ED. - currently well controlled on BB - consider evaluating for HEIDY given body habitus Hypertension 05/29/2010 08/06/2016 Hemochromatosis 05/29/2010 12/23/2015 Overview: He states that he has plebotomy performed every three months. Hgb 10 at OSH. - continue FA supplementation 09/03/[address] Milly Latham eval: Ok for high risk medication. (plaquenil) Airway obstruction 11/09/2008 7 Overview: 11/09/2008- [facility], Oliva Hopson MD- upper airway obstruction Obstructive sleep apnea 11/09/200810/20 Overview: Never picked up AutoPAP. 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) 12/24/2005 7 Nonspecific elevation of lev els of transaminase or lactic acid dehydrogenase (LDH) 08/07/2005 09/05/2016 Internal hemorrhoids without mention of complication 08/03/2005 10/24/2017 Disorders of iron metabolism 08/03/2005 09/05/2016 Overview: High Iron levels documented as of this encounter (statuses as of 09/18/2023) [facility] History of Past illness Narrative* Problem Noted Date Diagnosed Date Resolved Date Obesity, Class II, BMI 35-39.9 10/30/2018 08/15/2020 Hydrocele 11/07/2016 10/24/2017 Testicular calcification 11/07/201605/2019 Microscopic hematuria 10/23/20162017 Benign non-nodular prostatic hyperplasia without lower urinary tract symptoms 10/23/201605/2019 Scrotal mass 10/23/2016 10/24/2017 Acute idiopathic gout of left knee 03/03/2016 09/05/2016 Diverticulosis 09/24/2012 10/30/2018 SUMMARY 07/07/2010 04/30/2011 Overview: 54yoWM w/ HL, remote tobacco, GERD, & heriditary hemachromatosis. He presented to [facility] 07/04/10 w/ crescendo angina & had positive stress test. He is tx here for consideration coronary angiography. Dyspnea 07/07/2010 09/05/2016 Overview: Progressive dyspnea over months to years. 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 He also has therapeutic anemia which could cause BLANCO. Parenchymal lung disease from smoking is consideration. CTA reportedly not suggestive PE at OSH. CXR at OSH unremarkable. HTN (hypertension) 07/07/2010 3 Overview: He does not have prior hx HTN but was noted to have SBP 170s at OSH ED. - currently well controlled on BB - consider evaluating for HEIDY given body habitus Hypertension 05/29/2010 08/06/2016 Hemochromatosis 05/29/2010 12/23/2015 Overview: He states that he has plebotomy performed every three months. Hgb 10 at OSH. - continue FA supplementation 09/03/[address] Milly Latham eval: Ok for high risk medication. (plaquenil) Airway obstruction 11/09/2008 7 Overview: 11/09/2008- [facility], Oliva Hopson MD- upper airway obstruction Obstructive sleep apnea 11/09/200810/20 Overview: Never picked up AutoPAP. 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) 12/24/2005 7 Nonspecific elevation of lev els of transaminase or lactic acid dehydrogenase (LDH) 08/07/2005 09/05/2016 Internal hemorrhoids without mention of complication 08/03/2005 10/24/2017 Disorders of iron metabolism 08/03/2005 09/05/2016 Overview: High Iron levels documented as of this encounter (statuses as of 09/19/2023) [facility] History of Past illness Narrative* Problem Noted Date Diagnosed Date Resolved Date Obesity, Class II, BMI 35-39.9 10/30/2018 08/15/2020 Hydrocele 11/07/2016 10/24/2017 Testicular calcification 11/07/201605/2019 Microscopic hematuria 10/23/20162017 Benign non-nodular prostatic hyperplasia without lower urinary tract symptoms 10/23/201605/2019 Scrotal mass 10/23/2016 10/24/2017 Acute idiopathic gout of left knee 03/03/2016 09/05/2016 Diverticulosis 09/24/2012 10/30/2018 SUMMARY 07/07/2010 04/30/2011 Overview: 54yoWM w/ HL, remote tobacco, GERD, & heriditary hemachromatosis. He presented to [facility] 07/04/10 w/ crescendo angina & had positive stress test. He is tx here for consideration coronary angiography. Dyspnea 07/07/2010 09/05/2016 Overview: Progressive dyspnea over months to years. 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 He also has therapeutic anemia which could cause BLANCO. Parenchymal lung disease from smoking is consideration. CTA reportedly not suggestive PE at OSH. CXR at OSH unremarkable. HTN (hypertension) 07/07/2010 3 Overview: He does not have prior hx HTN but was noted to have SBP 170s at OSH ED. - currently well controlled on BB - consider evaluating for HEIDY given body habitus Hypertension 05/29/2010 08/06/2016 Hemochromatosis 05/29/2010 12/23/2015 Overview: He states that he has plebotomy performed every three months. Hgb 10 at OSH. - continue FA supplementation 09/03/[address] Milly Latham eval: Ok for high risk medication. (plaquenil) Airway obstruction 11/09/2008 7 Overview: 11/09/2008- [facility], Oliva Hopson MD- upper airway obstruction Obstructive sleep apnea 11/09/200810/20 Overview: Never picked up AutoPAP. 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) 12/24/2005 7 Nonspecific elevation of lev els of transaminase or lactic acid dehydrogenase (LDH) 08/07/2005 09/05/2016 Internal hemorrhoids without mention of complication 08/03/2005 10/24/2017 Disorders of iron metabolism 08/03/2005 09/05/2016 Overview: High Iron levels documented as of this encounter (statuses as of 11/05/2023) [facility] Future Appointments Appointment Date:07/02/2024 03:20:00 PM Scheduled Provider:TEZ HENDERSON DO Location:[facility] Appointment Type:OSM OV Follow Up [facility] Evaluation note* Diagnosis Renovascular hypertension Secondary renovascular hypertension, unspecified Need for prophylactic vaccination and inoculation against influenza [facility] Rout[facility] exam- Primary Routine general medical examination at a health care facility Screening for abdominal aortic aneurysm Screening for other and unspecified cardiovascular conditions Essential hypertension Unspecified essential hypertension Impaired fasting glucose Hereditary hemochromatosis (HCC) Hereditary hemochromatosis Need for vaccination Need for prophylactic vaccination and inoculation against unspecified single disease [facility] Hereditary hemochromatosis (HCC)- Primary Hereditary hemochromatosis [facility] Diagnosis Male pattern alopecia Other alopecia Essential hypertension Unspecified essential hypertension [facility] Diagnosis Essential hypertension Unspecified essential hypertension [facility] Diagnosis Hereditary hemochromatosis (HCC)- Primary [facility]reditary hemochrom[facility] Diagnosis Hereditary hemochromatosis (HCC)- Primary Hereditary hemochromatosis Vertigo Dizziness and giddiness [facility] Diagnosis Essential hypertension- Primary Unspecified essential hypertension Other hyperlipidemia Impaired fasting glucose Diastasis of rectus abdominis [facility] Diagnosis Throat pain- Primary [facility] Diagnosis Hereditary hemochromatosis (HCC)- Primary Hereditary hemochromatosis [facility] Diagnosis Hereditary hemochromatosis (HCC)- Primary Hereditary hemochromatosis [facility] Diagnosis Renovascular hypertension Secondary renovascular hypertension, unspecified Need for prophylactic vaccination and inoculation against influenza [facility] Diagnosis Hereditary hemochromatosis (HCC)- Primary Hereditary hemochromatosis [facility] Diagnosis Essential hypertension Unspecified essential hypertension [facility] Diagnosis Post-viral cough syndrome- Primary Cough Heart murmur Undiagnosed cardiac murmurs [facility] Diagnosis Murmur, heart- Primary Undiagnosed cardiac murmurs Post-viral cough syndrome Cough [facility] Diagnosis Hereditary hemochromatosis (HCC)- Primary Hereditary hemochromatosis [facility] Diagnosis Screening for abdominal aortic aneurysm Screening for other and unspecified cardiovascular conditions [facility] Diagnosis 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- Primary Essential hypertension Unspecified essential hypertension Need for prophylactic vaccination and inoculation against influenza Leg edema, right Edema Other hyperlipidemia Need for vaccination Need for prophylactic vaccination and inoculation against unspecified single disease [facility] Diagnosis Essential hypertension- Primary Unspecified essential hypertension Leg edema, right Edema [facility] Diagnosis Hereditary hemochromatosis (HCC)- Primary Hereditary hemochromatosis [facility] Diagnosis Hereditary hemochromatosis (HCC)- Primary Hereditary hemochromatosis [facility] Diagnosis Hereditary hemochromatosis (HCC)- Primary Hereditary hemochromatosis [facility] Essential hypertension Unspecified essential hypertension [facility] Diagnosis Medicare annual wellness visit, initial- Primary Routine general medical examination at a [facility] care [facility] Male pattern alopecia Other alopecia Hereditary hemochromatosis (HCC) Hereditary hemochromatosis Essential hypertension Unspecified essential hypertension Screening for depression Encounter for screening examination for other mental health and behavioral disorders Other hyperlipidemia Impaired fasting glucose Preoperative examination Preoperative examination, unspecified [facility] Diagnosis Hereditary hemochromatosis (HCC)- Primary Hereditary hemochromatosis [facility] Diagnosis Hereditary hemochromatosis (HCC) Hereditary hemochromatosis [facility] Diagnosis Essential hypertension Unspecified essential hypertension Leg edema, right Edema [facility] Diagnosis Need for vaccination- Primary Need for prophylactic vaccination and inoculation against unspecified single disease Essential hypertension Unspecified essential hypertension Other hyperlipidemia Hereditary hemochromatosis (HCC) Hereditary hemochromatosis Impaired fasting glucose 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 Screening for prostate cancer Special screening for malignant neoplasm of prostate Stented coronary artery (ERIN to RCA) Postsurgical percutaneous transluminal coronary angioplasty status [facility] Diagnosis Hereditary hemochromatosis (HCC)- Primary Hereditary hemochromatosis documented in this encounter [facility] note* Diagnosis Hereditary hemochromatosis (HCC)- Primary Hereditary hemochromatosis documented in this encounter [facility] note* Diagnosis Hereditary hemochromatosis documented in this encounter [facility] note* Diagnosis Onset Date Resolution Status Admit Date Cardiac murmur acute February 3:11pm Diminished pulses in lower extremity acute February 24, 2025 3:11pm Essential hypertension acute Au 2024 3:11pm History of coronary artery stent placement May 18, 2024 acute February 24, 2 025 3:11pm [facility] [employer] Work Phone: Hospital course Narrative No data available for this section [facility] Hospital Discharge instructions No data available for this section [facility] Progress note No data available for this section [facility] Reason for referral (narrative)* Diagnostic Procedure Only (Routine) - Pending Review Specialty Diagnoses / Procedures Referred By Sarina royal Referred To Contact US IMAGING Diagnoses Screening for abdominal aortic aneurysm Procedures US SCREENING FOR AAA (2017) US ABDOMINAL AORTA REAL TIME SCREEN STUDY AAA Juan J Rubalcava MD [address] [place] [address] Us Imaging Referral ID Status Reason Start Date Expiration Date Visits Requested Visits Authorized [id number] Pending Review Auto-Generat ed Referral 02/19/2022 03/21/2023 1 1 [facility] for referral (narrative)* Outpatient Procedure (Routine) - Pending Review Specialty Diagnoses / Procedures Referred By Contac t Referred [facility] Diagnoses Murmur, heart Procedures ECHO ECHO TTHRC R-T 2D W/WOM-MODE COMPL SPEC&COLR Katharine Frost APRN.CNS [address] [place] [address] [facility] [address] [place] [id number] Referral ID Status Reason Start Date Expiration Date Visits Requested Visits Authorized [id number] Pending Review Auto-Generat ed Referral 05/08/2024 1 1 [facility] for referral (narrative)* Diagnostic Procedure Only (Routine) - Closed Specialty Diagnoses / Procedures Referred By Contac t Referred To Contact US IMAGING Diagnoses Screening for abdominal aortic aneurysm Procedures US SCREENING FOR AAA (2017) US ABDOMINAL AORTA REAL TIME SCREEN STUDY AAA Juan J Rubalcava MD [address] [place] [address] Us Imaging [id number] Referral ID Status Reason Start Date Expiration Date V isits Requested Visits Authorized [id number] Closed Auto-Generate d Referral 02/19/2022 03/21/2023 1 1 [facility] for referral (narrative)* Diagnostic Procedure Only (Routine) - Authorized Specialty Diagnoses / Procedures Referred By Contac t Referred To Contact [facility] IMAGING Diagnoses Leg edema, right Procedures US DVT LOWER RIGHT DUP-SCAN XTR VEINS UNILATERAL/LIMITED STUDY Juan J Rubalcava MD [address] [place] [address] [place] [address] Referral ID Status Reason Start Date Expiration Date Visits Requested Visits Authorized [id number] Authorized Auto-Generat ed Referral 09/04/2023 10/03/2024 1 1 [facility] for referral (narrative)* Outpatient Procedure (Routine) - New Request Specialty Diagnoses / Procedures Referred By Contac t Referred To [facility] Diagnoses Preoperative examination Procedures ECG COMPLETE ECG ROUTINE ECG W/LEAST 12 LDS W/I&R Juan J Rubalcava MD [address] [place] [address] [facility] [address] [place] [address] Referral ID Status Reason Start Date Expiration Date Visits Requested Visits Authorized [id number] New Request Auto-Generat ed Referral 04/14/2024 04/14/2025 1 1 [facility]No reason for referral information availableWC[facility] Work Phone: Summary Purpose Family History No Family History Records Found Relationship Condition Age at Onset Recorded Date/T sandy Not Specified Cardiac disease Unknown Hypertension Unknown Advance Directives No Advanced Directives Records Found Advance Directive Response Recorded Date/ Time Living Will Yes August 09 8:23am Do you have a Healthcare Power of Privacy Analyst? Yes August 09, 2024 8:23am Name of Medical Power of Privacy Analyst August 09, 2024 8:23am Living Will No August 16 8:36am Do you have a Healthcare Power of Privacy Analyst? No August 16, 2024 8:36am Chief Complaint and Reason for Visit Chief Complaint Admit Date CP August 09, 2024 7 :19am r hip pain August 16, 2024 7 :20am 3 M FU August 26, 2024 2 :24pm INT LABS October 26, 2024 8:01 am Reason for Visit Admit Date Essential hypertension August 26 2:24pm History of coronary artery stent placeme nt August 26, 2024 2:24pm Chief Complaint Admit Date 6 M FU February 24, 2025 3:1 1pm Reason for Visit Admit Date Cardiac murmur February 24, 2025 3:1 1pm Diminished pulses in lower extremity Aug us2024 3:11pm Essential hypertension [place] 6th, 2025 3:11pm History of coronary artery stent placeme nt February 24, 2025 3:11pm Chief Complaint Admit Date 6 M FU February 24, 2025 3:1 1pm MURMUR March 19, 2025 12 :56pm PVD March 19, 2025 12 :58pm Chief Complaint Admit Date 6 M FU February 24, 2025 3:1 1pm MURMUR March 19, 2025 12 :56pm PVD March 19, 2025 12 :58pm ABN Echo/See C.N. April 22, 2025 3: 32pm Reason for Visit Admit Date Cardiac murmur February 24, 2025 3:1 1pm Diminished pulses in lower extremity Feb 3:11pm Essential hypertension February 24, 2025 3:11pm History of coronary artery stent placeme nt February 24, 2025 3:11pm Essential hypertension April 22, 2025 3:32pm History of coronary artery stent placeme nt April 22, 2025 3:32pm Moderate left ventricular hypertrophy Oc tober 2024 3:32pm Additional Source Comments (unrecognized sect ion and content) No Status Records FoundNo Status Records FoundNo Status Records FoundNo Status Records FoundNo Status Records Found INFORMATION SOURCE (unrecogn ized section and content) DATE CREATED AUTHOR 01/08/2018 [facility] DATE CREATED AUTHOR AUTHOR'S ORGANIZ ATION 08/05/2021 [facility] DATE CREATED AUTHOR AUTHOR'S ORGANIZ ATION 05/05/2024 [facility] DATE CREATED AUTHOR AUTHOR'S ORGANIZ ATION 04/27/2025 [facility] DATE CREATED AUTHOR AUTHOR'S ORGANIZ ATION 04/27/2025 [facility] Source Comments (unrecognize d section and content) In the event this informatio n is protected by the Federal Confidentiality of Alcohol and Drug Abuse Patient Records regulations: The Federal rules restrict any use of the information to criminally investigate or prosecute any alcohol or drug abuse patient.[facility] the event this information is protected by the Federal Confidentiality of Alcohol and Drug Abuse Patient Records regulations: The Federal rules restrict any use of the information to criminally investigate or prosecute any alcohol or drug abuse patient.[facility] the event this information is protected by the Federal Confidentiality of Alcohol and Drug Abuse Patient Records regulations: The Federal rules restrict any use of the information to criminally investigate or prosecute any alcohol or drug abuse patient.[facility] the event this information is protected by the Federal Confidentiality of Alcohol and Drug Abuse Patient Records regulations: The Federal rules restrict any use of the information to criminally investigate or prosecute any alcohol or drug abuse patient.[facility]In the event this information is protected by the Federal Confidentiality of Alcohol and Drug Abuse Patient Records regulations: The Federal rules restrict any use of the information to criminally investigate or prosecute any alcohol or drug abuse patient.[facility]In the event this information is protected by the Federal Confidentiality of Alcohol and Drug Abuse Patient Records regulations: The Federal rules restrict any use of the information to criminally investigate or prosecute any alcohol or drug abuse patient.[facility] HospitalIn the event this information is protected by the Federal Confidentiality of Alcohol and Drug Abuse Patient Records regulations: The Federal rules restrict any use of the information to criminally investigate or prosecute any alcohol or drug abuse patient.[facility]In the event this information is protected by the Federal Confidentiality of Alcohol and Drug Abuse Patient Records regulations: The Federal rules restrict any use of the information to criminally investigate or prosecute any alcohol or drug abuse patient.[facility]In the event this information is protected by the Federal Confidentiality of Alcohol and Drug Abuse Patient Records regulations: The Federal rules restrict any use of the information to criminally investigate or prosecute any alcohol or drug abuse patient.[facility]In the event this information is protected by the Federal Confidentiality of Alcohol and Drug Abuse Patient Records regulations: The Federal rules restrict any use of the information to criminally investigate or prosecute any alcohol or drug abuse patient.[facility] HospitalIn the event this information is protected by the Federal Confidentiality of Alcohol and Drug Abuse Patient Records regulations: The Federal rules restrict any use of the information to criminally investigate or prosecute any alcohol or drug abuse patient.[facility] HospitalIn the event this information is protected by the Federal Confidentiality of Alcohol and Drug Abuse Patient Records regulations: The Federal rules restrict any use of the information to criminally investigate or prosecute any alcohol or drug abuse patient.[facility] HospitalIn the event this information is protected by the Federal Confidentiality of Alcohol and Drug Abuse Patient Records regulations: The Federal rules restrict any use of the information to criminally investigate or prosecute any alcohol or drug abuse patient.[facility] HospitalIn the event this information is protected by the Federal Confidentiality of Alcohol and Drug Abuse Patient Records regulations: The Federal rules restrict any use of the information to criminally investigate or prosecute any alcohol or drug abuse patient.[facility] HospitalIn the event this information is protected by the Federal Confidentiality of Alcohol and Drug Abuse Patient Records regulations: The Federal rules restrict any use of the information to criminally investigate or prosecute any alcohol or drug abuse patient.[facility] HospitalIn the event this information is protected by the Federal Confidentiality of Alcohol and Drug Abuse Patient Records regulations: The Federal rules restrict any use of the information to criminally investigate or prosecute any alcohol or drug abuse patient.[facility] HospitalIn the event this information is protected by the Federal Confidentiality of Alcohol and Drug Abuse Patient Records regulations: The Federal rules restrict any use of the information to criminally investigate or prosecute any alcohol or drug abuse patient.[facility]In the event this information is protected by the Federal Confidentiality of Alcohol and Drug Abuse Patient Records regulations: The Federal rules restrict any use of the information to criminally investigate or prosecute any alcohol or drug abuse patient.[facility] HospitalIn the event this information is protected by the Federal Confidentiality of Alcohol and Drug Abuse Patient Records regulations: The Federal rules restrict any use of the information to criminally investigate or prosecute any alcohol or drug abuse patient.[facility] HospitalIn the event this information is protected by the Federal Confidentiality of Alcohol and Drug Abuse Patient Records regulations: The Federal rules restrict any use of the information to criminally investigate or prosecute any alcohol or drug abuse patient.[facility]In the event this information is protected by the Federal Confidentiality of Alcohol and Drug Abuse Patient Records regulations: The Federal rules restrict any use of the information to criminally investigate or prosecute any alcohol or drug abuse patient.[facility]In the event this information is protected by the Federal Confidentiality of Alcohol and Drug Abuse Patient Records regulations: The Federal rules restrict any use of the information to criminally investigate or prosecute any alcohol or drug abuse patient.[facility] HospitalIn the event this information is protected by the Federal Confidentiality of Alcohol and Drug Abuse Patient Records regulations: The Federal rules restrict any use of the information to criminally investigate or prosecute any alcohol or drug abuse patient.[facility] HospitalIn the event this information is protected by the Federal Confidentiality of Alcohol and Drug Abuse Patient Records regulations: The Federal rules restrict any use of the information to criminally investigate or prosecute any alcohol or drug abuse patient.[facility] the event this information is protected by the Federal Confidentiality of Alcohol and Drug Abuse Patient Records regulations: The Federal rules restrict any use of the information to criminally investigate or prosecute any alcohol or drug abuse patient.[facility] HospitalIn the event this information is protected by the Federal Confidentiality of Alcohol and Drug Abuse Patient Records regulations: The Federal rules restrict any use of the information to criminally investigate or prosecute any alcohol or drug abuse patient.[facility] HospitalIn the event this information is protected by the Federal Confidentiality of Alcohol and Drug Abuse Patient Records regulations: The Federal rules restrict any use of the information to criminally investigate or prosecute any alcohol or drug abuse patient.[facility] HospitalIn the event this information is protected by the Federal Confidentiality of Alcohol and Drug Abuse Patient Records regulations: The Federal rules restrict any use of the information to criminally investigate or prosecute any alcohol or drug abuse patient.[facility]In the event this information is protected by the Federal Confidentiality of Alcohol and Drug Abuse Patient Records regulations: The Federal rules restrict any use of the information to criminally investigate or prosecute any alcohol or drug abuse patient.[facility]In the event this information is protected by the Federal Confidentiality of Alcohol and Drug Abuse Patient Records regulations: The Federal rules restrict any use of the information to criminally investigate or prosecute any alcohol or drug abuse patient.[facility] HospitalIn the event this information is protected by the Federal Confidentiality of Alcohol and Drug Abuse Patient Records regulations: The Federal rules restrict any use of the information to criminally investigate or prosecute any alcohol or drug abuse patient.[facility]In the event this information is protected by the Federal Confidentiality of Alcohol and Drug Abuse Patient Records regulations: The Federal rules restrict any use of the information to criminally investigate or prosecute any alcohol or drug abuse patient.[facility] HospitalIn the event this information is protected by the Federal Confidentiality of Alcohol and Drug Abuse Patient Records regulations: The Federal rules restrict any use of the information to criminally investigate or prosecute any alcohol or drug abuse patient.[facility] HospitalIn the event this information is protected by the Federal Confidentiality of Alcohol and Drug Abuse Patient Records regulations: The Federal rules restrict any use of the information to criminally investigate or prosecute any alcohol or drug abuse patient.[facility] HospitalIn the event this information is protected by the Federal Confidentiality of Alcohol and Drug Abuse Patient Records regulations: The Federal rules restrict any use of the information to criminally investigate or prosecute any alcohol or drug abuse patient.[facility] HospitalIn the event this information is protected by the Federal Confidentiality of Alcohol and Drug Abuse Patient Records regulations: The Federal rules restrict any use of the information to criminally investigate or prosecute any alcohol or drug abuse patient.[facility] HospitalIn the event this information is protected by the Federal Confidentiality of Alcohol and Drug Abuse Patient Records regulations: The Federal rules restrict any use of the information to criminally investigate or prosecute any alcohol or drug abuse patient.[facility] HospitalIn the event this information is protected by the Federal Confidentiality of Alcohol and Drug Abuse Patient Records regulations: The Federal rules restrict any use of the information to criminally investigate or prosecute any alcohol or drug abuse patient.[facility] HospitalIn the event this information is protected by the Federal Confidentiality of Alcohol and Drug Abuse Patient Records regulations: The Federal rules restrict any use of the information to criminally investigate or prosecute any alcohol or drug abuse patient.[facility] HospitalIn the event this information is protected by the Federal Confidentiality of Alcohol and Drug Abuse Patient Records regulations: The Federal rules restrict any use of the information to criminally investigate or prosecute any alcohol or drug abuse patient.[facility] HospitalIn the event this information is protected by the Federal Confidentiality of Alcohol and Drug Abuse Patient Records regulations: The Federal rules restrict any use of the information to criminally investigate or prosecute any alcohol or drug abuse patient.[facility] HospitalIn the event this information is protected by the Federal Confidentiality of Alcohol and Drug Abuse Patient Records regulations: The Federal rules restrict any use of the information to criminally investigate or prosecute any alcohol or drug abuse patient.[facility] HospitalIn the event this information is protected by the Federal Confidentiality of Alcohol and Drug Abuse Patient Records regulations: The Federal rules restrict any use of the information to criminally investigate or prosecute any alcohol or drug abuse patient.[facility]In the event this information is protected by the Federal Confidentiality of Alcohol and Drug Abuse Patient Records regulations: The Federal rules restrict any use of the information to criminally investigate or prosecute any alcohol or drug abuse patient.[facility]In the event this information is protected by the Federal Confidentiality of Alcohol and Drug Abuse Patient Records regulations: The Federal rules restrict any use of the information to criminally investigate or prosecute any alcohol or drug abuse patient.[facility]In the event this information is protected by the Federal Confidentiality of Alcohol and Drug Abuse Patient Records regulations: The Federal rules restrict any use of the information to criminally investigate or prosecute any alcohol or drug abuse patient.[facility] HospitalIn the event this information is protected by the Federal Confidentiality of Alcohol and Drug Abuse Patient Records regulations: The Federal rules restrict any use of the information to criminally investigate or prosecute any alcohol or drug abuse patient.[facility] HospitalIn the event this information is protected by the Federal Confidentiality of Alcohol and Drug Abuse Patient Records regulations: The Federal rules restrict any use of the information to criminally investigate or prosecute any alcohol or drug abuse patient.[facility] HospitalIn the event this information is protected by the Federal Confidentiality of Alcohol and Drug Abuse Patient Records regulations: The Federal rules restrict any use of the information to criminally investigate or prosecute any alcohol or drug abuse patient.[facility] Reason for Visit (unrecogniz ed section and content) Reason Comments Prescription Refills Reason Comments Diarrhea Reason Comments Yearly Exam Reason Comments Phlebotomy Reason Onset Date Comments Refill Request 04/13/2022 Reason Comments Refill Request Reason Comments Established Patient Reason Comments Appointment Reason Comments F/U 6 Month Reason Comments Headache Pt reported cough, f ever x4 days, throat pain. Reason Onset Date Comments Refill Request 10/22/2022 Reason Onset Date Comments Refill Request 04/10/2023 Reason Comments Cough X 3 weeks Reason Comments Follow Up Urgent Care Reason Comments Radiology US Specialty Diagnoses / Procedures Referred By Contac t Referred To Contact [facility] Diagnoses Screening for abdominal aortic aneurysm Procedures US SCREENING FOR AAA (2017) US ABDOMINAL AORTA REAL TIME SCREEN STUDY AAA Juan J Rubalcava MD [address] [place] [address] [place] [address] Referral ID Status Reason Start Date Expiration Date V isits Requested Visits Authorized [id number] Closed Auto-Generate d Referral 02/19/2022 03/21/2023 1 1 Reason Comments F/U 6 months Reason Comments Results Reason Comments Lab Orders Reason Onset Date Comments Refill Request 04/06/2024 Reason Comments Surgical Clearance Reason Comments Medicare Wellness Exam Pre-Op Exam Reason Onset Date Comments Refill Request 04/22/2024 Reason Onset Date Comments Refill Request 05/06/2024 Reason Comments Patient Request Reason Comments surgical Clearance Reason Comments Electronic Communication Reason Comments Patient Question Reason Onset Date Comments Refill Request 07/30/2024 Reason Comments F/U 6 months Reason Comments Established Patient Reason Comments Appointment RUQ Ultrasound Reason Comments Radiology US Specialty Diagnoses / Procedures Referred By Contac t Referred To Contact [facility] Diagnoses Hereditary hemochromatosis Procedures US ABD RIGHT UPPER QUADRANT US ABDOMINAL REAL TIME W/IMAGE LIMITED Carlos Flores MD [address] [place] [address] Phone: tel: [place] [phone] Referral ID Status Reason Start Date Expiration Date V isits Requested Visits Authorized [id number] Closed Auto-Generate d Referral 10/26/2024 07/21/2025 1 1 Care Teams (unrecognized sec tion and content) Strategy Lead Relationship Specialty Start Date End Date Juan J Rubalcava MD [address] [place] [address] PCP - General Internal Medicine 09/05/16 Strategy Lead Relationship Specialty Start Date End Date Juan J Rubalcava MD [address] [place] [address] PCP - General Internal Medicine 09/05/16 Strategy Lead Relationship Specialty Start Date End Date Juan J Rubalcava MD [address] [place] [address] PCP - General Internal Medicine 09/05/16 Strategy Lead Relationship Specialty Start Date End Date Juan J Rubalcava MD [address] [place] [address] PCP - General Internal Medicine 09/05/16 Strategy Lead Relationship Specialty Start Date End Date Juan J Rubalcava MD [address] [place] [address] PCP - General Internal Medicine 09/05/16 Strategy Lead Relationship Specialty Start Date End Date Juan J Rubalcava MD [address] [place] [address] PCP - General Internal Medicine 09/05/16 Strategy Lead Relationship Specialty Start Date End Date Juan J Rubalcava MD [address] [place] [address] PCP - General Internal Medicine 09/05/16 Strategy Lead Relationship Specialty Start Date End Date Juan J Rubalcava MD [address] [place] [address] PCP - General Internal Medicine 09/05/16 Strategy Lead Relationship Specialty Start Date End Date Juan J Rubalcava MD [address] [place] [address] PCP - General Internal Medicine 09/05/16 Strategy Lead Relationship Specialty Start Date End Date Juan J Rubalcava MD [address] [place] [address] PCP - General Internal Medicine 09/05/16 Strategy Lead Relationship Specialty Start Date End Date Juan J Rubalcava MD [address] [place] [address] PCP - General Internal Medicine 09/05/16 Strategy Lead Relationship Specialty Start Date End Date Juan J Rubalcava MD [address] [place] [address] PCP - General Internal Medicine 09/05/16 Strategy Lead Relationship Specialty Start Date End Date Juan J Rubalcava MD [address] [place] [address] PCP - General Internal Medicine 09/05/16 Strategy Lead Relationship Specialty Start Date End Date Juan J Rubalcava MD [address] [facility] [place] [address] PCP - General Internal Medicine 09/05/16 Carlos Flores MD [address] [facility] [place] [address] Hematology/Oncology 05/15/23 Strategy Lead Relationship Specialty Start Date End Date Juan J Rubalcava MD [address] [place] [address] PCP - General Internal Medicine 09/05/16 Carlos Flores MD [address] [place] [address] Hematology/Oncology 05/15/23 Strategy Lead Relationship Specialty Start Date End Date JuanJ Rubalcava MD [address] [facility] [place] [address] PCP - General Internal Medicine 09/05/16 Strategy Lead Relationship Specialty Start Date End Date Juan J Rubalcava MD [address] [place] [address] PCP - General Internal Medicine 09/05/16 Carlos Flores MD [address] [place] [address] Hematology/Oncology 05/15/23 Strategy Lead Relationship Specialty Start Date End Date Juan J Rubalcava MD [address] [facility] [place] [address] PCP - General Internal Medicine 09/05/16 Carlos Flores MD [address] [place] [address] Hematology/Oncology 05/15/23 Strategy Lead Relationship Specialty Start Date End Date Juan J Rubalcava MD [address] [place] [address] PCP - General Internal Medicine 09/05/16 Carlos Flores MD [address] [place] [address] Hematology/Oncology 05/15/23 Strategy Lead Relationship Specialty Start Date End Date Juan J Rubalcava MD [address] [place] [address] PCP - General Internal Medicine 09/05/16 Carlos Flores MD [address] [place] [address] Hematology/Oncology 05/15/23 Strategy Lead Relationship Specialty Start Date End Date Juan J Rubalcava MD [address] [place] [address] PCP - General Internal Medicine 09/05/16 Carlos Flores MD [address] [place] [address] Hematology/Oncology 05/15/23 Strategy Lead Relationship Specialty Start Date End Date Juan J Rubalcava MD [address] [place] [address] PCP - General Internal Medicine 09/05/16 Carlos Flores MD [address] [place] [address] Hematology/Oncology 05/15/23 Strategy Lead Relationship Specialty Start Date End Date Juan J Rubalcava MD [address] [place] [address] PCP - General Internal Medicine 09/05/16 Carlos Flores MD [address] [place] [address] Hematology/Oncology 05/15/23 Strategy Lead Relationship Specialty Start Date End Date Juan J Rubalcava MD [address] [place] [address] PCP - General Internal Medicine 09/05/16 Strategy Lead Relationship Specialty Start Date End Date Juan J Rubalcava MD [address] [place] [address] PCP - General Internal Medicine 09/05/16 Carlos Flores MD [address] [place] [address] Hematology/Oncology 05/15/23 Azalia Berry, RN GYN.[employer] [address] [place] [address] [facility] Internal Medicine 06/29/24 Strategy Lead Relationship Specialty Start Date End Date Juan J Rubalcava MD [address] [place] [address] PCP - General Internal Medicine 09/05/16 Carlos Flores MD [address] [place] [address] Hematology/Oncology 05/15/23 Azalia Berry, RN GYN.[employer] [address] [place] [address] [employer] Internal Medicine 06/29/24 Strategy Lead Relationship Specialty Start Date End Date Juan J Rubalcava MD [address] [place] [address] PCP - General Internal Medicine 09/05/16 Carlos Flroes MD [address] [place] [address] Hematology/Oncology 05/15/23 Azalia Berry, RN GYN.[employer] [address] [place] [address] [employer] Internal Medicine 06/29/24 Strategy Lead Relationship Specialty Start Date End Date Juan J Rubalcava MD [address] [place] [address] PCP - General Internal Medicine 09/05/16 Carlos Flores MD [address] [place] [address] Hematology/Oncology 05/15/23 Azalia Berry, RN GYN.[employer] [address] [place] [address] [employer] Internal Medicine 06/29/24 Strategy Lead Relationship Specialty Start Date End Date Juan J Rubalcava MD [address] [place] [address] PCP - General Internal Medicine 09/05/16 Carlos Flores MD [address] [place] [address] Hematology/Oncology 05/15/23 Azalia Berry, RN GYN.[employer] [address] [place] [address] [employer] Internal Medicine 06/29/24 Strategy Lead Relationship Specialty Start Date End Date Juan J Rubalcava MD [address] [place] [address] PCP - General Internal Medicine 09/05/16 Carlos Flores MD [address] [place] [address] Hematology/Oncology 05/15/23 Azalia Berry, RN GYN.[employer] [address] [place] [address] [employer] Internal Medicine 06/29/24 Strategy Lead Relationship Specialty Start Date End Date Juan J Rubalcava MD [address] [place] [address] PCP - General Internal Medicine 09/05/16 Carlos Flores MD [address] [place] [address] Hematology/Oncology 05/15/23 Azalia Berry, RN GYN.[employer] [address] [place] [address] [facility] Internal Medicine 06/29/24 Team Status: Active Member Role Status Dates Dr. Juan J Rubalcava MD Primary Care Provider Active Team Status: Inactive Member Role Status Dates Dr. Juan J Rubalcava MD Primary Care Provider Active Start: August 09, 2024 End: August 09, 2024 Dr. Rafa Pulido MD Attending Provider Active Sta rt: August 09, 2024 End: August 09, 2024 Dr. Rafa Pulido MD Emergency Provider Active Sta rt: August 09, 2024 End: August 09, 2024 Team Status: Inactive Member Role Status Dates Dr. Juan J Rubalcava MD Primary Care Provider Active Start: August 16, 2024 End: August 16, 2024 Dr. Rafa Pulido MD Attending Provider Active Sta rt: August 16, 2024 End: August 16, 2024 Dr. Rafa Pulido MD Emergency Provider Active Sta rt: August 16, 2024 End: August 16, 2024 Team Status: Inactive Member Role Status Dates Dr. Juan J Rubalcava MD Primary Care Provider Active Start: August 26, 2024 End: August 26, 2024 Dr. Juan J Rubalcava MD Referring Provider Active Start: August 26, 2024 End: August 26, 2024 Claudia Bartlett PA, PA Attending Provider Active Start: August 26, 2024 End: August 26, 2024 Team Status: Inactive Member Role Status Dates Dr. Juan J Rubalcava MD Primary Care Provider Active Start: August 26, 2024 End: August 26, 2024 Claudia Bartlett PA, PA Attending Provider Active Start: August 26, 2024 End: August 26, 2024 Claudia Bartlett PA, PA Referring Provider Active Start: August 26, 2024 End: August 26, 2024 Team Status: Inactive Member Role Status Dates Dr. Juan J Rubalcava MD Primary Care Provider Active Start: October 26, 2024 End: October 26, 2024 Claudia Bartlett PA, PA Attending Provider Active Start: October 26, 2024 End: October 26, 2024 Claudia Bartlett PA, PA Referring Provider Active Start: October 26, 2024 End: October 26, 2024 Team Status: Active Member Role/Relationship Status Dates Dr. Juan J Rubalcava MD Primary Care Provider Active Team Status: Inactive Member Role/Relationship Status Dates Dr. Juan J Rubalcava MD Primary Care Provider Active Start: February 24, 2025 End: February 24, 2025 Dr. Juan J Rubalcava MD Referring Provider Active Start: February 24, 2025 End: February 24, 2025 Claudia Bartlett PA, PA Attending Provider Active Start: February 24, 2025 End: February 24, 2025 Team Status: Inactive Member Role/Relationship Status Dates Dr. Juan J Rubalcava MD Primary Care Provider Active Start: March 19, 2025 End: March 19, 2025 Claudia Bartlett PA, PA Attending Provider Active Start: March 19, 2025 End: March 19, 2025 Claudia Bartlett PA, PA Referring Provider Active Start: March 19, 2025 End: March 19, 2025 Team Status: Active Member Role/Relationship Status Dates Dr. Juan J Rubalcava MD Primary Care Provider Active Start: March 19, 2025 Claudia Bartlett PA, PA Attending Provider Active Start: March 19, 2025 Claudia Bartlett PA, PA Referring Provider Active Start: March 19, 2025 Team Status: Active Member Role/Relationship Status Dates Dr. Juan J Rubalcava MD Primary Care Provider Active Start: March 19, 2025 Dr. Brice Gutierrez MD Attending Provider Active S tart: March 19, 2025 Team Status: Active Member Role/Relationship Status Dates Dr. Juan J Rubalcava MD Primary Care Provider Active Start: March 19, 2025 Dr. Yves Ash MD Attending Provider Active S tart: March 19, 2025 Team Status: Inactive Member Role/Relationship Status Dates Dr. Juan J Rubalcava MD Primary Care Provider Active Start: March 19, 2025 End: March 19, 2025 Claudia Bartlett PA, PA Attending Provider Active Start: March 19, 2025 End: March 19, 2025 Claudia Bartlett PA, PA Referring Provider Active Start: March 19, 2025 End: March 19, 2025 Team Status: Active Member Role/Relationship Status Dates Dr. Juan J Rubalcava MD Primary care physician Activ e Team Status: Inactive Member Role/Relationship Status Dates Dr. Juan J Rubalcava MD Primary care physician Activ e Start: February 24, 2025 End: February 24, 2025 Dr. Juan J Rubalcava MD Referring Provider Active Start: February 24, 2025 End: February 24, 2025 Claudia Bartlett PA, PA Attending physician Active Start: February 24, 2025 End: February 24, 2025 Team Status: Inactive Member Role/Relationship Status Dates Dr. Juan J Rubalcava MD Primary care physician Activ e Start: March 19, 2025 End: March 19, 2025 Claudia Bartlett PA, PA Attending physician Active Start: March 19, 2025 End: March 19, 2025 Claudia Bartlett PA, PA Referring Provider Active Start: March 19, 2025 End: March 19, 2025 Team Status: Inactive Member Role/Relationship Status Dates Dr. Juan J Rubalcava MD Primary care physician Activ e Start: March 19, 2025 End: March 19, 2025 Claudia Bartlett PA, PA Attending physician Active Start: March 19, 2025 End: March 19, 2025 Claudia Bartlett PA, PA Referring Provider Active Start: March 19, 2025 End: March 19, 2025 Team Status: Active Member Role/Relationship Status Dates Dr. Juan J Rubalcava MD Primary care physician Activ e Start: March 19, 2025 Dr. Brice Gutierrez MD Attending physician Active Start: March 19, 2025 Team Status: Active Member Role/Relationship Status Dates Dr. Juan J Rubalcava MD Primary care physician Activ e Start: March 19, 2025 Dr. Yves Ash MD Attending physician Active Start: March 19, 2025 Claudia Bartlett PA, PA Referring Provider Active Start: March 19, 2025 Team Status: Inactive Member Role/Relationship Status Dates Dr. Juan J Rubalcava MD Primary care physician Activ e Start: April 22, 2025 End: April 22, 2025 Dr. Juan J Rubalcava MD Referring Provider Active Start: April 22, 2025 End: April 22, 2025 Claudia Bartlett PA, PA Attending physician Active Start: April 22, 2025 End: April 22, 2025 Goals (unrecognized section and content) Goals may be documented in a n alternate section FOR RECORDS PERTAINING TO PATIENTS WHO ARE OR HAVE BEEN ENROLLED IN A CHEMICAL DEPENDENCY/SUBSTANCEABUSE PROGRAM, SOME INFORMATION MAY BE OMITTED. This clinical summary was aggregated from multiple sources. Caution should be exercised in using it in the provision of clinical care. This summary normalizes information from multiple sources, and as a consequence, information in this document may materially change the coding, format and clinical context of patient data. In addition, data may be omitted in some cases. CLINICAL DECISIONS SHOULD BE BASED ON THE PRIMARY CLINICAL RECORDS. [facility] [employer] [facility]. provides no warranty or guarantee of the accuracy or completeness of information in this document.
[2025-05-10 18:34] VITALS: BP 123/76; PULSE 65; RESP 13; O2SAT 97
[2025-05-10 18:38] LABS: Hematocrit 37.9 % (40-54); Hemoglobin 12.5 g/dL (13.0-16.5); Immature Granulocytes Count 0.050 X10^3/uL (0.0-0.0); Mean Corp Hgb Conc 33.0 g/dL (32-36); Mean Corpuscular Volume 82.6 fL (80-94); Mean Platelet Vol. 8.9 fl (6.2-12.0); NRBC Flagged by Analyzer 0 % (0-5); Platelet Count 314 K/mm3 (150-450); RBC Distribution Width CV 13.3 % (11.6-14.6); RBC Distribution Width SD 40.1 fl (35.1-43.9); Red Blood Count 4.59 M/mm3 (4.6-6.2); White Blood Count 7.6 K/mm3 (4.4-11.0)
[2025-05-10 19:00] VITALS: BP 129/71; PULSE 61; RESP 14; O2SAT 98
[2025-05-10 19:15] LABS: Anion Gap 14 (5-15); BUN 19 mg/dL (4-19); BUN/Creat Ratio 23.7 RATIO (10-20); Calcium,Total 9.5 mg/dL (7.6-11.0); Carbon Dioxide 21.5 mmol/L (21.0-32.0); Chloride 98 mmol/L (98-108); Estimated Creatinine Clearance 100.52 ml/min (50-250); Glucose 109 mg/dL (70-99); Potassium 3.6 mmol/L (3.3-5.1); Troponin T High Sensitivity 10 ng/L (<=22)
[2025-05-10] MEDS: Lidocaine 2% Viscous15 ML UDC 15 ML PO (19:40)
[2025-05-10 20:00] VITALS: BP 136/77; PULSE 61; RESP 13; O2SAT 96
[2025-05-10 20:25] LABS: Troponin T High Sens 2 HR 13 ng/L (<=22)
[2025-05-10 21:00] VITALS: BP 128/71; PULSE 66; RESP 17; O2SAT 96
[2025-05-10 21:33] VITALS: BP 139/68; PULSE 60; RESP 18; TEMP 36.6; O2SAT 100
== END 2025-05-10 21:34 | disposition home or self-care (01) ==
PROVIDERS: Emergency Provider Emergency Medicine; PCP Internal Medicine; Visit Provider Emergency Medicine
DX: R07.9 Chest pain, unspecified (principal); E11.9 Type 2 diabetes mellitus without complications; Z87.891 Personal history of nicotine dependence; Z95.5 Presence of coronary angioplasty implant and graft; I10 Essential (primary) hypertension; I25.10 Atherosclerotic heart disease of native coronary artery without angina pectoris; K21.9 Gastro-esophageal reflux disease without esophagitis; Z79.02 Long term (current) use of antithrombotics/antiplatelets; Z79.899 Other long term (current) drug therapy; Z79.82 Long term (current) use of aspirin
CPT/HCPCS: 70450; 71046; 80048; 84484; 85025; 93005; 99285; A4216